=== PATIENT | male | born 1950 | race Caucasian/White ===

== ENCOUNTER → 2016-11-30 | Outpatient (CLI) | payer MEDICARE ==
[~2016-11-30] MED LIST: REGADENOSON 0.4 MG/5 ML SYRINGE IV ONE
[2016-11-30 10:19] LABS: Basophils % (A) 0 %; CH 31.9; CHCM 33.6; Eosinophils # (A) 0.1 k/uL (0-0.7); Eosinophils % (A) 2 %; HCT 46.2 % (39.0-53.0); HDW 2.62; HGB 15.3 gm/dL (13.0-17.5); Luc # (Auto) 0.14; Luc % (Auto) 2; Lymphocytes # (A) 1.2 k/uL (1.0-4.8); Lymphocytes % (A) 20 %; MCH 31.6 pg (25.0-35.0); MCHC 33.2 g/dL (31.0-37.0); MCV 95.3 fL (80.0-100.0); Mean Platelet Volume 7.8; Monocytes # (A) 0.3 k/uL (0-1.0); Monocytes % (A) 5 %; Neutrophils # (A) 4.5 k/uL (1.3-7.7); Neutrophils % (A) 71 %; RBC 4.85 m/uL (4.30-5.90); WBC 6.3 k/uL (3.8-10.6); WBC (Perox) 6.18
[2016-11-30 11:06] LABS: ALT 44 U/L (21-72); AST 51 U/L (17-59); Alkaline Phosphatase 64 U/L (38-126); Anion Gap 13 mmol/L; Blood Urea Nitrogen 19 mg/dL (9-20); Calcium 9.5 mg/dL (8.4-10.2); Carbon Dioxide 24 mmol/L (22-30); Chloride 105 mmol/L (98-107); Cholesterol 150 mg/dL (<200); Glucose 253 mg/dL (74-99); HDL Cholesterol 54 mg/dL (40-60); Non-African American GFR(MDRD) >60 (>60 ml/min/1.73 sqM); Potassium 3.9 mmol/L (3.5-5.1); Sodium 142 mmol/L (137-145); Total Bilirubin 0.8 mg/dL (0.2-1.3); Total Protein 7.3 g/dL (6.3-8.2); Triglycerides 253 mg/dL (<150)
[2016-11-30 11:24] LABS: Hemoglobin A1C 8.2 % (4.2-6.1)
[2016-11-30 11:36] LABS: Prostate Specific Antigen 0.57 ng/mL (0.00-4.00)
--- NOTE | 2016-11-30 12:22 | ECHOF ---
Referral Reason:I25.10 Cad MEASUREMENTS -------- HEIGHT: 182.9 cm WEIGHT: 116.1 kg BP: RVIDd: 2.8 cm (< 3.3) IVSd: 0.9 cm (0.6 - 1.1) LVIDd: 6.2 cm (3.9 - 5.3) LVPWd: 1.6 cm (0.6 - 1.1) IVSs: 0.9 cm LVIDs: 6.1 cm LVPWs: 1.4 cm LA Diam: 3.9 cm (2.7 - 3.8) Ao Diam: 3.8 cm (2.0 - 3.7) AV Cusp: 2.1 cm (1.5 - 2.6) LA Diam: 4.6 cm (2.7 - 3.8) MV E Christopher: 0.34 m/s MV DecT: 181 ms MV A Christopher: 0.86 m/s MV E/A Ratio: 0.39 RAP: 5.00 mmHg RVSP: 9.23 mmHg FINDINGS -------- Sinus rhythm. Morbid Obesity This was a techncally difficult study with suboptimal views, , Definity utilized for enhancement of images. The left ventricle is moderately dilated. Left ventricular wall thickness is normal. There is severe global hypokinesis of LV . Overall left ventricular systolic function is severely impaired with, an EF between 25 - 30 %. The diastolic filling pattern is normal for the age of the patient 8.09. The right ventricle is normal in size. The left atrium is moderately dilated. The right atrial size is normal. 1.5MG OF DEFINITY UTLIZED: 2 OR MORE WALL SEGMENTS NOT VISUALIZED. There is mild aortic valve sclerosis. There is no evidence of aortic regurgitation. Mild mitral annular calcification present. Mild mitral regurgitation is present. Mild tricuspid regurgitation present. There is no evidence of pulmonary hypertension. The right ventricular systolic pressure, as measured by Doppler, is 9.23mmHg. The pulmonic valve was not well visualized. There is no pericardial effusion. CONCLUSIONS -------- 1. Morbid Obesity 2. There is mild aortic valve sclerosis. 3. Mild mitral annular calcification present. 4. Mild mitral regurgitation is present. 5. Mild tricuspid regurgitation present. 6. There is no evidence of pulmonary hypertension. 7. The right ventricular systolic pressure, as measured by Doppler, is 9.23mmHg. 8. The pulmonic valve was not well visualized. 9. This was a techncally difficult study with suboptimal views, , Definity utilized for enhancement of images. 10. The left ventricle is moderately dilated. 11. Left ventricular wall thickness is normal. 12. There is severe global hypokinesis of LV . 13. Overall left ventricular systolic function is severely impaired with, an EF between 25 - 30 %. 14. The diastolic filling pattern is normal for the age of the patient 8.09 15. The left atrium is moderately dilated. 16. 1.5MG OF DEFINITY UTLIZED: 2 OR MORE WALL SEGMENTS NOT VISUALIZED. DIRECTOR OF MARKETING ANALYTICS: Brandy Nunez RDCS
--- NOTE | 2016-11-30 12:30 | XR ---
EXAMINATION TYPE: XR chest 2V DATE OF EXAM: 11/30/2016 9:59 AM COMPARISON: Prior chest x-ray 24 December 2012 HISTORY: Coronary artery disease, chest pain TECHNIQUE: Frontal and lateral views of the chest are obtained. FINDINGS: There is no focal air space opacity, pleural effusion, or pneumothorax seen. The cardiac silhouette size is within normal limits. The osseous structures are intact. IMPRESSION: No acute cardiopulmonary process.
--- NOTE | 2016-11-30 12:32 | EST ---
DATE OF SERVICE: 11/30/2016 AGE: 66Y SEX: M HT: 72" WT: 256 lbs. Protocol Fuad: Other: Stage: Dur. of Exercise: *Heart Rate Blood Pressure *Rest: 87 Rest: 135/72 * *Max. Achieved: 101 Maximum BP: 131/69 85% PMHR: 100% PMHR: *METS: INDICATIONS: MEDICATIONS: See chart. Lexiscan nuclear study was performed. Peak heart rate of 101 was achieved. Maximum blood pressure of 135/72 millimeters mercury was noted. Resting EKG shows normal sinus rhythm with a QRS morphology showing evidence of intraventricular conduction delay. No ST segment changes from the baseline was noted. The results of the nuclear study will follow.
--- NOTE | 2016-11-30 14:35 | NM ---
EXAMINATION TYPE: NM stress lexiscan cardiolite DATE OF EXAM: 11/30/2016 12:36 PM COMPARISON: Chest x-ray same day HISTORY: Coronary artery disease TECHNIQUE: After the intravenous administration of 10.4 mCi Tc 99m Sestamibi - Cardiolite resting SP ECT images acquired 59 minutes post injection. The patient received 0.4mg Lexiscan, 26.5 mCi Tc 99m Sestamibi - Stress images obtained [address] injection FINDINGS: Decreased radiopharmaceutical uptake is present on both stress and rest imaging along the anterior wa ll of the left ventricle, inferior wall, extending into the lateral and septal regions. Gated analysi s shows diffuse decreased wall motion with an estimated left ventricular ejection fraction of 22 %. IMPRESSION: Abnormal low cardiac ejection fraction, evidence of previous infarctions involving the a nterior and inferior hendricks of the left ventricle No scintigraphic evidence for reversible ischemia.
== END | disposition home or self-care (01) ==
LOC: RADNMMAIN 09:16
PROVIDERS: ATTEND Family Medicine
DX: I25.10 Atherosclerotic heart disease of native coronary artery without angina pectoris (principal); J44.0 Chronic obstructive pulmonary disease with (acute) lower respiratory infection; E11.9 Type 2 diabetes mellitus without complications
CPT/HCPCS: 93017; 84439; 84153; 83880; 80061; 80053; 83036; 84443; 84484; 85025; 71020; 36415; 78452; C8929; A9500; Q9957; J2785; 93306

== ENCOUNTER → 2016-12-28 | Outpatient (CLI) | payer MEDICARE ==
--- NOTE | 2016-12-29 13:11 | NM ---
EXAMINATION TYPE: NM rest muga cardiac DATE OF EXAM: 12/28/2016 2:57 PM COMPARISON: Myocardial SPECT November HISTORY: Dilated ischemic cardiomyopathy Following administration of 3ml PYP 27.3 mCi Tc 99m Sodium Pertechnete. Images 10 minutes post inject ion. Gated equilibrium images were acquired in the anterior and left anterior oblique (BRAZILIAN) projections. Computer estimated left ventricular ejection fraction (LVEF) was calculated from the total counts in the end-systolic and end-diastolic left ventricular regions with background correction. FINDINGS: Morphology of the left ventricle is grossly normal with left ventricular ejection fraction calculated at 29% (Normal 50-80%). There is no focal wall motion abnormality. Left ventricle is dilated. IMPRESSION: Abnormal low cardiac ejection fraction. Findings compatible with patient's history of dilated ischemi c cardiomyopathy
== END ==
LOC: RADNMMAIN 12:51
PROVIDERS: ATTEND Internal Medicine Cardiovascular Disease
DX: I25.5 Ischemic cardiomyopathy (principal); I25.10 Atherosclerotic heart disease of native coronary artery without angina pectoris
CPT/HCPCS: 78472; A9560

== ENCOUNTER → 2017-01-21 | Outpatient (CLI) | payer MEDICARE ==
--- NOTE | 2017-01-21 19:37 | CT ---
EXAMINATION TYPE: CT angio abdomen pelvis DATE OF EXAM: 01/21/2017 7:03 PM COMPARISON: 01/07/2016 HISTORY: iliac artery anerysum CT DLP: 2690.9 mGycm Automated exposure control for dose reduction was used. TECHNIQUE: Performed with IV Contrast, patient injected with 80 mL of Visipaque 320. There are 3-D post processed images.. FINDINGS: The abdominal aorta has normal diameter. There is no evidence of aneurysm. There is mild atheromatous change in the abdominal aorta. There is mild subsegmental atelectasis at the lung bases. There is no pleural effusion. There is no adrenal mass. There is normal contrast opacification of the kidneys spleen liver. There a re clips from cholecystectomy. Bile ducts are not dilated. There is patency of the superior mesenteric artery and the celiac artery. There is bilateral patency of the renal arteries. I see no sign of hemodynamically significant stenosis. There is 1.8 cm aneurys m of the proximal right common iliac artery. There is patency of the internal and external iliac suzanne clinton. Bladder distends smoothly. There is no evidence of a pelvic mass. There is bilateral patency of the femoral arteries. IMPRESSION: THERE IS A MILD FUSIFORM 1.8 CM ANEURYSM OF THE RIGHT COMMON ILIAC ARTERY THAT IS NOT CHANGED COMPARE D TO OLD EXAM. MILD ATHEROSCLEROTIC VASCULAR DISEASE.
== END | disposition home or self-care (01) ==
LOC: RADCTMAIN 17:41
PROVIDERS: ATTEND Thoracic Surgery (Cardiothoracic Vascular Surgery)
DX: I72.3 Aneurysm of iliac artery (principal); I25.10 Atherosclerotic heart disease of native coronary artery without angina pectoris
CPT/HCPCS: 82565; 84520; 36415; 74174; Q9967

== ENCOUNTER → 2017-01-29 | Outpatient (CLI) | payer MEDICARE ==
[2017-01-29 12:58] LABS: Calcium 9.8 mg/dL (8.4-10.2); Potassium 4.2 mmol/L (3.5-5.1)
== END | disposition home or self-care (01) ==
LOC: LABWHC1 12:13
PROVIDERS: ATTEND Internal Medicine Cardiovascular Disease
DX: I25.10 Atherosclerotic heart disease of native coronary artery without angina pectoris (principal)
CPT/HCPCS: 36415; 80048

== ENCOUNTER → 2017-04-21 | Outpatient (CLI) | payer MEDICARE ==
[2017-04-21 11:20] LABS: Anion Gap 13 mmol/L; Blood Urea Nitrogen 21 mg/dL (9-20); Calcium 9.4 mg/dL (8.4-10.2); Carbon Dioxide 22 mmol/L (22-30); Chloride 104 mmol/L (98-107); Glucose 320 mg/dL (74-99); Magnesium 1.9 mg/dL (1.6-2.3); Non-African American GFR(MDRD) 55 (>60 ml/min/1.73 sqM); Phosphorous 3.3 mg/dL (2.5-4.5); Potassium 4.3 mmol/L (3.5-5.1); Sodium 139 mmol/L (137-145)
== END | disposition home or self-care (01) ==
LOC: LABWHC1 10:37
PROVIDERS: ATTEND Internal Medicine Cardiovascular Disease
DX: I25.5 Ischemic cardiomyopathy (principal)
CPT/HCPCS: 36415; 80069; 83735

== ENCOUNTER 2017-05-22 10:03 | Emergency (ER) | payer MEDICARE ==
[2017-05-22 10:13] VITALS: RESP 18
--- NOTE | 2017-05-22 10:37 | ED ---
General Adult HPI - General Chief complaint: Chest Pain Stated complaint: chest pain radiating to back Time Seen by Provider: 05/22/17 10:15 Source: patient, RN notes reviewed, old records reviewed Mode of arrival: wheelchair Limitations: no limitations - History of Present Illness Initial comments: This is a 59-year-old male here with epigastric abdominal pain chest pain. Patient has fullness and pressure in his anterior abdomen. Patient has history of CAD heart failure diabetes high cholesterol hypertension. Patient states symptoms started just prior to arrival. No nausea normal bowel movements. No fevers. No cough or congestion. No significant shortness of breath. No modifying factors for symptoms. Patient was able to eat today without difficulty - Related Data Home Medications Medication Instructions Recorded Confirmed Albuterol Inhaler [Ventolin Hfa 1 - 2 puff INHALATION RT-QID PRN 05/22/17 Inhaler] Aspirin EC [Ecotrin Low Dose] 81 mg PO HS 05/22/17 05/22/17 Atorvastatin [Lipitor] 40 mg PO HS 05/22/17 05/22/17 Budesonide [Pulmicort] 0.5 mg INHALATION RT-BID 05/22/17 05/22/17 Cholecalciferol [Vitamin D3] 5,000 unit PO DAILY 05/22/17 05/22/17 Clindamycin Topical Soln 1 applic TOPICAL BID PRN 05/22/17 05/22/17 [Cleocin-T Topical Soln] Clopidogrel [Plavix] 75 mg PO QAM 05/22/17 05/22/17 Doxazosin [Cardura] 4 mg PO HS 05/22/17 05/22/17 Famotidine [Pepcid] 40 mg PO QAM 05/22/17 05/22/17 Fenofibrate [Lofibra] 160 mg PO HS 05/22/17 05/22/17 Fluticasone/Salmeterol [Advair 1 puff INHALATION RT-BID 05/22/17 05/22/17 500-50 Diskus] Formoterol Fumarate [Perforomist] 20 mcg INHALATION RT-BID 05/22/17 05/22/17 Furosemide [Lasix] 40 mg PO QAM 05/22/17 05/22/17 Insulin Aspart [NovoLOG Flexpen] See Protocol SQ ACHS 05/22/17 05/22/17 Insulin Glargine,Hum.rec.anlog 40 unit SQ QAM 05/22/17 05/22/17 [Lantus Solostar] Ipratropium-Albuterol Nebulize 3 ml INHALATION RT-QID 05/22/17 05/22/17 [Duoneb 0.5 mg-3 mg/3 ml Soln] Isosorbide Mononitrate ER [Imdur] 60 mg PO QAM 05/22/17 05/22/17 Isosorbide Mononitrate ER [Imdur] 120 mg PO 05/22/17 05/22/17 Krill Oil 500 mg PO QAM 05/22/17 05/22/17 Lisinopril [Zestril] 2.5 mg PO QAM 05/22/17 05/22/17 Loratadine [Claritin] 10 mg PO QAM 05/22/17 05/22/17 Metolazone [Zaroxolyn] 2.5 mg PO QAM 05/22/17 05/22/17 Metoprolol Succinate (ER) [Toprol 50 mg PO 05/22/17 05/22/17 Xl] Metoprolol Succinate [Toprol XL] 25 mg PO QAM 05/22/17 05/22/17 Montelukast [Singulair] 10 mg PO 05/22/17 05/22/17 Multivitamins, Thera [Multivitamin 1 tab PO 05/22/17 05/22/17 (formulary)] Nitroglycerin Sl Tabs [Nitrostat] 0.4 mg SUBLINGUAL Q5M PRN 05/22/17 05/22/17 Omalizumab [Xolair] 300 mg SQ Q14D 05/22/17 05/22/17 Omeprazole 40 mg PO 05/22/17 05/22/17 Potassium Chloride ER [K-Dur 20] 20 meq PO QAM 05/22/17 05/22/17 Ranolazine [Ranexa] 500 mg PO BID 05/22/17 05/22/17 traMADol HCL [Ultram] 50 mg PO QAM 05/22/17 05/22/17 traMADol HCL [Ultram] 100 mg PO 05/22/17 05/22/17 Allergies Allergy/AdvReac Type Severity Reaction Status Date / Time carvedilol [From Coreg] Allergy Rash/Hives Verified 05/22/17 11:51 metformin AdvReac Diarrhea Verified 05/22/17 11:51 Review of Systems ROS Statement: Those systems with pertinent positive or pertinent negative responses have been documented in the HPI. ROS Other: All systems not noted in ROS Statement are negative. Past Medical History Past Medical History: Coronary Artery Disease (CAD), Heart Failure, COPD, Diabetes Mellitus, Hyperlipidemia, Myocardial Infarction ([place]) Additional Past Medical History / Comment(s): defibrilator bph History of Any Multi-Drug Resistant Organisms: None Reported Past Surgical History: Cholecystectomy, Heart Catheterization With Stent Past Psychological History: No Psychological Hx Reported Smoking Status: Former smoker Past Alcohol Use History: Rare Past Drug Use History: None Reported General Exam Limitations: no limitations General appearance: alert, in no apparent distress Head exam: Present: atraumatic, normocephalic, normal inspection Eye exam: Present: normal appearance, PERRL, EOMI. Absent: scleral icterus, conjunctival injection, periorbital swelling ENT exam: Present: normal exam, mucous membranes moist Neck exam: Present: normal inspection. Absent: tenderness, meningismus, lymphadenopathy Respiratory exam: Present: normal lung sounds bilaterally. Absent: respiratory distress, wheezes, rales, rhonchi, stridor Cardiovascular Exam: Present: regular rate, normal rhythm, normal heart sounds. Absent: systolic murmur, diastolic murmur, rubs, gallop, clicks GI/Abdominal exam: Present: soft, normal bowel sounds. Absent: distended, tenderness, guarding, rebound, rigid Extremities exam: Present: normal inspection, full ROM, normal capillary refill. Absent: tenderness, pedal edema, joint swelling, calf tenderness Back exam: Present: normal inspection Neurological exam: Present: alert, oriented X3, CN II-XII intact Psychiatric exam: Present: normal affect, normal mood Skin exam: Present: warm, dry, intact, normal color. Absent: rash Course Vital Signs 05/22/17 05/22/17 10:10 11:30 Temperature 98.4 F Pulse Rate 76 70 Respiratory 18 18 Rate Blood Pressure 133/71 103/64 O2 Sat by Pulse 98 97 Oximetry EKG Findings - EKG Comments: EKG Findings:: EKG shows paced rhythm rate of 76, MN 134, QRS 04, QTC 445 Medical Decision Making - Medical Decision Making 6 emailed ER for evaluation of nonspecific abdominal discomfort and bloating. Patient would not stay in hospital for further evaluation, troponin negative 2 , CT chest and pelvis negative. Patient was discharged - Lab Data Result diagrams: 05/22/17 10:21 05/22/17 10:21 Lab Results 05/22/17 05/22/17 05/22/17 Range/Units 10:21 10:21 10:21 WBC 10.2 (3.8-10.6) k/uL RBC 4.31 (4.30-5.90) m/uL Hgb 14.6 (13.0-17.5) gm/dL Hct 42.7 (39.0-53.0) % MCV 98.9 (80.0-100.0) fL MCH 33.8 (25.0-35.0) pg MCHC 34.1 (31.0-37.0) g/dL RDW 13.1 (11.5-15.5) % Plt Count 179 (150-450) k/uL Neutrophils % 82 % Lymphocytes % 9 % Monocytes % 7 % Eosinophils % 1 % Basophils % 1 % Neutrophils # 8.3 H (1.3-7.7) k/uL Lymphocytes # 1.0 (1.0-4.8) k/uL Monocytes # 0.7 (0-1.0) k/uL Eosinophils # 0.1 (0-0.7) k/uL Basophils # 0.1 (0-0.2) k/uL PT (9.0-12.0) sec INR (<1.2) APTT (22.0-30.0) sec D-Dimer (<0.60) mg/L FEU Sodium 137 (137-145) mmol/L Potassium 4.6 (3.5-5.1) mmol/L Chloride 103 (98-107) mmol/L Carbon Dioxide 24 (22-30) mmol/L Anion Gap 10 mmol/L BUN 30 H (9-20) mg/dL Creatinine 1.24 (0.66-1.25) mg/dL Est GFR (MDRD) Af Amer >60 (>60 ml/min/1.73 sqM) Est GFR (MDRD) Non-Af 58 (>60 ml/min/1.73 sqM) Glucose 237 H (74-99) mg/dL Plasma Lactic Acid José Antonio (0.7-2.0) mmol/L Calcium 9.0 (8.4-10.2) mg/dL Magnesium 1.9 (1.6-2.3) mg/dL Total Bilirubin 0.6 (0.2-1.3) mg/dL AST 27 (17-59) U/L ALT 38 (21-72) U/L Alkaline Phosphatase 50 (38-126) U/L Total Creatine Kinase 81 (55-170) U/L CK-MB (CK-2) 1.3 (0.0-2.4) ng/mL CK-MB (CK-2) Rel Index 1.6 Troponin I <0.012 (0.000-0.034) ng/mL Total Protein 6.4 (6.3-8.2) g/dL Albumin 3.5 (3.5-5.0) g/dL Lipase 217 (23-300) U/L 05/22/17 05/22/17 05/22/17 Range/Units 10:21 10:21 10:55 WBC (3.8-10.6) k/uL RBC (4.30-5.90) m/uL Hgb (13.0-17.5) gm/dL Hct (39.0-53.0) % MCV (80.0-100.0) fL MCH (25.0-35.0) pg MCHC (31.0-37.0) g/dL RDW (11.5-15.5) % Plt Count (150-450) k/uL Neutrophils % % Lymphocytes % % Monocytes % % Eosinophils % % Basophils % % Neutrophils # (1.3-7.7) k/uL Lymphocytes # (1.0-4.8) k/uL Monocytes # (0-1.0) k/uL Eosinophils # (0-0.7) k/uL Basophils # (0-0.2) k/uL PT 10.9 (9.0-12.0) sec INR 1.1 (<1.2) APTT 20.1 L (22.0-30.0) sec D-Dimer 0.39 (<0.60) mg/L FEU Sodium (137-145) mmol/L Potassium (3.5-5.1) mmol/L Chloride (98-107) mmol/L Carbon Dioxide (22-30) mmol/L Anion Gap mmol/L BUN (9-20) mg/dL Creatinine (0.66-1.25) mg/dL Est GFR (MDRD) Af Amer (>60 ml/min/1.73 sqM) Est GFR (MDRD) Non-Af (>60 ml/min/1.73 sqM) Glucose (74-99) mg/dL Plasma Lactic Acid José Antonio 1.9 (0.7-2.0) mmol/L Calcium (8.4-10.2) mg/dL Magnesium (1.6-2.3) mg/dL Total Bilirubin (0.2-1.3) mg/dL AST (17-59) U/L ALT (21-72) U/L Alkaline Phosphatase (38-126) U/L Total Creatine Kinase (55-170) U/L CK-MB (CK-2) (0.0-2.4) ng/mL CK-MB (CK-2) Rel Index Troponin I (0.000-0.034) ng/mL Total Protein (6.3-8.2) g/dL Albumin (3.5-5.0) g/dL Lipase (23-300) U/L 05/22/17 Range/Units 13:41 WBC (3.8-10.6) k/uL RBC (4.30-5.90) m/uL Hgb (13.0-17.5) gm/dL Hct (39.0-53.0) % MCV (80.0-100.0) fL MCH (25.0-35.0) pg MCHC (31.0-37.0) g/dL RDW (11.5-15.5) % Plt Count (150-450) k/uL Neutrophils % % Lymphocytes % % Monocytes % % Eosinophils % % Basophils % % Neutrophils # (1.3-7.7) k/uL Lymphocytes # (1.0-4.8) k/uL Monocytes # (0-1.0) k/uL Eosinophils # (0-0.7) k/uL Basophils # (0-0.2) k/uL PT (9.0-12.0) sec INR (<1.2) APTT (22.0-30.0) sec D-Dimer (<0.60) mg/L FEU Sodium (137-145) mmol/L Potassium (3.5-5.1) mmol/L Chloride (98-107) mmol/L Carbon Dioxide (22-30) mmol/L Anion Gap mmol/L BUN (9-20) mg/dL Creatinine (0.66-1.25) mg/dL Est GFR (MDRD) Af Amer (>60 ml/min/1.73 sqM) Est GFR (MDRD) Non-Af (>60 ml/min/1.73 sqM) Glucose (74-99) mg/dL Plasma Lactic Acid José Antonio (0.7-2.0) mmol/L Calcium (8.4-10.2) mg/dL Magnesium (1.6-2.3) mg/dL Total Bilirubin (0.2-1.3) mg/dL AST (17-59) U/L ALT (21-72) U/L Alkaline Phosphatase (38-126) U/L Total Creatine Kinase (55-170) U/L CK-MB (CK-2) (0.0-2.4) ng/mL CK-MB (CK-2) Rel Index Troponin I <0.012 (0.000-0.034) ng/mL Total Protein (6.3-8.2) g/dL Albumin (3.5-5.0) g/dL Lipase (23-300) U/L - Radiology Data Radiology results: report reviewed (CT [place] chest, CT abdomen and pelvis as well as chest x-ray negative for injury or acute disease), image reviewed Disposition Clinical Impression: Chest pain Disposition: HOME SELF-CARE Condition: Good Instructions: Chest Pain (ED) Referrals: Noe Bean DO [Primary Care Provider] - 1-2 days
[2017-05-22 10:38] LABS: Basophils # (A) 0.1 k/uL (0-0.2); Basophils % (A) 1 %; CH 33.6; CHCM 34.1; Eosinophils # (A) 0.1 k/uL (0-0.7); Eosinophils % (A) 1 %; HCT 42.7 % (39.0-53.0); HDW 2.27; HGB 14.6 gm/dL (13.0-17.5); Luc # (Auto) 0.18; Luc % (Auto) 2; Lymphocytes % (A) 9 %; MCH 33.8 pg (25.0-35.0); MCHC 34.1 g/dL (31.0-37.0); MCV 98.9 fL (80.0-100.0); Mean Platelet Volume 7.5; Monocytes # (A) 0.7 k/uL (0-1.0); Monocytes % (A) 7 %; Neutrophils # (A) 8.3 k/uL (1.3-7.7); Neutrophils % (A) 82 %; RBC 4.31 m/uL (4.30-5.90); RDW 13.1 % (11.5-15.5); WBC 10.2 k/uL (3.8-10.6); WBC (Perox) 10.66
[2017-05-22] MEDS ORDERED: RX INFO: IV CONTRAST WAS GIVEN 1 EACH MISC MISCELLANE PRN (10:38)
--- NOTE | 2017-05-22 10:41 | XR ---
EXAMINATION TYPE: XR chest 2V DATE OF EXAM: 05/22/2017 COMPARISON: 11/30/2016 HISTORY: 67-year-old male with chest pain TECHNIQUE: PA and lateral views FINDINGS: Heart is mildly enlarged. Left anterior chest wall ICD generator with right atrial, right ventricular , and coronary sinus leads. Mild diffuse interstitial prominence has a chronic appearance. Some stran dy areas of atelectasis are present. No consolidation or pleural effusion. IMPRESSION: Mild cardiomegaly. Interstitial changes appear largely chronic. Correlate to exclude mild pulmonary v ascular congestion. No infiltrate or cristhian pulmonary edema.
[2017-05-22 10:47] LABS: INR 1.1 (<1.2); Prothrombin Time 10.9 sec (9.0-12.0)
[2017-05-22 10:48] LABS: ALT 38 U/L (21-72); AST 27 U/L (17-59); Alkaline Phosphatase 50 U/L (38-126); Anion Gap 10 mmol/L; Blood Urea Nitrogen 30 mg/dL (9-20); Carbon Dioxide 24 mmol/L (22-30); Chloride 103 mmol/L (98-107); Glucose 237 mg/dL (74-99); Magnesium 1.9 mg/dL (1.6-2.3); Non-African American GFR(MDRD) 58 (>60 ml/min/1.73 sqM); Potassium 4.6 mmol/L (3.5-5.1); Sodium 137 mmol/L (137-145); Total Bilirubin 0.6 mg/dL (0.2-1.3); Total Protein 6.4 g/dL (6.3-8.2)
[2017-05-22 10:53] LABS: Partial Thromboplastin Time 20.1 sec (22.0-30.0)
[2017-05-22 10:58] LABS: Creatine Kinase 81 U/L (55-170)
[2017-05-22 11:11] LABS: Creatine Kinase MB 1.3 ng/mL (0.0-2.4); Troponin I <0.012 ng/mL (0.000-0.034)
--- NOTE | 2017-05-22 12:13 | CT ---
EXAMINATION TYPE: CT angio chest DATE OF EXAM: 05/22/2017 COMPARISON: 09/28/2014 HISTORY: 67-year-old male with chest pain radiating into back TECHNIQUE: Contiguous axial scanning of the chest performed with IV Contrast, patient injected with 1 00 ml mL of Omnipaque 350. Coronal/sagittal MIP reconstructions performed. CT DLP: 1913.95 mGycm Automated exposure control for dose reduction was used. FINDINGS: The heart is borderline enlarged with trace anterior pericardial thickening/fluid. Coronary vascular calcifications are present in remarkable for coronary artery disease. Ectatic ascending aorta 3.8 cm with bovine configuration to the aortic arch. Left anterior chest wall AICD generator with right atrial, right ventricular, and coronary sinus lead s. A prominent 9 mm right tracheoesophageal lymph node axial image 10 is unchanged. No thoracic adenopat hy by CT size criteria. There is suboptimal opacification of the pulmonary arterial system limiting assessment for pulmonary embolus. No large central or lobar embolus or definite embolus to the segmental level. Evaluation of the lungs shows [id number] diffuse bronchial wall thickening. Scattered emphysema tous cysts. Mild dependent atelectasis. Some strandy atelectasis/scarring in the basilar lower lobes. No consolidation or pleural effusion. Visualized upper abdomen shows cholecystectomy clips. Bones: Mild anterior endplate spondylosis mid to lower thoracic spine. IMPRESSION: 1. SUBOPTIMAL OPACIFICATION OF THE PULMONARY ARTERIAL SYSTEM LIMITING ASSESSMENT FOR PE. NO DEFINITE PULMONARY EMBOLUS TO THE SEGMENTAL LEVEL. 2. BORDERLINE CARDIOMEGALY AND CAD. 3. [id number] DIFFUSE BRONCHIAL WALL THICKENING. CORRELATE FOR BRONCHITIS OR UNCONTROLLED ASTHM A.
--- NOTE | 2017-05-22 12:20 | CT ---
EXAMINATION TYPE: CT abdomen pelvis w con DATE OF EXAM: 05/22/2017 COMPARISON: 01/21/2017 HISTORY: 15-year-old male with chest pain radiating into back TECHNIQUE: Contiguous axial scanning of the abdomen and pelvis following administration of 100 ml Omn ipaque 300 IV contrast. Delayed images through the kidneys and coronal/sagittal reconstructions perf ormed. CT DLP: 549.34 mGycm Automated exposure control for dose reduction was used. FINDINGS: The heart is borderline enlarged with trace anterior pericardial thickening/fluid. Strandy atelectasi s/scarring at the lung bases. Liver is enlarged measuring 23.9 cm craniocaudal. No focal liver lesion seen. Some diminished attenua tion of the liver as compared to the spleen on portal venous phase suggests some degree of fatty infi ltration. Portal venous system is patent cholecystectomy clips are present. No biliary ductal dilatat ion. Adrenal glands, kidneys, spleen, pancreas show no gross abnormality. No dilated small bowel, free fluid, or free air. Scattered nonenlarged mesenteric lymph nodes are not ed. No mesenteric or retroperitoneal. Mild atherosclerotic calcifications within the abdominal aorta and iliac arteries. Stable 2.0 cm aneu rysm of the right common iliac artery, axial image 70. There is mild overall stone burden without pericolonic inflammatory change. Bladder is urine distended. Prostate gland measures 4.6 cm wide. Pelvic phleboliths are demonstrated. No abnormal fluid collection in the pelvis or pelvic lymphadenopathy seen. Bones: Mild degenerative changes of the hips. Degenerative disc disease at L5-S1 with a central disc herniation. No osseous destructive process. IMPRESSION: 1. HEPATOMEGALY (23.9 CM). SUSPECT UNDERLYING FATTY INFILTRATION. 2. STABLE 2.0 CM ANEURYSM OF THE RIGHT COMMON ILIAC ARTERY. 3. NO ACUTE INFLAMMATORY PROCESS IDENTIFIED TO EXPLAIN THE PATIENT'S SYMPTOMS.
[2017-05-22] MEDS ORDERED: ONDANSETRON 4 MG/2 ML VIAL IVP STA (12:33)
[2017-05-22] MEDS ORDERED: MAG HYDROX/AL HYDROX/SIMETH 30 ML, HYOSCYAMINE ELIXIR 10 ML, CIMETIDINE HCL 300 MG PO STA ×3 (12:33)
[2017-05-22] MEDS ORDERED: MORPHINE SULFATE 4 MG/ML SYRINGE IVP STA (12:33)
[2017-05-22 14:45] VITALS: BP 105/59; PULSE 69; TEMP 99
== END 2017-05-22 15:06 | disposition home or self-care (01) ==
LOC: EC 10:03
DX: R07.9 Chest pain, unspecified (principal); R10.13 Epigastric pain; I25.10 Atherosclerotic heart disease of native coronary artery without angina pectoris; I50.9 Heart failure, unspecified; E11.9 Type 2 diabetes mellitus without complications; E78.5 Hyperlipidemia, unspecified; I25.2 Old myocardial infarction; N40.0 Benign prostatic hyperplasia without lower urinary tract symptoms; J44.9 Chronic obstructive pulmonary disease, unspecified; Z87.891 Personal history of nicotine dependence; Z90.49 Acquired absence of other specified parts of digestive tract; Z88.8 Allergy status to other drugs, medicaments and biological substances; Z79.4 Long term (current) use of insulin; Z95.5 Presence of coronary angioplasty implant and graft; Z79.82 Long term (current) use of aspirin; Z79.51 Long term (current) use of inhaled steroids; Z79.02 Long term (current) use of antithrombotics/antiplatelets; Z79.899 Other long term (current) drug therapy
CPT/HCPCS: 36415; 93005; 85379; 80053; 82550; 82553; 83605; 83690; 83735; 84484; 85025; 85610; 85730; 71020; 71275; 74177; 99285; 96374; 96375; J2270; Q9967; J2405

== ENCOUNTER → 2018-01-27 | Outpatient (CLI) | payer MEDICARE ==
--- NOTE | 2018-01-27 16:16 | CT ---
EXAMINATION TYPE: CT abdomen pelvis wo con DATE OF EXAM: 01/27/2018 COMPARISON: NONE INDICATION: No complaints at time of scan. Follow up aneurysm per patient. DLP: 1378.3 mGycm, Automated exposure control for dose reduction was used. CONTRAST: 0 mL of Isovue 370. Study performed without Oral Contrast TECHNIQUE: Axial images were obtained from above the diaphragm to the pubic rami in the axial plane a t 5 mm thick sections. Reconstructed images are reviewed on the computer in the coronal plane. FINDINGS: Limited CT sections are obtained the lung bases. There is a 0.5 cm nodule within the periphery of th e right lung. This may have been out of the [id number] from the previous exam. Left basilar infilt rate which may be compressive atelectasis is present. Coronary artery calcification is present.. CT ABDOMEN: Liver: Normal Spleen: Normal Pancreas: Normal Adrenal glands: The adrenal glands are normal. Gallbladder: Surgically absent Kidneys: No masses are evident. No hydronephrosis is present. No cysts are present. No renal stone s are identified. Aorta: Vascular calcification is within the aorta. Greatest AP diameter is in the mid abdominal aort a with an AP diameter of 2.2 cm. No aneurysmal dilatation is evident. Inferior vena cava: Normal. CT PELVIS: Loops of bowel within the abdomen and pelvis are normal. This study is performed without oral con trast limiting the evaluation. Appendix: Not visualized. No suspicious inflammatory changes are evident. Urinary bladder: Normal. Genitourinary structures: Prostate contains calcification and is mildly prominent. Osseous structures: No suspicious lytic or sclerotic lesions. IMPRESSIONS: 1. No abdominal aortic aneurysm. Very minimal fusiform prominence of the greatest AP diameter of 2.2 cm is observed. 2. 0.5 cm nodular density peripherally right lung.
== END ==
LOC: RADCTMAIN 12:45
PROVIDERS: ATTEND Thoracic Surgery (Cardiothoracic Vascular Surgery)
DX: I72.3 Aneurysm of iliac artery (principal); R91.1 Solitary pulmonary nodule
CPT/HCPCS: 74176

== ENCOUNTER → 2018-02-02 | Outpatient (CLI) | payer MEDICARE ==
[2018-02-02 15:58] LABS: Calcium 9.5 mg/dL (8.4-10.2); Potassium 4.6 mmol/L (3.5-5.1)
== END | disposition home or self-care (01) ==
LOC: LABWHC1 15:18
PROVIDERS: ATTEND Internal Medicine Cardiovascular Disease
DX: I25.10 Atherosclerotic heart disease of native coronary artery without angina pectoris (principal); E78.5 Hyperlipidemia, unspecified
CPT/HCPCS: 36415; 80048; 80061; 82550; 84450; 84460

== ENCOUNTER → 2018-02-28 | Outpatient (CLI) | payer MEDICARE ==
--- NOTE | 2018-02-28 15:00 | CT ---
EXAMINATION TYPE: CT chest wo con DATE OF EXAM: 02/28/2018 COMPARISON: 05/22/2017 HISTORY: Per patient nodule found on prior scan CT DLP: [address] of the chest was performed with lung and mediastinal window settings submitted. The la ck of contrast limits evaluation of the vascular, mediastinal and parenchymal structures including th e upper abdomen. LUNGS: 2 mm nodule superior segment right lower lobe. No additional nodules identified. No evidence f or infiltrate or mass. No pleural effusion. MEDIASTINUM/JEANNIE: Thoracic aorta is of normal caliber with limited evaluation given lack of contrast . The heart is not enlarged. Cardiac valvular prosthesis and pacer device in place. Coronary artery calcifications. No evidence for mediastinal mass. No lymph nodes greater than 1cm. UPPER ABDOMEN: No significant abnormality is seen. OTHER: No significant other abnormality. IMPRESSION: 1. 2 mm nodule superior segment right lower lobe. No additional nodules identified.
== END | disposition home or self-care (01) ==
LOC: RADCTMAIN 14:09
PROVIDERS: ATTEND Internal Medicine Pulmonary Disease
DX: R91.1 Solitary pulmonary nodule (principal)
CPT/HCPCS: 71250

== ENCOUNTER → 2018-05-13 | Outpatient (CLI) | payer MEDICARE ==
--- NOTE | 2018-05-13 12:28 | NM ---
EXAMINATION TYPE: NM stress lexiscan cardiolite DATE OF EXAM: 05/13/2018 COMPARISON: MUGA exam 12/28/2016, cardiac exam 11/30/2016 HISTORY: TECHNIQUE: After the intravenous administration of 9.6 mCi Tc 99m Sestamibi - Cardiolite resting SPE CT images acquired 45 minutes post injection. The patient received 0.4mg Lexiscan, 25.8 mCi Tc 99m Sestamibi - Stress images obtained [address] injection FINDINGS: Review of stress and rest SPECT images demonstrates fixed defects involving the anterior, septum, and inferior hendricks.. Gated analysis shows an estimated left ventricular ejection fraction of 42 %. IMPRESSION: 1. Abnormal wall motion and ejection fraction with predominantly fixed defects involving the anterior , apical, inferior and septal hendricks. Tiny areas of stress-induced reversibility involving the anterio r and apical segment not entirely excluded correlate clinically.
--- NOTE | 2018-05-13 12:38 | ECHOF ---
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 This was a technically difficult study with suboptimal views. The left ventricular size is normal. There is moderate concentric left ventricular hypertrophy. O verall left ventricular systolic function is mild-moderately impaired with, an EF between 40 - 45 %. Apical lateral LV wall motion is hypokinetic. Apical inferior LV wall motion is hypokinetic. Apical septum LV wall motion is hypokinetic. The right ventricle is normal in size. Normal LA size by volume 22+/-6 ml/m2. The right atrium is normal in size. 3 ml of Lumason was utilized for enhancement of images. There is mild aortic valve sclerosis. Mild mitral annular calcification present. Mild tricuspid regurgitation present. Right ventricular systolic pressure is normal at < 35 mmHg. There is no pulmonic regurgitation present. The aortic root is dilated measuring 3.9cm. Normal inferior vena cava with normal inspiratory collapse consistent with estimated right atrial pre ssure of 5 mmHg. There is no pericardial effusion. CONCLUSIONS -------- 1. Sinus rhythm. 2. This was a technically difficult study with suboptimal views. 3. The left ventricular size is normal. 4. There is moderate concentric left ventricular hypertrophy. 5. Overall left ventricular systolic function is mild-moderately impaired with, an EF between 40 - 45 %. 6. Apical lateral LV wall motion is hypokinetic. 7. Apical inferior LV wall motion is hypokinetic. 8. Apical septum LV wall motion is hypokinetic. 9. The right ventricle is normal in size. 10. Normal LA size by volume 22+/-6 ml/m2. 11. The right atrium is normal in size. 12. 3 ml of Lumason was utilized for enhancement of images. 13. There is mild aortic valve sclerosis. 14. Mild mitral annular calcification present. 15. Mild tricuspid regurgitation present. 16. Right ventricular systolic pressure is normal at < 35 mmHg. 17. There is no pulmonic regurgitation present. 18. The aortic root is dilated measuring 3.9cm. 19. Normal inferior vena cava with normal inspiratory collapse consistent with estimated right atrial pressure of 5 mmHg. 20. There is no pericardial effusion. LITHOGRAPHIC GENERAL WORKER: Cari Kirkland RDCS
--- NOTE | 2018-05-13 12:47 | EST ---
EXERCISE STRESS AGE: 68 SEX: M HT: 72" WT: 248 PROTOCOL: Lexiscan Cardiolite Stress Test HEART RATE REST: 80 BLOOD PRESSURE REST: 121/78 MAXIMUM HEART RATE ACHIEVED: 97. MAXIMUM BLOOD PRESSURE: 153/102 85% MPHR: 128 100% MPHR: 151 INDICATIONS: Dilated cardiomyopathy. CLINICAL INFORMATION: Baseline EKG shows sinus rhythm with right bundle branch block. Patient was given intravenous Lexiscan as per protocol. Did not have chest pain or diagnostic ST-segment depression. CONCLUSION: 1. Inconclusive EKG part of the stress test due to baseline EKG abnormalities. 2. Cardiolite portion of the stress test will be reported separately. MMODL / IJN: [id number] /
== END | disposition home or self-care (01) ==
LOC: RADNMMAIN 09:00
PROVIDERS: ATTEND Family Medicine
DX: I35.8 Other nonrheumatic aortic valve disorders (principal); I07.1 Rheumatic tricuspid insufficiency; R94.31 Abnormal electrocardiogram [ECG] [EKG]; R94.39 Abnormal result of other cardiovascular function study
CPT/HCPCS: 93017; 78452; C8929; A9500; J2785; Q9950; 93306

== ENCOUNTER → 2019-03-16 | Outpatient (CLI) | payer MEDICARE ==
[2019-03-17 03:16] LABS: Albumin 4.5 g/dL (3.80-4.90); Albumin/Globulin Ratio 2.14 (1.60-3.17); Anion Gap 14.1 mmol/L (4.00-12.00); Calcium 9.2 mg/dL (8.7-10.3); Carbon Dioxide 20.9 mmol/L (21.6-31.8); Globulin 2.1 g/dL (1.6-3.3); Potassium 3.6 mmol/L (3.5-5.5); Total Bilirubin 0.7 mg/dL (0.3-1.2); Total Protein 6.6 g/dL (6.2-8.2)
== END | disposition home or self-care (01) ==
LOC: LABWHC1 14:58
PROVIDERS: ATTEND Internal Medicine Interventional Cardiology
DX: E78.2 Mixed hyperlipidemia (principal)
CPT/HCPCS: 36415; 80053; 80061

== ENCOUNTER → 2019-07-05 | Outpatient (CLI) | payer MEDICARE ==
--- NOTE | 2019-07-05 14:46 | XR ---
EXAMINATION TYPE: XR chest 2V DATE OF EXAM: 07/05/2019 COMPARISON: 05/22/2017 TECHNIQUE: PA and lateral views submitted. HISTORY: Difficulty breathing FINDINGS: On the lateral view there is increased density at the left lung base. Surgical clips in the abdomen n oted. No pneumothorax. No sizable pleural effusion. Cardiac device seen. Heart size stable. No overt failure. Arthropathy of the shoulders. IMPRESSION: 1. Basilar atelectasis or infiltrate suspected particularly on the lateral view correlate clinically to exclude underlying pneumonia..
== END | disposition home or self-care (01) ==
LOC: RADXRMAIN 14:16
PROVIDERS: ATTEND Family Medicine
DX: J45.909 Unspecified asthma, uncomplicated (principal); I50.40 Unspecified combined systolic (congestive) and diastolic (congestive) heart failure
CPT/HCPCS: 71046

== ENCOUNTER → 2019-07-27 | Outpatient (CLI) | payer MEDICARE ==
--- NOTE | 2019-07-27 14:48 | XR ---
EXAMINATION TYPE: XR chest 2V DATE OF EXAM: 07/27/2019 COMPARISON: 07/05/2019 TECHNIQUE: PA and lateral views submitted. HISTORY: Cough, pneumonia, shortness of breath and fever FINDINGS: Heart size is mildly prominent and there is a stable appearing multilead cardiac device. No pneumotho rax. No overt failure. No consolidation. Degenerative change of the spine. Mild hyperinflation correl ate for COPD. IMPRESSION: 1. No definite acute process.
== END | disposition home or self-care (01) ==
LOC: RADXRMAIN 14:20
PROVIDERS: ATTEND Family Medicine
DX: J18.9 Pneumonia, unspecified organism (principal); I50.40 Unspecified combined systolic (congestive) and diastolic (congestive) heart failure
CPT/HCPCS: 71046

== ENCOUNTER → 2019-11-24 | Outpatient (CLI) | payer MEDICARE ==
[2019-11-24 16:56] LABS: African American GFR (CKD) 58.6 (60.0-200.0); Albumin 4.2 g/dL (3.80-4.90); Albumin/Globulin Ratio 2.1 (1.60-3.17); Anion Gap 9.4 mmol/L (4.00-12.00); BUN/Creat Ratio 7.14 Ratio (12.00-20.00); Calcium 8.9 mg/dL (8.7-10.3); Carbon Dioxide 23.6 mmol/L (21.6-31.8); Chol/HDL Ratio 3.6; LDL Cholesterol,Calculated 42.6 mg/dL (0.0-131.0); Non-African American GFR(CKD) 50.5 (60.0-200.0); Potassium 3.6 mmol/L (3.5-5.5); Total Bilirubin 0.8 mg/dL (0.2-1.2); Total Protein 6.2 g/dL (6.2-8.2); VLDL Calculation 69.4 mg/dL (5.00-40.00)
[2019-11-24 17:22] LABS: Urine Creatinine 461.9 mg/dL
[2019-11-24 17:42] LABS: Hemoglobin A1C 8.6 % (4.0-6.0)
== END | disposition home or self-care (01) ==
LOC: LABWHC1 08:02
PROVIDERS: ATTEND Nurse Practitioner Adult Health
DX: E11.65 Type 2 diabetes mellitus with hyperglycemia (principal); E78.2 Mixed hyperlipidemia; I10 Essential (primary) hypertension; I25.10 Atherosclerotic heart disease of native coronary artery without angina pectoris
CPT/HCPCS: 36415; 80053; 80061; 82043; 82570; 83036; 84443

== ENCOUNTER → 2019-11-24 | Outpatient (CLI) | payer MEDICARE ==
--- NOTE | 2019-11-24 10:18 | CT ---
EXAMINATION TYPE: CT abdomen wo con DATE OF EXAM: 11/24/2019 COMPARISON: 01/27/2018 INDICATION: Nausea and diarrhea DLP: 574 mGycm, Automated exposure control for dose reduction was used. CONTRAST: 0 mL of Isovue 300. Study performed without Oral Contrast TECHNIQUE: Axial images were obtained from above the diaphragm to the pubic rami in the axial plane a t 5 mm thick sections. Reconstructed images are reviewed on the computer in the coronal plane. FINDINGS: Limited CT sections are obtained the lung bases. The lung bases are clear. CT ABDOMEN: Liver: Normal Spleen: Normal Pancreas: Normal Adrenal glands: The adrenal glands are normal. Gallbladder: Normal Kidneys: No masses are evident. No hydronephrosis is present. No cysts are present. Delayed images were obtained through the kidneys, which remain unremarkable. There appears to be some vascular calc ification on the left. Aorta: Vascular calcification is within the aorta. Inferior vena cava: Normal. Loops of bowel within the abdomen are normal. The studies performed without oral contrast limitin g bowel evaluation. IMPRESSIONS: 1. Normal noncontrast CT abdomen
== END | disposition home or self-care (01) ==
LOC: RADCTMAIN 07:52
PROVIDERS: ATTEND Family Medicine
DX: R19.7 Diarrhea, unspecified (principal); R11.0 Nausea; Z88.8 Allergy status to other drugs, medicaments and biological substances
CPT/HCPCS: 74150

== ENCOUNTER → 2021-05-12 | Outpatient (CLI) | payer MEDICARE ==
[2021-05-12 16:22] LABS: African American GFR (CKD) 86.8 (60.0-200.0); Non-African American GFR(CKD) 74.9 (60.0-200.0); Potassium 3.8 mmol/L (3.5-5.5)
== END | disposition home or self-care (01) ==
LOC: LABWHC1 10:17
PROVIDERS: ATTEND Internal Medicine Interventional Cardiology
DX: I25.5 Ischemic cardiomyopathy (principal)
CPT/HCPCS: 36415; 80051; 82565; 84520

== ENCOUNTER → 2023-04-01 | Outpatient (CLI) | payer MEDICARE ==
[2023-04-01 14:37] LABS: African American GFR (CKD) >90 (>60 ml/min/1.73 sqM); Blood Urea Nitrogen 19 mg/dL (9-20); Non-African American GFR(CKD) 79 (>60 ml/min/1.73 sqM)
--- NOTE | 2023-04-01 15:31 | CT ---
EXAMINATION TYPE: CT brain w con DATE OF EXAM: 04/01/2023 COMPARISON: 07/06/2017 HISTORY: headaches CT DLP: 1126.5 mGycm Automated exposure control for dose reduction was used. CONTRAST: CT scan of the head is performed with IV Contrast, patient injected with 100 mL of Isovue 300. FINDINGS: There is no abnormal enhancing mass or midline shift identified. The ventricles and sulci are age ap propriate. The globes are intact and the visualized sinuses are clear. IMPRESSION: No evidence for enhancing mass lesion.
== END | disposition home or self-care (01) ==
LOC: RADCTMAIN 13:30
PROVIDERS: ATTEND Family Medicine
DX: S06.5X0A Traumatic subdural hemorrhage without loss of consciousness, initial encounter (principal); R51.9 Headache, unspecified; X58.XXXA Exposure to other specified factors, initial encounter
CPT/HCPCS: 82565; 84520; 70460; 36415; Q9967

== ENCOUNTER 2023-12-30 10:32 | Inpatient (IN) | payer MEDICARE ==
--- NOTE | 2023-12-30 11:07 | ED ---
General Adult HPI - General Chief complaint: Shortness of Breath Stated complaint: Dizzy/weakness Time Seen by Provider: 12/30/23 10:52 Source: patient, family, RN notes reviewed Mode of arrival: ambulatory Limitations: no limitations - History of Present Illness Initial comments: 73-year-old male presents emergency department chief complaint of shortness of breath. Patient states he has had increasing shortness of breath over the last couple weeks. Patient states he has gained 13 pounds. Patient states he had significant leg swelling but he has been taking more Lasix and states his legs improved since the size abdominal swelling, shortness of breath. Patient does have a strong cardiac history including congestive heart failure, pacemaker. P atient denies any fevers or chills he states he has COPD he has been trying some breathing treatments. Patient denies any chest pain currently but states he has angina frequently. - Related Data Home Medications Medication Instructions Recorded Confirmed Albuterol Inhaler [Ventolin Hfa 1 - 2 puff INHALATION RT-QID PRN 05/22/17 12/30/23 Inhaler] Aspirin EC [Ecotrin Low Dose] 81 mg PO HS 05/22/17 12/30/23 Atorvastatin [Lipitor] 40 mg PO HS 05/22/17 12/30/23 Budesonide [Pulmicort] 0.5 mg INHALATION RT-BID 05/22/17 12/30/23 Clindamycin Topical Soln 1 applic TOPICAL BID PRN 05/22/17 12/30/23 [Cleocin-T Topical Soln] Formoterol Fumarate [Perforomist] 20 mcg INHALATION RT-BID 05/22/17 07/06/17 Furosemide [Lasix] 40 mg PO DAILY PRN 05/22/17 12/30/23 Insulin Glargine,Hum.rec.anlog 50 unit SQ DIRECTED 05/22/17 07/06/17 [Lantus Solostar] Ipratropium-Albuterol Nebulize 3 ml INHALATION RT-QID 05/22/17 12/30/23 [Duoneb 0.5 mg-3 mg/3 ml Soln] Loratadine [Claritin] 10 mg PO DAILY 05/22/17 12/30/23 Montelukast [Singulair] 10 mg PO HS 05/22/17 12/30/23 Nitroglycerin Sl Tabs [Nitrostat] 0.4 mg SUBLINGUAL Q5M PRN 05/22/17 12/30/23 Potassium Chloride ER [K-Dur 20] 20 meq PO DIRECTED PRN 05/22/17 12/30/23 traMADol HCL [Ultram] 50 mg PO BID PRN 05/22/17 12/30/23 Bisoprolol Fumarate 5 mg PO DAILY 12/30/23 12/30/23 Cholecalciferol [Vitamin D3 (125 125 mcg PO DAILY 12/30/23 12/30/23 Mcg = 5000 Iu)] Dapagliflozin Propanediol [Farxiga] 10 mg PO DAILY 12/30/23 12/30/23 Fluticasone/Umeclidin/Vilanter 1 puff INHALATION RT-DAILY 12/30/23 12/30/23 [Trelegy Ellipta 200-62.5-25] Insulin Aspart (Niacinamide) 2 units SQ DIRECTED 12/30/23 [Fiasp 100 Unit/ml Flextouch Pen] Insulin Aspart (Niacinamide) 15 units SQ DIRECTED 12/30/23 [Fiasp 100 Unit/ml Flextouch Pen] Insulin Glargine,Hum.rec.anlog 10 units SQ DIRECTED PRN 12/30/23 [Lantus Solostar Pen] Ketoconazole 2% Cream [Nizoral 2%] 1 applic TOPICAL BID PRN 12/30/23 12/30/23 Midodrine [ProAmatine] 5 mg PO TID 12/30/23 12/30/23 Omeprazole 20 mg PO BID 12/30/23 12/30/23 Sacubitril/Valsartan [Entresto 24 1 tab PO BID 12/30/23 12/30/23 mg-26 mg Tablet] Spironolactone [Aldactone] 25 mg PO DIRECTED 12/30/23 Tamsulosin [Flomax] 0.4 mg PO BID 12/30/23 12/30/23 guaiFENesin [Mucinex] 1,200 mg PO BID PRN 12/30/23 12/30/23 predniSONE See Taper PO DIRECTED 12/30/23 12/30/23 predniSONE See Taper PO DIRECTED PRN 12/30/23 12/30/23 Allergies Allergy/AdvReac Type Severity Reaction Status Date / Time carvedilol [From Coreg] Allergy Rash/Hives Verified 12/30/23 13:05 metformin AdvReac Diarrhea Verified 12/30/23 13:05 Review of Systems ROS Statement: Those systems with pertinent positive or pertinent negative responses have been documented in the HPI. ROS Other: All systems not noted in ROS Statement are negative. Past Medical History Past Medical History: Coronary Artery Disease (CAD), Heart Failure, COPD, Diabetes Mellitus, Hyperlipidemia, Myocardial Infarction ([place]) Additional Past Medical History / Comment(s): defibrilator bph History of Any Multi-Drug Resistant Organisms: None Reported Past Surgical History: Cholecystectomy, Heart Catheterization With Stent Past Psychological History: No Psychological Hx Reported Past Alcohol Use History: Rare Past Drug Use History: None Reported General Exam Limitations: no limitations General appearance: alert, in no apparent distress Head exam: Present: atraumatic, normocephalic, normal inspection Eye exam: Present: normal appearance, PERRL, EOMI. Absent: scleral icterus, conjunctival injection, periorbital swelling ENT exam: Present: normal exam, normal oropharynx, mucous membranes moist Neck exam: Present: normal inspection, full ROM. Absent: tenderness, meningismus, lymphadenopathy Respiratory exam: Present: normal lung sounds bilaterally. Absent: respiratory distress, wheezes, rales, rhonchi, stridor Cardiovascular Exam: Present: normal rhythm, tachycardia, normal heart sounds. Absent: systolic murmur, diastolic murmur, rubs, gallop, clicks GI/Abdominal exam: Present: soft, tenderness, normal bowel sounds. Absent: distended, guarding, rebound, rigid Neurological exam: Present: alert Skin exam: Present: warm, dry, intact, normal color. Absent: rash Course Vital Signs 12/30/23 12/30/23 12/30/23 10:46 11:54 12:02 Temperature 97.2 F L Pulse Rate 104 H 70 76 Respiratory 20 Rate Blood Pressure 101/71 O2 Sat by Pulse 98 Oximetry EKG Findings - EKG Comments: EKG Findings:: EKG performed at 11: 00 at 106 QRS 99 QRS 157 QT/QTc 426/488 - EKG Results: EKG: interpreted by TRI Medical Decision Making - Medical Decision Making Was pt. sent in by a medical professional or institution (, PA, LIGHT CLEANER, urgent care, hospital, or care home...) When possible be specific @ -No Did you speak to anyone other than the patient for history (EMS, parent, family, police, friend...)? What history was obtained from this source @ -No Did you review nursing and triage notes (agree or disagree)? Why? @ -I reviewed and agree with nursing and triage notes Were old charts reviewed (outside hosp., previous admission, EMS record, old EKG, old radiological studies, urgent care reports/EKG's, care home records)? Report findings @ -Prior laboratory studies, imaging and medications Differential Diagnosis (chest pain, altered mental status, abdominal pain women, abdominal pain men, vaginal bleeding, weakness, fever, dyspnea, syncope, headache, dizziness, GI bleed, back pain, seizure, CVA, palpatations, mental health, musculoskeletal)? @ -Differential Dyspnea: Coronary syndrome, arrhythmia, tamponade, asthma, COPD, pulmonary embolism, pneumonia, pneumothorax, pulmonary effusion, anaphylaxis, diabetic ketoacidosis, flailed chest, pulmonary contusion, diaphragmatic rupture, anemia, neuromuscular, this is not meant to be an all-inclusive list. EKG interpreted by me (3pts min.). @ -As above X-rays interpreted by me (1pt min.). @ -Chest series shows left lower lobe pneumonia CT interpreted by me (1pt min.). @ -None done U/S interpreted by me (1pt. min.). @ -None done What testing was considered but not performed or refused? (CT, X-rays, U/S, labs)? Why? @ -None What meds were considered but not given or refused? Why? @ -None Did you discuss the management of the patient with other professionals (professionals i.e. , PA, LIGHT CLEANER, lab, RT, psych nurse, social science teacher, bit sharpener, teacher, chief investment officer, major case detective)? Give summary @ -[EM for admission for pneumonia, hypoglycemia Was smoking cessation discussed for >3mins.? @ -No Was critical care preformed (if so, how long)? @ -No Were there social determinants of health that impacted care today? How? (Homelessness, low income, unemployed, alcoholism, drug addiction, transportation, low edu. Level, literacy, decrease access to med. care, longterm, rehab)? @ -No Was there de-escalation of care discussed even if they declined (Discuss DNR or withdrawal of care, Hospice)? DNR status @ -No What co-morbidities impacted this encounter? (DM, HTN, Smoking, COPD, CAD, Cancer, CVA, ARF, Chemo, Hep., AIDS, mental health diagnosis, sleep apnea, mor bid obesity)? @ -CHF, diabetes Was patient admitted / discharged? Hospital course, mention meds given and route, prescriptions, significant lab abnormalities, going to OR and other pertinent info. @ -Admitted patient is found to have left lower lobe pneumonia, no significant elevated BNP. Patient had blood cultures drawn, started on IV antibiotics. Patient does have hyperglycemia because did not take his insulin this morning patient was given insulin was not given large amount of fluids secondary to history of CHF. Patient will be admitted for further treatment and management. Undiagnosed new problem with uncertain prognosis? @ -No Drug Therapy requiring intensive monitoring for toxicity (Heparin, Nitro, Insulin, Cardizem)? @ -No Were any procedures done? @ -No Diagnosis/symptom? @ -Pneumonia, hyperglycemia Acute, or Chronic, or Acute on Chronic? @ -Acute Uncomplicated (without systemic symptoms) or Complicated (systemic symptoms)? @ -Complicated Side effects of treatment? @ -No Exacerbation, Progression, or Severe Exacerbation? @ -No Poses a threat to life or bodily function? How? (Chest pain, [place], [place], pneumonia, PE, COPD, DKA, ARF, appy, cholecystitis, CVA, Diverticulitis, Homicidal, Suicidal, threat to staff... and all critical care pts) @ -Yes pneumonia may lead to respiratory failure. - Lab Data Result diagrams: 12/30/23 11:20 12/30/23 11:20 Lab Results 12/30/23 12/30/23 12/30/23 Range/Units 11:20 11:20 11:20 WBC 11.3 H (3.8-10.6) k/uL RBC 4.43 (4.30-5.90) m/uL Hgb 14.2 (13.0-17.5) gm/dL Hct 45.2 (39.0-53.0) % MCV 101.9 H (80.0-100.0) fL MCH 31.9 (25.0-35.0) pg MCHC 31.3 (31.0-37.0) g/dL RDW 14.5 (11.5-15.5) % Plt Count 185 (150-450) k/uL MPV 9.4 Neutrophils % 91 % Lymphocytes % 6 % Monocytes % 3 % Eosinophils % 0 % Basophils % 0 % Neutrophils # 10.3 H (1.3-7.7) k/uL Lymphocytes # 0.6 L (1.0-4.8) k/uL Monocytes # 0.3 (0-1.0) k/uL Eosinophils # 0.0 (0-0.7) k/uL Basophils # 0.0 (0-0.2) k/uL Hypochromasia Slight Macrocytosis Slight PT 11.1 (10.0-12.5) sec INR 1.0 (<1.2) APTT 25.6 (22.0-30.0) sec VBG pH (7.31-7.41) VBG pCO2 (37-51) mmHg VBG HCO3 (24-28) mmol/L Sodium 132 L (137-145) mmol/L Potassium 3.5 (3.5-5.1) mmol/L Chloride 94 L (98-107) mmol/L Carbon Dioxide 19 L (22-30) mmol/L Anion Gap 19 mmol/L BUN 27 H (9-20) mg/dL Creatinine 1.12 (0.66-1.25) mg/dL Est GFR (CKD-EPI)AfAm 75 (>60 ml/min/1.73 sqM) Est GFR (CKD-EPI)NonAf 65 (>60 ml/min/1.73 sqM) Glucose 524 H* (74-99) mg/dL Calcium 8.0 L (8.4-10.2) mg/dL Magnesium 2.0 (1.6-2.3) mg/dL Total Bilirubin 1.8 H (0.2-1.3) mg/dL AST 32 (17-59) U/L ALT 34 (4-49) U/L Alkaline Phosphatase 105 (38-126) U/L Troponin I (0.000-0.034) ng/mL NT-Pro-B Natriuret Pep 2670 pg/mL Total Protein 5.9 L (6.3-8.2) g/dL Albumin 2.8 L (3.5-5.0) g/dL Urine Color Urine Appearance (Clear) Urine pH (5.0-8.0) Ur Specific [place] (1.001-1.035) Urine Protein (Negative) Urine Glucose (UA) (Negative) Urine Ketones (Negative) Urine Blood (Negative) Urine Nitrite (Negative) Urine Bilirubin (Negative) Urine Urobilinogen (<2.0) mg/dL Ur Leukocyte Esterase (Negative) 12/30/23 12/30/23 12/30/23 Range/Units 11:20 13:45 13:45 WBC (3.8-10.6) k/uL RBC (4.30-5.90) m/uL Hgb (13.0-17.5) gm/dL Hct (39.0-53.0) % MCV (80.0-100.0) fL MCH (25.0-35.0) pg MCHC (31.0-37.0) g/dL RDW (11.5-15.5) % Plt Count (150-450) k/uL MPV Neutrophils % % Lymphocytes % % Monocytes % % Eosinophils % % Basophils % % Neutrophils # (1.3-7.7) k/uL Lymphocytes # (1.0-4.8) k/uL Monocytes # (0-1.0) k/uL Eosinophils # (0-0.7) k/uL Basophils # (0-0.2) k/uL Hypochromasia Macrocytosis PT (10.0-12.5) sec INR (<1.2) APTT (22.0-30.0) sec VBG pH 7.39 (7.31-7.41) VBG pCO2 43 (37-51) mmHg VBG HCO3 26 (24-28) mmol/L Sodium (137-145) mmol/L Potassium (3.5-5.1) mmol/L Chloride (98-107) mmol/L Carbon Dioxide (22-30) mmol/L Anion Gap mmol/L BUN (9-20) mg/dL Creatinine (0.66-1.25) mg/dL Est GFR (CKD-EPI)AfAm (>60 ml/min/1.73 sqM) Est GFR (CKD-EPI)NonAf (>60 ml/min/1.73 sqM) Glucose (74-99) mg/dL Calcium (8.4-10.2) mg/dL Magnesium (1.6-2.3) mg/dL Total Bilirubin (0.2-1.3) mg/dL AST (17-59) U/L ALT (4-49) U/L Alkaline Phosphatase (38-126) U/L Troponin I <0.012 (0.000-0.034) ng/mL NT-Pro-B Natriuret Pep pg/mL Total Protein (6.3-8.2) g/dL Albumin (3.5-5.0) g/dL Urine Color Yellow Urine Appearance Clear (Clear) Urine pH 5.0 (5.0-8.0) Ur Specific [place] 1.027 (1.001-1.035) Urine Protein Trace H (Negative) Urine Glucose (UA) 4+ H (Negative) Urine Ketones Trace H (Negative) Urine Blood Negative (Negative) Urine Nitrite Negative (Negative) Urine Bilirubin Negative (Negative) Urine Urobilinogen <2.0 (<2.0) mg/dL Ur Leukocyte Esterase Negative (Negative) Disposition Clinical Impression: Pneumonia, Hyperglycemia, Metabolic acidosis Disposition: ADMITTED IP TO THIS HOSP Condition: Fair Time of Disposition: 13:26
[2023-12-30 11:35] LABS: Basophils % (A) 0 %; Eosinophils % (A) 0 %; HCT 45.2 % (39.0-53.0); HGB 14.2 gm/dL (13.0-17.5); Hypochromasia Slight; Lymphocytes # (A) 0.6 k/uL (1.0-4.8); Lymphocytes % (A) 6 %; MCH 31.9 pg (25.0-35.0); MCHC 31.3 g/dL (31.0-37.0); MCV 101.9 fL (80.0-100.0); Macrocytosis Slight; Mean Platelet Volume 9.4; Monocytes # (A) 0.3 k/uL (0-1.0); Monocytes % (A) 3 %; Neutrophils # (A) 10.3 k/uL (1.3-7.7); Neutrophils % (A) 91 %; Platelet Count 185 k/uL (150-450); RBC 4.43 m/uL (4.30-5.90); RDW 14.5 % (11.5-15.5); WBC 11.3 k/uL (3.8-10.6)
[2023-12-30 11:43] LABS: Partial Thromboplastin Time 25.6 sec (22.0-30.0); Prothrombin Time 11.1 sec (10.0-12.5)
[2023-12-30] MEDS: IPRATROPIUM-ALBUTEROL 3 ML NEB INHALATION STA (11:53)
--- NOTE | 2023-12-30 11:57 | XR ---
EXAMINATION TYPE: XR chest 2V DATE OF EXAM: 12/30/2023 COMPARISON: 07/27/2019 TECHNIQUE: PA and lateral views submitted. HISTORY: Shortness of breath FINDINGS: Cardiac device noted. There is subsegmental left basilar consolidation. Osseous structures intact. Un derlying COPD with no overt failure or pneumothorax. IMPRESSION: 1. Left basilar atelectasis or early infiltrate.
[2023-12-30 12:27] LABS: AST 32 U/L (17-59); African American GFR (CKD) 75 (>60 ml/min/1.73 sqM); Albumin 2.8 g/dL (3.5-5.0); Alkaline Phosphatase 105 U/L (38-126); Anion Gap 19 mmol/L; Blood Urea Nitrogen 27 mg/dL (9-20); Carbon Dioxide 19 mmol/L (22-30); Chloride 94 mmol/L (98-107); Non-African American GFR(CKD) 65 (>60 ml/min/1.73 sqM); Potassium 3.5 mmol/L (3.5-5.1); Sodium 132 mmol/L (137-145); Total Bilirubin 1.8 mg/dL (0.2-1.3); Total Protein 5.9 g/dL (6.3-8.2)
[2023-12-30 12:33] LABS: ALT 34 U/L (4-49); NT-Pro-B-Type Natriuretic Pept 2670 pg/mL
[2023-12-30 12:44] LABS: Glucose 524 mg/dL (74-99)
[2023-12-30] MEDS ORDERED: PNEUMONIA PROTOCOL UTILIZED 1 EACH MISC PO PRN (13:20)
[2023-12-30 13:58] LABS: VBG PH 7.39 (7.31-7.41)
[2023-12-30 14:09] LABS: Appearance,Urine Clear (Clear); Bilirubin,Urine Negative (Negative); Blood,Urine Negative (Negative); Color,Urine Yellow; Glucose,Urine (UA) 4+ (Negative); Ketones,Urine Trace (Negative); Leukocyte Esterase,Urine Negative (Negative); Nitrite,Urine Negative (Negative); Protein,Urine Trace (Negative); Specific Gravity,Urine 1.027 (1.001-1.035); Urobilinogen,Urine <2.0 mg/dL (<2.0)
--- NOTE | 2023-12-30 14:34 | ED ---
Medical Decision Making - Medical Decision Making Patient's lactic acid came back at 4.1. Patient has severe congestive heart failure in which patient will not receive 30ml/kg fluid bolus patient does have sepsis criteria for pneumonia, lactic acidosis from hyperglycemia. Patient did have blood cultures, antibiotics were given. - Lab Data Result diagrams: 12/30/23 11:20 12/30/23 11:20 Lab Results 12/30/23 12/30/23 12/30/23 Range/Units 11:20 11:20 11:20 WBC 11.3 H (3.8-10.6) k/uL RBC 4.43 (4.30-5.90) m/uL Hgb 14.2 (13.0-17.5) gm/dL Hct 45.2 (39.0-53.0) % MCV 101.9 H (80.0-100.0) fL MCH 31.9 (25.0-35.0) pg MCHC 31.3 (31.0-37.0) g/dL RDW 14.5 (11.5-15.5) % Plt Count 185 (150-450) k/uL MPV 9.4 Neutrophils % 91 % Lymphocytes % 6 % Monocytes % 3 % Eosinophils % 0 % Basophils % 0 % Neutrophils # 10.3 H (1.3-7.7) k/uL Lymphocytes # 0.6 L (1.0-4.8) k/uL Monocytes # 0.3 (0-1.0) k/uL Eosinophils # 0.0 (0-0.7) k/uL Basophils # 0.0 (0-0.2) k/uL Hypochromasia Slight Macrocytosis Slight PT 11.1 (10.0-12.5) sec INR 1.0 (<1.2) APTT 25.6 (22.0-30.0) sec VBG pH (7.31-7.41) VBG pCO2 (37-51) mmHg VBG HCO3 (24-28) mmol/L Sodium 132 L (137-145) mmol/L Potassium 3.5 (3.5-5.1) mmol/L Chloride 94 L (98-107) mmol/L Carbon Dioxide 19 L (22-30) mmol/L Anion Gap 19 mmol/L BUN 27 H (9-20) mg/dL Creatinine 1.12 (0.66-1.25) mg/dL Est GFR (CKD-EPI)AfAm 75 (>60 ml/min/1.73 sqM) Est GFR (CKD-EPI)NonAf 65 (>60 ml/min/1.73 sqM) Glucose 524 H* (74-99) mg/dL Plasma Lactic Acid José Antonio (0.7-2.0) mmol/L Calcium 8.0 L (8.4-10.2) mg/dL Magnesium 2.0 (1.6-2.3) mg/dL Total Bilirubin 1.8 H (0.2-1.3) mg/dL AST 32 (17-59) U/L ALT 34 (4-49) U/L Alkaline Phosphatase 105 (38-126) U/L Troponin I (0.000-0.034) ng/mL NT-Pro-B Natriuret Pep 2670 pg/mL Total Protein 5.9 L (6.3-8.2) g/dL Albumin 2.8 L (3.5-5.0) g/dL Urine Color Urine Appearance (Clear) Urine pH (5.0-8.0) Ur Specific [place] (1.001-1.035) Urine Protein (Negative) Urine Glucose (UA) (Negative) Urine Ketones (Negative) Urine Blood (Negative) Urine Nitrite (Negative) Urine Bilirubin (Negative) Urine Urobilinogen (<2.0) mg/dL Ur Leukocyte Esterase (Negative) 12/30/23 12/30/23 12/30/23 Range/Units 11:20 13:45 13:45 WBC (3.8-10.6) k/uL RBC (4.30-5.90) m/uL Hgb (13.0-17.5) gm/dL Hct (39.0-53.0) % MCV (80.0-100.0) fL MCH (25.0-35.0) pg MCHC (31.0-37.0) g/dL RDW (11.5-15.5) % Plt Count (150-450) k/uL MPV Neutrophils % % Lymphocytes % % Monocytes % % Eosinophils % % Basophils % % Neutrophils # (1.3-7.7) k/uL Lymphocytes # (1.0-4.8) k/uL Monocytes # (0-1.0) k/uL Eosinophils # (0-0.7) k/uL Basophils # (0-0.2) k/uL Hypochromasia Macrocytosis PT (10.0-12.5) sec INR (<1.2) APTT (22.0-30.0) sec VBG pH 7.39 (7.31-7.41) VBG pCO2 43 (37-51) mmHg VBG HCO3 26 (24-28) mmol/L Sodium (137-145) mmol/L Potassium (3.5-5.1) mmol/L Chloride (98-107) mmol/L Carbon Dioxide (22-30) mmol/L Anion Gap mmol/L BUN (9-20) mg/dL Creatinine (0.66-1.25) mg/dL Est GFR (CKD-EPI)AfAm (>60 ml/min/1.73 sqM) Est GFR (CKD-EPI)NonAf (>60 ml/min/1.73 sqM) Glucose (74-99) mg/dL Plasma Lactic Acid José Antonio 4.1 H* (0.7-2.0) mmol/L Calcium (8.4-10.2) mg/dL Magnesium (1.6-2.3) mg/dL Total Bilirubin (0.2-1.3) mg/dL AST (17-59) U/L ALT (4-49) U/L Alkaline Phosphatase (38-126) U/L Troponin I <0.012 (0.000-0.034) ng/mL NT-Pro-B Natriuret Pep pg/mL Total Protein (6.3-8.2) g/dL Albumin (3.5-5.0) g/dL Urine Color Urine Appearance (Clear) Urine pH (5.0-8.0) Ur Specific [place] (1.001-1.035) Urine Protein (Negative) Urine Glucose (UA) (Negative) Urine Ketones (Negative) Urine Blood (Negative) Urine Nitrite (Negative) Urine Bilirubin (Negative) Urine Urobilinogen (<2.0) mg/dL Ur Leukocyte Esterase (Negative) 12/30/23 Range/Units 13:45 WBC (3.8-10.6) k/uL RBC (4.30-5.90) m/uL Hgb (13.0-17.5) gm/dL Hct (39.0-53.0) % MCV (80.0-100.0) fL MCH (25.0-35.0) pg MCHC (31.0-37.0) g/dL RDW (11.5-15.5) % Plt Count (150-450) k/uL MPV Neutrophils % % Lymphocytes % % Monocytes % % Eosinophils % % Basophils % % Neutrophils # (1.3-7.7) k/uL Lymphocytes # (1.0-4.8) k/uL Monocytes # (0-1.0) k/uL Eosinophils # (0-0.7) k/uL Basophils # (0-0.2) k/uL Hypochromasia Macrocytosis PT (10.0-12.5) sec INR (<1.2) APTT (22.0-30.0) sec VBG pH (7.31-7.41) VBG pCO2 (37-51) mmHg VBG HCO3 (24-28) mmol/L Sodium (137-145) mmol/L Potassium (3.5-5.1) mmol/L Chloride (98-107) mmol/L Carbon Dioxide (22-30) mmol/L Anion Gap mmol/L BUN (9-20) mg/dL Creatinine (0.66-1.25) mg/dL Est GFR (CKD-EPI)AfAm (>60 ml/min/1.73 sqM) Est GFR (CKD-EPI)NonAf (>60 ml/min/1.73 sqM) Glucose (74-99) mg/dL Plasma Lactic Acid José Antonio (0.7-2.0) mmol/L Calcium (8.4-10.2) mg/dL Magnesium (1.6-2.3) mg/dL Total Bilirubin (0.2-1.3) mg/dL AST (17-59) U/L ALT (4-49) U/L Alkaline Phosphatase (38-126) U/L Troponin I (0.000-0.034) ng/mL NT-Pro-B Natriuret Pep pg/mL Total Protein (6.3-8.2) g/dL Albumin (3.5-5.0) g/dL Urine Color Yellow Urine Appearance Clear (Clear) Urine pH 5.0 (5.0-8.0) Ur Specific [place] 1.027 (1.001-1.035) Urine Protein Trace H (Negative) Urine Glucose (UA) 4+ H (Negative) Urine Ketones Trace H (Negative) Urine Blood Negative (Negative) Urine Nitrite Negative (Negative) Urine Bilirubin Negative (Negative) Urine Urobilinogen <2.0 (<2.0) mg/dL Ur Leukocyte Esterase Negative (Negative) Critical Care Time Critical Care Time: Yes Total Critical Care Time: 35 Disposition Clinical Impression: Pneumonia, Hyperglycemia, Metabolic acidosis Disposition: ADMITTED IP TO THIS HOSP Condition: Fair Procedures - [place] Protocol (Time Out) Nurse: Marta Blevins - Sepsis Sepsis Focused Exam #1 Time Sepsis Criteria Met: 14:31 Sepsis Focused Exam Date: 12/30/23 Sepsis Focused Exam Time: 14:35 Sepsis Focused Exam Complete: Yes Vital Signs & RN Notes Reviewed: Yes Capillary Refill: < 2 Seconds: Fingers, Toes Peripheral Pulses: Normal: Radial (R), Radial (L), Posterior Tibialis (R), Posterior Tibialis (L), Dorsalis Pedis (R), Dorsalis Pedis (L) Skin Color: Normal for Patient Respiratory Exam: rhonchi Cardiovascular Exam: regular rate, normal rhythm
[2023-12-30] MEDS: AZITHROMYCIN 500 MG in SODIUM CHLORIDE 0.9% 250 ML IVPB STA (14:36)
[2023-12-30] MEDS: INSULIN REGULAR 100 UNIT/ML VIAL (IV) IV ONE (14:38)
[2023-12-30] MEDS: INSULIN DETEMIR (LEVEMIR) 100 UNIT/ML SYR SQ SCH (14:44)
[2023-12-30] MEDS: IPRATROPIUM-ALBUTEROL 3 ML NEB INHALATION PRN (16:39)
[2023-12-30 17:10] LABS: Glucose,Whole Blood 353 mg/dL (70-110)
[2023-12-30] MEDS ORDERED: INSULIN ASPART (NovoLOG) 100 UNIT/ML VIAL SQ SCH (17:30)
[2023-12-30] MEDS: SODIUM CHLORIDE 0.9% 500 ML 250 ML IV ONE (18:07)
[2023-12-30] MEDS: methylPREDNISolone SOD SUCCI 125 MG/2 ML VIAL IV SCH (18:38)
[2023-12-30] MEDS: INSULIN ASPART (NovoLOG) 100 UNIT/ML VIAL SQ SCH ×2 (18:40→18:46)
[2023-12-30] MEDS: HEPARIN SODIUM,PORCINE 5,000 UNIT/ML 1 ML VIAL SQ SCH (18:40)
[2023-12-30] MEDS: SODIUM CHLORIDE 0.9% 500 ML 500 ML IV ONE (19:33)
[2023-12-30] MEDS ORDERED: BUDESONIDE 0.5 MG/2 ML NEBU INHALATION SCH (20:00)
[2023-12-30 21:50] LABS: Glucose,Whole Blood 357 mg/dL (70-110)
[2023-12-30] MEDS: ASPIRIN 81 MG PO SCH (22:04)
[2023-12-30] MEDS: ATORVASTATIN 40 MG TAB PO SCH (22:04)
[2023-12-30] MEDS: SODIUM CHLORIDE 0.9% 1,000 ML IV SCH (22:04)
[2023-12-30] MEDS: INSULIN REGULAR 100 UNIT in SODIUM CHLORIDE 0.9% 100 ML IV SCH (22:05)
--- NOTE | 2023-12-30 22:46 | P.HPIM ---
History of Present Illness H&P Date: 12/30/23 Chief Complaint: Difficulty in breathing Patient is a 73-year-old male with a known history of hyperlipidemia, diabetes type 2 insulin-dependent, coronary artery disease with prior stent placement, history of mild chronic CHF with mildly impaired systolic dysfunction ejection fraction 40 to 45% and moderate left ventricular concentric hypertrophy presents to ER with complaints of shortness of breath for the past 2 weeks and not getting better. Patient states that he has been having difficulty in breathing and felt like fluid in the lung. Also states that he felt warm and sweating at home. Patient was seen by his primary care physician and was given prednisone tapering course couple days ago which he has been taking. Patient is also complaining of diarrhea. Denies any fever or chills at home. Patient also states that he has increased leg swelling and gaining weight and has been taking extra dose of Lasix at home. Patient states that he has CHF and COPD. Chest x-ray on admission showed left basilar atelectasis or early infiltrate. EKG showed electronic ventricular paced rhythm. Laboratory data showed WBC 11.3 hemoglobin 14.2 and platelets 185 Sodium 132 potassium 3.5 chloride 94 bicarb is 19 anion gap 19 BUN 27 creatinine 1.12 and blood sugar 524 Lactic acid 4.1 calcium 8.0 magnesium 2.0 and total bili 1.8 liver regnancy not elevated troponin less than 0.12 and proBNP 2670 and albumin 2.8 Urinalysis showed 4+ glucose and leukocyte esterase negative. Influenza A B RSV and COVID-19 PCR not detected. Review of Systems Constitutional: Patient denies any fever or chills . Patient does have generalized weakness and fatigue.. Abdomen: Patient denied nausea vomiting. Patient does have diarrhea and no abdominal pain. Cardiovascular: Patient denies any chest pain. Patient does have short of breath no palpitations. Respiratory: patient does have cough without sputum production. Worsening shortness of breath Neurologic: Patient denied any numbness or tingling headache. Musculoskeletal: Patient denies any complaints of joint swelling or deformity. Skin: Negative Psychiatric: Negative Endocrine: No heat or cold intolerance. No recent weight gain. Genitourinary: No dysuria or hematuria. All other 14 point ROS negative except the above Past Medical History Past Medical History: Coronary Artery Disease (CAD), Heart Failure, COPD, Diabetes Mellitus, Hyperlipidemia, Myocardial Infarction (MD) Additional Past Medical History / Comment(s): defibrilator bph History of Any Multi-Drug Resistant Organisms: None Reported Past Surgical History: Cholecystectomy, Heart Catheterization With Stent Past Psychological History: No Psychological Hx Reported Past Alcohol Use History: Rare Past Drug Use History: None Reported Medications and Allergies Home Medications Medication Instructions Recorded Confirmed Type Albuterol Inhaler [Ventolin Hfa 1 - 2 puff INHALATION RT-QID PRN 05/22/17 12/30/23 History Inhaler] Aspirin EC [Ecotrin Low Dose] 81 mg PO HS 05/22/17 12/30/23 History Atorvastatin [Lipitor] 40 mg PO HS 05/22/17 12/30/23 History Budesonide [Pulmicort] 0.5 mg INHALATION RT-BID 05/22/17 12/30/23 History Clindamycin Topical Soln 1 applic TOPICAL BID PRN 05/22/17 12/30/23 History [Cleocin-T Topical Soln] Formoterol Fumarate [Perforomist] 20 mcg INHALATION RT-BID 05/22/17 12/30/23 History Furosemide [Lasix] 40 mg PO DAILY PRN 05/22/17 12/30/23 History Insulin Glargine,Hum.rec.anlog 50 unit SQ DAILY 05/22/17 12/30/23 History [Lantus Solostar] Ipratropium-Albuterol Nebulize 3 ml INHALATION RT-QID 05/22/17 12/30/23 History [Duoneb 0.5 mg-3 mg/3 ml Soln] Loratadine [Claritin] 10 mg PO DAILY 05/22/17 12/30/23 History Montelukast [Singulair] 10 mg PO HS 05/22/17 12/30/23 History Nitroglycerin Sl Tabs [Nitrostat] 0.4 mg SUBLINGUAL Q5M PRN 05/22/17 12/30/23 History Potassium Chloride ER [K-Dur 20] 20 meq PO DAILY PRN 05/22/17 12/30/23 History traMADol HCL [Ultram] 50 mg PO BID PRN 05/22/17 12/30/23 History Bisoprolol Fumarate 5 mg PO DAILY 12/30/23 12/30/23 History Cholecalciferol [Vitamin D3 (125 125 mcg PO DAILY 12/30/23 12/30/23 History Mcg = 5000 Iu)] Dapagliflozin Propanediol [Farxiga] 10 mg PO DAILY 12/30/23 12/30/23 History Fluticasone/Umeclidin/Vilanter 1 puff INHALATION RT-DAILY 12/30/23 12/30/23 History [Trelegy Ellipta 200-62.5-25] Insulin Aspart (Niacinamide) 15 units SQ HS 12/30/23 12/30/23 History [Fiasp 100 Unit/ml Flextouch Pen] Insulin Aspart (Niacinamide) 22 units SQ TID-W/MEALS 12/30/23 12/30/23 History [Fiasp 100 Unit/ml Flextouch Pen] Insulin Glargine,Hum.rec.anlog 10 units SQ W/SUPPER PRN 12/30/23 12/30/23 History [Lantus Solostar Pen] Ketoconazole 2% Cream [Nizoral 2%] 1 applic TOPICAL BID PRN 12/30/23 12/30/23 History Midodrine [ProAmatine] 5 mg PO TID 12/30/23 12/30/23 History Omeprazole 20 mg PO BID 12/30/23 12/30/23 History Sacubitril/Valsartan [Entresto 24 1 tab PO BID 12/30/23 12/30/23 History mg-26 mg Tablet] Spironolactone [Aldactone] 25 mg PO DIRECTED 12/30/23 12/30/23 History Tamsulosin [Flomax] 0.4 mg PO BID 12/30/23 12/30/23 History guaiFENesin [Mucinex] 1,200 mg PO BID PRN 12/30/23 12/30/23 History predniSONE See Taper PO DIRECTED 12/30/23 12/30/23 History predniSONE See Taper PO DIRECTED PRN 12/30/23 12/30/23 History Allergies Allergy/AdvReac Type Severity Reaction Status Date / Time carvedilol [From Coreg] Allergy Rash/Hives Verified 12/30/23 13:05 metformin AdvReac Diarrhea Verified 12/30/23 13:05 Physical Exam Vitals: Vital Signs Temp Pulse Resp BP Pulse Ox 12/30/23 12:02 76 12/30/23 11:54 70 12/30/23 10:46 97.2 F L 104 H 20 101/71 98 Intake and Output 12/29/23 12/30/23 12/30/23 22:59 06:59 14:59 Other: Weight 104.326 kg PHYSICAL EXAMINATION: Patient is lying in the bed comfortably, no acute distress, awake alert and oriented.. HEENT: Normocephalic. Neck is supple. Pupils reactive. Nostrils clear. Oral c avity is moist. Neck reveals no JVD, carotid bruits, or thyromegaly. CHEST EXAMINATION: Trachea is central. Symmetrical expansion. Bilateral diffuse wheezing and rhonchi and coarse sounds.. CARDIAC: Normal S1, S2 with no gallops. No murmurs ABDOMEN: Soft. Bowel sounds normal. No organomegaly. No abdominal bruits. Extremities: Bilateral lower extremity trace edema. No clubbing or cyanosis Neurologically awake, alert, oriented x3 with well-coordinated movements. No focal deficits noted Skin: No rash or skin lesions. Psychiatric: Coperative. Nonsuicidal, anxious. Musculoskeletal: No joint swelling or deformity. Normal range of motion. Results CBC & Chem 7: 12/31/23 06:55 12/31/23 11:59 Labs: Abnormal Lab Results - Last 24 Hours (Table) 12/30/23 12/30/23 12/30/23 Range/Units 11:20 11:20 13:45 WBC 11.3 H (3.8-10.6) k/uL MCV 101.9 H (80.0-100.0) fL Neutrophils # 10.3 H (1.3-7.7) k/uL Lymphocytes # 0.6 L (1.0-4.8) k/uL Sodium 132 L (137-145) mmol/L Chloride 94 L (98-107) mmol/L Carbon Dioxide 19 L (22-30) mmol/L BUN 27 H (9-20) mg/dL Glucose 524 H* (74-99) mg/dL Calcium 8.0 L (8.4-10.2) mg/dL Total Bilirubin 1.8 H (0.2-1.3) mg/dL Total Protein 5.9 L (6.3-8.2) g/dL Albumin 2.8 L (3.5-5.0) g/dL Urine Protein Trace H (Negative) Urine Glucose (UA) 4+ H (Negative) Urine Ketones Trace H (Negative) Thrombosis Risk Factor Assmnt - DVT/VTE Prophylaxis DVT/VTE Prophylaxis: Pharmacologic Prophylaxis ordered Assessment and Plan Assessment: Acute COPD exacerbation failed outpatient treatment. Hyperglycemia with uncontrolled diabetes type 2 insulin-dependent Left basilar atelectasis and possible early infiltrate/pneumonia Acute on Chronic CHF with mildly reduced systolic dysfunction ejection fraction 40 to 45% as per 2D echocardiogram in 2018. Patient had stress test in 2018. follows with Dr[address] Graham as an outpatient. Coronary artery disease history of stent placement Lactic acidosis likely due to tissue hypoperfusion Hypovolemic hyponatremia and pseudohyponatremia Hypoalbuminemia Hyperlipidemia History of MD DVT prophylaxis with heparin subcu. GI prophylaxis patient is on PPI Plan: Patient will be continued on telemetry monitoring. Started on antibiotics ceftriaxone and azithromycin. Procalcitonin level was ordered. Continue with IV Solu-Medrol 60 mg every 6 hourly along with DuoNebs and Symbicort. Gentle IV hydration and monitor fluid status closely. Started back on insulin regimen and follow-up based on level. Consider insulin drip. Patient will be continued on aspirin and statins and metoprolol. Entresto, Lasix and spironolactone on hold. Patient is also on midodrine at home. Pulmonary and cardiology will be consulted. Continue to follow closely. Prognosis is guarded. Time with Patient: Greater than 30
[2023-12-30 23:02] LABS: Glucose,Whole Blood 353 mg/dL (70-110)
[2023-12-30] MEDS: MIDODRINE 5 MG TAB PO SCH (23:25)
[2023-12-30] MEDS: MONTELUKAST 10 MG TAB PO SCH (23:25)
[2023-12-31] LABS: Glucose,Whole Blood 297 mg/dL (70-110)
[2023-12-31] MEDS: D5-0.45% NACL WITH KCL 20MEQ/L 1,000 ML IV SCH (00:23)
[2023-12-31 01:03] LABS: Glucose,Whole Blood 257 mg/dL (70-110)
[2023-12-31 01:57] LABS: Glucose,Whole Blood 211 mg/dL (70-110)
[2023-12-31] MEDS ORDERED: Magnesium Replacement Protocol 1 EACH MISC MISCELLANE PRN (02:19)
[2023-12-31] MEDS ORDERED: Potassium Replacement Protocol 1 EACH MISC MISCELLANE PRN ×2 (02:19→03:13)
[2023-12-31 02:48] LABS: Basophils % (A) 0 %; Eosinophils % (A) 0 %; HCT 38.2 % (39.0-53.0); HGB 12.3 gm/dL (13.0-17.5); Lymphocytes # (A) 0.7 k/uL (1.0-4.8); Lymphocytes % (A) 9 %; MCH 31.9 pg (25.0-35.0); MCHC 32.3 g/dL (31.0-37.0); MCV 98.6 fL (80.0-100.0); Monocytes # (A) 0.2 k/uL (0-1.0); Monocytes % (A) 2 %; Neutrophils # (A) 7.3 k/uL (1.3-7.7); Neutrophils % (A) 89 %; Platelet Count 148 k/uL (150-450); RBC 3.87 m/uL (4.30-5.90); RDW 14.4 % (11.5-15.5); WBC 8.3 k/uL (3.8-10.6)
[2023-12-31 02:54] LABS: African American GFR (CKD) 66 (>60 ml/min/1.73 sqM); Anion Gap 12 mmol/L; Blood Urea Nitrogen 32 mg/dL (9-20); Carbon Dioxide 24 mmol/L (22-30); Chloride 100 mmol/L (98-107); Glucose 209 mg/dL (74-99); Non-African American GFR(CKD) 57 (>60 ml/min/1.73 sqM); Phosphorus 2.9 mg/dL (2.5-4.5); Sodium 136 mmol/L (137-145)
[2023-12-31 03:04] LABS: Glucose,Whole Blood 174 mg/dL (70-110)
[2023-12-31 03:07] LABS: Potassium 2.4 mmol/L (3.5-5.1)
--- NOTE | 2023-12-31 03:20 | P.CNPUL ---
History of Present Illness Consult date: 12/31/23 Requesting physician: Anna Bell Reason for consult: COPD Chief complaint: Shortness of breath History of present illness: I am seeing this patient in consultation today 12/31/2023 after he failed outpatient treatment for COPD/CHF exacerbation. Patient is a 73-year-old white male with past medical history significant for COPD, CHF, coronary artery disease, diabetes mellitus, hyperlipidemia, hypertension, obesity. Patient's primary care provider is Dr. Bean. Patient tells me that over the last 2 to 3 weeks he has been short of breath. He is also noted a 13 pound weight gain over the last 2 to 3 weeks. He has had swelling in his lower extremities and abdominal distention. He states that his primary care provider, Dr. Bean, had placed him on Lasix 40 mg first once a day and then twice a day. He states that the swelling in his leg has improved since then. But his breathing has not. He also reports wheezing and nonproductive coughing and chest tightness. He does have history of COPD, he uses a Trelegy inhaler and albuterol rescue inhaler. He has used his rescue inhaler quite frequently lately, without much relief. He was treated with a course of azithromycin and prednisone outpatient. Unfortunately, he has not improved, so he came to the emergency room yesterday morning. On my evaluation, he is sitting up in bed, on room air, in no acute distress. Chest x-ray shows cardiomegaly with a cardiac defibrillator implanted. No significant vascular congestion or edema. There is a questionable left basilar opacity versus atelectasis. CBC on arrival: WBC count 11.3, hemoglobin 14.2, hematocrit 45.2, platelets 185. BMP on arrival: Sodium 132, potassium 3.5, chloride 94, serum bicarb 19, BUN 27, creatinine 1.12, glucose 524. Acetone positive. Urinalysis positive for glucose and trace ketones. Patient has a mild case of DKA. Patient was started on the DKA protocol including insulin infusion and appropriate IV fluids. Lactic acid level also elevated, and peaked at 11.3 down to 6.7. NT proBNP was elevated at 2670. Troponins less than 0.012. Negative for influenza, RSV, COVID. Has remained afebrile. Vital signs are stable. Review of Systems REVIEW OF SYSTEMS: CONSTITUTIONAL: Admits 13 pound weight gain over the last 2 to 3 weeks. Denies fevers. Denies muscle aches. EYES: Denies change in vision. EARS, NOSE, MOUTH, THROAT: Denies headaches, admits runny nose CARDIOVASCULAR: Denies chest pain, palpitations or syncopal episodes. Admits lower extremity swelling and abdominal fullness, which is currently improved. RESPIRATORY: Admits 2 to 3 weeks of shortness of breath, worse at night when lying down, nonproductive cough, chest congestion, GASTROINTESTINAL: Denies change in appetite, abdominal pain, nausea and vomiting. Does admit frequent bouts of liquid diarrhea, also admits recent antibiotic use. GENITOURINARY: Denies hematuria, denies infections. Admits urinary frequency every 1 hour. He is also been on Lasix. Admits thirst. MUSKULOSKELETAL: Denies pain, denies swelling. INTEGUMENTARY: Denies rash, denies eczema. NEUROLOGICAL: Denies recent memory loss, no recent seizure activity. PSYCHIATRIC: Denies anxiety, denies depression. HEMATOLOGIC/LYMPHATIC: Denies anemia, denies enlarged lymph node Past Medical History Past Medical History: Coronary Artery Disease (CAD), Heart Failure, COPD, Diabetes Mellitus, Hyperlipidemia, Myocardial Infarction ([place]) Additional Past Medical History / Comment(s): defibrilator bph History of Any Multi-Drug Resistant Organisms: None Reported Past Surgical History: Cholecystectomy, Heart Catheterization With Stent Past Psychological History: No Psychological Hx Reported Past Alcohol Use History: Rare Past Drug Use History: None Reported Medications and Allergies Home Medications Medication Instructions Recorded Confirmed Type Albuterol Inhaler [Ventolin Hfa 1 - 2 puff INHALATION RT-QID PRN 05/22/17 12/30/23 History Inhaler] Aspirin EC [Ecotrin Low Dose] 81 mg PO HS 05/22/17 12/30/23 History Atorvastatin [Lipitor] 40 mg PO HS 05/22/17 12/30/23 History Budesonide [Pulmicort] 0.5 mg INHALATION RT-BID 05/22/17 12/30/23 History Clindamycin Topical Soln 1 applic TOPICAL BID PRN 05/22/17 12/30/23 History [Cleocin-T Topical Soln] Formoterol Fumarate [Perforomist] 20 mcg INHALATION RT-BID 05/22/17 12/30/23 History Furosemide [Lasix] 40 mg PO DAILY PRN 05/22/17 12/30/23 History Insulin Glargine,Hum.rec.anlog 50 unit SQ DAILY 05/22/17 12/30/23 History [Lantus Solostar] Ipratropium-Albuterol Nebulize 3 ml INHALATION RT-QID 05/22/17 12/30/23 History [Duoneb 0.5 mg-3 mg/3 ml Soln] Loratadine [Claritin] 10 mg PO DAILY 05/22/17 12/30/23 History Montelukast [Singulair] 10 mg PO HS 05/22/17 12/30/23 History Nitroglycerin Sl Tabs [Nitrostat] 0.4 mg SUBLINGUAL Q5M PRN 05/22/17 12/30/23 History Potassium Chloride ER [K-Dur 20] 20 meq PO DAILY PRN 05/22/17 12/30/23 History traMADol HCL [Ultram] 50 mg PO BID PRN 05/22/17 12/30/23 History Bisoprolol Fumarate 5 mg PO DAILY 12/30/23 12/30/23 History Cholecalciferol [Vitamin D3 (125 125 mcg PO DAILY 12/30/23 12/30/23 History Mcg = 5000 Iu)] Dapagliflozin Propanediol [Farxiga] 10 mg PO DAILY 12/30/23 12/30/23 History Fluticasone/Umeclidin/Vilanter 1 puff INHALATION RT-DAILY 12/30/23 12/30/23 History [Trelegy Ellipta 200-62.5-25] Insulin Aspart (Niacinamide) 15 units SQ HS 12/30/23 12/30/23 History [Fiasp 100 Unit/ml Flextouch Pen] Insulin Aspart (Niacinamide) 22 units SQ TID-W/MEALS 12/30/23 12/30/23 History [Fiasp 100 Unit/ml Flextouch Pen] Insulin Glargine,Hum.rec.anlog 10 units SQ W/SUPPER PRN 12/30/23 12/30/23 History [Lantus Solostar Pen] Ketoconazole 2% Cream [Nizoral 2%] 1 applic TOPICAL BID PRN 12/30/23 12/30/23 History Midodrine [ProAmatine] 5 mg PO TID 12/30/23 12/30/23 History Omeprazole 20 mg PO BID 12/30/23 12/30/23 History Sacubitril/Valsartan [Entresto 24 1 tab PO BID 12/30/23 12/30/23 History mg-26 mg Tablet] Spironolactone [Aldactone] 25 mg PO DIRECTED 12/30/23 12/30/23 History Tamsulosin [Flomax] 0.4 mg PO BID 12/30/23 12/30/23 History guaiFENesin [Mucinex] 1,200 mg PO BID PRN 12/30/23 12/30/23 History predniSONE See Taper PO DIRECTED 12/30/23 12/30/23 History predniSONE See Taper PO DIRECTED PRN 12/30/23 12/30/23 History Allergies Allergy/AdvReac Type Severity Reaction Status Date / Time carvedilol [From Coreg] Allergy Rash/Hives Verified 12/30/23 13:05 metformin AdvReac Diarrhea Verified 12/30/23 13:05 Physical Exam Vitals: Vital Signs Temp Pulse Resp BP Pulse Ox 12/31/23 01:54 73 26 H 101/52 97 12/31/23 00:30 82 21 102/65 96 12/30/23 22:59 85 14 106/76 92 L 12/30/23 20:46 99 12/30/23 20:39 96 12/30/23 20:29 97.4 F L 98 20 97/63 97 12/30/23 16:49 84 12/30/23 16:39 81 12/30/23 12:02 76 12/30/23 11:54 70 12/30/23 10:46 97.2 F L 104 H 20 101/71 98 Intake and Output 12/30/23 12/30/23 12/31/23 14:59 22:59 06:59 Intake Total 44.730 Balance 44.730 Intake: Intake, IV Titration 44.730 Amount Insulin Regular 100 unit 44.730 In Sodium Chloride 0.9% 100 ml @ 0.1 UNITS/KG/HR 10.537 mls/hr IV .[id number] [facility] Rx#:[id number] Other: Weight 104.326 kg GENERAL EXAM: Alert, 73-year-old white male, obese, comfortable in no apparent distress. HEAD: Normocephalic and atraumatic EYES: Normal reaction of pupils, equal size. NOSE: Clear with pink turbinates. THROAT: No erythema or exudates. NECK: No masses, no JVD. CHEST: No chest wall deformity. LUNGS: Equal air entry with diffuse rhonchi heard throughout. Inspiratory crackles heard at the bases, especially in the left lower lobe. On room air. No conversational dyspnea or accessory muscle use.. CVS: S1 and S2 normal with no audible murmur, regular rhythm. No extra heart sounds ABDOMEN: No hepatosplenomegaly, active bowel sounds, no guarding or rigidity. SPINE: No scoliosis or deformity SKIN: No rashes CENTRAL NERVOUS SYSTEM: No focal deficits, tone is normal in all 4 extremities. EXTREMITIES: There is no peripheral edema, clubbing, or cyanosis. Peripheral pulses are intact. Results - Laboratory Findings CBC and BMP: 12/31/23 06:55 12/31/23 11:59 PT/INR, D-dimer PT 11.1 sec (10.0-12.5) 12/30/23 11:20 INR 1.0 (<1.2) 12/30/23 11:20 Abnormal lab findings: Abnormal Labs 12/30/23 12/30/23 12/30/23 11:20 11:20 13:45 WBC 11.3 H MCV 101.9 H Neutrophils # 10.3 H Lymphocytes # 0.6 L Sodium 132 L Chloride 94 L Carbon Dioxide 19 L BUN 27 H Glucose 524 H* POC Glucose (mg/dL) Plasma Lactic Acid José Antonio 4.1 H* Calcium 8.0 L Total Bilirubin 1.8 H Total Protein 5.9 L Albumin 2.8 L Urine Protein Urine Glucose (UA) Urine Ketones 12/30/23 12/30/23 12/30/23 13:45 16:35 17:09 WBC MCV Neutrophils # Lymphocytes # Sodium Chloride Carbon Dioxide BUN Glucose POC Glucose (mg/dL) 353 H Plasma Lactic Acid José Antonio 2.3 H* Calcium Total Bilirubin Total Protein Albumin Urine Protein Trace H Urine Glucose (UA) 4+ H Urine Ketones Trace H 12/30/23 12/30/23 12/30/23 20:12 21:00 21:47 WBC MCV Neutrophils # Lymphocytes # Sodium Chloride Carbon Dioxide BUN Glucose POC Glucose (mg/dL) 357 H Plasma Lactic Acid José Antonio 11.3 H* 6.7 H* Calcium Total Bilirubin Total Protein Albumin Urine Protein Urine Glucose (UA) Urine Ketones 12/30/23 12/30/23 12/31/23 22:56 23:58 01:01 WBC MCV Neutrophils # Lymphocytes # Sodium Chloride Carbon Dioxide BUN Glucose POC Glucose (mg/dL) 353 H 297 H 257 H Plasma Lactic Acid José Antonio Calcium Total Bilirubin Total Protein Albumin Urine Protein Urine Glucose (UA) Urine Ketones 12/31/23 01:52 WBC MCV Neutrophils # Lymphocytes # Sodium Chloride Carbon Dioxide BUN Glucose POC Glucose (mg/dL) 211 H Plasma Lactic Acid José Antonio Calcium Total Bilirubin Total Protein Albumin Urine Protein Urine Glucose (UA) Urine Ketones - Diagnostic Findings Chest x-ray: image reviewed Assessment and Plan Assessment: Acute dyspnea, secondary to acute COPD exacerbation, Chest x-ray shows cardiomegaly with a cardiac defibrillator implanted. No significant vascular congestion or edema. There is a questionable left basilar opacity versus atelectasis. Diabetes mellitus type II, insulin-dependent, with hyperglycemia and mild DKA Mild anion gap metabolic acidosis, likely secondary to above and lactic acidosis Frequent diarrhea, likely related to recent adverse effects from antibiotics History of heart failure with reduced ejection fraction, most recent echocardiogram, from 2018, estimates an improved mild to moderately impaired left ventricular ejection fraction of 40 to 45% and moderate concentric LVH. History of implanted AICD/pacemaker History of ischemic cardiomyopathy History of hypertension History of hyperlipidemia History of coronary artery disease with previous PCI/stent Obesity, with a BMI of 31.2 kg/m Plan: Patient's medications, labs, chest x-ray reviewed Currently on room air Start patient on combination of bronchodilators, Symbicort inhaler, and IV Solu- Medrol Continue empiric antibiotics, check procalcitonin level Continue with DKA protocol, however, will likely be able to be transitioned to sliding scale soon. No need for admission to the ICU. Replace electrolytes per protocol We will continue to follow. I have personally seen and examined the patient, performed the documentation and the assessment and plan as written. Number of minutes spent on the visit:20 This is a joint evaluation that was done on this patient along with the nurse practitioner. The patient is a 73-year-old male with a component of mild COPD with an FEV1 of 84% of predicted maintained on Trelegy Ellipta on outpatient basis. The patient also has history of congestion heart failure. The patient has multiple other comorbidities including history of AICD/pacemaker insertion, ischemic cardiomyopathy, hypertension, hyperlipidemia, coronary disease with previous coronary stenting, diabetes mellitus type 2. He presents to the hospital because of worsening shortness of breath and massive fluid overload. He is feels his legs are swollen and he is also abdominal swelling. Labs were reviewed. The patient's initial lactic acid level was at 6.7 dropped down to 1.8. The rest of the electrolytes show some mild hypokalemia with a potassium level of 2.8 which is being replaced, BUN is at 33 with a creatinine of 0.9. Blood sugars were quite elevated at time of admission and the patient remains on IV Solu-Medrol and his dose has been adjusted to 40 mg every 12 hours patient with his ongoing hyperglycemia. He is currently on Levemir insulin 50 units daily, 20 new units of NovoLog with meals and sliding scale coverage. The patient is also on Farxiga. This is a cardiac medication have been resumed. His most recent echocardiogram showed improvement in LV function as the patient is being optimized regarding his CHF and is currently on Entresto and Aldactone and combination with Farxiga. He is currently also on Lasix 40 mg IV every 12 hours which I added to improve his volume status and fluid balance. Plan Continue Lasix 40 mg every 12 hours. Taper the Solu-Medrol. Monitor blood sugar control. Continue bronchodilators. Chest x-ray was reviewed and shows some cardiomegaly without any airspace disease. There is some increased interstitial markings and some atelectatic change in lung bases. Time with Patient: Greater than 30
[2023-12-31] MEDS: POTASSIUM CHLORIDE 10 MEQ in WATER FOR INJECTION 1 100ML.BAG IVPB STA (03:30)
[2023-12-31 04:00] LABS: Glucose,Whole Blood 161 mg/dL (70-110)
[2023-12-31 05:00] LABS: Glucose,Whole Blood 129 mg/dL (70-110)
[2023-12-31 05:52] LABS: Glucose,Whole Blood 123 mg/dL (70-110)
[2023-12-31] MEDS: INSULIN DETEMIR (LEVEMIR) 100 UNIT/ML SYR SQ SCH (06:36)
[2023-12-31 06:45] LABS: Glucose,Whole Blood 125 mg/dL (70-110)
[2023-12-31] MEDS: PANTOPRAZOLE 40 MG TABLET PO SCH (07:29)
[2023-12-31 07:53] LABS: Glucose,Whole Blood 170 mg/dL (70-110)
[2023-12-31] MEDS ORDERED: IPRATROPIUM 0.5 MG/2.5 ML NEBU INHALATION SCH (08:00)
[2023-12-31] MEDS ORDERED: NON FORMULARY DRUG (Fluticasone/Umeclidin/Vilanter [Trelegy Ellipta 200-62.5-25] 1 EACH Bl INHALATION SCH (08:00)
[2023-12-31 08:06] LABS: African American GFR (CKD) 88 (>60 ml/min/1.73 sqM); Anion Gap 6 mmol/L; Blood Urea Nitrogen 31 mg/dL (9-20); Carbon Dioxide 25 mmol/L (22-30); Chloride 104 mmol/L (98-107); Non-African American GFR(CKD) 76 (>60 ml/min/1.73 sqM); Sodium 135 mmol/L (137-145)
--- NOTE | 2023-12-31 08:14 | XR ---
EXAMINATION TYPE: XR chest 1V portable DATE OF EXAM: 12/31/2023 COMPARISON: 11/12/2022 HISTORY: Difficulty breathing TECHNIQUE: Single frontal view of the chest is obtained. FINDINGS: There is left basilar subsegmental consolidation. The heart is mildly prominent. No pulmon phong edema. Cardiac device seen. No pneumothorax. Osseous structures stable. IMPRESSION: 1. Left retrocardiac consolidation correlate for atelectasis versus early pneumonia
[2023-12-31] MEDS: IPRATROPIUM-ALBUTEROL 3 ML NEB INHALATION SCH (08:33)
[2023-12-31] MEDS: SYMBICORT 160-4.5 MCG INHALER INHALATION SCH (08:33)
[2023-12-31 08:41] LABS: Potassium 2.7 mmol/L (3.5-5.1)
[2023-12-31 08:56] LABS: Glucose,Whole Blood 231 mg/dL (70-110)
[2023-12-31] MEDS: BISOPROLOL 5 MG TAB PO SCH (08:56)
[2023-12-31] MEDS: AZITHROMYCIN 500 MG TAB PO SCH (08:56)
[2023-12-31] MEDS: POTASSIUM CHLORIDE ER 20 MEQ TAB.ER PO SCH ×2 (09:07→14:32)
[2023-12-31 10:05] LABS: Glucose,Whole Blood 354 mg/dL (70-110)
[2023-12-31 11:07] LABS: Glucose,Whole Blood 343 mg/dL (70-110)
[2023-12-31] MEDS: FUROSEMIDE 10 MG/ML 4 ML VIAL IV SCH (11:07)
[2023-12-31 11:47] LABS: Basophils # (A) 0.01 X 10*3/uL (0.00-0.10); Basophils % (A) 0.1 %; Eosinophils # (A) 0 X 10*3/uL (0.04-0.35); Eosinophils % (A) 0 %; HCT 35.1 % (39.6-50.0); HGB 11.9 g/dL (13.0-17.0); Lymphocytes # (A) 0.94 X 10*3/uL (0.90-5.00); Lymphocytes % (A) 10.7 %; MCHC 33.9 g/dL (32.0-37.0); MCV 94.4 FL (80.0-97.0); Mean Platelet Volume 11.2 FL (9.5-12.2); Monocytes # (A) 0.26 X 10*3/uL (0.20-1.00); NRBC Per 100 WBC 0 X 10*3/uL (0.00-0.01); Neutrophils # (A) 7.46 X 10*3/uL (1.80-7.70); Neutrophils % (A) 85.3 %; Platelet Count 161 X 10*3/uL (140-440); RBC 3.72 X 10*6/uL (4.40-5.60); WBC 8.75 X 10*3/uL (4.50-10.00)
[2023-12-31 12:05] LABS: Glucose,Whole Blood 348 mg/dL (70-110)
[2023-12-31] MEDS ORDERED: SACUBITRIL/VALSARTAN 24 MG-26 MG TABLET PO SCH (12:30)
[2023-12-31 12:35] LABS: African American GFR (CKD) 89 (>60 ml/min/1.73 sqM); Anion Gap 13 mmol/L; Blood Urea Nitrogen 33 mg/dL (9-20); Calcium 8.1 mg/dL (8.4-10.2); Carbon Dioxide 20 mmol/L (22-30); Chloride 101 mmol/L (98-107); Glucose 353 mg/dL (74-99); Non-African American GFR(CKD) 77 (>60 ml/min/1.73 sqM); Potassium 2.8 mmol/L (3.5-5.1); Sodium 134 mmol/L (137-145)
--- NOTE | 2023-12-31 12:49 | P.CRDCN ---
History of Present Illness History of present illness: HISTORY OF PRESENT ILLNESS: This is a 73-year-old male with a past medical history significant for coronary artery disease, cardiomyopathy, hypertension, hyperlipidemia, diabetes, and AICD implantation. Patient follows in the office with Dr. Chatterjee. We have been asked to see the patient in consultation for CHF. Patient examined at the bedside. He reports he has been retaining fluid for the past few weeks. He states he was started on Lasix and gave him a shot of something but unsure if what it was. He states he did not notice any improvement so he decided to come to the hospital. He reports a weight gain of 13 pounds in the last two weeks. He reports increased lower extremity and increased abdominal swelling. He reports a nonproductive cough. He denies any fever or chills. He denies being around any sick contacts. He denies any chest pain or pressure. He does report having low blood pressures at home with a systolic in the 70s. DIAGNOSTICS: - EKG reveals ventricular paced rhythm. - Chest xray left basilar atelectasis or early infiltrate. - Laboratory data: WBC 8.3. Hemoglobin 12.3. Platelet count 148. Sodium 136. Potassium 2.4. BUN 32. Creatinine 1.25. Glucose on admission 524. Repeat 130. Lactic acid 6.7 on admission repeat 1.8. Magnesium 2.3. Troponin negative x 1. proBNP 2670. - Current home cardiac medications include Aldactone 25 mg daily, midodrine 5 mg 3 times a day, bisoprolol 5 mg daily, Entresto 24-26 mg twice a day, Lasix 40 mg daily as needed, aspirin 81 mg daily, and atorvastatin 40 mg at night. - Most recent echocardiogram obtained in 06/2023 revealed ejection fraction 42%, mild to moderate MR, mild to moderate AR, mild to moderate TR - Cardiac catheterization history: 2012 revealing 100% proximal D1, 50% mid circumflex, 20% mid RCA, left circumflex FFR 90% REVIEW OF SYSTEMS: At the time of my exam: CONSTITUTIONAL: Denies fever or chills. HEENT: Denies blurred vision, vision changes, or eye pain. Denies hemoptysis CARDIOVASCULAR: Denies chest pain. Denies orthopnea. Denies PND. Denies palpitations RESPIRATORY: Denies shortness of breath. GASTROINTESTINAL: Denies abdominal pain. Denies nausea or vomiting. HEMATOLOGIC: Denies bleeding disorders. GENITOURINARY: Denies any blood in urine. SKIN: Denies pruitis. Denies rash. PHYSICAL EXAM: VITAL SIGNS: Reviewed. GENERAL: Well-developed in no acute distress. HEENT: Head is normocephalic. Pupils are equal, round. Sclerae anicteric. Mucous membranes of the mouth are moist. Neck supple. No JVD or thyromegaly LUNGS: Respirations even and unlabored. Lungs essentially clear to auscultation bilaterally. HEART: Regular rate and rhythm. S1 and S2 heard. ABDOMEN: Soft. Nondistended. Nontender. EXTREMITIES: Normal range of motion. No clubbing or cyanosis. Peripheral pulses intact. No lower extremity edema NEUROLOGIC: Awake and alert. Oriented x 3. ASSESSMENT: Shortness of breath Acute on chronic heart failure with reduced ejection fraction COPD exacerbation Hyperglycemia/DKA on insulin drip Lactic acidosis Hypokalemia Possible early infiltrate per chest x-ray Coronary artery disease with previous stenting History of ischemic cardiomyopathy, ejection fraction 42% History of AICD implantation Hypertension Hyperlipidemia Diabetes History of hypotension, on midodrine outpatient Atrial fibrillation, ruled out, per PPM interrogation Suspected small LV thrombus, per echo PLAN: Obtain 2D echo to assess cardiac structure and function Continue IV Lasix Daily weights, accurate intake and output, and monitoring of kidney function Further recommendations pending patient course Nurse practitioner note has been reviewed by physician. Signing provider agrees with the documented findings, assessment, and plan of care documented by MEDIA MANAGER as a scribe. Past Medical History Past Medical History: Coronary Artery Disease (CAD), Heart Failure, COPD, Diabetes Mellitus, Hyperlipidemia, Myocardial Infarction (PR) Additional Past Medical History / Comment(s): defibrilator bph History of Any Multi-Drug Resistant Organisms: None Reported Past Surgical History: Cholecystectomy, Heart Catheterization With Stent Past Psychological History: No Psychological Hx Reported Past Alcohol Use History: Rare Past Drug Use History: None Reported Medications and Allergies Home Medications Medication Instructions Recorded Confirmed Type Albuterol Inhaler [Ventolin Hfa 1 - 2 puff INHALATION RT-QID PRN 05/22/17 12/30/23 History Inhaler] Aspirin EC [Ecotrin Low Dose] 81 mg PO HS 05/22/17 12/30/23 History Atorvastatin [Lipitor] 40 mg PO HS 05/22/17 12/30/23 History Budesonide [Pulmicort] 0.5 mg INHALATION RT-BID 05/22/17 12/30/23 History Clindamycin Topical Soln 1 applic TOPICAL BID PRN 05/22/17 12/30/23 History [Cleocin-T Topical Soln] Formoterol Fumarate [Perforomist] 20 mcg INHALATION RT-BID 05/22/17 12/30/23 History Furosemide [Lasix] 40 mg PO DAILY PRN 05/22/17 12/30/23 History Insulin Glargine,Hum.rec.anlog 50 unit SQ DAILY 05/22/17 12/30/23 History [Lantus Solostar] Ipratropium-Albuterol Nebulize 3 ml INHALATION RT-QID 05/22/17 12/30/23 History [Duoneb 0.5 mg-3 mg/3 ml Soln] Loratadine [Claritin] 10 mg PO DAILY 05/22/17 12/30/23 History Montelukast [Singulair] 10 mg PO HS 05/22/17 12/30/23 History Nitroglycerin Sl Tabs [Nitrostat] 0.4 mg SUBLINGUAL Q5M PRN 05/22/17 12/30/23 History Potassium Chloride ER [K-Dur 20] 20 meq PO DAILY PRN 05/22/17 12/30/23 History traMADol HCL [Ultram] 50 mg PO BID PRN 05/22/17 12/30/23 History Bisoprolol Fumarate 5 mg PO DAILY 12/30/23 12/30/23 History Cholecalciferol [Vitamin D3 (125 125 mcg PO DAILY 12/30/23 12/30/23 History Mcg = 5000 Iu)] Dapagliflozin Propanediol [Farxiga] 10 mg PO DAILY 12/30/23 12/30/23 History Fluticasone/Umeclidin/Vilanter 1 puff INHALATION RT-DAILY 12/30/23 12/30/23 History [Trelegy Ellipta 200-62.5-25] Insulin Aspart (Niacinamide) 15 units SQ HS 12/30/23 12/30/23 History [Fiasp 100 Unit/ml Flextouch Pen] Insulin Aspart (Niacinamide) 22 units SQ TID-W/MEALS 12/30/23 12/30/23 History [Fiasp 100 Unit/ml Flextouch Pen] Insulin Glargine,Hum.rec.anlog 10 units SQ W/SUPPER PRN 12/30/23 12/30/23 History [Lantus Solostar Pen] Ketoconazole 2% Cream [Nizoral 2%] 1 applic TOPICAL BID PRN 12/30/23 12/30/23 History Midodrine [ProAmatine] 5 mg PO TID 12/30/23 12/30/23 History Omeprazole 20 mg PO BID 12/30/23 12/30/23 History Sacubitril/Valsartan [Entresto 24 1 tab PO BID 12/30/23 12/30/23 History mg-26 mg Tablet] Spironolactone [Aldactone] 25 mg PO DIRECTED 12/30/23 12/30/23 History Tamsulosin [Flomax] 0.4 mg PO BID 12/30/23 12/30/23 History guaiFENesin [Mucinex] 1,200 mg PO BID PRN 12/30/23 12/30/23 History predniSONE See Taper PO DIRECTED 12/30/23 12/30/23 History predniSONE See Taper PO DIRECTED PRN 12/30/23 12/30/23 History Allergies Allergy/AdvReac Type Severity Reaction Status Date / Time carvedilol [From Coreg] Allergy Rash/Hives Verified 12/30/23 13:05 metformin AdvReac Diarrhea Verified 12/30/23 13:05 Physical Exam Vitals: Vital Signs Temp Pulse Resp BP Pulse Ox 12/31/23 08:33 88 96 12/31/23 06:00 86 18 105/79 95 12/31/23 04:21 74 20 113/69 97 12/31/23 03:04 67 14 107/82 96 12/31/23 01:54 73 26 H 101/52 97 12/31/23 00:30 82 21 102/65 96 12/30/23 22:59 85 14 106/76 92 L 12/30/23 20:46 99 12/30/23 20:39 96 12/30/23 20:29 97.4 F L 98 20 97/63 97 12/30/23 16:49 84 12/30/23 16:39 81 12/30/23 12:02 76 12/30/23 11:54 70 12/30/23 10:46 97.2 F L 104 H 20 101/71 98 Intake and Output 12/30/23 12/31/23 12/31/23 22:59 06:59 14:59 Intake Total 92.145 Balance 92.145 Intake: Intake, IV Titration 92.145 Amount Insulin Regular 100 unit 92.145 In Sodium Chloride 0.9% 100 ml @ 0.1 UNITS/KG/HR 10.537 mls/hr IV .Q9H36M [facility] Rx#:[id number] Results 01/01/24 04:42 01/01/24 04:42 Cardiac Enzymes 12/30/23 12/30/23 Range/Units 11:20 11:20 AST 32 (17-59) U/L Troponin I <0.012 (0.000-0.034) ng/mL Coagulation 12/30/23 Range/Units 11:20 PT 11.1 (10.0-12.5) sec APTT 25.6 (22.0-30.0) sec CBC 12/30/23 12/31/23 Range/Units 11:20 02:16 WBC 11.3 H 8.3 (3.8-10.6) k/uL RBC 4.43 3.87 L (4.30-5.90) m/uL Hgb 14.2 12.3 L (13.0-17.5) gm/dL Hct 45.2 38.2 L (39.0-53.0) % Plt Count 185 148 L (150-450) k/uL Comprehensive Metabolic Panel 12/30/23 12/31/23 12/31/23 Range/Units 11:20 02:16 06:55 Sodium 132 L 136 L (137-145) mmol/L Potassium 3.5 2.4 L* (3.5-5.1) mmol/L Chloride 94 L 100 (98-107) mmol/L Carbon Dioxide 19 L 24 (22-30) mmol/L BUN 27 H 32 H (9-20) mg/dL Creatinine 1.12 1.25 (0.66-1.25) mg/dL Glucose 524 H* 209 H 130 H (74-99) mg/dL Calcium 8.0 L (8.4-10.2) mg/dL AST 32 (17-59) U/L ALT 34 (4-49) U/L Alkaline Phosphatase 105 (38-126) U/L Total Protein 5.9 L (6.3-8.2) g/dL Albumin 2.8 L (3.5-5.0) g/dL Current Medications Generic Name Dose Route Start Last Admin Trade Name Freq PRN Reason Stop Dose Admin Albuterol/Ipratropium 3 ml 12/31/23 08:00 12/31/23 08:33 Ipratropium-Albuterol 3 Ml Neb INHALATION 3 ml RT-QID [facility] Administration Aspirin 81 mg 12/30/23 21:00 12/30/23 22:04 Aspirin 81 Mg PO 81 mg HS [facility] Administration Atorvastatin Calcium 40 mg 12/30/23 21:00 12/30/23 22:04 Atorvastatin 40 Mg Tab PO 40 mg HS [facility] Administration Azithromycin 500 mg 12/31/23 09:00 Azithromycin 500 Mg Tab PO 01/01/24 09:01 DAILY [facility] Protocol Bisoprolol Fumarate 5 mg 12/31/23 09:00 Bisoprolol 5 Mg Tab PO DAILY [facility] Budesonide/Formoterol Fumarate 2 puff 12/31/23 08:00 12/31/23 08:33 Symbicort 160-4.5 Mcg Inhaler INHALATION Not Given RT-BID [facility] Dextrose/Water 25 ml 12/30/23 13:22 Dextrose 50% Syringe 50 Ml IVP PER PROTOCOL PRN Hypoglycemia Protocol Dextrose/Water 50 ml 12/30/23 13:22 Dextrose 50% Syringe 50 Ml IVP PER PROTOCOL PRN Hypoglycemia Protocol Guaifenesin 1,200 mg 12/30/23 14:09 Guaifenesin 600 Mg Tablet.Er PO BID PRN Congestion Heparin Sodium (Porcine) 5,000 unit 12/30/23 16:00 12/31/23 07:30 Heparin Sodium,Porcine 5,000 Unit/Ml 1 Ml Vial SQ Not Given Q8HR [facility] Ceftriaxone Sodium 2 gm/ 50 mls @ 100 mls/hr 12/31/23 09:00 Sodium Chloride IVPB 01/03/24 09:29 Q24HR [facility] Protocol Insulin Human Regular 100 unit 101 mls @ 10.537 mls/hr 12/30/23 21:30 12/31/23 06:53 / Sodium Chloride IV 0.015 units/kg/hr .Q9H36M [facility] 1.581 mls/hr Titration Protocol 0.1 UNITS/KG/HR Potassium Chloride/Dextrose/Sod Cl 1,000 mls @ 150 mls/hr 12/31/23 00:15 12/31/23 06:36 D5%-1/2ns-Kcl 20 Meq/L Iv Solution IV 150 mls/hr .Q6H40M [facility] Administration Insulin Aspart 0 unit 12/30/23 17:30 12/31/23 07:13 Insulin Aspart (Novolog) 100 Unit/Ml Vial SQ Not Given ACHS [facility] Protocol Insulin Aspart 22 unit 12/30/23 17:30 12/31/23 07:12 Insulin Aspart (Novolog) 100 Unit/Ml Vial SQ Not Given AC-TID [facility] Insulin Detemir 50 unit 12/31/23 07:00 12/31/23 06:36 Insulin Detemir (Levemir) 100 Unit/Ml Syr SQ Not Given DAILY@0700 [facility] Methylprednisolone Sodium Succinate 60 mg 12/30/23 18:00 12/31/23 05:58 Methylprednisolone Sod Succi 125 Mg/2 Ml Vial IV 60 mg Q6HR [facility] Administration Midodrine 5 mg 12/30/23 22:45 12/31/23 07:29 Midodrine 5 Mg Tab PO 5 mg AC-TID [facility] Administration Miscellaneous Information 1 each 12/30/23 13:20 Pneumonia Protocol Utilized 1 Each Misc PO ONCE PRN Per Protocol Miscellaneous Information 1 each 12/31/23 02:19 Magnesium Replacement Protocol 1 Each Misc MISCELLANE DAILY PRN Per Protocol Protocol Miscellaneous Information 1 each 12/31/23 02:19 Potassium Replacement Protocol 1 Each Misc MISCELLANE DAILY PRN Per Protocol Montelukast Sodium 10 mg 12/30/23 22:45 12/30/23 23:25 Montelukast 10 Mg Tab PO 10 mg HS [facility] Administration Pantoprazole Sodium 40 mg 12/31/23 07:30 12/31/23 07:29 Pantoprazole 40 Mg Tablet PO 40 mg AC-BRKFST [facility] Administration Intake and Output 12/30/23 12/31/23 12/31/23 22:59 06:59 14:59 Intake Total 92.145 Balance 92.145 Intake: Intake, IV Titration 92.145 Amount Insulin Regular 100 unit 92.145 In Sodium Chloride 0.9% 100 ml @ 0.1 UNITS/KG/HR 10.537 mls/hr IV .Q9H36M [facility] Rx#:[id number] 12/31/23 02:16 12/31/23 06:55
[2023-12-31 13:06] LABS: Glucose,Whole Blood 386 mg/dL (70-110)
[2023-12-31] MEDS: INSULIN DETEMIR (LEVEMIR) 100 UNIT/ML SYR SQ ONE (13:07)
[2023-12-31] MEDS: DAPAGLIFLOZIN PROPANEDIOL 10 MG TABLET PO SCH (13:07)
[2023-12-31] MEDS: SPIRONOLACTONE 25 MG TAB PO SCH (13:07)
[2023-12-31 14:01] LABS: Glucose,Whole Blood 371 mg/dL (70-110)
[2023-12-31] MEDS: INSULIN ASPART (NovoLOG) 100 UNIT/ML VIAL SQ ONE (14:29)
[2023-12-31 15:07] LABS: Glucose,Whole Blood 241 mg/dL (70-110)
[2023-12-31 16:03] LABS: Glucose,Whole Blood 128 mg/dL (70-110)
[2023-12-31 17:03] LABS: Glucose,Whole Blood 140 mg/dL (70-110)
[2023-12-31 18:04] LABS: Glucose,Whole Blood 150 mg/dL (70-110)
[2023-12-31 19:04] LABS: Glucose,Whole Blood 149 mg/dL (70-110)
[2023-12-31 20:26] LABS: Glucose,Whole Blood 174 mg/dL (70-110)
[2023-12-31] MEDS: methylPREDNISolone SOD SUCCI 125 MG/2 ML VIAL IV SCH (21:12)
--- NOTE | 2023-12-31 21:44 | CA ---
Transthoracic Echo Report Name: Mayur Parmar Age: 73 Gender: M : 1950 Exam Date: 12/31/2023 15:33 Exam Location: [facility] Ht (in): 72 Wt (lb): 230 Ordering Physician: Iris Barker Attending/Referring Phys: [id number], [place] Useful Or Busser Lidia Teixeira RCS Procedure CPT: Indications: LV function Cardiac Hx: Technical Quality: Technically difficult study Contrast 1: Definity Total Dose (mL): 2 Contrast 2: Total Dose (mL): MEASUREMENTS (Male / Female) Normal Values 2D ECHO LV Diastolic Diameter PLAX 6.5 cm 4.2 - 5.9 / 3.9 - 5.3 cm LV Systolic Diameter PLAX 5.6 cm IVS Diastolic Thickness 1.0 cm 0.6 - 1.0 / 0.6 - 0.9 cm LVPW Diastolic Thickness 0.8 cm 0.6 - 1.0 / 0.6 - 0.9 cm LV Relative Wall Thickness 0.3 RV Internal Dim ED PLAX 2.6 cm LVOT Diameter 2.5 cm LA Volume 49.9 cm??? 18 - 58 / 22 - 52 cm??? LA Volume Index 21.4 cm???/m??? 16 - 28 cm???/m??? DOPPLER AV Peak Velocity 122.5 cm/s AV Peak Gradient 6.0 mmHg AV Mean Velocity 90.6 cm/s AV Mean Gradient 3.5 mmHg AV Velocity Time Integral 24.8 cm LVOT Peak Velocity 89.3 cm/s LVOT Peak Gradient 3.2 mmHg LVOT Velocity Time Integral 16.5 cm LVOT Stroke Volume 79.5 cm??? LVOT Stroke Volume Index 35.2 ml/m??? LVOT Cardiac Index 2901.2 cm???/min???m??? AV Area Cont Eq vti 3.2 cm??? AV Area Cont Eq pk 3.5 cm??? TR Peak Velocity 184.1 cm/s TR Peak Gradient 13.6 mmHg PV Peak Velocity 55.8 cm/s PV Peak Gradient 1.2 mmHg FINDINGS Left Ventricle Left ventricular ejection fraction is estimated at 20-25 %. Moderately increased left ventricular diastolic diameter. Left ventricular cavity size normal. Right Ventricle Normal right ventricular size with mildly reduced function. Unable to estimate right ventricular systolic pressure. Right Atrium Right atrium not well visualized. Left Atrium Normal left atrial size. Mitral Valve Mitral valve thickened. No evidence for mitral valve prolapse. No mitral stenosis. Trace mitral regurgitation. Aortic Valve Trileaflet aortic valve. No aortic stenosis. Mild aortic regurgitation. Tricuspid Valve Structurally normal tricuspid valve. No tricuspid stenosis. Mild tricuspid regurgitation. Pulmonic Valve Pulmonic valve not well visualized. No pulmonic stenosis. No pulmonic regurgitation. Pericardium No pericardial effusion. Aorta Aortic annulus normal. Ascending aorta not well visualized. CONCLUSIONS Left ventricular ejection fraction is estimated at 20-25 %. Severe global LV systolic dysfunction. Possibility of small LV thrombus cannot be ruled out No significant valvular dysfunction No pericardial effusion No prior echocardiogram to compare within database Previewed by: Dr Tang Sierra (Electronically Signed) Final Date: 31 December 2023 21:43
--- NOTE | 2023-12-31 21:50 | P.EN ---
Suspicion of atrial fibrillation. Absence of A wave on echo. Would recommend PPM interrogation for underlying atrial fibrillation. Suspicion of LV thrombus on contrast imaging on echo cardiac rhythm. Start IV heparin drip. Monitor hemoglobin levels
[2023-12-31 23:07] LABS: INR 0.9 (<1.2); Partial Thromboplastin Time 22.4 sec (22.0-30.0); Prothrombin Time 10.5 sec (10.0-12.5)
[2023-12-31] MEDS: HEPARIN SODIUM 1,000 UN/ML (10ML VL) IV ONE (23:14)
[2023-12-31] MEDS: HEPARIN SOD,PORK IN 0.45% NACL 25,000 UNIT in 0.45% NACL 1 250ML.BAG IV SCH (23:14)
[2023-12-31 23:22] LABS: Basophils % (A) 0 %; Eosinophils % (A) 0 %; HCT 38.4 % (39.0-53.0); Lymphocytes # (A) 0.7 k/uL (1.0-4.8); Lymphocytes % (A) 6 %; MCH 33.2 pg (25.0-35.0); MCHC 33.9 g/dL (31.0-37.0); MCV 97.8 fL (80.0-100.0); Mean Platelet Volume 9.1; Monocytes # (A) 0.4 k/uL (0-1.0); Monocytes % (A) 4 %; Neutrophils # (A) 10.2 k/uL (1.3-7.7); Neutrophils % (A) 89 %; Platelet Count 167 k/uL (150-450); RBC 3.92 m/uL (4.30-5.90); RDW 14.9 % (11.5-15.5); WBC 11.4 k/uL (3.8-10.6)
--- NOTE | 2024-01-01 00:16 | P.PN ---
Subjective Progress Note Date: 12/31/23 Patient is a 73-year-old male with a known history of hyperlipidemia, diabetes type 2 insulin-dependent, coronary artery disease with prior stent placement, history of mild chronic CHF with mildly impaired systolic dysfunction ejection fraction 40 to 45% and moderate left ventricular concentric hypertrophy presents to ER with complaints of shortness of breath for the past 2 weeks and not getting better. Patient states that he has been having difficulty in breathing and felt like fluid in the lung. Also states that he felt warm and sweating at home. Patient was seen by his primary care physician and was given prednisone tapering course couple days ago which he has been taking. Patient is also complaining of diarrhea. Denies any fever or chills at home. Patient also states that he has increased leg swelling and gaining weight and has been taking extra dose of Lasix at home. Patient states that he has CHF and COPD. Chest x-ray on admission showed left basilar atelectasis or early infiltrate. EKG showed electronic ventricular paced rhythm. Laboratory data showed WBC 11.3 hemoglobin 14.2 and platelets 185 Sodium 132 potassium 3.5 chloride 94 bicarb is 19 anion gap 19 BUN 27 creatinine 1.12 and blood sugar 524 Lactic acid 4.1 calcium 8.0 magnesium 2.0 and total bili 1.8 liver regnancy not elevated troponin less than 0.12 and proBNP 2670 and albumin 2.8 Urinalysis showed 4+ glucose and leukocyte esterase negative. Influenza A B RSV and COVID-19 PCR not detected. 12/31/2023 Patient is resting in the bed. Awake alert and oriented. Overnight patient was hyperglycemic and requiring insulin drip. Patient was also started on IV Lasix. Breathing status is better today. No complaints of chest pain. No nausea vomiting abdominal pain or diarrhea. Patient is tolerating oral diet. Repeat chest x-ray this morning showed left retrocardiac consolidation correlate for atelectasis versus early pneumonia. Patient is being continued on antibiotics ceftriaxone and azithromycin. Pulmonary and cardiology is on board. Laboratory data showed WBC 11.4 hemoglobin 13.0 and platelets 167 Current medications reviewed. Objective - Vital Signs Vital signs: Vital Signs Temp 97.6 F 12/31/23 21:27 Pulse 98 12/31/23 21:27 Resp 16 12/31/23 21:27 BP 106/58 12/31/23 21:27 Pulse Ox 99 12/31/23 21:27 FiO2 Intake & Output 12/31/23 12/31/23 01/01/24 06:59 18:59 06:59 Intake Total 92.145 151.980 Balance 92.145 151.980 Weight 104.326 kg Intake: Intake, IV Titration 92.145 33.980 Amount Insulin Regular 100 unit 92.145 33.980 In Sodium Chloride 0.9% 100 ml @ 0.1 UNITS/KG/HR 10.537 mls/hr IV .Q9H36M [facility] Rx#:[id number] Oral 118 Other: Voiding Method Toilet Urinal # Bowel Movements 1 - Exam PHYSICAL EXAMINATION: Patient is lying in the bed comfortably, no acute distress, awake alert and oriented.. HEENT: Normocephalic. Neck is supple. Pupils reactive. Nostrils clear. Oral cavity is moist. Neck reveals no JVD, carotid bruits, or thyromegaly. CHEST EXAMINATION: Trachea is central. Symmetrical expansion. Bilateral expiratory wheezing and rhonchi and coarse sounds.. CARDIAC: Normal S1, S2 with no gallops. No murmurs ABDOMEN: Soft. Bowel sounds normal. No organomegaly. No abdominal bruits. Extremities: Bilateral lower extremity trace edema. No clubbing or cyanosis Neurologically awake, alert, oriented x3 with well-coordinated movements. No focal deficits noted Skin: No rash or skin lesions. Psychiatric: Coperative. Nonsuicidal, anxious. Musculoskeletal: No joint swelling or deformity. Normal range of motion. - Labs CBC & Chem 7: 12/31/23 22:27 12/31/23 11:59 Labs: Abnormal Lab Results - Last 24 Hours (Table) 12/30/23 12/30/23 12/30/23 Range/Units 11:20 22:56 23:58 RBC (4.30-5.90) m/uL Hgb (13.0-17.5) gm/dL Hct (39.0-53.0) % Plt Count (150-450) k/uL Immature Gran # (0.00-0.04) X 10*3/uL Lymphocytes # (1.0-4.8) k/uL Eosinophils # (0.04-0.35) X 10*3/uL Sodium (137-145) mmol/L Potassium (3.5-5.1) mmol/L Carbon Dioxide (22-30) mmol/L BUN (9-20) mg/dL Glucose (74-99) mg/dL POC Glucose (mg/dL) 353 H 297 H (70-110) mg/dL Hemoglobin A1c (<=6.0) % Plasma Lactic Acid José Antonio (0.7-2.0) mmol/L Calcium (8.4-10.2) mg/dL Procalcitonin 0.28 H (0.02-0.09) ng/mL 12/31/23 12/31/23 12/31/23 Range/Units 01:01 01:52 02:16 RBC (4.30-5.90) m/uL Hgb (13.0-17.5) gm/dL Hct (39.0-53.0) % Plt Count (150-450) k/uL Immature Gran # (0.00-0.04) X 10*3/uL Lymphocytes # (1.0-4.8) k/uL Eosinophils # (0.04-0.35) X 10*3/uL Sodium (137-145) mmol/L Potassium (3.5-5.1) mmol/L Carbon Dioxide (22-30) mmol/L BUN (9-20) mg/dL Glucose (74-99) mg/dL POC Glucose (mg/dL) 257 H 211 H (70-110) mg/dL Hemoglobin A1c (<=6.0) % Plasma Lactic Acid José Antonio 2.9 H* (0.7-2.0) mmol/L Calcium (8.4-10.2) mg/dL Procalcitonin (0.02-0.09) ng/mL 12/31/23 12/31/23 12/31/23 Range/Units 02:16 02:16 02:16 RBC 3.87 L (4.30-5.90) m/uL Hgb 12.3 L (13.0-17.5) gm/dL Hct 38.2 L (39.0-53.0) % Plt Count 148 L (150-450) k/uL Immature Gran # (0.00-0.04) X 10*3/uL Lymphocytes # 0.7 L (1.0-4.8) k/uL Eosinophils # (0.04-0.35) X 10*3/uL Sodium 136 L (137-145) mmol/L Potassium 2.4 L* (3.5-5.1) mmol/L Carbon Dioxide (22-30) mmol/L BUN 32 H (9-20) mg/dL Glucose 209 H (74-99) mg/dL POC Glucose (mg/dL) (70-110) mg/dL Hemoglobin A1c 11.0 H (<=6.0) % Plasma Lactic Acid José Antonio (0.7-2.0) mmol/L Calcium (8.4-10.2) mg/dL Procalcitonin (0.02-0.09) ng/mL 12/31/23 12/31/23 12/31/23 Range/Units 03:03 03:57 04:58 RBC (4.30-5.90) m/uL Hgb (13.0-17.5) gm/dL Hct (39.0-53.0) % Plt Count (150-450) k/uL Immature Gran # (0.00-0.04) X 10*3/uL Lymphocytes # (1.0-4.8) k/uL Eosinophils # (0.04-0.35) X 10*3/uL Sodium (137-145) mmol/L Potassium (3.5-5.1) mmol/L Carbon Dioxide (22-30) mmol/L BUN (9-20) mg/dL Glucose (74-99) mg/dL POC Glucose (mg/dL) 174 H 161 H 129 H (70-110) mg/dL Hemoglobin A1c (<=6.0) % Plasma Lactic Acid José Antonio (0.7-2.0) mmol/L Calcium (8.4-10.2) mg/dL Procalcitonin (0.02-0.09) ng/mL 12/31/23 12/31/23 12/31/23 Range/Units 05:51 06:44 06:55 RBC 3.72 L (4.30-5.90) m/uL Hgb 11.9 L (13.0-17.5) gm/dL Hct 35.1 L (39.0-53.0) % Plt Count (150-450) k/uL Immature Gran # 0.08 H (0.00-0.04) X 10*3/uL Lymphocytes # (1.0-4.8) k/uL Eosinophils # 0 L (0.04-0.35) X 10*3/uL Sodium (137-145) mmol/L Potassium (3.5-5.1) mmol/L Carbon Dioxide (22-30) mmol/L BUN (9-20) mg/dL Glucose (74-99) mg/dL POC Glucose (mg/dL) 123 H 125 H (70-110) mg/dL Hemoglobin A1c (<=6.0) % Plasma Lactic Acid José Antonio (0.7-2.0) mmol/L Calcium (8.4-10.2) mg/dL Procalcitonin (0.02-0.09) ng/mL 12/31/23 12/31/23 12/31/23 Range/Units 06:55 06:55 07:51 RBC (4.30-5.90) m/uL Hgb (13.0-17.5) gm/dL Hct (39.0-53.0) % Plt Count (150-450) k/uL Immature Gran # (0.00-0.04) X 10*3/uL Lymphocytes # (1.0-4.8) k/uL Eosinophils # (0.04-0.35) X 10*3/uL Sodium 135 L (137-145) mmol/L Potassium 2.7 L* (3.5-5.1) mmol/L Carbon Dioxide (22-30) mmol/L BUN 31 H (9-20) mg/dL Glucose 130 H (74-99) mg/dL POC Glucose (mg/dL) 170 H (70-110) mg/dL Hemoglobin A1c (<=6.0) % Plasma Lactic Acid José Antonio (0.7-2.0) mmol/L Calcium (8.4-10.2) mg/dL Procalcitonin (0.02-0.09) ng/mL 12/31/23 12/31/23 12/31/23 Range/Units 08:53 10:02 11:04 RBC (4.30-5.90) m/uL Hgb (13.0-17.5) gm/dL Hct (39.0-53.0) % Plt Count (150-450) k/uL Immature Gran # (0.00-0.04) X 10*3/uL Lymphocytes # (1.0-4.8) k/uL Eosinophils # (0.04-0.35) X 10*3/uL Sodium (137-145) mmol/L Potassium (3.5-5.1) mmol/L Carbon Dioxide (22-30) mmol/L BUN (9-20) mg/dL Glucose (74-99) mg/dL POC Glucose (mg/dL) 231 H 354 H 343 H (70-110) mg/dL Hemoglobin A1c (<=6.0) % Plasma Lactic Acid José Antonio (0.7-2.0) mmol/L Calcium (8.4-10.2) mg/dL Procalcitonin (0.02-0.09) ng/mL 12/31/23 12/31/23 12/31/23 Range/Units 11:59 12:03 13:05 RBC (4.30-5.90) m/uL Hgb (13.0-17.5) gm/dL Hct (39.0-53.0) % Plt Count (150-450) k/uL Immature Gran # (0.00-0.04) X 10*3/uL Lymphocytes # (1.0-4.8) k/uL Eosinophils # (0.04-0.35) X 10*3/uL Sodium 134 L (137-145) mmol/L Potassium 2.8 L (3.5-5.1) mmol/L Carbon Dioxide 20 L (22-30) mmol/L BUN 33 H (9-20) mg/dL Glucose 353 H (74-99) mg/dL POC Glucose (mg/dL) 348 H 386 H (70-110) mg/dL Hemoglobin A1c (<=6.0) % Plasma Lactic Acid José Antonio (0.7-2.0) mmol/L Calcium 8.1 L (8.4-10.2) mg/dL Procalcitonin (0.02-0.09) ng/mL 12/31/23 12/31/23 12/31/23 Range/Units 14:00 15:05 16:02 RBC (4.30-5.90) m/uL Hgb (13.0-17.5) gm/dL Hct (39.0-53.0) % Plt Count (150-450) k/uL Immature Gran # (0.00-0.04) X 10*3/uL Lymphocytes # (1.0-4.8) k/uL Eosinophils # (0.04-0.35) X 10*3/uL Sodium (137-145) mmol/L Potassium (3.5-5.1) mmol/L Carbon Dioxide (22-30) mmol/L BUN (9-20) mg/dL Glucose (74-99) mg/dL POC Glucose (mg/dL) 371 H 241 H 128 H (70-110) mg/dL Hemoglobin A1c (<=6.0) % Plasma Lactic Acid José Antonio (0.7-2.0) mmol/L Calcium (8.4-10.2) mg/dL Procalcitonin (0.02-0.09) ng/mL 12/31/23 12/31/23 12/31/23 Range/Units 17:00 18:02 19:03 RBC (4.30-5.90) m/uL Hgb (13.0-17.5) gm/dL Hct (39.0-53.0) % Plt Count (150-450) k/uL Immature Gran # (0.00-0.04) X 10*3/uL Lymphocytes # (1.0-4.8) k/uL Eosinophils # (0.04-0.35) X 10*3/uL Sodium (137-145) mmol/L Potassium (3.5-5.1) mmol/L Carbon Dioxide (22-30) mmol/L BUN (9-20) mg/dL Glucose (74-99) mg/dL POC Glucose (mg/dL) 140 H 150 H 149 H (70-110) mg/dL Hemoglobin A1c (<=6.0) % Plasma Lactic Acid José Antonio (0.7-2.0) mmol/L Calcium (8.4-10.2) mg/dL Procalcitonin (0.02-0.09) ng/mL 12/31/23 Range/Units 20:25 RBC (4.30-5.90) m/uL Hgb (13.0-17.5) gm/dL Hct (39.0-53.0) % Plt Count (150-450) k/uL Immature Gran # (0.00-0.04) X 10*3/uL Lymphocytes # (1.0-4.8) k/uL Eosinophils # (0.04-0.35) X 10*3/uL Sodium (137-145) mmol/L Potassium (3.5-5.1) mmol/L Carbon Dioxide (22-30) mmol/L BUN (9-20) mg/dL Glucose (74-99) mg/dL POC Glucose (mg/dL) 174 H (70-110) mg/dL Hemoglobin A1c (<=6.0) % Plasma Lactic Acid José Antonio (0.7-2.0) mmol/L Calcium (8.4-10.2) mg/dL Procalcitonin (0.02-0.09) ng/mL Microbiology - Last 24 Hours (Table) 12/30/23 13:15 Blood Culture - Preliminary Blood 12/30/23 13:39 Blood Culture - Preliminary Blood Assessment and Plan Assessment: Acute COPD exacerbation failed outpatient treatment. Hyperglycemia with uncontrolled diabetes type 2 insulin-dependent A1c 12 Left basilar atelectasis and possible early infiltrate/pneumonia Acute on Chronic CHF with mildly reduced systolic dysfunction ejection fraction 40 to 45% as per 2D echocardiogram in 2018. Patient had stress test in 2018. follows with Dr[address] Graham as an outpatient. Coronary artery disease history of stent placement Lactic acidosis likely due to tissue hypoperfusion Hypovolemic hyponatremia and pseudohyponatremia Hypoalbuminemia Hyperlipidemia History of [place] DVT prophylaxis with heparin subcu. GI prophylaxis patient is on PPI Plan: Patient will be continued on telemetry monitoring. Started on antibiotics ceftriaxone and azithromycin. Procalcitonin level 0.28 Continue with IV Solu-Medrol 60 mg every 6 hourly along with DuoNebs and Symbicort. Started on IV Lasix 40 mg every 12 Gentle IV hydration and monitor fluid status closely. Started back on insulin regimen and follow-up based on level. Patient was on insulin drip overnight. Patient will be continued on aspirin and statins and metoprolol. Entresto, Lasix and spironolactone restarted.. Patient is also on midodrine at home. Pulmonary and cardiology is on board. Continue to follow closely. Prognosis is guarded. Time with Patient: Greater than 30
[2024-01-01 02:37] LABS: Glucose,Whole Blood 298 mg/dL (70-110)
[2024-01-01 05:15] LABS: Partial Thromboplastin Time 38.9 sec (22.0-30.0); Prothrombin Time 10.8 sec (10.0-12.5)
[2024-01-01] MEDS: HEPARIN SODIUM 1,000 UN/ML (10ML VL) IV PRN (05:27)
[2024-01-01 05:31] LABS: Basophils % (A) 0 %; Eosinophils % (A) 0 %; HCT 39.6 % (39.0-53.0); HGB 12.8 gm/dL (13.0-17.5); Hypochromasia Slight; Lymphocytes # (A) 0.6 k/uL (1.0-4.8); Lymphocytes % (A) 7 %; MCH 33.1 pg (25.0-35.0); MCHC 32.4 g/dL (31.0-37.0); MCV 102.1 fL (80.0-100.0); Macrocytosis Slight; Mean Platelet Volume 9.8; Monocytes # (A) 0.2 k/uL (0-1.0); Monocytes % (A) 2 %; Neutrophils # (A) 8.3 k/uL (1.3-7.7); Neutrophils % (A) 90 %; Platelet Count 140 k/uL (150-450); RBC 3.88 m/uL (4.30-5.90); RDW 14.6 % (11.5-15.5); WBC 9.2 k/uL (3.8-10.6)
[2024-01-01 05:49] LABS: African American GFR (CKD) 79 (>60 ml/min/1.73 sqM); Anion Gap 8 mmol/L; Blood Urea Nitrogen 36 mg/dL (9-20); Carbon Dioxide 18 mmol/L (22-30); Chloride 108 mmol/L (98-107); Glucose 325 mg/dL (74-99); Non-African American GFR(CKD) 69 (>60 ml/min/1.73 sqM); Potassium 3.7 mmol/L (3.5-5.1); Sodium 134 mmol/L (137-145)
[2024-01-01] MEDS: POTASSIUM CHLORIDE ER 20 MEQ TAB.ER PO SCH (06:05)
[2024-01-01 06:26] LABS: Glucose,Whole Blood 323 mg/dL (70-110)
[2024-01-01] MEDS: SACUBITRIL/VALSARTAN 24 MG-26 MG TABLET PO SCH (08:56)
[2024-01-01] MEDS: APIXABAN 5 MG TAB PO SCH (10:45)
[2024-01-01] MEDS: DIPHENOX-ATROP 2.5-0.025 MG 1 EACH TAB PO PRN (10:45)
[2024-01-01 11:37] LABS: Glucose,Whole Blood 256 mg/dL (70-110)
--- NOTE | 2024-01-01 12:20 | P.PN ---
Subjective HISTORY OF PRESENT ILLNESS: This is a 73-year-old male with a past medical history significant for coronary artery disease, cardiomyopathy, hypertension, hyperlipidemia, diabetes, and AICD implantation. Patient follows in the office with Dr. Chatterjee. We have been asked to see the patient in consultation for CHF. Patient examined at the bedside. He reports he has been retaining fluid for the past few weeks. He states he was started on Lasix and gave him a shot of something but unsure if what it was. He states he did not notice any improvement so he decided to come to the hospital. He reports a weight gain of 13 pounds in the last two weeks. He reports increased lower extremity and increased abdominal swelling. He reports a nonproductive cough. He denies any fever or chills. He denies being around any sick contacts. He denies any chest pain or pressure. He does report having low blood pressures at home with a systolic in the 70s. DIAGNOSTICS: - EKG reveals ventricular paced rhythm. - Chest xray left basilar atelectasis or early infiltrate. - Laboratory data: WBC 8.3. Hemoglobin 12.3. Platelet count 148. Sodium 136. Potassium 2.4. BUN 32. Creatinine 1.25. Glucose on admission 524. Repeat 130. Lactic acid 6.7 on admission repeat 1.8. Magnesium 2.3. Troponin negative x 1. proBNP 2670. - Current home cardiac medications include Aldactone 25 mg daily, midodrine 5 mg 3 times a day, bisoprolol 5 mg daily, Entresto 24-26 mg twice a day, Lasix 40 mg daily as needed, aspirin 81 mg daily, and atorvastatin 40 mg at night. - Most recent echocardiogram obtained in 06/2023 revealed ejection fraction 42%, mild to moderate MR, mild to moderate AR, mild to moderate TR - Cardiac catheterization history: 2012 revealing 100% proximal D1, 50% mid circumflex, 20% mid RCA, left circumflex FFR 90% 01/01/2024 Patient examined this morning at the bedside. Patient currently denies chest pain or pressure. He denies any shortness of breath. He reports he has been having significant diarrhea. C. difficile was negative. Echocardiogram completed revealing ejection fraction 20 to 25%, trace MR, mild AR and small LV thrombus. There was questionable atrial fibrillation as well according to Dr. Sierra's dictation. AICD was interrogated with no evidence of atrial fibrillation. He was started on IV heparin secondary to small LV thrombus. Patient's heart rates are ranging [place] [address]. PHYSICAL EXAM: VITAL SIGNS: Reviewed. GENERAL: Well-developed in no acute distress. HEENT: Head is normocephalic. Pupils are equal, round. Sclerae anicteric. Mucous membranes of the mouth are moist. Neck supple. No JVD or thyromegaly LUNGS: Respirations even and unlabored. Lungs essentially clear to auscultation bilaterally. HEART: Regular rate and rhythm. S1 and S2 heard. ABDOMEN: Soft. Nondistended. Nontender. EXTREMITIES: Normal range of motion. No clubbing or cyanosis. Peripheral pulses intact. Minimal lower extremity edema NEUROLOGIC: Awake and alert. Oriented x 3. ASSESSMENT: Shortness of breath Acute on chronic heart failure with reduced ejection fraction COPD exacerbation Hyperglycemia/DKA on insulin drip Lactic acidosis Hypokalemia Possible early infiltrate per chest x-ray Coronary artery disease with previous stenting History of ischemic cardiomyopathy, ejection fraction 42%, now 20 to 25% History of AICD implantation Hypertension Hyperlipidemia Diabetes History of hypotension, on midodrine outpatient Atrial fibrillation, ruled out, per ICD interrogation Suspected small LV thrombus, per echo Diarrhea PLAN: Continue IV Lasix 40 mg every 12 hours Daily weights, accurate intake and output, and monitoring of kidney function Continue telemetry monitoring. If patient's tachycardia persists or his heart rates increase further, will increase beta-gurpreet Discontinue IV heparin. Begin Eliquis 5 mg twice a day secondary to LV thrombus Further recommendations pending patient course Nurse practitioner note has been reviewed by physician. Signing provider agrees with the documented findings, assessment, and plan of care documented by TORQUE TESTER as a scribe. Objective - Vital Signs Vital signs: Vital Signs Temp 97.6 F 01/01/24 07:56 Pulse 92 01/01/24 12:01 Resp 17 01/01/24 07:56 BP 123/86 01/01/24 07:56 Pulse Ox 96 01/01/24 08:54 FiO2 Intake & Output 12/31/23 01/01/24 01/01/24 18:59 06:59 18:59 Intake Total 151.980 62.667 Output Total 220 Balance 151.980 -157.333 Weight 104.326 kg 104.326 kg Intake: Intake, IV Titration 33.980 62.667 Amount Heparin Sod,Pork in 0.45% 62.667 NaCl 25,000 unit In 0.45 % NaCl 1 250ml.bag @ 9. 5853 UNITS/KG/HR 10 mls/ hr IV .Q24H [facility] Rx#: [id number] Insulin Regular 100 unit 33.980 In Sodium Chloride 0.9% 100 ml @ 0.1 UNITS/KG/HR 10.537 mls/hr IV .Q9H36M [facility] Rx#:[id number] Oral 118 Output: Urine 220 Other: Voiding Method Toilet Toilet Toilet Urinal Urinal Urinal # Voids 1 # Bowel Movements 1 - Labs CBC & Chem 7: 01/01/24 04:42 01/01/24 04:42 Labs: Abnormal Lab Results - Last 24 Hours (Table) 12/31/23 12/31/23 12/31/23 Range/Units 11:59 13:05 14:00 WBC (3.8-10.6) k/uL RBC (4.30-5.90) m/uL Hgb (13.0-17.5) gm/dL Hct (39.0-53.0) % MCV (80.0-100.0) fL Plt Count (150-450) k/uL Neutrophils # (1.3-7.7) k/uL Lymphocytes # (1.0-4.8) k/uL APTT (22.0-30.0) sec Sodium 134 L (137-145) mmol/L Potassium 2.8 L (3.5-5.1) mmol/L Chloride (98-107) mmol/L Carbon Dioxide 20 L (22-30) mmol/L BUN 33 H (9-20) mg/dL Glucose 353 H (74-99) mg/dL POC Glucose (mg/dL) 386 H 371 H (70-110) mg/dL Calcium 8.1 L (8.4-10.2) mg/dL 12/31/23 12/31/23 12/31/23 Range/Units 15:05 16:02 17:00 WBC (3.8-10.6) k/uL RBC (4.30-5.90) m/uL Hgb (13.0-17.5) gm/dL Hct (39.0-53.0) % MCV (80.0-100.0) fL Plt Count (150-450) k/uL Neutrophils # (1.3-7.7) k/uL Lymphocytes # (1.0-4.8) k/uL APTT (22.0-30.0) sec Sodium (137-145) mmol/L Potassium (3.5-5.1) mmol/L Chloride (98-107) mmol/L Carbon Dioxide (22-30) mmol/L BUN (9-20) mg/dL Glucose (74-99) mg/dL POC Glucose (mg/dL) 241 H 128 H 140 H (70-110) mg/dL Calcium (8.4-10.2) mg/dL 12/31/23 12/31/23 12/31/23 Range/Units 18:02 19:03 20:25 WBC (3.8-10.6) k/uL RBC (4.30-5.90) m/uL Hgb (13.0-17.5) gm/dL Hct (39.0-53.0) % MCV (80.0-100.0) fL Plt Count (150-450) k/uL Neutrophils # (1.3-7.7) k/uL Lymphocytes # (1.0-4.8) k/uL APTT (22.0-30.0) sec Sodium (137-145) mmol/L Potassium (3.5-5.1) mmol/L Chloride (98-107) mmol/L Carbon Dioxide (22-30) mmol/L BUN (9-20) mg/dL Glucose (74-99) mg/dL POC Glucose (mg/dL) 150 H 149 H 174 H (70-110) mg/dL Calcium (8.4-10.2) mg/dL 12/31/23 01/01/24 01/01/24 Range/Units 22:27 02:34 04:42 WBC 11.4 H (3.8-10.6) k/uL RBC 3.92 L (4.30-5.90) m/uL Hgb (13.0-17.5) gm/dL Hct 38.4 L (39.0-53.0) % MCV (80.0-100.0) fL Plt Count (150-450) k/uL Neutrophils # 10.2 H (1.3-7.7) k/uL Lymphocytes # 0.7 L (1.0-4.8) k/uL APTT (22.0-30.0) sec Sodium 134 L (137-145) mmol/L Potassium (3.5-5.1) mmol/L Chloride 108 H (98-107) mmol/L Carbon Dioxide 18 L (22-30) mmol/L BUN 36 H (9-20) mg/dL Glucose 325 H (74-99) mg/dL POC Glucose (mg/dL) 298 H (70-110) mg/dL Calcium 8.0 L (8.4-10.2) mg/dL 01/01/24 01/01/24 01/01/24 Range/Units 04:42 04:42 06:20 WBC (3.8-10.6) k/uL RBC 3.88 L (4.30-5.90) m/uL Hgb 12.8 L (13.0-17.5) gm/dL Hct (39.0-53.0) % MCV 102.1 H (80.0-100.0) fL Plt Count 140 L (150-450) k/uL Neutrophils # 8.3 H (1.3-7.7) k/uL Lymphocytes # 0.6 L (1.0-4.8) k/uL APTT 38.9 H (22.0-30.0) sec Sodium (137-145) mmol/L Potassium (3.5-5.1) mmol/L Chloride (98-107) mmol/L Carbon Dioxide (22-30) mmol/L BUN (9-20) mg/dL Glucose (74-99) mg/dL POC Glucose (mg/dL) 323 H (70-110) mg/dL Calcium (8.4-10.2) mg/dL 01/01/24 Range/Units 11:35 WBC (3.8-10.6) k/uL RBC (4.30-5.90) m/uL Hgb (13.0-17.5) gm/dL Hct (39.0-53.0) % MCV (80.0-100.0) fL Plt Count (150-450) k/uL Neutrophils # (1.3-7.7) k/uL Lymphocytes # (1.0-4.8) k/uL APTT (22.0-30.0) sec Sodium (137-145) mmol/L Potassium (3.5-5.1) mmol/L Chloride (98-107) mmol/L Carbon Dioxide (22-30) mmol/L BUN (9-20) mg/dL Glucose (74-99) mg/dL POC Glucose (mg/dL) 256 H (70-110) mg/dL Calcium (8.4-10.2) mg/dL Microbiology - Last 24 Hours (Table) 12/30/23 13:15 Blood Culture - Preliminary Blood 12/30/23 13:39 Blood Culture - Preliminary Blood
--- NOTE | 2024-01-01 13:35 | P.PN ---
Subjective Progress Note Date: 01/01/24 On today's evaluation of 01/01/2024, the patient is still having some cough and congestion. No significant sputum production. He started having diarrhea as of yesterday and the patient was having frequent episodes. He remains on IV Rocephin. He is also on bronchodilators and steroids. A repeat echocardiogram was done and the patient was found to have an ejection fraction of 20 to 25%. There is severe global LV dysfunction and possibility of a small LV thrombus as noted on echocardiogram. Based on that, the patient has been maintained on anticoagulation with Eliquis 5 mg p.o. twice a day. The patient remains on Entresto. The patient remains on Lasix 40 mg every 12 hours. At the same time, the patient is on Symbicort 2 puffs twice a day, he has Trelegy Ellipta at the bedside. He is also on IV Solu-Medrol 40 mg every 12 hours. Labs from today shows a WBC count of 9.2, hemoglobin is at 12.8 and a platelet count is 140. BUN is 36 with a creatinine 1.07 and a sodium level is at 134. Awake and alert and communicating at this point in time. Objective - Vital Signs Vital signs: Vital Signs Temp 97.6 F 01/01/24 07:56 Pulse 96 01/01/24 12:13 Resp 17 01/01/24 07:56 BP 123/86 01/01/24 07:56 Pulse Ox 96 01/01/24 08:54 FiO2 Intake & Output 12/31/23 01/01/24 01/01/24 18:59 06:59 18:59 Intake Total 151.980 62.667 118 Output Total 220 Balance 151.980 -157.333 118 Weight 104.326 kg 104.326 kg Intake: Intake, IV Titration 33.980 62.667 Amount Heparin Sod,Pork in 0.45% 62.667 NaCl 25,000 unit In 0.45 % NaCl 1 250ml.bag @ 9. 5853 UNITS/KG/HR 10 mls/ hr IV .Q24H [facility] Rx#: [id number] Insulin Regular 100 unit 33.980 In Sodium Chloride 0.9% 100 ml @ 0.1 UNITS/KG/HR 10.537 mls/hr IV .Q9H36M [facility] Rx#:[id number] Oral 118 118 Output: Urine 220 Other: Voiding Method Toilet Toilet Toilet Urinal Urinal Urinal # Voids 1 # Bowel Movements 1 - Exam GENERAL EXAM: Alert, 73-year-old white male, obese, comfortable in no apparent distress. HEAD: Normocephalic and atraumatic EYES: Normal reaction of pupils, equal size. NOSE: Clear with pink turbinates. THROAT: No erythema or exudates. NECK: No masses, no JVD. CHEST: No chest wall deformity. LUNGS: Equal air entry with diffuse rhonchi heard throughout. Inspiratory crackles heard at the bases, especially in the left lower lobe. On room air. No conversational dyspnea or accessory muscle use.. CVS: S1 and S2 normal with no audible murmur, regular rhythm. No extra heart sounds ABDOMEN: No hepatosplenomegaly, active bowel sounds, no guarding or rigidity. SPINE: No scoliosis or deformity SKIN: No rashes CENTRAL NERVOUS SYSTEM: No focal deficits, tone is normal in all 4 extremities. EXTREMITIES: There is no peripheral edema, clubbing, or cyanosis. Peripheral pulses are intact. - Labs CBC & Chem 7: 01/01/24 04:42 01/01/24 04:42 Labs: Abnormal Lab Results - Last 24 Hours (Table) 12/31/23 12/31/23 12/31/23 Range/Units 14:00 15:05 16:02 WBC (3.8-10.6) k/uL RBC (4.30-5.90) m/uL Hgb (13.0-17.5) gm/dL Hct (39.0-53.0) % MCV (80.0-100.0) fL Plt Count (150-450) k/uL Neutrophils # (1.3-7.7) k/uL Lymphocytes # (1.0-4.8) k/uL APTT (22.0-30.0) sec Sodium (137-145) mmol/L Chloride (98-107) mmol/L Carbon Dioxide (22-30) mmol/L BUN (9-20) mg/dL Glucose (74-99) mg/dL POC Glucose (mg/dL) 371 H 241 H 128 H (70-110) mg/dL Calcium (8.4-10.2) mg/dL 12/31/23 12/31/23 12/31/23 Range/Units 17:00 18:02 19:03 WBC (3.8-10.6) k/uL RBC (4.30-5.90) m/uL Hgb (13.0-17.5) gm/dL Hct (39.0-53.0) % MCV (80.0-100.0) fL Plt Count (150-450) k/uL Neutrophils # (1.3-7.7) k/uL Lymphocytes # (1.0-4.8) k/uL APTT (22.0-30.0) sec Sodium (137-145) mmol/L Chloride (98-107) mmol/L Carbon Dioxide (22-30) mmol/L BUN (9-20) mg/dL Glucose (74-99) mg/dL POC Glucose (mg/dL) 140 H 150 H 149 H (70-110) mg/dL Calcium (8.4-10.2) mg/dL 12/31/23 12/31/23 01/01/24 Range/Units 20:25 22:27 02:34 WBC 11.4 H (3.8-10.6) k/uL RBC 3.92 L (4.30-5.90) m/uL Hgb (13.0-17.5) gm/dL Hct 38.4 L (39.0-53.0) % MCV (80.0-100.0) fL Plt Count (150-450) k/uL Neutrophils # 10.2 H (1.3-7.7) k/uL Lymphocytes # 0.7 L (1.0-4.8) k/uL APTT (22.0-30.0) sec Sodium (137-145) mmol/L Chloride (98-107) mmol/L Carbon Dioxide (22-30) mmol/L BUN (9-20) mg/dL Glucose (74-99) mg/dL POC Glucose (mg/dL) 174 H 298 H (70-110) mg/dL Calcium (8.4-10.2) mg/dL 01/01/24 01/01/24 01/01/24 Range/Units 04:42 04:42 04:42 WBC (3.8-10.6) k/uL RBC 3.88 L (4.30-5.90) m/uL Hgb 12.8 L (13.0-17.5) gm/dL Hct (39.0-53.0) % MCV 102.1 H (80.0-100.0) fL Plt Count 140 L (150-450) k/uL Neutrophils # 8.3 H (1.3-7.7) k/uL Lymphocytes # 0.6 L (1.0-4.8) k/uL APTT 38.9 H (22.0-30.0) sec Sodium 134 L (137-145) mmol/L Chloride 108 H (98-107) mmol/L Carbon Dioxide 18 L (22-30) mmol/L BUN 36 H (9-20) mg/dL Glucose 325 H (74-99) mg/dL POC Glucose (mg/dL) (70-110) mg/dL Calcium 8.0 L (8.4-10.2) mg/dL 01/01/24 01/01/24 01/01/24 Range/Units 06:20 11:03 11:35 WBC (3.8-10.6) k/uL RBC (4.30-5.90) m/uL Hgb (13.0-17.5) gm/dL Hct (39.0-53.0) % MCV (80.0-100.0) fL Plt Count (150-450) k/uL Neutrophils # (1.3-7.7) k/uL Lymphocytes # (1.0-4.8) k/uL APTT 49.3 H (22.0-30.0) sec Sodium (137-145) mmol/L Chloride (98-107) mmol/L Carbon Dioxide (22-30) mmol/L BUN (9-20) mg/dL Glucose (74-99) mg/dL POC Glucose (mg/dL) 323 H 256 H (70-110) mg/dL Calcium (8.4-10.2) mg/dL Microbiology - Last 24 Hours (Table) 12/30/23 13:15 Blood Culture - Preliminary Blood 12/30/23 13:39 Blood Culture - Preliminary Blood Assessment and Plan Assessment: Acute dyspnea, secondary to acute COPD exacerbation/CHF exacerbation. Chest x- ray shows cardiomegaly with a cardiac defibrillator implanted. No significant vascular congestion or edema. There is a questionable left basilar opacity versus atelectasis. COPD with an FEV1 of 84% predicted based on the previous pulmonary function test that was done in 2022 Coronary artery disease with previous coronary stenting Ischemic cardiomyopathy/ systolic heart failure with an ejection fraction of 20 to 25% along with LV thrombus, currently on anticoagulation with Eliquis Diabetes mellitus type II, insulin-dependent, with hyperglycemia and mild DKA Mild anion gap metabolic acidosis, likely secondary to above and lactic acidosis Frequent diarrhea, likely related to recent adverse effects from antibiotics History of implanted AICD/pacemaker History of ischemic cardiomyopathy History of hypertension History of hyperlipidemia History of coronary artery disease with previous PCI/stent Obesity, with a BMI of 31.2 kg/m New onset diarrhea Plan: Start IV Rocephin as the patient is experiencing diarrhea Continue bronchodilators Continue maintenance as per medication including Symbicort or Trelegy Ellipta Continue IV Solu-Medrol 40 mg every 12 hours Continue IV Lasix Continue rest of the cardiac medications including Entresto, Aldactone and Farxiga. Continue anticoagulation with Eliquis Levemir insulin 50 units daily and 20 units of NovoLog with meals Will continue to follow.
--- NOTE | 2024-01-01 13:43 | P.PN ---
Subjective Progress Note Date: 01/01/24 Patient is a 73-year-old male with a known history of hyperlipidemia, diabetes type 2 insulin-dependent, coronary artery disease with prior stent placement, history of mild chronic CHF with mildly impaired systolic dysfunction ejection fraction 40 to 45% and moderate left ventricular concentric hypertrophy presents to ER with complaints of shortness of breath for the past 2 weeks and not getting better. Patient states that he has been having difficulty in breathing and felt like fluid in the lung. Also states that he felt warm and sweating at home. Patient was seen by his primary care physician and was given prednisone tapering course couple days ago which he has been taking. Patient is also complaining of diarrhea. Denies any fever or chills at home. Patient also states that he has increased leg swelling and gaining weight and has been taking extra dose of Lasix at home. Patient states that he has CHF and COPD. Chest x-ray on admission showed left basilar atelectasis or early infiltrate. EKG showed electronic ventricular paced rhythm. Laboratory data showed WBC 11.3 hemoglobin 14.2 and platelets 185 Sodium 132 potassium 3.5 chloride 94 bicarb is 19 anion gap 19 BUN 27 creatinine 1.12 and blood sugar 524 Lactic acid 4.1 calcium 8.0 magnesium 2.0 and total bili 1.8 liver regnancy not elevated troponin less than 0.12 and proBNP 2670 and albumin 2.8 Urinalysis showed 4+ glucose and leukocyte esterase negative. Influenza A B RSV and COVID-19 PCR not detected. 12/31/2023 Patient is resting in the bed. Awake alert and oriented. Overnight patient was hyperglycemic and requiring insulin drip. Patient was also started on IV Lasix. Breathing status is better today. No complaints of chest pain. No nausea vomiting abdominal pain or diarrhea. Patient is tolerating oral diet. Repeat chest x-ray this morning showed left retrocardiac consolidation correlate for atelectasis versus early pneumonia. Patient is being continued on antibiotics ceftriaxone and azithromycin. Pulmonary and cardiology is on board. Laboratory data showed WBC 11.4 hemoglobin 13.0 and platelets 167 12/31. Patient seen and examined. Complaining of diarrhea denies any nausea or vomiting. Shortness of breath is improved REVIEW OF SYSTEMS: CONSTITUTIONAL: No fever, no malaise,. CARDIOVASCULAR: No chest pain, no palpitations, no syncope. PULMONARY: No shortness of breath, no cough, GASTROINTESTINAL: As mentioned above NEUROLOGICAL: No headaches, no weakness, PHYSICAL EXAMINATION: GENERAL: The patient is alert and oriented x3, not in any acute distress. Well developed, well nourished. HEENT: Pupils are round and equally reacting to light. EOMI. No scleral icterus. No conjunctival pallor. Normocephalic, atraumatic. No pharyngeal erythema. No thyromegaly. CARDIOVASCULAR: S1 and S2 present. No murmurs, rubs, or gallops. PULMONARY: Chest is clear to auscultation, no wheezing or crackles. ABDOMEN: Soft, nontender, nondistended, normoactive bowel sounds. No palpable organomegaly. MUSCULOSKELETAL: No joint swelling or deformity. EXTREMITIES: No cyanosis, clubbing, 1+ pitting edema lower extremity NEUROLOGICAL: Gross neurological examination did not reveal any focal deficits. SKIN: No rashes. Assessment and plan Acute COPD exacerbation failed outpatient treatment. LV thrombus Hyperglycemia with uncontrolled diabetes type 2 insulin-dependent A1c 12 Left basilar atelectasis and possible early infiltrate/pneumonia Acute on Chronic CHF with mildly reduced systolic dysfunction ejection fraction 40 to 45% as per 2D echocardiogram in 2018. Patient had stress test in 2018. follows with Dr. Graham as an outpatient. Coronary artery disease history of stent placement Lactic acidosis likely due to tissue hypoperfusion Hypovolemic hyponatremia and pseudohyponatremia Hypoalbuminemia Hyperlipidemia History of [place] Monitor vital signs Monitor CBC Monitor CMP Continue telemetry monitoring Continue oxygen supplementation Aggressive bronchopulmonary hygiene Continue with IV Solu-Medrol 60 mg every 6 hourly along with DuoNebs and Symbicort. Continue IV Lasix 40 mg every 12 2D echo suspicious of LV thrombus, started on Eliquis Continue aspirin and statins and metoprolol. Entresto, spironolactone Pulmonary and cardiology is on board. Labs and medication were reviewed.. Continue same treatment. Continue with symptomatic treatment. Resume home medication. Monitor labs and vitals. DVT and GI prophylaxis. Further recommendations as per clinical course of the patie nt Dictation was produced using [employer] dictation software. please excuse any grammatical, word or spelling errors. Objective - Vital Signs Vital signs: Vital Signs Temp 97.6 F 01/01/24 07:56 Pulse 104 H 01/01/24 08:54 Resp 17 01/01/24 07:56 BP 123/86 01/01/24 07:56 Pulse Ox 96 01/01/24 08:54 FiO2 Intake & Output 12/31/23 01/01/24 01/01/24 18:59 06:59 18:59 Intake Total 151.980 62.667 Output Total 220 Balance 151.980 -157.333 Weight 104.326 kg Intake: Intake, IV Titration 33.980 62.667 Amount Heparin Sod,Pork in 0.45% 62.667 NaCl 25,000 unit In 0.45 % NaCl 1 250ml.bag @ 9. 5853 UNITS/KG/HR 10 mls/ hr IV .Q24H [facility] Rx#: [id number] Insulin Regular 100 unit 33.980 In Sodium Chloride 0.9% 100 ml @ 0.1 UNITS/KG/HR 10.537 mls/hr IV .Q9H36M [facility] Rx#:[id number] Oral 118 Output: Urine 220 Other: Voiding Method Toilet Toilet Toilet Urinal Urinal Urinal # Voids 1 # Bowel Movements 1 - Labs CBC & Chem 7: 01/01/24 04:42 01/01/24 04:42 Labs: Abnormal Lab Results - Last 24 Hours (Table) 12/31/23 12/31/23 12/31/23 Range/Units 06:55 11:04 11:59 WBC (3.8-10.6) k/uL RBC 3.72 L (4.40-5.60) X 10*6/uL Hgb 11.9 L (13.0-17.0) g/dL Hct 35.1 L (39.6-50.0) % MCV (80.0-100.0) fL Plt Count (150-450) k/uL Immature Gran # 0.08 H (0.00-0.04) X 10*3/uL Neutrophils # (1.3-7.7) k/uL Lymphocytes # (1.0-4.8) k/uL Eosinophils # 0 L (0.04-0.35) X 10*3/uL APTT (22.0-30.0) sec Sodium 134 L (137-145) mmol/L Potassium 2.8 L (3.5-5.1) mmol/L Chloride (98-107) mmol/L Carbon Dioxide 20 L (22-30) mmol/L BUN 33 H (9-20) mg/dL Glucose 353 H (74-99) mg/dL POC Glucose (mg/dL) 343 H (70-110) mg/dL Calcium 8.1 L (8.4-10.2) mg/dL 12/31/23 12/31/23 12/31/23 Range/Units 12:03 13:05 14:00 WBC (3.8-10.6) k/uL RBC (4.40-5.60) X 10*6/uL Hgb (13.0-17.0) g/dL Hct (39.6-50.0) % MCV (80.0-100.0) fL Plt Count (150-450) k/uL Immature Gran # (0.00-0.04) X 10*3/uL Neutrophils # (1.3-7.7) k/uL Lymphocytes # (1.0-4.8) k/uL Eosinophils # (0.04-0.35) X 10*3/uL APTT (22.0-30.0) sec Sodium (137-145) mmol/L Potassium (3.5-5.1) mmol/L Chloride (98-107) mmol/L Carbon Dioxide (22-30) mmol/L BUN (9-20) mg/dL Glucose (74-99) mg/dL POC Glucose (mg/dL) 348 H 386 H 371 H (70-110) mg/dL Calcium (8.4-10.2) mg/dL 12/31/23 12/31/23 12/31/23 Range/Units 15:05 16:02 17:00 WBC (3.8-10.6) k/uL RBC (4.40-5.60) X 10*6/uL Hgb (13.0-17.0) g/dL Hct (39.6-50.0) % MCV (80.0-100.0) fL Plt Count (150-450) k/uL Immature Gran # (0.00-0.04) X 10*3/uL Neutrophils # (1.3-7.7) k/uL Lymphocytes # (1.0-4.8) k/uL Eosinophils # (0.04-0.35) X 10*3/uL APTT (22.0-30.0) sec Sodium (137-145) mmol/L Potassium (3.5-5.1) mmol/L Chloride (98-107) mmol/L Carbon Dioxide (22-30) mmol/L BUN (9-20) mg/dL Glucose (74-99) mg/dL POC Glucose (mg/dL) 241 H 128 H 140 H (70-110) mg/dL Calcium (8.4-10.2) mg/dL 12/31/23 12/31/23 12/31/23 Range/Units 18:02 19:03 20:25 WBC (3.8-10.6) k/uL RBC (4.40-5.60) X 10*6/uL Hgb (13.0-17.0) g/dL Hct (39.6-50.0) % MCV (80.0-100.0) fL Plt Count (150-450) k/uL Immature Gran # (0.00-0.04) X 10*3/uL Neutrophils # (1.3-7.7) k/uL Lymphocytes # (1.0-4.8) k/uL Eosinophils # (0.04-0.35) X 10*3/uL APTT (22.0-30.0) sec Sodium (137-145) mmol/L Potassium (3.5-5.1) mmol/L Chloride (98-107) mmol/L Carbon Dioxide (22-30) mmol/L BUN (9-20) mg/dL Glucose (74-99) mg/dL POC Glucose (mg/dL) 150 H 149 H 174 H (70-110) mg/dL Calcium (8.4-10.2) mg/dL 12/31/23 01/01/24 01/01/24 Range/Units 22:27 02:34 04:42 WBC 11.4 H (3.8-10.6) k/uL RBC 3.92 L (4.40-5.60) X 10*6/uL Hgb (13.0-17.0) g/dL Hct 38.4 L (39.6-50.0) % MCV (80.0-100.0) fL Plt Count (150-450) k/uL Immature Gran # (0.00-0.04) X 10*3/uL Neutrophils # 10.2 H (1.3-7.7) k/uL Lymphocytes # 0.7 L (1.0-4.8) k/uL Eosinophils # (0.04-0.35) X 10*3/uL APTT (22.0-30.0) sec Sodium 134 L (137-145) mmol/L Potassium (3.5-5.1) mmol/L Chloride 108 H (98-107) mmol/L Carbon Dioxide 18 L (22-30) mmol/L BUN 36 H (9-20) mg/dL Glucose 325 H (74-99) mg/dL POC Glucose (mg/dL) 298 H (70-110) mg/dL Calcium 8.0 L (8.4-10.2) mg/dL 01/01/24 01/01/24 01/01/24 Range/Units 04:42 04:42 06:20 WBC (3.8-10.6) k/uL RBC 3.88 L (4.40-5.60) X 10*6/uL Hgb 12.8 L (13.0-17.0) g/dL Hct (39.6-50.0) % MCV 102.1 H (80.0-100.0) fL Plt Count 140 L (150-450) k/uL Immature Gran # (0.00-0.04) X 10*3/uL Neutrophils # 8.3 H (1.3-7.7) k/uL Lymphocytes # 0.6 L (1.0-4.8) k/uL Eosinophils # (0.04-0.35) X 10*3/uL APTT 38.9 H (22.0-30.0) sec Sodium (137-145) mmol/L Potassium (3.5-5.1) mmol/L Chloride (98-107) mmol/L Carbon Dioxide (22-30) mmol/L BUN (9-20) mg/dL Glucose (74-99) mg/dL POC Glucose (mg/dL) 323 H (70-110) mg/dL Calcium (8.4-10.2) mg/dL Microbiology - Last 24 Hours (Table) 12/30/23 13:15 Blood Culture - Preliminary Blood 12/30/23 13:39 Blood Culture - Preliminary Blood
[2024-01-01 16:23] LABS: Glucose,Whole Blood 125 mg/dL (70-110)
[2024-01-01 19:53] LABS: Glucose,Whole Blood 159 mg/dL (70-110)
[2024-01-02 02:02] LABS: Glucose,Whole Blood 191 mg/dL (70-110)
[2024-01-02 06:03] LABS: Glucose,Whole Blood 239 mg/dL (70-110)
--- NOTE | 2024-01-02 06:52 | XR ---
EXAMINATION TYPE: XR chest 2V DATE OF EXAM: 01/02/2024 COMPARISON: 12/30/2023 HISTORY: Shortness of breath TECHNIQUE: Frontal and lateral views of the chest are obtained. FINDINGS: There is a 2-lead cardiac pacemaker There has been interval development of mild atelectasis at the right lung base. There has been interv al development of mild cephalization of the pulmonary vasculature indicating mild pulmonary vascular congestion. Is no large pleural effusion. There is no pneumothorax. The osseous structures are intact IMPRESSION: 1. Interval development of mild right lower lobe atelectasis/pneumonic infiltrate. 2. questionable mild pulmonary vascular congestion.
[2024-01-02 09:47] LABS: African American GFR (CKD) 73 (>60 ml/min/1.73 sqM); Anion Gap 11 mmol/L; Blood Urea Nitrogen 41 mg/dL (9-20); Calcium 8.6 mg/dL (8.4-10.2); Carbon Dioxide 19 mmol/L (22-30); Chloride 109 mmol/L (98-107); Glucose 170 mg/dL (74-99); Non-African American GFR(CKD) 63 (>60 ml/min/1.73 sqM); Potassium 4.4 mmol/L (3.5-5.1); Sodium 139 mmol/L (137-145)
[2024-01-02 11:46] LABS: Glucose,Whole Blood 78 mg/dL (70-110)
[2024-01-02] MEDS: CHOLESTYRAMINE (WITH SUGAR) 4 GM PACKET PO SCH (11:51)
--- NOTE | 2024-01-02 12:20 | P.PN ---
Subjective Progress Note Date: 01/02/24 On today's evaluation of 01/01/2024, the patient is still having some cough and congestion. No significant sputum production. He started having diarrhea as of yesterday and the patient was having frequent episodes. He remains on IV Rocephin. He is also on bronchodilators and steroids. A repeat echocardiogram was done and the patient was found to have an ejection fraction of 20 to 25%. There is severe global LV dysfunction and possibility of a small LV thrombus as noted on echocardiogram. Based on that, the patient has been maintained on anticoagulation with Eliquis 5 mg p.o. twice a day. The patient remains on Entresto. The patient remains on Lasix 40 mg every 12 hours. At the same time, the patient is on Symbicort 2 puffs twice a day, he has Trelegy Ellipta at the bedside. He is also on IV Solu-Medrol 40 mg every 12 hours. Labs from today shows a WBC count of 9.2, hemoglobin is at 12.8 and a platelet count is 140. BUN is 36 with a creatinine 1.07 and a sodium level is at 134. Awake and alert and communicating at this point in time. On today's evaluation of 01/02/2024, the patient is being seen for a follow-up. Improved compared to yesterday. Diarrhea is subsiding. Less short of breath. Less bronchospastic and wheezy. Remains on bronchodilators. Remains on Solu-Medrol. He is currently on a dose of 40 mg IV every 12 hours. Is also on Lasix and his patient is diuresing adequately. BUN is at 41 with a creatinine 1.1. Sodium is at 139. Patient is currently on 2 L of oxygen by nasal cannula. Objective - Vital Signs Vital signs: Vital Signs Temp 97.4 F L 01/02/24 08:32 Pulse 92 01/02/24 08:50 Resp 17 01/02/24 08:32 BP 127/62 01/02/24 08:32 Pulse Ox 96 01/02/24 08:41 FiO2 Intake & Output 01/01/24 01/02/24 01/02/24 18:59 06:59 18:59 Intake Total 598 Balance 598 Weight 104.326 kg Intake: Oral 598 Other: Voiding Method Toilet Toilet Toilet Urinal Urinal Urinal - Exam GENERAL EXAM: Alert, 73-year-old white male, obese, comfortable in no apparent distress. HEAD: Normocephalic and atraumatic EYES: Normal reaction of pupils, equal size. NOSE: Clear with pink turbinates. THROAT: No erythema or exudates. NECK: No masses, no JVD. CHEST: No chest wall deformity. LUNGS: Equal air entry with diffuse rhonchi heard throughout. Inspiratory crackles heard at the bases, especially in the left lower lobe. On room air. No conversational dyspnea or accessory muscle use.. CVS: S1 and S2 normal with no audible murmur, regular rhythm. No extra heart sounds ABDOMEN: No hepatosplenomegaly, active bowel sounds, no guarding or rigidity. SPINE: No scoliosis or deformity SKIN: No rashes CENTRAL NERVOUS SYSTEM: No focal deficits, tone is normal in all 4 extremities. EXTREMITIES: There is no peripheral edema, clubbing, or cyanosis. Peripheral pulses are intact. - Labs CBC & Chem 7: 01/01/24 04:42 01/02/24 08:50 Labs: Abnormal Lab Results - Last 24 Hours (Table) 01/01/24 01/01/24 01/01/24 Range/Units 11:03 11:35 16:22 APTT 49.3 H (22.0-30.0) sec Chloride (98-107) mmol/L Carbon Dioxide (22-30) mmol/L BUN (9-20) mg/dL Glucose (74-99) mg/dL POC Glucose (mg/dL) 256 H 125 H (70-110) mg/dL 01/01/24 01/02/24 01/02/24 Range/Units 19:51 02:01 05:59 APTT (22.0-30.0) sec Chloride (98-107) mmol/L Carbon Dioxide (22-30) mmol/L BUN (9-20) mg/dL Glucose (74-99) mg/dL POC Glucose (mg/dL) 159 H 191 H 239 H (70-110) mg/dL 01/02/24 Range/Units 08:50 APTT (22.0-30.0) sec Chloride 109 H (98-107) mmol/L Carbon Dioxide 19 L (22-30) mmol/L BUN 41 H (9-20) mg/dL Glucose 170 H (74-99) mg/dL POC Glucose (mg/dL) (70-110) mg/dL Microbiology - Last 24 Hours (Table) 12/30/23 13:15 Blood Culture - Preliminary Blood 12/30/23 13:39 Blood Culture - Preliminary Blood Assessment and Plan Assessment: Acute dyspnea, secondary to acute COPD exacerbation/CHF exacerbation. Chest x- ray shows cardiomegaly with a cardiac defibrillator implanted. No significant vascular congestion or edema. There is a questionable left basilar opacity versus atelectasis. COPD with an FEV1 of 84% predicted based on the previous pulmonary function test that was done in 2022 Coronary artery disease with previous coronary stenting Ischemic cardiomyopathy/ systolic heart failure with an ejection fraction of 20 to 25% along with LV thrombus, currently on anticoagulation with Eliquis Diabetes mellitus type II, insulin-dependent, with hyperglycemia and mild DKA Mild anion gap metabolic acidosis, likely secondary to above and lactic acidosis Frequent diarrhea, likely related to recent adverse effects from antibiotics History of implanted AICD/pacemaker History of ischemic cardiomyopathy History of hypertension History of hyperlipidemia History of coronary artery disease with previous PCI/stent Obesity, with a BMI of 31.2 kg/m New onset diarrhea Plan: Clinically improving and the patient is currently on 2 L of oxygen by nasal cannula Stool for C. difficile has been negative and the patient was taken off antibiotics Continue bronchodilators Continue maintenance as per medication including Symbicort or Trelegy Ellipta Continue IV Solu-Medrol 40 mg every 12 hours Continue IV Lasix Continue rest of the cardiac medications including Entresto, Aldactone and Farxiga. Continue anticoagulation with Eliquis Levemir insulin 50 units daily and 20 units of NovoLog with meals Will continue to follow.
[2024-01-02 13:14] LABS: Glucose,Whole Blood 165 mg/dL (70-110)
--- NOTE | 2024-01-02 13:45 | P.PN ---
Subjective Progress Note Date: 01/02/24 Patient is a 73-year-old male with a known history of hyperlipidemia, diabetes type 2 insulin-dependent, coronary artery disease with prior stent placement, history of mild chronic CHF with mildly impaired systolic dysfunction ejection fraction 40 to 45% and moderate left ventricular concentric hypertrophy presents to ER with complaints of shortness of breath for the past 2 weeks and not getting better. Patient states that he has been having difficulty in breathing and felt like fluid in the lung. Also states that he felt warm and sweating at home. Patient was seen by his primary care physician and was given prednisone tapering course couple days ago which he has been taking. Patient is also complaining of diarrhea. Denies any fever or chills at home. Patient also states that he has increased leg swelling and gaining weight and has been taking extra dose of Lasix at home. Patient states that he has CHF and COPD. Chest x-ray on admission showed left basilar atelectasis or early infiltrate. EKG showed electronic ventricular paced rhythm. Laboratory data showed WBC 11.3 hemoglobin 14.2 and platelets 185 Sodium 132 potassium 3.5 chloride 94 bicarb is 19 anion gap 19 BUN 27 creatinine 1.12 and blood sugar 524 Lactic acid 4.1 calcium 8.0 magnesium 2.0 and total bili 1.8 liver regnancy not elevated troponin less than 0.12 and proBNP 2670 and albumin 2.8 Urinalysis showed 4+ glucose and leukocyte esterase negative. Influenza A B RSV and COVID-19 PCR not detected. 12/31/2023 Patient is resting in the bed. Awake alert and oriented. Overnight patient was hyperglycemic and requiring insulin drip. Patient was also started on IV Lasix. Breathing status is better today. No complaints of chest pain. No nausea vomiting abdominal pain or diarrhea. Patient is tolerating oral diet. Repeat chest x-ray this morning showed left retrocardiac consolidation correlate for atelectasis versus early pneumonia. Patient is being continued on antibiotics ceftriaxone and azithromycin. Pulmonary and cardiology is on board. Laboratory data showed WBC 11.4 hemoglobin 13.0 and platelets 167 12/31. Patient seen and examined. Complaining of diarrhea denies any nausea or vomiting. Shortness of breath is improved. 01/01. Patient seen and examined. Labs this morning showed sodium 139, po tassium 4.4, BUN 41, creatinine 1.14. Diarrhea has improved. Currently on IV Lasix and Eliquis. Swelling of legs has improved REVIEW OF SYSTEMS: CONSTITUTIONAL: No fever, no malaise,. CARDIOVASCULAR: No chest pain, no palpitations, no syncope. PULMONARY: No shortness of breath, no cough, GASTROINTESTINAL: As mentioned above NEUROLOGICAL: No headaches, no weakness, PHYSICAL EXAMINATION: GENERAL: The patient is alert and oriented x3, not in any acute distress. Well developed, well nourished. HEENT: Pupils are round and equally reacting to light. EOMI. No scleral icterus. No conjunctival pallor. Normocephalic, atraumatic. No pharyngeal erythema. No thyromegaly. CARDIOVASCULAR: S1 and S2 present. No murmurs, rubs, or gallops. PULMONARY: Chest is clear to auscultation, no wheezing or crackles. ABDOMEN: Soft, nontender, nondistended, normoactive bowel sounds. No palpable organomegaly. MUSCULOSKELETAL: No joint swelling or deformity. EXTREMITIES: No cyanosis, clubbing, no pitting edema lower extremity NEUROLOGICAL: Gross neurological examination did not reveal any focal deficits. SKIN: No rashes. Assessment and plan Acute COPD exacerbation failed outpatient treatment. LV thrombus Hyperglycemia with uncontrolled diabetes type 2 insulin-dependent A1c 12 Left basilar atelectasis and possible early infiltrate/pneumonia Acute on Chronic CHF with mildly reduced systolic dysfunction ejection fraction 40 to 45% as per 2D echocardiogram in 2018. Patient had stress test in 2018. follows with Dr. Graham as an outpatient. Coronary artery disease history of stent placement Lactic acidosis likely due to tissue hypoperfusion Hypovolemic hyponatremia and pseudohyponatremia Hypoalbuminemia Hyperlipidemia History of [place] Monitor vital signs Monitor CBC Monitor CMP Continue telemetry monitoring Continue oxygen supplementation Aggressive bronchopulmonary hygiene Continue IV Solu-Medrol 40 mg every 12 Continue DuoNebs and Symbicort. Continue IV Lasix 40 mg every 12 2D echo suspicious of LV thrombus, started on Eliquis Continue aspirin and statins and metoprolol. Entresto, spironolactone Pulmonary and cardiology is on board. Labs and medication were reviewed.. Continue same treatment. Continue with symptomatic treatment. Resume home medication. Monitor labs and vitals. DVT and GI prophylaxis. Further recommendations as per clinical course of the patient Dictation was produced using [employer] dictation software. please excuse any grammatical, word or spelling errors. Objective - Vital Signs Vital signs: Vital Signs Temp 97.4 F L 01/02/24 08:32 Pulse 92 01/02/24 08:50 Resp 17 01/02/24 08:32 BP 127/62 01/02/24 08:32 Pulse Ox 96 01/02/24 08:41 FiO2 Intake & Output 01/01/24 01/02/24 01/02/24 18:59 06:59 18:59 Intake Total 598 Balance 598 Weight 104.326 kg Intake: Oral 598 Other: Voiding Method Toilet Toilet Toilet Urinal Urinal Urinal - Labs CBC & Chem 7: 01/01/24 04:42 01/02/24 08:50 Labs: Abnormal Lab Results - Last 24 Hours (Table) 01/01/24 01/01/24 01/01/24 Range/Units 11:03 11:35 16:22 APTT 49.3 H (22.0-30.0) sec Chloride (98-107) mmol/L Carbon Dioxide (22-30) mmol/L BUN (9-20) mg/dL Glucose (74-99) mg/dL POC Glucose (mg/dL) 256 H 125 H (70-110) mg/dL 01/01/24 01/02/24 01/02/24 Range/Units 19:51 02:01 05:59 APTT (22.0-30.0) sec Chloride (98-107) mmol/L Carbon Dioxide (22-30) mmol/L BUN (9-20) mg/dL Glucose (74-99) mg/dL POC Glucose (mg/dL) 159 H 191 H 239 H (70-110) mg/dL 01/02/24 Range/Units 08:50 APTT (22.0-30.0) sec Chloride 109 H (98-107) mmol/L Carbon Dioxide 19 L (22-30) mmol/L BUN 41 H (9-20) mg/dL Glucose 170 H (74-99) mg/dL POC Glucose (mg/dL) (70-110) mg/dL Microbiology - Last 24 Hours (Table) 12/30/23 13:15 Blood Culture - Preliminary Blood 12/30/23 13:39 Blood Culture - Preliminary Blood
--- NOTE | 2024-01-02 14:01 | P.PN ---
Subjective Progress Note Date: 01/02/24 HISTORY OF PRESENT ILLNESS: This is a 73-year-old male with a past medical history significant for coronary artery disease, cardiomyopathy, hypertension, hyperlipidemia, diabetes, and AICD implantation. Patient follows in the office with Dr. Chatterjee. We have been asked to see the patient in consultation for CHF. Patient examined at the bedside. He reports he has been retaining fluid for the past few weeks. He states he was started on Lasix and gave him a shot of something but unsure if what it was. He states he did not notice any improvement so he decided to come to the hospital. He reports a weight gain of 13 pounds in the last two weeks. He reports increased lower extremity and increased abdominal swelling. He reports a nonproductive cough. He denies any fever or chills. He denies being around any sick contacts. He denies any chest pain or pressure. He does report having low blood pressures at home with a systolic in the 70s. DIAGNOSTICS: - EKG reveals ventricular paced rhythm. - Chest xray left basilar atelectasis or early infiltrate. - Laboratory data: WBC 8.3. Hemoglobin 12.3. Platelet count 148. Sodium 136. Potassium 2.4. BUN 32. Creatinine 1.25. Glucose on admission 524. Repeat 130. Lactic acid 6.7 on admission repeat 1.8. Magnesium 2.3. Troponin negative x 1. proBNP 2670. - Current home cardiac medications include Aldactone 25 mg daily, midodrine 5 mg 3 times a day, bisoprolol 5 mg daily, Entresto 24-26 mg twice a day, Lasix 40 mg daily as needed, aspirin 81 mg daily, and atorvastatin 40 mg at night. - Most recent echocardiogram obtained in 06/2023 revealed ejection fraction 42%, mild to moderate MR, mild to moderate AR, mild to moderate TR - Cardiac catheterization history: 2012 revealing 100% proximal D1, 50% mid circumflex, 20% mid RCA, left circumflex FFR 90% 01/01/2024 Patient examined this morning at the bedside. Patient currently denies chest pain or pressure. He denies any shortness of breath. He reports he has been having significant diarrhea. C. difficile was negative. Echocardiogram completed revealing ejection fraction 20 to 25%, trace MR, mild AR and small LV thrombus. There was questionable atrial fibrillation as well according to Dr. Sierra's dictation. AICD was interrogated with no evidence of atrial fibrillation. He was started on IV heparin secondary to small LV thrombus. Patient's heart [place] [id number]. 01/02/2024 Still with some shortness of breath, but better overall. Creat 1.1. Heart rates and BP controlled. PHYSICAL EXAM: VITAL SIGNS: Reviewed. GENERAL: Well-developed in no acute distress. HEENT: Head is normocephalic. Pupils are equal, round. Sclerae anicteric. Mucous membranes of the mouth are moist. Neck supple. LUNGS: Respirations even and unlabored. Lungs essentially clear to auscultation bilaterally. HEART: Regular rate and rhythm. S1 and S2 heard. ABDOMEN: Soft. Nondistended. Nontender. EXTREMITIES: Normal range of motion. No clubbing or cyanosis. Peripheral pulses intact. No lower extremity edema. NEUROLOGIC: Awake and alert. Oriented x 3. ASSESSMENT: Shortness of breath Acute on chronic heart failure with reduced ejection fraction COPD exacerbation Hyperglycemia/DKA on insulin drip Lactic acidosis Hypokalemia Possible early infiltrate per chest x-ray Coronary artery disease with previous stenting History of ischemic cardiomyopathy, ejection fraction 42%, now 20 to 25% History of AICD implantation Hypertension Hyperlipidemia Diabetes History of hypotension, on midodrine outpatient Atrial fibrillation, ruled out, per ICD interrogation Suspected small LV thrombus, per echo Diarrhea PLAN: Continue IV Lasix 40 mg every 12 hours. Daily weights, accurate intake and output, and monitoring of kidney function. Continue telemetry monitoring. Eliquis 5 mg twice a day secondary to LV thrombus Further recommendations pending patient course. Nurse practitioner note has been reviewed by physician. Signing provider agrees with the documented findings, assessment, and plan of care documented by VICE CHAIRMAN as a scribe. Objective - Vital Signs Vital signs: Vital Signs Temp 97.4 F L 01/02/24 08:32 Pulse 62 01/02/24 12:02 Resp 16 01/02/24 12:00 BP 111/69 01/02/24 12:00 Pulse Ox 97 01/02/24 12:00 FiO2 Intake & Output 01/01/24 01/02/24 01/02/24 18:59 06:59 18:59 Intake Total 598 600 Balance 598 600 Weight 104.326 kg Intake: Oral 598 600 Other: Voiding Method Toilet Toilet Toilet Urinal Urinal Urinal - Labs CBC & Chem 7: 01/01/24 04:42 01/02/24 08:50 Labs: Abnormal Lab Results - Last 24 Hours (Table) 01/01/24 01/01/24 01/02/24 Range/Units 16:22 19:51 02:01 Chloride (98-107) mmol/L Carbon Dioxide (22-30) mmol/L BUN (9-20) mg/dL Glucose (74-99) mg/dL POC Glucose (mg/dL) 125 H 159 H 191 H (70-110) mg/dL 01/02/24 01/02/24 01/02/24 Range/Units 05:59 08:50 13:13 Chloride 109 H (98-107) mmol/L Carbon Dioxide 19 L (22-30) mmol/L BUN 41 H (9-20) mg/dL Glucose 170 H (74-99) mg/dL POC Glucose (mg/dL) 239 H 165 H (70-110) mg/dL Microbiology - Last 24 Hours (Table) 12/30/23 13:15 Blood Culture - Preliminary Blood 12/30/23 13:39 Blood Culture - Preliminary Blood
[2024-01-02 16:24] LABS: Glucose,Whole Blood 227 mg/dL (70-110)
[2024-01-02 20:04] LABS: Glucose,Whole Blood 121 mg/dL (70-110)
[2024-01-02] MEDS: INSULIN ASPART (NovoLOG) 100 UNIT/ML VIAL SQ SCH (20:51)
[2024-01-03 02:06] LABS: Glucose,Whole Blood 124 mg/dL (70-110)
[2024-01-03 06:06] LABS: Glucose,Whole Blood 173 mg/dL (70-110)
[2024-01-03 10:40] LABS: ALT 40 U/L (4-49); AST 81 U/L (17-59); African American GFR (CKD) 78 (>60 ml/min/1.73 sqM); Albumin 2.9 g/dL (3.5-5.0); Alkaline Phosphatase 103 U/L (38-126); Anion Gap 11 mmol/L; Blood Urea Nitrogen 42 mg/dL (9-20); Calcium 8.6 mg/dL (8.4-10.2); Carbon Dioxide 20 mmol/L (22-30); Chloride 104 mmol/L (98-107); Glucose 256 mg/dL (74-99); Non-African American GFR(CKD) 67 (>60 ml/min/1.73 sqM); Sodium 135 mmol/L (137-145); Total Bilirubin 1.1 mg/dL (0.2-1.3); Total Protein 6.3 g/dL (6.3-8.2)
[2024-01-03 10:51] LABS: Potassium 5.6 mmol/L (3.5-5.1)
[2024-01-03 11:09] LABS: Basophils # (A) 0.1 k/uL (0-0.2); Basophils % (A) 1 %; Eosinophils % (A) 0 %; HCT 45.9 % (39.0-53.0); HGB 14.6 gm/dL (13.0-17.5); Hypochromasia Slight; Lymphocytes # (A) 0.8 k/uL (1.0-4.8); Lymphocytes % (A) 7 %; MCH 33.2 pg (25.0-35.0); MCHC 31.7 g/dL (31.0-37.0); MCV 104.7 fL (80.0-100.0); Macrocytosis Moderate; Mean Platelet Volume 9.9; Monocytes # (A) 0.4 k/uL (0-1.0); Monocytes % (A) 4 %; Neutrophils # (A) 10.7 k/uL (1.3-7.7); Neutrophils % (A) 88 %; Platelet Count 151 k/uL (150-450); RBC 4.39 m/uL (4.30-5.90); RDW 14.4 % (11.5-15.5); WBC 12.1 k/uL (3.8-10.6)
[2024-01-03 12:07] LABS: Glucose,Whole Blood 251 mg/dL (70-110)
[2024-01-03] MEDS: LACTOBACILLUS ACIDOPHILUS/PECT 1 EACH CAPSULE PO SCH (12:11)
[2024-01-03] MEDS: DIPHENOX-ATROP 2.5-0.025 MG 1 EACH TAB PO SCH (12:11)
--- NOTE | 2024-01-03 12:58 | P.PN ---
Subjective Progress Note Date: 01/03/24 Patient is a 73-year-old male with a known history of hyperlipidemia, diabetes type 2 insulin-dependent, coronary artery disease with prior stent placement, history of mild chronic CHF with mildly impaired systolic dysfunction ejection fraction 40 to 45% and moderate left ventricular concentric hypertrophy presents to ER with complaints of shortness of breath for the past 2 weeks and not getting better. Patient states that he has been having difficulty in breathing and felt like fluid in the lung. Also states that he felt warm and sweating at home. Patient was seen by his primary care physician and was given prednisone tapering course couple days ago which he has been taking. Patient is also complaining of diarrhea. Denies any fever or chills at home. Patient also states that he has increased leg swelling and gaining weight and has been taking extra dose of Lasix at home. Patient states that he has CHF and COPD. Chest x-ray on admission showed left basilar atelectasis or early infiltrate. EKG showed electronic ventricular paced rhythm. Laboratory data showed WBC 11.3 hemoglobin 14.2 and platelets 185 Sodium 132 potassium 3.5 chloride 94 bicarb is 19 anion gap 19 BUN 27 creatinine 1.12 and blood sugar 524 Lactic acid 4.1 calcium 8.0 magnesium 2.0 and total bili 1.8 liver regnancy not elevated troponin less than 0.12 and proBNP 2670 and albumin 2.8 Urinalysis showed 4+ glucose and leukocyte esterase negative. Influenza A B RSV and COVID-19 PCR not detected. 12/31/2023 Patient is resting in the bed. Awake alert and oriented. Overnight patient was hyperglycemic and requiring insulin drip. Patient was also started on IV Lasix. Breathing status is better today. No complaints of chest pain. No nausea vomiting abdominal pain or diarrhea. Patient is tolerating oral diet. Repeat chest x-ray this morning showed left retrocardiac consolidation correlate for atelectasis versus early pneumonia. Patient is being continued on antibiotics ceftriaxone and azithromycin. Pulmonary and cardiology is on board. Laboratory data showed WBC 11.4 hemoglobin 13.0 and platelets 167 12/31. Patient seen and examined. Complaining of diarrhea denies any nausea or vomiting. Shortness of breath is improved. 01/01. Patient seen and examined. Labs this morning showed sodium 139, po tassium 4.4, BUN 41, creatinine 1.14. Diarrhea has improved. Currently on IV Lasix and Eliquis. Swelling of legs has improved 01/02. Patient seen and examined. States he is still having diarrhea. States the frequency has improved but still going up to 10 times per day. Denies any blood in the stools. REVIEW OF SYSTEMS: CONSTITUTIONAL: No fever, no malaise,. CARDIOVASCULAR: No chest pain, no palpitations, no syncope. PULMONARY: No shortness of breath, no cough, GASTROINTESTINAL: As mentioned above NEUROLOGICAL: No headaches, no weakness, PHYSICAL EXAMINATION: GENERAL: The patient is alert and oriented x3, not in any acute distress. Well developed, well nourished. HEENT: Pupils are round and equally reacting to light. EOMI. No scleral icterus. No conjunctival pallor. Normocephalic, atraumatic. No pharyngeal erythema. No thyromegaly. CARDIOVASCULAR: S1 and S2 present. No murmurs, rubs, or gallops. PULMONARY: Chest is clear to auscultation, no wheezing or crackles. ABDOMEN: Soft, nontender, nondistended, normoactive bowel sounds. No palpable organomegaly. MUSCULOSKELETAL: No joint swelling or deformity. EXTREMITIES: No cyanosis, clubbing, no pitting edema lower extremity NEUROLOGICAL: Gross neurological examination did not reveal any focal deficits. SKIN: No rashes. Assessment and plan Acute COPD exacerbation failed outpatient treatment. LV thrombus Hyperglycemia with uncontrolled diabetes type 2 insulin-dependent A1c 12 Left basilar atelectasis and possible early infiltrate/pneumonia Acute on Chronic CHF with mildly reduced systolic dysfunction ejection fraction 40 to 45% as per 2D echocardiogram in 2018. Patient had stress test in 2018. follows with Dr[address] Graham as an outpatient. Coronary artery disease history of stent placement Lactic acidosis likely due to tissue hypoperfusion Hypovolemic hyponatremia and pseudohyponatremia Hypoalbuminemia Hyperlipidemia History of [place] Monitor vital signs Monitor CBC Monitor CMP Continue telemetry monitoring Continue oxygen supplementation Aggressive bronchopulmonary hygiene Continue IV Solu-Medrol 40 mg every 12 Continue DuoNebs and Symbicort. Continue IV Lasix 40 mg every 12 Ordered stool cultures Ordered stool for C. difficile Added cholestyramine and lactobacillus 2D echo suspicious of LV thrombus, continue Eliquis Continue aspirin and statins and metoprolol. Entresto, spironolactone Pulmonary and cardiology is on board. Labs and medication were reviewed.. Continue same treatment. Continue with symptomatic treatment. Resume home medication. Monitor labs and vitals. DVT and GI prophylaxis. Further recommendations as per clinical course of the patient Dictation was produced using [employer] dictation software. please excuse any grammatical, word or spelling errors. Objective - Vital Signs Vital signs: Vital Signs Temp 97.9 F 01/03/24 08:47 Pulse 68 01/03/24 08:58 Resp 24 01/03/24 08:47 BP 132/84 01/03/24 08:47 Pulse Ox 96 01/03/24 08:47 FiO2 Intake & Output 01/02/24 01/03/24 01/03/24 18:59 06:59 18:59 Intake Total 720 240 Balance 720 240 Weight 99.3 kg Intake: Oral 720 240 Other: Voiding Method Toilet Toilet Urinal Urinal - Labs CBC & Chem 7: 01/03/24 10:01 01/03/24 11:32 Labs: Abnormal Lab Results - Last 24 Hours (Table) 01/02/24 01/02/24 01/02/24 Range/Units 13:13 16:22 20:02 POC Glucose (mg/dL) 165 H 227 H 121 H (70-110) mg/dL 01/03/24 01/03/24 Range/Units 02:04 06:05 POC Glucose (mg/dL) 124 H 173 H (70-110) mg/dL Microbiology - Last 24 Hours (Table) 12/30/23 13:15 Blood Culture - Preliminary Blood 12/30/23 13:39 Blood Culture - Preliminary Blood
[2024-01-03] MEDS: methylPREDNISolone SOD SUCCI 40 MG/ML 1 ML VIAL IV SCH (15:14)
--- NOTE | 2024-01-03 16:19 | P.PN ---
Subjective Progress Note Date: 01/03/24 Principal diagnosis: Acute COPD exacerbation On today's evaluation of 01/01/2024, the patient is still having some cough and congestion. No significant sputum production. He started having diarrhea as of yesterday and the patient was having frequent episodes. He remains on IV Rocephin. He is also on bronchodilators and steroids. A repeat echocardiogram was done and the patient was found to have an ejection fraction of 20 to 25%. There is severe global LV dysfunction and possibility of a small LV thrombus as noted on echocardiogram. Based on that, the patient has been maintained on anticoagulation with Eliquis 5 mg p.o. twice a day. The patient remains on Entresto. The patient remains on Lasix 40 mg every 12 hours. At the same time, the patient is on Symbicort 2 puffs twice a day, he has Trelegy Ellipta at the bedside. He is also on IV Solu-Medrol 40 mg every 12 hours. Labs from today shows a WBC count of 9.2, hemoglobin is at 12.8 and a platelet count is 140. BUN is 36 with a creatinine 1.07 and a sodium level is at 134. Awake and alert and communicating at this point in time. On today's evaluation of 01/02/2024, the patient is being seen for a follow-up. Improved compared to yesterday. Diarrhea is subsiding. Less short of breath. Less bronchospastic and wheezy. Remains on bronchodilators. Remains on Solu- Medrol. He is currently on a dose of 40 mg IV every 12 hours. Is also on Lasix and his patient is diuresing adequately. BUN is at 41 with a creatinine 1.1. Sodium is at 139. Patient is currently on 2 L of oxygen by nasal cannula. Reevaluate today on 01/03/2024, patient continues to have cough and wheezing, continues to have intermittent episodes of diarrhea, patient is on maximal course of bronchodilators, he is also on diuretics for history of ischemic cardiomyopathy and LV dysfunction. Chest x-ray showed no evidence of congestive heart failure, there is mostly evidence of atelectasis. Also doubt pneumoniaPatient is on 3 L nasal cannula O2 sats is 95%. BBC count today is 12.1 hemoglobin 14.6. Potassium is 4.7 procalcitonin level on admission is 0.28. Admission chest x-ray showed mostly atelectasis at the left base with interstitial edema, underlying left lower lobe infiltrate is not entirely ruled out Objective - Vital Signs Vital signs: Vital Signs Temp 97.7 F 01/03/24 15:10 Pulse 68 01/03/24 15:53 Resp 20 01/03/24 15:10 BP 99/65 01/03/24 15:10 Pulse Ox 95 01/03/24 15:10 FiO2 Intake & Output 01/02/24 01/03/24 01/03/24 18:59 06:59 18:59 Intake Total 720 480 Balance 720 480 Weight 99.3 kg Intake: Oral 720 480 Other: Voiding Method Toilet Toilet Toilet Urinal Urinal Urinal - Exam GENERAL EXAM: Alert, 73-year-old white male, in no distress, on 3 L nasal cannula HEAD: Normocephalic and atraumatic EYES: Normal reaction of pupils, equal size. NOSE: Clear with pink turbinates. THROAT: No erythema or exudates. NECK: No masses, no JVD. CHEST: No chest wall deformity. LUNGS: Scattered rhonchi noted bilaterally. CVS: S1 and S2 normal with no audible murmur, regular rhythm. No extra heart sounds ABDOMEN: No hepatosplenomegaly, active bowel sounds, no guarding or rigidity. SKIN: No rashes CENTRAL NERVOUS SYSTEM: No focal deficits, tone is normal in all 4 extremities. EXTREMITIES: There is no peripheral edema, clubbing, or cyanosis. Peripheral pulses are intact. - Labs CBC & Chem 7: 01/03/24 10:01 01/03/24 11:32 Labs: Abnormal Lab Results - Last 24 Hours (Table) 01/02/24 01/02/24 01/03/24 Range/Units 16:22 20:02 02:04 WBC (3.8-10.6) k/uL MCV (80.0-100.0) fL Neutrophils # (1.3-7.7) k/uL Lymphocytes # (1.0-4.8) k/uL Sodium (137-145) mmol/L Potassium (3.5-5.1) mmol/L Carbon Dioxide (22-30) mmol/L BUN (9-20) mg/dL Glucose (74-99) mg/dL POC Glucose (mg/dL) 227 H 121 H 124 H (70-110) mg/dL AST (17-59) U/L Albumin (3.5-5.0) g/dL 01/03/24 01/03/24 01/03/24 Range/Units 06:05 09:57 10:01 WBC 12.1 H (3.8-10.6) k/uL MCV 104.7 H (80.0-100.0) fL Neutrophils # 10.7 H (1.3-7.7) k/uL Lymphocytes # 0.8 L (1.0-4.8) k/uL Sodium 135 L (137-145) mmol/L Potassium 5.6 H (3.5-5.1) mmol/L Carbon Dioxide 20 L (22-30) mmol/L BUN 42 H (9-20) mg/dL Glucose 256 H (74-99) mg/dL POC Glucose (mg/dL) 173 H (70-110) mg/dL AST 81 H (17-59) U/L Albumin 2.9 L (3.5-5.0) g/dL 01/03/24 Range/Units 12:05 WBC (3.8-10.6) k/uL MCV (80.0-100.0) fL Neutrophils # (1.3-7.7) k/uL Lymphocytes # (1.0-4.8) k/uL Sodium (137-145) mmol/L Potassium (3.5-5.1) mmol/L Carbon Dioxide (22-30) mmol/L BUN (9-20) mg/dL Glucose (74-99) mg/dL POC Glucose (mg/dL) 251 H (70-110) mg/dL AST (17-59) U/L Albumin (3.5-5.0) g/dL Microbiology - Last 24 Hours (Table) 12/30/23 13:15 Blood Culture - Preliminary Blood 12/30/23 13:39 Blood Culture - Preliminary Blood Assessment and Plan Assessment: Impression: acute COPD exacerbation/, suspect also acute systolic CHF Coronary artery disease with previous coronary stenting Ischemic cardiomyopathy/ systolic heart failure with an ejection fraction of 20 to 25% along with LV thrombus, currently on anticoagulation with Eliquis Diabetes mellitus type II, insulin-dependent, with hyperglycemia and mild DKA Mild anion gap metabolic acidosis, likely secondary to above and lactic acidosis Frequent diarrhea, likely related to recent adverse effects from antibiotics, negative C. difficile screen History of implanted AICD/pacemaker History of hyperlipidemia History of coronary artery disease with previous PCI/stent Obesity, with a BMI of 31.2 kg/m Recommendation: Continue bronchodilators Continue diuretics Continue eliquis Continue Levemir insulin and insulin as per sliding scale Repeat C. difficile screen, patient is now off antibiotics Will continue to follow Time with Patient: Less than 30
[2024-01-03 16:32] LABS: Glucose,Whole Blood 129 mg/dL (70-110)
[2024-01-03 20:19] LABS: Glucose,Whole Blood 138 mg/dL (70-110)
[2024-01-03] MEDS: METOPROLOL TARTRATE 50 MG TAB PO SCH (21:16)
--- NOTE | 2024-01-03 23:19 | PN ---
PROGRESS NOTE SUBJECTIVE: Mr. Mayur Parmar is a 73-year-old gentleman admitted with increasing shortness of breath. He has what seems to be a combination of pneumonia and some congestive heart failure type picture. He is on bisoprolol for his beta gurpreet. I am going to discontinue this and put him on metoprolol tartrate 50 mg b.i.d. We will give him IV Lasix for 1 more day and then switch him to oral. Plan is to continue current medications, increase activity. He has history of significant CAD, hypertension, hyperlipidemia, AICD implantation, follows with Dr. Lee. Clinically he is doing better. OBJECTIVE: VITAL SIGNS: Stable. CARDIAC: S1, S2 heard normally. Short systolic murmur. LUNGS: Revealed decent air entry. Fine basal rales. ABDOMEN: Unchanged. LOWER EXTREMITIES: Unchanged. PLAN: Continue current medical regimen. Switch him from IV to oral Lasix tomorrow and also place him on metoprolol instead of bisoprolol. He is allergic apparently to carvedilol, details unclear. MMODL / IJN: [id number] /
[2024-01-04 02:04] LABS: Glucose,Whole Blood 142 mg/dL (70-110)
[2024-01-04 06:13] LABS: Glucose,Whole Blood 140 mg/dL (70-110)
[2024-01-04 08:47] LABS: HCT 42.7 % (39.0-53.0); HGB 13.4 gm/dL (13.0-17.5); Hypochromasia Slight; MCH 32.3 pg (25.0-35.0); MCHC 31.3 g/dL (31.0-37.0); MCV 103.3 fL (80.0-100.0); Macrocytosis Slight; Mean Platelet Volume 8.4; Platelet Count 214 k/uL (150-450); RBC 4.14 m/uL (4.30-5.90); RDW 14.4 % (11.5-15.5); WBC 13.8 k/uL (3.8-10.6)
[2024-01-04 09:00] LABS: African American GFR (CKD) 73 (>60 ml/min/1.73 sqM); Anion Gap 10 mmol/L; Blood Urea Nitrogen 44 mg/dL (9-20); Calcium 8.8 mg/dL (8.4-10.2); Carbon Dioxide 22 mmol/L (22-30); Chloride 105 mmol/L (98-107); Glucose 177 mg/dL (74-99); Non-African American GFR(CKD) 63 (>60 ml/min/1.73 sqM); Potassium 4.3 mmol/L (3.5-5.1); Sodium 137 mmol/L (137-145)
[2024-01-04] MEDS: BISMUTH SUBSALICYLATE 4,192 MG/240 ML BOTTLE PO SCH (11:52)
[2024-01-04 11:54] LABS: Glucose,Whole Blood 235 mg/dL (70-110)
--- NOTE | 2024-01-04 13:38 | P.PN ---
Subjective Progress Note Date: 01/04/24 HISTORY OF PRESENT ILLNESS: This is a 73-year-old male with a past medical history significant for coronary artery disease, cardiomyopathy, hypertension, hyperlipidemia, diabetes, and AICD implantation. Patient follows in the office with Dr. Chatterjee. We have been asked to see the patient in consultation for CHF. Patient examined at the bedside. He reports he has been retaining fluid for the past few weeks. He states he was started on Lasix and gave him a shot of something but unsure if what it was. He states he did not notice any improvement so he decided to come to the hospital. He reports a weight gain of 13 pounds in the last two weeks. He reports increased lower extremity and increased abdominal swelling. He reports a nonproductive cough. He denies any fever or chills. He denies being around any sick contacts. He denies any chest pain or pressure. He does report having low blood pressures at home with a systolic in the 70s. DIAGNOSTICS: - EKG reveals ventricular paced rhythm. - Chest xray left basilar atelectasis or early infiltrate. - Laboratory data: WBC 8.3. Hemoglobin 12.3. Platelet count 148. Sodium 136. Potassium 2.4. BUN 32. Creatinine 1.25. Glucose on admission 524. Repeat 130. Lactic acid 6.7 on admission repeat 1.8. Magnesium 2.3. Troponin negative x 1. proBNP 2670. - Current home cardiac medications include Aldactone 25 mg daily, midodrine 5 mg 3 times a day, bisoprolol 5 mg daily, Entresto 24-26 mg twice a day, Lasix 40 mg daily as needed, aspirin 81 mg daily, and atorvastatin 40 mg at night. - Most recent echocardiogram obtained in 06/2023 revealed ejection fraction 42%, mild to moderate MR, mild to moderate AR, mild to moderate TR - Cardiac catheterization history: 2012 revealing 100% proximal D1, 50% mid circumflex, 20% mid RCA, left circumflex FFR 90% 01/01/2024 Patient examined this morning at the bedside. Patient currently denies chest pain or pressure. He denies any shortness of breath. He reports he has been having significant diarrhea. C. difficile was negative. Echocardiogram completed revealing ejection fraction 20 to 25%, trace MR, mild AR and small LV thrombus. There was questionable atrial fibrillation as well according to Dr. Sierra's dictation. AICD was interrogated with no evidence of atrial fibrillation. He was started on IV heparin secondary to small LV thrombus. [place] [address]. 01/02/2024 Still with some shortness of breath, but better overall. Creat 1.1. Heart rates and BP controlled. 01/03 Yesterday, patient was switched off bisoprolol and onto metoprolol. Patient has been maintained on IV Lasix. Patient apparently is having diarrhea and studies have been negative thus far for C. difficile colitis. Blood pressure 123/76. Heart rate is 6097. Repeat blood work reveals WBC 13.8, hemoglobin 13.4. Electrolytes are normal. BUN 44 creatinine 1.15. PHYSICAL EXAM: VITAL SIGNS: Reviewed. GENERAL: Well-developed in no acute distress. HEENT: Head is normocephalic. Pupils are equal, round. Sclerae anicteric. LUNGS: Respirations even and unlabored. Lungs essentially clear to auscultation bilaterally. HEART: Regular rate and rhythm. S1 and S2 heard. Short systolic murmur. EXTREMITIES: Normal range of motion. No clubbing or cyanosis. Peripheral pulses intact. No lower extremity edema. ASSESSMENT: Shortness of breath Acute on chronic heart failure with reduced ejection fraction COPD exacerbation Hyperglycemia/DKA Lactic acidosis Hypokalemia Possible early infiltrate per chest x-ray Coronary artery disease with previous stenting History of ischemic cardiomyopathy, ejection fraction 42%, now 20 to 25% History of AICD implantation Hypertension Hyperlipidemia Diabetes History of hypotension, on midodrine outpatient Atrial fibrillation, ruled out, per ICD interrogation Suspected small LV thrombus, per echo Diarrhea PLAN: Transition IV Lasix to oral 40 mg daily Daily weights, accurate intake and output, and monitoring of kidney function. Continue eliquis 5 mg twice a day secondary to LV thrombus Cardiology will sign off this case and follow on an as-needed basis. Please reconsult for any new concerns. Patient may follow-up in the office with Dr. Chatterjee in one to 2 weeks. Nurse practitioner note has been reviewed, I agree with documented findings and plan of care. Patient was seen and examined. Objective - Vital Signs Vital signs: Vital Signs Temp 97.7 F 01/04/24 08:40 Pulse 68 01/04/24 09:04 Resp 17 01/04/24 08:40 BP 123/76 01/04/24 08:40 Pulse Ox 95 01/04/24 08:40 FiO2 Intake & Output 01/03/24 01/04/24 01/04/24 18:59 06:59 18:59 Intake Total 660 360 Balance 660 360 Weight 99 kg Intake: Oral 660 360 Other: Voiding Method Toilet Toilet Toilet Urinal Urinal Urinal - Labs CBC & Chem 7: 01/04/24 08:05 01/04/24 08:05 Labs: Abnormal Lab Results - Last 24 Hours (Table) 01/03/24 01/03/24 01/03/24 Range/Units 09:57 10:01 12:05 WBC 12.1 H (3.8-10.6) k/uL RBC (4.30-5.90) m/uL MCV 104.7 H (80.0-100.0) fL Neutrophils # 10.7 H (1.3-7.7) k/uL Lymphocytes # 0.8 L (1.0-4.8) k/uL Sodium 135 L (137-145) mmol/L Potassium 5.6 H (3.5-5.1) mmol/L Carbon Dioxide 20 L (22-30) mmol/L BUN 42 H (9-20) mg/dL Glucose 256 H (74-99) mg/dL POC Glucose (mg/dL) 251 H (70-110) mg/dL AST 81 H (17-59) U/L Albumin 2.9 L (3.5-5.0) g/dL 01/03/24 01/03/24 01/04/24 Range/Units 16:31 20:15 02:03 WBC (3.8-10.6) k/uL RBC (4.30-5.90) m/uL MCV (80.0-100.0) fL Neutrophils # (1.3-7.7) k/uL Lymphocytes # (1.0-4.8) k/uL Sodium (137-145) mmol/L Potassium (3.5-5.1) mmol/L Carbon Dioxide (22-30) mmol/L BUN (9-20) mg/dL Glucose (74-99) mg/dL POC Glucose (mg/dL) 129 H 138 H 142 H (70-110) mg/dL AST (17-59) U/L Albumin (3.5-5.0) g/dL 01/04/24 01/04/24 01/04/24 Range/Units 06:11 08:05 08:05 WBC 13.8 H (3.8-10.6) k/uL RBC 4.14 L (4.30-5.90) m/uL MCV 103.3 H (80.0-100.0) fL Neutrophils # (1.3-7.7) k/uL Lymphocytes # (1.0-4.8) k/uL Sodium (137-145) mmol/L Potassium (3.5-5.1) mmol/L Carbon Dioxide (22-30) mmol/L BUN 44 H (9-20) mg/dL Glucose 177 H (74-99) mg/dL POC Glucose (mg/dL) 140 H (70-110) mg/dL AST (17-59) U/L Albumin (3.5-5.0) g/dL
--- NOTE | 2024-01-04 14:10 | P.PN ---
Subjective Progress Note Date: 01/04/24 Patient is a 73-year-old male with a known history of hyperlipidemia, diabetes type 2 insulin-dependent, coronary artery disease with prior stent placement, history of mild chronic CHF with mildly impaired systolic dysfunction ejection fraction 40 to 45% and moderate left ventricular concentric hypertrophy presents to ER with complaints of shortness of breath for the past 2 weeks and not getting better. Patient states that he has been having difficulty in breathing and felt like fluid in the lung. Also states that he felt warm and sweating at home. Patient was seen by his primary care physician and was given prednisone tapering course couple days ago which he has been taking. Patient is also complaining of diarrhea. Denies any fever or chills at home. Patient also states that he has increased leg swelling and gaining weight and has been taking extra dose of Lasix at home. Patient states that he has CHF and COPD. Chest x-ray on admission showed left basilar atelectasis or early infiltrate. EKG showed electronic ventricular paced rhythm. Laboratory data showed WBC 11.3 hemoglobin 14.2 and platelets 185 Sodium 132 potassium 3.5 chloride 94 bicarb is 19 anion gap 19 BUN 27 creatinine 1.12 and blood sugar 524 Lactic acid 4.1 calcium 8.0 magnesium 2.0 and total bili 1.8 liver regnancy not elevated troponin less than 0.12 and proBNP 2670 and albumin 2.8 Urinalysis showed 4+ glucose and leukocyte esterase negative. Influenza A B RSV and COVID-19 PCR not detected. 12/31/2023 Patient is resting in the bed. Awake alert and oriented. Overnight patient was hyperglycemic and requiring insulin drip. Patient was also started on IV Lasix. Breathing status is better today. No complaints of chest pain. No nausea vomiting abdominal pain or diarrhea. Patient is tolerating oral diet. Repeat chest x-ray this morning showed left retrocardiac consolidation correlate for atelectasis versus early pneumonia. Patient is being continued on antibiotics ceftriaxone and azithromycin. Pulmonary and cardiology is on board. Laboratory data showed WBC 11.4 hemoglobin 13.0 and platelets 167 12/31. Patient seen and examined. Complaining of diarrhea denies any nausea or vomiting. Shortness of breath is improved. 01/01. Patient seen and examined. Labs this morning showed sodium 139, po tassium 4.4, BUN 41, creatinine 1.14. Diarrhea has improved. Currently on IV Lasix and Eliquis. Swelling of legs has improved 01/02. Patient seen and examined. States he is still having diarrhea. States the frequency has improved but still going up to 10 times per day. Denies any blood in the stools. 01/03. Patient seen and examined. Blood work showed WBC 13.8, hemoglobin 13.4, platelet count 214, sodium 137 potassium 4.3, BUN 10, creatinine 44. Continues to complain of diarrhea. Denies any blood in the stools. Denies any abdominal pain REVIEW OF SYSTEMS: CONSTITUTIONAL: No fever, no malaise,. CARDIOVASCULAR: No chest pain, no palpitations, no syncope. PULMONARY: No shortness of breath, no cough, GASTROINTESTINAL: As mentioned above NEUROLOGICAL: No headaches, no weakness, PHYSICAL EXAMINATION: GENERAL: The patient is alert and oriented x3, not in any acute distress. Well developed, well nourished. HEENT: Pupils are round and equally reacting to light. EOMI. No scleral icterus. No conjunctival pallor. Normocephalic, atraumatic. No pharyngeal erythema. No thyromegaly. CARDIOVASCULAR: S1 and S2 present. No murmurs, rubs, or gallops. PULMONARY: Chest is clear to auscultation, no wheezing or crackles. ABDOMEN: Soft, nontender, nondistended, normoactive bowel sounds. No palpable organomegaly. MUSCULOSKELETAL: No joint swelling or deformity. EXTREMITIES: No cyanosis, clubbing, no pitting edema lower extremity NEUROLOGICAL: Gross neurological examination did not reveal any focal deficits. SKIN: No rashes. Assessment and plan Acute COPD exacerbation failed outpatient treatment. LV thrombus Hyperglycemia with uncontrolled diabetes type 2 insulin-dependent A1c 12 Left basilar atelectasis and possible early infiltrate/pneumonia Acute on Chronic CHF with mildly reduced systolic dysfunction ejection fraction 40 to 45% as per 2D echocardiogram in 2018. Patient had stress test in 2018. follows with Dr[address] Graham as an outpatient. Coronary artery disease history of stent placement Lactic acidosis likely due to tissue hypoperfusion Hypovolemic hyponatremia and pseudohyponatremia Hypoalbuminemia Hyperlipidemia History of NC Monitor vital signs Monitor CBC Monitor CMP Continue telemetry monitoring Continue oxygen supplementation Aggressive bronchopulmonary hygiene Continue IV Solu-Medrol 40 mg every 8 Continue DuoNebs and Symbicort. Lasix switched to oral 40 mg daily Ordered stool cultures Repeat stool for C. difficile is negative Continue cholestyramine and lactobacillus 2D echo suspicious of LV thrombus, continue Eliquis Continue aspirin and statins and metoprolol. Entresto, spironolactone Pulmonary and cardiology is on board. Consult ID Labs and medication were reviewed.. Continue same treatment. Continue with symptomatic treatment. Resume home medication. Monitor labs and vitals. DVT and GI prophylaxis. Further recommendations as per clinical course of the patient Dictation was produced using [employer] dictation software. please excuse any grammatical, word or spelling errors. Objective - Vital Signs Vital signs: Vital Signs Temp 97.7 F 01/04/24 08:40 Pulse 68 01/04/24 09:04 Resp 17 01/04/24 08:40 BP 123/76 01/04/24 08:40 Pulse Ox 95 01/04/24 08:40 FiO2 Intake & Output 01/03/24 01/04/24 01/04/24 18:59 06:59 18:59 Intake Total 660 360 Balance 660 360 Weight 99 kg Intake: Oral 660 360 Other: Voiding Method Toilet Toilet Toilet Urinal Urinal Urinal - Labs CBC & Chem 7: 01/04/24 08:05 01/04/24 08:05 Labs: Abnormal Lab Results - Last 24 Hours (Table) 01/03/24 01/03/24 01/03/24 Range/Units 09:57 10:01 12:05 WBC 12.1 H (3.8-10.6) k/uL RBC (4.30-5.90) m/uL MCV 104.7 H (80.0-100.0) fL Neutrophils # 10.7 H (1.3-7.7) k/uL Lymphocytes # 0.8 L (1.0-4.8) k/uL Sodium 135 L (137-145) mmol/L Potassium 5.6 H (3.5-5.1) mmol/L Carbon Dioxide 20 L (22-30) mmol/L BUN 42 H (9-20) mg/dL Glucose 256 H (74-99) mg/dL POC Glucose (mg/dL) 251 H (70-110) mg/dL AST 81 H (17-59) U/L Albumin 2.9 L (3.5-5.0) g/dL 01/03/24 01/03/2401/03/24 Range/Units 16:31 20:15 02:03 WBC (3.8-10.6) k/uL RBC (4.30-5.90) m/uL MCV (80.0-100.0) fL Neutrophils # (1.3-7.7) k/uL Lymphocytes # (1.0-4.8) k/uL Sodium (137-145) mmol/L Potassium (3.5-5.1) mmol/L Carbon Dioxide (22-30) mmol/L BUN (9-20) mg/dL Glucose (74-99) mg/dL POC Glucose (mg/dL) 129 H 138 H 142 H (70-110) mg/dL AST (17-59) U/L Albumin (3.5-5.0) g/dL 01/04/24 01/04/24 01/04/24 Range/Units 06:11 08:05 08:05 WBC 13.8 H (3.8-10.6) k/uL RBC 4.14 L (4.30-5.90) m/uL MCV 103.3 H (80.0-100.0) fL Neutrophils # (1.3-7.7) k/uL Lymphocytes # (1.0-4.8) k/uL Sodium (137-145) mmol/L Potassium (3.5-5.1) mmol/L Carbon Dioxide (22-30) mmol/L BUN 44 H (9-20) mg/dL Glucose 177 H (74-99) mg/dL POC Glucose (mg/dL) 140 H (70-110) mg/dL AST (17-59) U/L Albumin (3.5-5.0) g/dL
--- NOTE | 2024-01-04 14:30 | P.PN ---
Subjective Progress Note Date: 01/04/24 Principal diagnosis: Acute COPD exacerbation On today's evaluation of 01/01/2024, the patient is still having some cough and congestion. No significant sputum production. He started having diarrhea as of yesterday and the patient was having frequent episodes. He remains on IV Rocephin. He is also on bronchodilators and steroids. A repeat echocardiogram was done and the patient was found to have an ejection fraction of 20 to 25%. There is severe global LV dysfunction and possibility of a small LV thrombus as noted on echocardiogram. Based on that, the patient has been maintained on anticoagulation with Eliquis 5 mg p.o. twice a day. The patient remains on Entresto. The patient remains on Lasix 40 mg every 12 hours. At the same time, the patient is on Symbicort 2 puffs twice a day, he has Trelegy Ellipta at the bedside. He is also on IV Solu-Medrol 40 mg every 12 hours. Labs from today shows a WBC count of 9.2, hemoglobin is at 12.8 and a platelet count is 140. BUN is 36 with a creatinine 1.07 and a sodium level is at 134. Awake and alert and communicating at this point in time. On today's evaluation of 01/02/2024, the patient is being seen for a follow-up. Improved compared to yesterday. Diarrhea is subsiding. Less short of breath. Less bronchospastic and wheezy. Remains on bronchodilators. Remains on Solu- Medrol. He is currently on a dose of 40 mg IV every 12 hours. Is also on Lasix and his patient is diuresing adequately. BUN is at 41 with a creatinine 1.1. Sodium is at 139. Patient is currently on 2 L of oxygen by nasal cannula. Reevaluate today on 01/03/2024, patient continues to have cough and wheezing, continues to have intermittent episodes of diarrhea, patient is on maximal course of bronchodilators, he is also on diuretics for history of ischemic cardiomyopathy and LV dysfunction. Chest x-ray showed no evidence of congestive heart failure, there is mostly evidence of atelectasis. Also doubt pneumoniaPatient is on 3 L nasal cannula O2 sats is 95%. BBC count today is 12.1 hemoglobin 14.6. Potassium is 4.7 procalcitonin level on admission is 0.28. Admission chest x-ray showed mostly atelectasis at the left base with interstitial edema, underlying left lower lobe infiltrate is not entirely ruled out Reevaluated today on 01/04/2024, patient is doing much better from the pulmonary perspective, he does not seem to be concerned about his pulmonary symptoms he seems to be more concerned about his ongoing diarrhea. Patient has been going to the bathroom almost on a hourly basis. He is receiving Lomotil, and today I added Pepto-Bismol, his screening for C. difficile toxin has been negative twice now. WBC count is 13.8 hemoglobin 13.4 basic metabolic profile is normal BUN is 44 creatinine 1.15 last chest x-ray few days ago showed right lower lobe atelectasis, questionable pneumonia, and mild pulmonary vascular congestion patient is now transition to oral Lasix, and he is also on Eliquis, patient does have history of LV thrombus Objective - Vital Signs Vital signs: Vital Signs Temp 97.7 F 01/04/24 08:40 Pulse 60 01/04/24 12:00 Resp 17 01/04/24 11:50 BP 115/70 01/04/24 11:50 Pulse Ox 95 01/04/24 11:50 FiO2 Intake & Output 01/03/24 01/04/24 01/04/24 18:59 06:59 18:59 Intake Total 660 478 Balance 660 478 Weight 99 kg Intake: Oral 660 478 Other: Voiding Method Toilet Toilet Toilet Urinal Urinal Urinal - Exam GENERAL EXAM: Alert, 73-year-old white male, in no distress, on room air with O2 saturation 95% HEAD: Normocephalic and atraumatic EYES: Normal reaction of pupils, equal size. NOSE: Clear with pink turbinates. THROAT: No erythema or exudates. NECK: No masses, no JVD. CHEST: No chest wall deformity. LUNGS: Clear bilaterally no rhonchi no wheezes CVS: S1 and S2 normal with no audible murmur, regular rhythm. No extra heart sounds ABDOMEN: No hepatosplenomegaly, active bowel sounds, no guarding or rigidity. SKIN: No rashes CENTRAL NERVOUS SYSTEM: No focal deficits, tone is normal in all 4 extremities. EXTREMITIES: There is no peripheral edema, clubbing, or cyanosis. Peripheral pulses are intact. - Labs CBC & Chem 7: 01/04/24 08:05 01/04/24 08:05 Labs: Abnormal Lab Results - Last 24 Hours (Table) 01/03/24 01/03/24 01/04/24 Range/Units 16:31 20:15 02:03 WBC (3.8-10.6) k/uL RBC (4.30-5.90) m/uL MCV (80.0-100.0) fL BUN (9-20) mg/dL Glucose (74-99) mg/dL POC Glucose (mg/dL) 129 H 138 H 142 H (70-110) mg/dL 01/04/24 01/04/24 01/04/24 Range/Units 06:11 08:05 08:05 WBC 13.8 H (3.8-10.6) k/uL RBC 4.14 L (4.30-5.90) m/uL MCV 103.3 H (80.0-100.0) fL BUN 44 H (9-20) mg/dL Glucose 177 H (74-99) mg/dL POC Glucose (mg/dL) 140 H (70-110) mg/dL 01/04/24 Range/Units 11:52 WBC (3.8-10.6) k/uL RBC (4.30-5.90) m/uL MCV (80.0-100.0) fL BUN (9-20) mg/dL Glucose (74-99) mg/dL POC Glucose (mg/dL) 235 H (70-110) mg/dL Assessment and Plan Assessment: Impression: acute COPD exacerbation/, suspect also acute systolic CHF, significantly improved Coronary artery disease with previous coronary stenting Ischemic cardiomyopathy/ systolic heart failure with an ejection fraction of 20 to 25% along with LV thrombus, currently on anticoagulation with Eliquis Diabetes mellitus type II, insulin-dependent, with hyperglycemia and mild DKA Mild anion gap metabolic acidosis, likely secondary to above and lactic acidosis History of implanted AICD/pacemaker History of hyperlipidemia History of coronary artery disease with previous PCI/stent Obesity, with a BMI of 31.2 kg/m Acute gastroenteritis, patient is on treatment, not improving much, C. difficile screening was negative x 2 if no improvement may have to consider GI consultation. Recommendation: Continue Lomotil and Pepto-Bismol Continue bronchodilators Continue diuretics Continue eliquis Continue Levemir insulin and insulin as per sliding scale Repeat C. difficile screen, was noted to be negative Patient remains off antibiotics Consider GI consultation if diarrhea persist Pulmonary noble the patient is doing much better, could be considered for discharge once cleared by other consultants and by the admitting physician now the main issue seems to be related to his diarrhea. Will continue to follow Time with Patient: Less than 30
[2024-01-04 16:30] LABS: Glucose,Whole Blood 85 mg/dL (70-110)
[2024-01-04 20:19] LABS: Glucose,Whole Blood 109 mg/dL (70-110)
--- NOTE | 2024-01-04 20:56 | P.CONS ---
History of Present Illness - Reason for Consult Consult date: 01/04/24 Diarrhea Requesting physician: Crow Burgess - Chief Complaint Diarrhea x few days - History of Present Illness Patient is a 73-year-old male past medical history significant for diabetes mellitus hypertension NM COPD heart failure coronary artery disease presenting to the hospital about 5 days ago for evaluation of increasing shortness of breath that has been getting worse for couple of weeks before presentation to the hospital patient had denies having any chest pain he did have a cough mild to moderate intensity with occasional sputum no hemoptysis no pleuritic chest pain no nausea no vomiting no abdominal pain or diarrhea on admission patient currently has been exposed antibiotic and started having explosive diarrhea that initially improved however over the last 2 days he is having significant diarrhea with multiple loose stools per day denies any blood or mucus in the stool did have some crampy abdominal pain patient has been afebrile throughout his hospital stay not tachycardic or hypotensive mildly hypoxic currently on 2 L nasal cannula oxygen he did have a white count of 11.4 on admission white count is up to 13.8 he did have a stool for C. difficile x 2 both has been negative patient was started on a Questran with persistent diarrhea infectious disease was consulted for further management Review of Systems Positive point and negatives has been mentioned in the HPI, complete review of systems was performed and all other systems are negative Past Medical History Past Medical History: Coronary Artery Disease (CAD), Heart Failure, COPD, Diabetes Mellitus, Hyperlipidemia, Myocardial Infarction (NM) Additional Past Medical History / Comment(s): defibrilator bph Last Myocardial Infarction Date:: 2002 History of Any Multi-Drug Resistant Organisms: None Reported Past Surgical History: Cholecystectomy, Heart Catheterization With Stent Past Anesthesia/Blood Transfusion Reactions: No Reported Reaction Date of Last Stent Placement:: 2002 Type of Cardiac Device: AICD Device Placement Date:: 2013 Past Psychological History: No Psychological Hx Reported Past Alcohol Use History: Rare Past Drug Use History: None Reported Medications and Allergies Home Medications Medication Instructions Recorded Confirmed Type Albuterol Inhaler [Ventolin Hfa 1 - 2 puff INHALATION RT-QID PRN 05/22/17 12/30/23 History Inhaler] Aspirin EC [Ecotrin Low Dose] 81 mg PO HS 05/22/17 12/30/23 History Atorvastatin [Lipitor] 40 mg PO HS 05/22/17 12/30/23 History Budesonide [Pulmicort] 0.5 mg INHALATION RT-BID 05/22/17 12/30/23 History Clindamycin Topical Soln 1 applic TOPICAL BID PRN 05/22/17 12/30/23 History [Cleocin-T Topical Soln] Formoterol Fumarate [Perforomist] 20 mcg INHALATION RT-BID 05/22/17 12/30/23 History Ipratropium-Albuterol Nebulize 3 ml INHALATION RT-QID 05/22/17 12/30/23 History [Duoneb 0.5 mg-3 mg/3 ml Soln] Loratadine [Claritin] 10 mg PO DAILY 05/22/17 12/30/23 History Montelukast [Singulair] 10 mg PO HS 05/22/17 12/30/23 History Nitroglycerin Sl Tabs [Nitrostat] 0.4 mg SUBLINGUAL Q5M PRN 05/22/17 12/30/23 History Potassium Chloride ER [K-Dur 20] 20 meq PO DAILY PRN 05/22/17 12/30/23 History Cholecalciferol [Vitamin D3 (125 125 mcg PO DAILY 12/30/23 12/30/23 History Mcg = 5000 Iu)] Dapagliflozin Propanediol [Farxiga] 10 mg PO DAILY 12/30/23 12/30/23 History Fluticasone/Umeclidin/Vilanter 1 puff INHALATION RT-DAILY 12/30/23 12/30/23 History [Trelegy Ellipta 200-62.5-25] Ketoconazole 2% Cream [Nizoral 2%] 1 applic TOPICAL BID PRN 12/30/23 12/30/23 History Omeprazole 20 mg PO BID 12/30/23 12/30/23 History Sacubitril/Valsartan [Entresto 24 1 tab PO BID 12/30/23 12/30/23 History mg-26 mg Tablet] Spironolactone [Aldactone] 25 mg PO DIRECTED 12/30/23 12/30/23 History Tamsulosin [Flomax] 0.4 mg PO BID 12/30/23 12/30/23 History guaiFENesin [Mucinex] 1,200 mg PO BID PRN 12/30/23 12/30/23 History Apixaban [Eliquis] 5 mg PO BID #60 tab 01/13/24 Rx Cholestyramine (with Sugar) 4 gm PO BID@1000,1800 7 Days #14 01/13/24 Rx [Questran Packet] packet Diphenoxylate HCl/Atropine 1 tab PO QID PRN 14 Days #56 tab 01/13/24 Rx [Lomotil 2.5-0.025 mg Tablet] Furosemide [Lasix] 40 mg PO DAILY PRN #30 tab 01/13/24 Rx INSULIN ASPART (NovoLOG) [NovoLOG 10 unit SQ AC-TID #10 ml 01/13/24 Rx (formulary)] Insulin Detemir (Levemir) [Levemir] 30 unit SQ DAILY@0700 #10 ml 01/13/24 Rx Metoprolol Tartrate [Lopressor] 50 mg PO BID #60 tab 01/13/24 Rx predniSONE 10 mg PO DIRECTED #24 tab 01/13/24 Rx Allergies Allergy/AdvReac Type Severity Reaction Status Date / Time carvedilol [From Coreg] Allergy Rash/Hives Verified 12/30/23 13:05 metformin AdvReac Diarrhea Verified 12/30/23 13:05 Physical Exam Vitals: Vital Signs Temp Pulse Pulse Resp BP Pulse Ox 01/04/24 12:00 60 01/04/24 11:50 97 17 115/70 95 01/04/24 11:49 60 01/04/24 09:04 68 01/04/24 08:52 68 01/04/24 08:40 97.7 F 56 L 17 123/76 95 01/04/24 04:00 57 L 18 106/60 98 01/04/24 02:00 100 18 01/04/24 00:00 100 18 122/80 98 01/03/24 23:38 78 01/03/24 23:29 66 01/03/24 20:00 97.5 F L 66 20 120/57 96 01/03/24 15:53 68 01/03/24 15:42 68 01/03/24 15:10 97.7 F 91 20 99/65 95 Intake and Output 01/04/24 01/04/24 01/04/24 06:59 14:59 22:59 Intake Total 478 Balance 478 Intake: Oral 478 Other: Voiding Method Toilet Toilet Urinal Urinal Weight 99 kg GENERAL DESCRIPTION: Elderly male lying in bed, no distress. No tachypnea or accessory muscle of respiration use. HEENT: Shows Pallor , no scleral icterus. Oral mucous membrane is dry. No pharyngeal erythema or thrush NECK: Trachea central, no thyromegaly. LUNGS: Unlabored breathing. Coarse breath sounds bilaterally HEART: S1, S2, regular rate and rhythm. No loud murmur ABDOMEN: Soft, no tenderness , EXTREMITIES: No edema of feet. SKIN: No rash, NEUROLOGICAL: The patient is awake, alert, oriented x3, mood and affect normal. Results CBC & Chem 7: 01/13/24 10:03 01/13/24 10:03 Labs: Abnormal Lab Results - Last 24 Hours (Table) 01/03/24 01/03/24 01/04/24 Range/Units 16:31 20:15 02:03 WBC (3.8-10.6) k/uL RBC (4.30-5.90) m/uL MCV (80.0-100.0) fL BUN (9-20) mg/dL Glucose (74-99) mg/dL POC Glucose (mg/dL) 129 H 138 H 142 H (70-110) mg/dL 01/04/24 01/04/24 01/04/24 Range/Units 06:11 08:05 08:05 WBC 13.8 H (3.8-10.6) k/uL RBC 4.14 L (4.30-5.90) m/uL MCV 103.3 H (80.0-100.0) fL BUN 44 H (9-20) mg/dL Glucose 177 H (74-99) mg/dL POC Glucose (mg/dL) 140 H (70-110) mg/dL 01/04/24 Range/Units 11:52 WBC (3.8-10.6) k/uL RBC (4.30-5.90) m/uL MCV (80.0-100.0) fL BUN (9-20) mg/dL Glucose (74-99) mg/dL POC Glucose (mg/dL) 235 H (70-110) mg/dL Assessment and Plan (1) Diarrhea Status: Acute Code(s): R19.7 - DIARRHEA, UNSPECIFIED SNOMED Code(s): 42907345 (2) Leukocytosis Status: Acute Code(s): D72.829 - ELEVATED WHITE BLOOD CELL COUNT, UNSPECIFIED SNOMED Code(s): 255691054 Plan: 1patient with extensive diarrhea over the last few days this patient has been exposed to antibiotics on the question of possible antibiotic associated diarrhea versus C. difficile colitis high clinical suspicions keeping in mind elevated white count 2-we will go and check a stool for C. difficile PCR 3-we will empirically add oral vancomycin while waiting for the workup to complete and continue with Questran We will follow on clinical condition and cultures to further adjust medication if needed Thank you for this consultation we will follow the patient along with you Dictation was produced using [employer] dictation software. please excuse any grammatical, word or spelling errors. Time with Patient: Greater than 30
[2024-01-05] MEDS: VANCOMYCIN 125 MG CAPSULE PO SCH (00:40)
[2024-01-05 02:56] LABS: Glucose,Whole Blood 179 mg/dL (70-110)
[2024-01-05 06:05] LABS: Glucose,Whole Blood 165 mg/dL (70-110)
[2024-01-05] MEDS: FUROSEMIDE 40 MG TAB PO SCH (09:08)
[2024-01-05 10:15] LABS: ALT 42 U/L (4-49); AST 33 U/L (17-59); African American GFR (CKD) 72 (>60 ml/min/1.73 sqM); Albumin 2.4 g/dL (3.5-5.0); Alkaline Phosphatase 105 U/L (38-126); Anion Gap 9 mmol/L; Blood Urea Nitrogen 51 mg/dL (9-20); Calcium 8.6 mg/dL (8.4-10.2); Carbon Dioxide 22 mmol/L (22-30); Chloride 107 mmol/L (98-107); Glucose 139 mg/dL (74-99); Non-African American GFR(CKD) 62 (>60 ml/min/1.73 sqM); Potassium 4.4 mmol/L (3.5-5.1); Sodium 138 mmol/L (137-145); Total Bilirubin 0.6 mg/dL (0.2-1.3); Total Protein 5.1 g/dL (6.3-8.2)
[2024-01-05 11:12] LABS: Basophils # (A) 0.1 k/uL (0-0.2); Basophils % (A) 1 %; Eosinophils % (A) 0 %; HCT 41.5 % (39.0-53.0); HGB 14.2 gm/dL (13.0-17.5); Lymphocytes % (A) 6 %; MCHC 34.1 g/dL (31.0-37.0); MCV 99.6 fL (80.0-100.0); Macrocytosis Slight; Mean Platelet Volume 9.2; Monocytes # (A) 0.9 k/uL (0-1.0); Monocytes % (A) 5 %; Neutrophils # (A) 14.5 k/uL (1.3-7.7); Neutrophils % (A) 87 %; Platelet Count 156 k/uL (150-450); RBC 4.17 m/uL (4.30-5.90); RDW 14.9 % (11.5-15.5); WBC 16.7 k/uL (3.8-10.6)
[2024-01-05 11:48] LABS: Glucose,Whole Blood 76 mg/dL (70-110)
--- NOTE | 2024-01-05 12:40 | P.PN ---
Subjective Progress Note Date: 01/05/24 Patient is a 73-year-old male with a known history of hyperlipidemia, diabetes type 2 insulin-dependent, coronary artery disease with prior stent placement, history of mild chronic CHF with mildly impaired systolic dysfunction ejection fraction 40 to 45% and moderate left ventricular concentric hypertrophy presents to ER with complaints of shortness of breath for the past 2 weeks and not getting better. Patient states that he has been having difficulty in breathing and felt like fluid in the lung. Also states that he felt warm and sweating at home. Patient was seen by his primary care physician and was given prednisone tapering course couple days ago which he has been taking. Patient is also complaining of diarrhea. Denies any fever or chills at home. Patient also states that he has increased leg swelling and gaining weight and has been taking extra dose of Lasix at home. Patient states that he has CHF and COPD. Chest x-ray on admission showed left basilar atelectasis or early infiltrate. EKG showed electronic ventricular paced rhythm. Laboratory data showed WBC 11.3 hemoglobin 14.2 and platelets 185 Sodium 132 potassium 3.5 chloride 94 bicarb is 19 anion gap 19 BUN 27 creatinine 1.12 and blood sugar 524 Lactic acid 4.1 calcium 8.0 magnesium 2.0 and total bili 1.8 liver regnancy not elevated troponin less than 0.12 and proBNP 2670 and albumin 2.8 Urinalysis showed 4+ glucose and leukocyte esterase negative. Influenza A B RSV and COVID-19 PCR not detected. 12/31/2023 Patient is resting in the bed. Awake alert and oriented. Overnight patient was hyperglycemic and requiring insulin drip. Patient was also started on IV Lasix. Breathing status is better today. No complaints of chest pain. No nausea vomiting abdominal pain or diarrhea. Patient is tolerating oral diet. Repeat chest x-ray this morning showed left retrocardiac consolidation correlate for atelectasis versus early pneumonia. Patient is being continued on antibiotics ceftriaxone and azithromycin. Pulmonary and cardiology is on board. Laboratory data showed WBC 11.4 hemoglobin 13.0 and platelets 167 12/31. Patient seen and examined. Complaining of diarrhea denies any nausea or vomiting. Shortness of breath is improved. 01/01. Patient seen and examined. Labs this morning showed sodium 139, po tassium 4.4, BUN 41, creatinine 1.14. Diarrhea has improved. Currently on IV Lasix and Eliquis. Swelling of legs has improved 01/02. Patient seen and examined. States he is still having diarrhea. States the frequency has improved but still going up to 10 times per day. Denies any blood in the stools. 01/03. Patient seen and examined. Blood work showed WBC 13.8, hemoglobin 13.4, platelet count 214, sodium 137 potassium 4.3, BUN 10, creatinine 44. Continues to complain of diarrhea. Denies any blood in the stools. Denies any abdominal pain 01/04. Patient seen and examined. Patient still having diarrhea, states he is going every hour. Does not look in any distress. Currently on vancomycin which was started by ID for C. difficile suspicion, stool for C. difficile is negative. REVIEW OF SYSTEMS: CONSTITUTIONAL: No fever, no malaise,. CARDIOVASCULAR: No chest pain, no palpitations, no syncope. PULMONARY: No shortness of breath, no cough, GASTROINTESTINAL: As mentioned above NEUROLOGICAL: No headaches, no weakness, PHYSICAL EXAMINATION: GENERAL: The patient is alert and oriented x3, not in any acute distress. Well developed, well nourished. HEENT: Pupils are round and equally reacting to light. EOMI. No scleral icterus. No conjunctival pallor. Normocephalic, atraumatic. No pharyngeal erythema. No thyromegaly. CARDIOVASCULAR: S1 and S2 present. No murmurs, rubs, or gallops. PULMONARY: Chest is clear to auscultation, no wheezing or crackles. ABDOMEN: Soft, nontender, nondistended, normoactive bowel sounds. No palpable organomegaly. MUSCULOSKELETAL: No joint swelling or deformity. EXTREMITIES: No cyanosis, clubbing, no pitting edema lower extremity NEUROLOGICAL: Gross neurological examination did not reveal any focal deficits. SKIN: No rashes. Assessment and plan Acute COPD exacerbation failed outpatient treatment. LV thrombus Hyperglycemia with uncontrolled diabetes type 2 insulin-dependent A1c 12 Left basilar atelectasis and possible early infiltrate/pneumonia Acute on Chronic CHF with mildly reduced systolic dysfunction ejection fraction 40 to 45% as per 2D echocardiogram in 2018. Patient had stress test in 2018. follows with Dr[address] Graham as an outpatient. Coronary artery disease history of stent placement Lactic acidosis likely due to tissue hypoperfusion Hypovolemic hyponatremia and pseudohyponatremia Hypoalbuminemia Hyperlipidemia History of IA Monitor vital signs Monitor CBC Monitor CMP Continue telemetry monitoring Continue oxygen supplementation Aggressive bronchopulmonary hygiene Continue IV Solu-Medrol 40 mg every 8 Continue DuoNebs and Symbicort. Continue Lasix 40 mg daily Ordered stool cultures Repeat stool for C. difficile is negative, suspicion for C. difficile still high Start oral vancomycin prophylactically Continue cholestyramine and lactobacillus 2D echo suspicious of LV thrombus, continue Eliquis Continue aspirin and statins and metoprolol. Entresto, spironolactone Pulmonary and cardiology is on board. ID following Labs and medication were reviewed.. Continue same treatment. Continue with symptomatic treatment. Resume home medication. Monitor labs and vitals. DVT and GI prophylaxis. Further recommendations as per clinical course of the patient Dictation was produced using [employer] dictation software. please excuse any grammatical, word or spelling errors. Objective - Vital Signs Vital signs: Vital Signs Temp 98.1 F 01/05/24 08:21 Pulse 62 01/05/24 09:50 Resp 18 01/05/24 08:21 BP 121/76 01/05/24 08:21 Pulse Ox 98 01/05/24 09:38 FiO2 Intake & Output 01/04/24 01/05/24 01/05/24 18:59 06:59 18:59 Intake Total 596 Balance 596 Weight 99.2 kg Intake: Oral 596 Other: Voiding Method Toilet Toilet Urinal Urinal - Labs CBC & Chem 7: 01/05/24 09:16 01/05/24 09:16 Labs: Abnormal Lab Results - Last 24 Hours (Table) 01/04/24 01/05/24 01/05/24 Range/Units 11:52 02:54 06:02 BUN (9-20) mg/dL Glucose (74-99) mg/dL POC Glucose (mg/dL) 235 H 179 H 165 H (70-110) mg/dL Total Protein (6.3-8.2) g/dL Albumin (3.5-5.0) g/dL 01/05/24 Range/Units 09:16 BUN 51 H (9-20) mg/dL Glucose 139 H (74-99) mg/dL POC Glucose (mg/dL) (70-110) mg/dL Total Protein 5.1 L (6.3-8.2) g/dL Albumin 2.4 L (3.5-5.0) g/dL Microbiology - Last 24 Hours (Table) 12/30/23 13:15 Blood Culture - Final Blood 12/30/23 13:39 Blood Culture - Final Blood
[2024-01-05] MEDS: PSYLLIUM HUSK 100% 6 GM PACKET PO SCH (13:38)
[2024-01-05 14:39] VITALS: BMI 29.6
--- NOTE | 2024-01-05 14:42 | P.PN ---
Subjective Progress Note Date: 01/05/24 Principal diagnosis: Acute COPD exacerbation On today's evaluation of 01/01/2024, the patient is still having some cough and congestion. No significant sputum production. He started having diarrhea as of yesterday and the patient was having frequent episodes. He remains on IV Rocephin. He is also on bronchodilators and steroids. A repeat echocardiogram was done and the patient was found to have an ejection fraction of 20 to 25%. There is severe global LV dysfunction and possibility of a small LV thrombus as noted on echocardiogram. Based on that, the patient has been maintained on anticoagulation with Eliquis 5 mg p.o. twice a day. The patient remains on Entresto. The patient remains on Lasix 40 mg every 12 hours. At the same time, the patient is on Symbicort 2 puffs twice a day, he has Trelegy Ellipta at the bedside. He is also on IV Solu-Medrol 40 mg every 12 hours. Labs from today shows a WBC count of 9.2, hemoglobin is at 12.8 and a platelet count is 140. BUN is 36 with a creatinine 1.07 and a sodium level is at 134. Awake and alert and communicating at this point in time. On today's evaluation of 01/02/2024, the patient is being seen for a follow-up. Improved compared to yesterday. Diarrhea is subsiding. Less short of breath. Less bronchospastic and wheezy. Remains on bronchodilators. Remains on Solu- Medrol. He is currently on a dose of 40 mg IV every 12 hours. Is also on Lasix and his patient is diuresing adequately. BUN is at 41 with a creatinine 1.1. Sodium is at 139. Patient is currently on 2 L of oxygen by nasal cannula. Reevaluate today on 01/03/2024, patient continues to have cough and wheezing, continues to have intermittent episodes of diarrhea, patient is on maximal course of bronchodilators, he is also on diuretics for history of ischemic cardiomyopathy and LV dysfunction. Chest x-ray showed no evidence of congestive heart failure, there is mostly evidence of atelectasis. Also doubt pneumoniaPatient is on 3 L nasal cannula O2 sats is 95%. BBC count today is 12.1 hemoglobin 14.6. Potassium is 4.7 procalcitonin level on admission is 0.28. Admission chest x-ray showed mostly atelectasis at the left base with interstitial edema, underlying left lower lobe infiltrate is not entirely ruled out Reevaluated today on 01/04/2024, patient is doing much better from the pulmonary perspective, he does not seem to be concerned about his pulmonary symptoms he seems to be more concerned about his ongoing diarrhea. Patient has been going to the bathroom almost on a hourly basis. He is receiving Lomotil, and today I added Pepto-Bismol, his screening for C. difficile toxin has been negative twice now. WBC count is 13.8 hemoglobin 13.4 basic metabolic profile is normal BUN is 44 creatinine 1.15 last chest x-ray few days ago showed right lower lobe atelectasis, questionable pneumonia, and mild pulmonary vascular congestion patient is now transition to oral Lasix, and he is also on Eliquis, patient does have history of LV thrombus Reevaluate today on 01/05/2024, patient continues to have intermittent and severe episodes of diarrhea. Patient was seen by infectious disease on consultation, and he was placed empirically on oral vancomycin, although 2 screenings for C. difficile colitis were negative. In the meantime, the patient remains on Lomotil, remains on Pepto-Bismol, and his diarrhea seems to be persistent. I feel the patient may have get GI evaluation and possibly colonoscopy. Pulmonary noble patient is doing better, breathing easier, occasional cough and wheezing only. Objective - Vital Signs Vital signs: Vital Signs Temp 97.8 F 01/05/24 11:49 Pulse 70 01/05/24 12:12 Resp 18 01/05/24 11:49 BP 121/82 01/05/24 11:49 Pulse Ox 97 01/05/24 11:49 FiO2 Intake & Output 01/04/24 01/05/24 01/05/24 18:59 06:59 18:59 Intake Total 596 480 Balance 596 480 Weight 99.2 kg 99.2 kg Intake: Oral 596 480 Other: Voiding Method Toilet Toilet Toilet Urinal Urinal Urinal - Exam GENERAL EXAM: Alert, 73-year-old white male, in no distress, on room air with O2 saturation 95% HEAD: Normocephalic and atraumatic EYES: Normal reaction of pupils, equal size. NOSE: Clear with pink turbinates. THROAT: No erythema or exudates. NECK: No masses, no JVD. CHEST: No chest wall deformity. LUNGS: Clear bilaterally, rhonchi and wheezing on forced expiratory maneuver only. CVS: S1 and S2 normal with no audible murmur, regular rhythm. No extra heart sounds ABDOMEN: No hepatosplenomegaly, active bowel sounds, no guarding or rigidity. SKIN: No rashes CENTRAL NERVOUS SYSTEM: No focal deficits, tone is normal in all 4 extremities. EXTREMITIES: There is no peripheral edema, clubbing, or cyanosis. Peripheral pulses are intact. - Labs CBC & Chem 7: 01/05/24 09:16 01/05/24 09:16 Labs: Abnormal Lab Results - Last 24 Hours (Table) 01/05/24 01/05/24 01/05/24 Range/Units 02:54 06:02 09:16 WBC 16.7 H (3.8-10.6) k/uL RBC 4.17 L (4.30-5.90) m/uL Neutrophils # 14.5 H (1.3-7.7) k/uL BUN (9-20) mg/dL Glucose (74-99) mg/dL POC Glucose (mg/dL) 179 H 165 H (70-110) mg/dL Total Protein (6.3-8.2) g/dL Albumin (3.5-5.0) g/dL 01/05/24 Range/Units 09:16 WBC (3.8-10.6) k/uL RBC (4.30-5.90) m/uL Neutrophils # (1.3-7.7) k/uL BUN 51 H (9-20) mg/dL Glucose 139 H (74-99) mg/dL POC Glucose (mg/dL) (70-110) mg/dL Total Protein 5.1 L (6.3-8.2) g/dL Albumin 2.4 L (3.5-5.0) g/dL Microbiology - Last 24 Hours (Table) 12/30/23 13:15 Blood Culture - Final Blood 12/30/23 13:39 Blood Culture - Final Blood Assessment and Plan Assessment: Impression: acute COPD exacerbation/, suspect also acute systolic CHF, significantly improved Coronary artery disease with previous coronary stenting Ischemic cardiomyopathy/ systolic heart failure with an ejection fraction of 20 to 25% along with LV thrombus, currently on anticoagulation with Eliquis Diabetes mellitus type II, insulin-dependent, with hyperglycemia and mild DKA Mild anion gap metabolic acidosis, likely secondary to above and lactic acidosis History of implanted AICD/pacemaker History of hyperlipidemia History of coronary artery disease with previous PCI/stent Obesity, with a BMI of 31.2 kg/m Acute gastroenteritis, patient is on treatment, not improving much, C. difficile screening was negative x 2 if no improvement may have to consider GI consultation. Recommendation: Continue oral vancomycin as ordered by ID Continue Lomotil and Pepto-Bismol Continue bronchodilators Continue diuretics Continue eliquis Continue Levemir insulin and insulin as per sliding scale Repeat C. difficile screen, was noted to be negative Patient remains off antibiotics Consider GI consultation if diarrhea persist Will follow Time with Patient: Less than 30
[2024-01-05 16:25] LABS: Glucose,Whole Blood 87 mg/dL (70-110)
--- NOTE | 2024-01-05 17:43 | P.PN ---
Subjective Progress Note Date: 01/05/24 Principal diagnosis: Reason for follow-up with diarrhea and leukocytosis Patient is a 73-year-old male past medical history significant for diabetes mellitus hypertension [place] COPD heart failure coronary artery disease presenting to the hospital for evaluation of increasing shortness of breath also developed significant diarrhea prompting this consultation. On today's evaluation that is 01/05/2024, the patient continues to be afebrile, the patient is on 3 L nasal cannula oxygen and breathing comfortably, the Pt denies having any chest pain or worsening cough, the patient denies having any abdominal pain no vomiting still complaining of significant diarrhea every hour on the hour. Patient white count is 16.7, creatinine is 1.16 stool for C. difficile PCR negative blood culture negative Objective - Vital Signs Vital signs: Vital Signs Temp 98.1 F 01/05/24 08:21 Pulse 62 01/05/24 09:50 Resp 18 01/05/24 08:22 BP 121/76 01/05/24 08:21 Pulse Ox 98 01/05/24 09:38 FiO2 Intake & Output 01/04/24 01/05/24 01/05/24 18:59 06:59 18:59 Intake Total 596 240 Balance 596 240 Weight 99.2 kg Intake: Oral 596 240 Other: Voiding Method Toilet Toilet Toilet Urinal Urinal Urinal - Exam GENERAL DESCRIPTION: An elderly male up in bed in no distress RESPIRATORY SYSTEM: Unlabored breathing , decreased breath sounds at bases HEART: S1 S2 regular rate and rhythm , ABDOMEN: Soft , no tenderness EXTREMITIES: No edema feet - Labs CBC & Chem 7: 01/05/24 09:16 01/05/24 09:16 Labs: Abnormal Lab Results - Last 24 Hours (Table) 01/04/24 01/05/24 01/05/24 Range/Units 11:52 02:54 06:02 WBC (3.8-10.6) k/uL RBC (4.30-5.90) m/uL Neutrophils # (1.3-7.7) k/uL BUN (9-20) mg/dL Glucose (74-99) mg/dL POC Glucose (mg/dL) 235 H 179 H 165 H (70-110) mg/dL Total Protein (6.3-8.2) g/dL Albumin (3.5-5.0) g/dL 01/05/24 01/05/24 Range/Units 09:16 09:16 WBC 16.7 H (3.8-10.6) k/uL RBC 4.17 L (4.30-5.90) m/uL Neutrophils # 14.5 H (1.3-7.7) k/uL BUN 51 H (9-20) mg/dL Glucose 139 H (74-99) mg/dL POC Glucose (mg/dL) (70-110) mg/dL Total Protein 5.1 L (6.3-8.2) g/dL Albumin 2.4 L (3.5-5.0) g/dL Microbiology - Last 24 Hours (Table) 12/30/23 13:15 Blood Culture - Final Blood 12/30/23 13:39 Blood Culture - Final Blood Assessment and Plan (1) Diarrhea Current Visit: Yes Status: Acute Code(s): R19.7 - DIARRHEA, UNSPECIFIED SNOMED Code(s): 58432568 (2) Leukocytosis Current Visit: Yes Status: Acute Code(s): D72.829 - ELEVATED WHITE BLOOD CELL COUNT, UNSPECIFIED SNOMED Code(s): 575752643 Plan: 1patient with extensive diarrhea over the last few days this patient has been exposed to antibiotics on the question of possible antibiotic associated diarrhea versus C. difficile colitis high clinical suspicions keeping in mind elevated white count 2-patient stool for C. difficile PCR came back negative making C. difficile to be less likely stool culture will be requested 3-we will discontinue oral vancomycin at Metamucil fiber to the diet and symptomatic treatment of diarrhea Dictation was produced using [employer] dictation software. please excuse any grammatical, word or spelling errors. Time with Patient: Less than 30
[2024-01-05 20:12] LABS: Glucose,Whole Blood 141 mg/dL (70-110)
[2024-01-05 21:30] LABS: Glucose,Whole Blood 178 mg/dL (70-110)
[2024-01-06 01:57] LABS: Glucose,Whole Blood 175 mg/dL (70-110)
[2024-01-06 06:14] LABS: Glucose,Whole Blood 141 mg/dL (70-110)
[2024-01-06 07:13] LABS: Glucose,Whole Blood 153 mg/dL (70-110)
[2024-01-06 11:29] LABS: Glucose,Whole Blood 64 mg/dL (70-110)
[2024-01-06 11:30] LABS: Glucose,Whole Blood 59 mg/dL (70-110)
[2024-01-06 11:47] LABS: Glucose,Whole Blood 70 mg/dL (70-110)
[2024-01-06 12:05] LABS: Glucose,Whole Blood 64 mg/dL (70-110)
[2024-01-06 12:05] LABS: Glucose,Whole Blood 63 mg/dL (70-110)
[2024-01-06 12:05] LABS: Glucose,Whole Blood 53 mg/dL (70-110)
--- NOTE | 2024-01-06 12:23 | P.PN ---
Subjective Progress Note Date: 01/06/24 Patient is a 73-year-old male with a known history of hyperlipidemia, diabetes type 2 insulin-dependent, coronary artery disease with prior stent placement, history of mild chronic CHF with mildly impaired systolic dysfunction ejection fraction 40 to 45% and moderate left ventricular concentric hypertrophy presents to ER with complaints of shortness of breath for the past 2 weeks and not getting better. Patient states that he has been having difficulty in breathing and felt like fluid in the lung. Also states that he felt warm and sweating at home. Patient was seen by his primary care physician and was given prednisone tapering course couple days ago which he has been taking. Patient is also complaining of diarrhea. Denies any fever or chills at home. Patient also states that he has increased leg swelling and gaining weight and has been taking extra dose of Lasix at home. Patient states that he has CHF and COPD. Chest x-ray on admission showed left basilar atelectasis or early infiltrate. EKG showed electronic ventricular paced rhythm. Laboratory data showed WBC 11.3 hemoglobin 14.2 and platelets 185 Sodium 132 potassium 3.5 chloride 94 bicarb is 19 anion gap 19 BUN 27 creatinine 1.12 and blood sugar 524 Lactic acid 4.1 calcium 8.0 magnesium 2.0 and total bili 1.8 liver regnancy not elevated troponin less than 0.12 and proBNP 2670 and albumin 2.8 Urinalysis showed 4+ glucose and leukocyte esterase negative. Influenza A B RSV and COVID-19 PCR not detected. 12/31/2023 Patient is resting in the bed. Awake alert and oriented. Overnight patient was hyperglycemic and requiring insulin drip. Patient was also started on IV Lasix. Breathing status is better today. No complaints of chest pain. No nausea vomiting abdominal pain or diarrhea. Patient is tolerating oral diet. Repeat chest x-ray this morning showed left retrocardiac consolidation correlate for atelectasis versus early pneumonia. Patient is being continued on antibiotics ceftriaxone and azithromycin. Pulmonary and cardiology is on board. Laboratory data showed WBC 11.4 hemoglobin 13.0 and platelets 167 12/31. Patient seen and examined. Complaining of diarrhea denies any nausea or vomiting. Shortness of breath is improved. 01/01. Patient seen and examined. Labs this morning showed sodium 139, po tassium 4.4, BUN 41, creatinine 1.14. Diarrhea has improved. Currently on IV Lasix and Eliquis. Swelling of legs has improved 01/02. Patient seen and examined. States he is still having diarrhea. States the frequency has improved but still going up to 10 times per day. Denies any blood in the stools. 01/03. Patient seen and examined. Blood work showed WBC 13.8, hemoglobin 13.4, platelet count 214, sodium 137 potassium 4.3, BUN 10, creatinine 44. Continues to complain of diarrhea. Denies any blood in the stools. Denies any abdominal pain 01/04. Patient seen and examined. Patient still having diarrhea, states he is going every hour. Does not look in any distress. Currently on vancomycin which was started by ID for C. difficile suspicion, stool for C. difficile is negative. Patient seen and examined. States diarrhea has improved, now he is saying hours diarrhea is every 2 hours. REVIEW OF SYSTEMS: CONSTITUTIONAL: No fever, no malaise,. CARDIOVASCULAR: No chest pain, no palpitations, no syncope. PULMONARY: No shortness of breath, no cough, GASTROINTESTINAL: As mentioned above NEUROLOGICAL: No headaches, no weakness, PHYSICAL EXAMINATION: GENERAL: The patient is alert and oriented x3, not in any acute distress. Well developed, well nourished. HEENT: Pupils are round and equally reacting to light. EOMI. No scleral icterus. No conjunctival pallor. Normocephalic, atraumatic. No pharyngeal erythema. No thyromegaly. CARDIOVASCULAR: S1 and S2 present. No murmurs, rubs, or gallops. PULMONARY: Chest is clear to auscultation, no wheezing or crackles. ABDOMEN: Soft, nontender, nondistended, normoactive bowel sounds. No palpable organomegaly. MUSCULOSKELETAL: No joint swelling or deformity. EXTREMITIES: No cyanosis, clubbing, no pitting edema lower extremity NEUROLOGICAL: Gross neurological examination did not reveal any focal deficits. SKIN: No rashes. Assessment and plan Acute COPD exacerbation failed outpatient treatment. LV thrombus Hyperglycemia with uncontrolled diabetes type 2 insulin-dependent A1c 12 Left basilar atelectasis and possible early infiltrate/pneumonia Acute on Chronic CHF with mildly reduced systolic dysfunction ejection fraction 40 to 45% as per 2D echocardiogram in 2018. Patient had stress test in 2018. follows with Dr[address] Graham as an outpatient. Coronary artery disease history of stent placement Lactic acidosis likely due to tissue hypoperfusion Hypovolemic hyponatremia and pseudohyponatremia Hypoalbuminemia Hyperlipidemia History of NE Monitor vital signs Monitor CBC Monitor CMP Continue telemetry monitoring Continue oxygen supplementation Aggressive bronchopulmonary hygiene Continue IV Solu-Medrol 40 mg every 8 Continue DuoNebs and Symbicort. Continue Lasix 40 mg daily Repeat stool for C. difficile is negative, stool culture negative for Salmonella or Shigella ID discontinued oral vancomycin Continue cholestyramine and lactobacillus 2D echo suspicious of LV thrombus, continue Eliquis Continue aspirin and statins and metoprolol. Entresto, spironolactone Pulmonary and cardiology is on board. ID following Labs and medication were reviewed.. Continue same treatment. Continue with symptomatic treatment. Resume home medication. Monitor labs and vitals. DVT and GI prophylaxis. Further recommendations as per clinical course of the patient Dictation was produced using [employer] dictation software. please excuse any grammatical, word or spelling errors. Objective - Vital Signs Vital signs: Vital Signs Temp 98.6 F 01/06/24 11:46 Pulse 65 01/06/24 11:46 Resp 16 01/06/24 11:46 BP 157/78 01/06/24 11:46 Pulse Ox 96 01/06/24 09:44 FiO2 Intake & Output 01/05/24 01/06/24 01/06/24 18:59 06:59 18:59 Intake Total 720 360 Balance 720 360 Weight 99.2 kg Intake: Oral 720 360 Other: Voiding Method Toilet Toilet Toilet Urinal Urinal Urinal - Labs CBC & Chem 7: 01/05/24 09:16 01/05/24 09:16 Labs: Abnormal Lab Results - Last 24 Hours (Table) 01/05/24 01/05/24 01/06/24 Range/Units 20:11 21:28 01:56 POC Glucose (mg/dL) 141 H 178 H 175 H (70-110) mg/dL 01/06/24 01/06/24 01/06/24 Range/Units 06:09 07:11 11:27 POC Glucose (mg/dL) 141 H 153 H 64 L (70-110) mg/dL 01/06/24 01/06/24 01/06/24 Range/Units 11:29 12:02 12:03 POC Glucose (mg/dL) 59 L 53 L 64 L (70-110) mg/dL 01/06/24 Range/Units 12:04 POC Glucose (mg/dL) 63 L (70-110) mg/dL Microbiology - Last 24 Hours (Table) 01/03/24 14:46 Stool Culture - Preliminary Stool
[2024-01-06 13:14] LABS: Glucose,Whole Blood 104 mg/dL (70-110)
--- NOTE | 2024-01-06 15:38 | P.PN ---
Subjective Progress Note Date: 01/06/24 Principal diagnosis: Reason for follow-up with diarrhea and leukocytosis Patient is a 73-year-old male past medical history significant for diabetes mellitus hypertension [place] COPD heart failure coronary artery disease presenting to the hospital for evaluation of increasing shortness of breath also developed significant diarrhea prompting this consultation. On today's evaluation that is01/06/2024, Patient is afebrile patient is currently on room air and denies having any shortness of breath, the patient denies any chest pain or any worsening cough, the patient denies any nausea vomiting did not have any abdominal pain mention that he has slightly decreased compared to yesterday not as explosive. No new labs has been obtained today Objective - Vital Signs Vital signs: Vital Signs Temp 98.6 F 01/06/24 11:46 Pulse 65 01/06/24 13:26 Resp 16 01/06/24 13:26 BP 157/78 01/06/24 11:46 Pulse Ox 96 01/06/24 09:44 FiO2 Intake & Output 01/05/24 01/06/24 01/06/24 18:59 06:59 18:59 Intake Total 720 600 Balance 720 600 Weight 99.2 kg Intake: Oral 720 600 Other: Voiding Method Toilet Toilet Toilet Urinal Urinal Urinal - Exam GENERAL DESCRIPTION: An elderly male up in bed in no distress RESPIRATORY SYSTEM: Unlabored breathing , decreased breath sounds at bases HEART: S1 S2 regular rate and rhythm , ABDOMEN: Soft , no tenderness EXTREMITIES: No edema feet - Labs CBC & Chem 7: 01/05/24 09:16 01/05/24 09:16 Labs: Abnormal Lab Results - Last 24 Hours (Table) 01/05/24 01/05/24 01/06/24 Range/Units 20:11 21:28 01:56 POC Glucose (mg/dL) 141 H 178 H 175 H (70-110) mg/dL 01/06/24 01/06/24 01/06/24 Range/Units 06:09 07:11 11:27 POC Glucose (mg/dL) 141 H 153 H 64 L (70-110) mg/dL 01/06/24 01/06/24 01/06/24 Range/Units 11:29 12:02 12:03 POC Glucose (mg/dL) 59 L 53 L 64 L (70-110) mg/dL 01/06/24 Range/Units 12:04 POC Glucose (mg/dL) 63 L (70-110) mg/dL Microbiology - Last 24 Hours (Table) 01/03/24 14:46 Stool Culture - Preliminary Stool Assessment and Plan (1) Diarrhea Current Visit: Yes Status: Acute Code(s): R19.7 - DIARRHEA, UNSPECIFIED SNOMED Code(s): 03740915 (2) Leukocytosis Current Visit: Yes Status: Acute Code(s): D72.829 - ELEVATED WHITE BLOOD CELL COUNT, UNSPECIFIED SNOMED Code(s): 601913485 Plan: 1patient with extensive diarrhea over the last few days this patient has been exposed to antibiotics on the question of possible antibiotic associated diarrhea versus C. difficile colitis high clinical suspicions keeping in mind elevated white count 2-patient stool for C. difficile PCR came back negative making C. difficile to be less likely stool culture will be requested 3-patient mentions some improvement in his diarrhea continue the current symptomatic treatment and we will follow-up on the stool culture encouraged to increase his probiotic and yogurt intake Dictation was produced using [employer] dictation software. please excuse any grammatical, word or spelling errors. Time with Patient: Less than 30
--- NOTE | 2024-01-06 15:48 | P.PN ---
Subjective Progress Note Date: 01/06/24 Principal diagnosis: Acute COPD exacerbation On today's evaluation of 01/01/2024, the patient is still having some cough and congestion. No significant sputum production. He started having diarrhea as of yesterday and the patient was having frequent episodes. He remains on IV Rocephin. He is also on bronchodilators and steroids. A repeat echocardiogram was done and the patient was found to have an ejection fraction of 20 to 25%. There is severe global LV dysfunction and possibility of a small LV thrombus as noted on echocardiogram. Based on that, the patient has been maintained on anticoagulation with Eliquis 5 mg p.o. twice a day. The patient remains on Entresto. The patient remains on Lasix 40 mg every 12 hours. At the same time, the patient is on Symbicort 2 puffs twice a day, he has Trelegy Ellipta at the bedside. He is also on IV Solu-Medrol 40 mg every 12 hours. Labs from today shows a WBC count of 9.2, hemoglobin is at 12.8 and a platelet count is 140. BUN is 36 with a creatinine 1.07 and a sodium level is at 134. Awake and alert and communicating at this point in time. On today's evaluation of 01/02/2024, the patient is being seen for a follow-up. Improved compared to yesterday. Diarrhea is subsiding. Less short of breath. Less bronchospastic and wheezy. Remains on bronchodilators. Remains on Solu- Medrol. He is currently on a dose of 40 mg IV every 12 hours. Is also on Lasix and his patient is diuresing adequately. BUN is at 41 with a creatinine 1.1. Sodium is at 139. Patient is currently on 2 L of oxygen by nasal cannula. Reevaluate today on 01/03/2024, patient continues to have cough and wheezing, continues to have intermittent episodes of diarrhea, patient is on maximal course of bronchodilators, he is also on diuretics for history of ischemic cardiomyopathy and LV dysfunction. Chest x-ray showed no evidence of congestive heart failure, there is mostly evidence of atelectasis. Also doubt pneumoniaPatient is on 3 L nasal cannula O2 sats is 95%. BBC count today is 12.1 hemoglobin 14.6. Potassium is 4.7 procalcitonin level on admission is 0.28. Admission chest x-ray showed mostly atelectasis at the left base with interstitial edema, underlying left lower lobe infiltrate is not entirely ruled out Reevaluated today on 01/04/2024, patient is doing much better from the pulmonary perspective, he does not seem to be concerned about his pulmonary symptoms he seems to be more concerned about his ongoing diarrhea. Patient has been going to the bathroom almost on a hourly basis. He is receiving Lomotil, and today I added Pepto-Bismol, his screening for C. difficile toxin has been negative twice now. WBC count is 13.8 hemoglobin 13.4 basic metabolic profile is normal BUN is 44 creatinine 1.15 last chest x-ray few days ago showed right lower lobe atelectasis, questionable pneumonia, and mild pulmonary vascular congestion patient is now transition to oral Lasix, and he is also on Eliquis, patient does have history of LV thrombus Reevaluate today on 01/05/2024, patient continues to have intermittent and severe episodes of diarrhea. Patient was seen by infectious disease on consultation, and he was placed empirically on oral vancomycin, although 2 screenings for C. difficile colitis were negative. In the meantime, the patient remains on Lomotil, remains on Pepto-Bismol, and his diarrhea seems to be persistent. I feel the patient may have get GI evaluation and possibly colonoscopy. Pulmonary noble patient is doing better, breathing easier, occasional cough and wheezing only. Reevaluate today on 01/06/2024, patient is doing well from a pulmonary perspective, continues to have severe diarrhea. Patient is going to the bathroom on the average of once every 2 hours. Slightly better compared to yesterday he was going once every 1 hour. Pulmonary noble hardly any pulmonary symptoms no cough no wheezing no shortness of breath no chest pain. Objective - Vital Signs Vital signs: Vital Signs Temp 98.6 F 01/06/24 11:46 Pulse 65 01/06/24 13:26 Resp 16 01/06/24 13:26 BP 157/78 01/06/24 11:46 Pulse Ox 96 01/06/24 09:44 FiO2 Intake & Output 01/05/24 01/06/24 01/06/24 18:59 06:59 18:59 Intake Total 720 600 Balance 720 600 Weight 99.2 kg Intake: Oral 720 600 Other: Voiding Method Toilet Toilet Toilet Urinal Urinal Urinal - Exam GENERAL EXAM: Alert, 73-year-old white male, in no distress, on room air with O2 saturation 95% HEAD: Normocephalic and atraumatic EYES: Normal reaction of pupils, equal size. NOSE: Clear with pink turbinates. THROAT: No erythema or exudates. NECK: No masses, no JVD. CHEST: No chest wall deformity. LUNGS: Clear bilaterally, rhonchi and wheezing on forced expiratory maneuver only. CVS: S1 and S2 normal with no audible murmur, regular rhythm. No extra heart sounds ABDOMEN: No hepatosplenomegaly, active bowel sounds, no guarding or rigidity. SKIN: No rashes CENTRAL NERVOUS SYSTEM: No focal deficits, tone is normal in all 4 extremities. EXTREMITIES: There is no peripheral edema, clubbing, or cyanosis. Peripheral pulses are intact. - Labs CBC & Chem 7: 01/05/24 09:16 01/05/24 09:16 Labs: Abnormal Lab Results - Last 24 Hours (Table) 01/05/24 01/05/24 01/06/24 Range/Units 20:11 21:28 01:56 POC Glucose (mg/dL) 141 H 178 H 175 H (70-110) mg/dL 01/06/24 01/06/24 01/06/24 Range/Units 06:09 07:11 11:27 POC Glucose (mg/dL) 141 H 153 H 64 L (70-110) mg/dL 01/06/24 01/06/24 01/06/24 Range/Units 11:29 12:02 12:03 POC Glucose (mg/dL) 59 L 53 L 64 L (70-110) mg/dL 01/06/24 Range/Units 12:04 POC Glucose (mg/dL) 63 L (70-110) mg/dL Microbiology - Last 24 Hours (Table) 01/03/24 14:46 Stool Culture - Preliminary Stool Assessment and Plan Assessment: Impression: acute COPD exacerbation/, suspect also acute systolic CHF, significantly improved Coronary artery disease with previous coronary stenting Ischemic cardiomyopathy/ systolic heart failure with an ejection fraction of 20 to 25% along with LV thrombus, currently on anticoagulation with Eliquis Diabetes mellitus type II, insulin-dependent, with hyperglycemia and mild DKA Mild anion gap metabolic acidosis, likely secondary to above and lactic acidosis History of implanted AICD/pacemaker History of hyperlipidemia History of coronary artery disease with previous PCI/stent Obesity, with a BMI of 31.2 kg/m Acute gastroenteritis, patient is on treatment, slight improvement Recommendation: Continue oral vancomycin as ordered by ID Continue Lomotil and Pepto-Bismol Continue bronchodilators Continue diuretics Continue eliquis Continue Levemir insulin and insulin as per sliding scale Repeat C. difficile screen, was noted to be negative Patient remains off antibiotics Consider GI consultation if diarrhea persist Will follow Time with Patient: Less than 30
[2024-01-06 16:45] LABS: Glucose,Whole Blood 165 mg/dL (70-110)
[2024-01-06 20:25] LABS: Glucose,Whole Blood 208 mg/dL (70-110)
[2024-01-06] MEDS: guaiFENesin 600 MG TABLET.ER PO PRN (21:26)
[2024-01-07 01:59] LABS: Glucose,Whole Blood 139 mg/dL (70-110)
[2024-01-07 06:22] LABS: Glucose,Whole Blood 175 mg/dL (70-110)
[2024-01-07 11:52] LABS: Glucose,Whole Blood 82 mg/dL (70-110)
[2024-01-07 12:39] LABS: Basophils # (A) 0.1 k/uL (0-0.2); Basophils % (A) 1 %; Eosinophils % (A) 0 %; HGB 13.1 gm/dL (13.0-17.5); Hypochromasia Slight; Lymphocytes # (A) 0.5 k/uL (1.0-4.8); Lymphocytes % (A) 3 %; MCH 32.5 pg (25.0-35.0); MCHC 31.2 g/dL (31.0-37.0); MCV 104.1 fL (80.0-100.0); Macrocytosis Moderate; Mean Platelet Volume 8.5; Monocytes # (A) 0.7 k/uL (0-1.0); Monocytes % (A) 4 %; Neutrophils # (A) 15.4 k/uL (1.3-7.7); Neutrophils % (A) 92 %; Platelet Count 155 k/uL (150-450); RBC 4.03 m/uL (4.30-5.90); RDW 14.5 % (11.5-15.5); WBC 16.8 k/uL (3.8-10.6)
--- NOTE | 2024-01-07 12:39 | P.PN ---
Progress Note - Text Progress Note Date: 01/07/24 the patient has completed to severe diarrhea. Patient will be scheduled for colonoscopy on Wednesday.
[2024-01-07 13:05] LABS: ALT 39 U/L (4-49); AST 34 U/L (17-59); African American GFR (CKD) 69 (>60 ml/min/1.73 sqM); Albumin 2.4 g/dL (3.5-5.0); Alkaline Phosphatase 94 U/L (38-126); Anion Gap 8 mmol/L; Blood Urea Nitrogen 47 mg/dL (9-20); Calcium 8.3 mg/dL (8.4-10.2); Carbon Dioxide 20 mmol/L (22-30); Chloride 108 mmol/L (98-107); Glucose 101 mg/dL (74-99); Non-African American GFR(CKD) 60 (>60 ml/min/1.73 sqM); Sodium 136 mmol/L (137-145); Total Bilirubin 0.8 mg/dL (0.2-1.3); Total Protein 5.2 g/dL (6.3-8.2)
--- NOTE | 2024-01-07 13:14 | P.PN ---
Subjective Progress Note Date: 01/07/24 Patient is a 73-year-old male with a known history of hyperlipidemia, diabetes type 2 insulin-dependent, coronary artery disease with prior stent placement, history of mild chronic CHF with mildly impaired systolic dysfunction ejection fraction 40 to 45% and moderate left ventricular concentric hypertrophy presents to ER with complaints of shortness of breath for the past 2 weeks and not getting better. Patient states that he has been having difficulty in breathing and felt like fluid in the lung. Also states that he felt warm and sweating at home. Patient was seen by his primary care physician and was given prednisone tapering course couple days ago which he has been taking. Patient is also complaining of diarrhea. Denies any fever or chills at home. Patient also states that he has increased leg swelling and gaining weight and has been taking extra dose of Lasix at home. Patient states that he has CHF and COPD. Chest x-ray on admission showed left basilar atelectasis or early infiltrate. EKG showed electronic ventricular paced rhythm. Laboratory data showed WBC 11.3 hemoglobin 14.2 and platelets 185 Sodium 132 potassium 3.5 chloride 94 bicarb is 19 anion gap 19 BUN 27 creatinine 1.12 and blood sugar 524 Lactic acid 4.1 calcium 8.0 magnesium 2.0 and total bili 1.8 liver regnancy not elevated troponin less than 0.12 and proBNP 2670 and albumin 2.8 Urinalysis showed 4+ glucose and leukocyte esterase negative. Influenza A B RSV and COVID-19 PCR not detected. 12/31/2023 Patient is resting in the bed. Awake alert and oriented. Overnight patient was hyperglycemic and requiring insulin drip. Patient was also started on IV Lasix. Breathing status is better today. No complaints of chest pain. No nausea vomiting abdominal pain or diarrhea. Patient is tolerating oral diet. Repeat chest x-ray this morning showed left retrocardiac consolidation correlate for atelectasis versus early pneumonia. Patient is being continued on antibiotics ceftriaxone and azithromycin. Pulmonary and cardiology is on board. Laboratory data showed WBC 11.4 hemoglobin 13.0 and platelets 167 12/31. Patient seen and examined. Complaining of diarrhea denies any nausea or vomiting. Shortness of breath is improved. 01/01. Patient seen and examined. Labs this morning showed sodium 139, po tassium 4.4, BUN 41, creatinine 1.14. Diarrhea has improved. Currently on IV Lasix and Eliquis. Swelling of legs has improved 01/02. Patient seen and examined. States he is still having diarrhea. States the frequency has improved but still going up to 10 times per day. Denies any blood in the stools. 01/03. Patient seen and examined. Blood work showed WBC 13.8, hemoglobin 13.4, platelet count 214, sodium 137 potassium 4.3, BUN 10, creatinine 44. Continues to complain of diarrhea. Denies any blood in the stools. Denies any abdominal pain 01/04. Patient seen and examined. Patient still having diarrhea, states he is going every hour. Does not look in any distress. Currently on vancomycin which was started by ID for C. difficile suspicion, stool for C. difficile is negative. 01/05. Patient seen and examined. States diarrhea has improved, now he is saying hours diarrhea is every 2 hours. 01/06. Patient seen and examined. Continues to have diarrhea, surgery evaluated the patient, planning colonoscopy on Wednesday REVIEW OF SYSTEMS: CONSTITUTIONAL: No fever, no malaise,. CARDIOVASCULAR: No chest pain, no palpitations, no syncope. PULMONARY: No shortness of breath, no cough, GASTROINTESTINAL: As mentioned above NEUROLOGICAL: No headaches, no weakness, PHYSICAL EXAMINATION: GENERAL: The patient is alert and oriented x3, not in any acute distress. Well developed, well nourished. HEENT: Pupils are round and equally reacting to light. EOMI. No scleral icterus. No conjunctival pallor. Normocephalic, atraumatic. No pharyngeal erythema. No thyromegaly. CARDIOVASCULAR: S1 and S2 present. No murmurs, rubs, or gallops. PULMONARY: Chest is clear to auscultation, no wheezing or crackles. ABDOMEN: Soft, nontender, nondistended, normoactive bowel sounds. No palpable organomegaly. MUSCULOSKELETAL: No joint swelling or deformity. EXTREMITIES: No cyanosis, clubbing, no pitting edema lower extremity NEUROLOGICAL: Gross neurological examination did not reveal any focal deficits. SKIN: No rashes. Assessment and plan Acute COPD exacerbation failed outpatient treatment. LV thrombus Hyperglycemia with uncontrolled diabetes type 2 insulin-dependent A1c 12 Left basilar atelectasis and possible early infiltrate/pneumonia Acute on Chronic CHF with mildly reduced systolic dysfunction ejection fraction 40 to 45% as per 2D echocardiogram in 2018. Patient had stress test in 2018. follows with Dr[address] Graham as an outpatient. Coronary artery disease history of stent placement Lactic acidosis likely due to tissue hypoperfusion Hypovolemic hyponatremia and pseudohyponatremia Hypoalbuminemia Hyperlipidemia History of MD Monitor vital signs Monitor CBC Monitor CMP Continue telemetry monitoring Continue oxygen supplementation Aggressive bronchopulmonary hygiene IV Solu-Medrol changed to prednisone 30 mg daily Continue DuoNebs and Symbicort. Continue Lasix 40 mg daily Repeat stool for C. difficile is negative, stool culture negative for Salmonella or Shigella ID discontinued oral vancomycin Continue cholestyramine and lactobacillus 2D echo suspicious of LV thrombus, continue Eliquis Continue aspirin and statins and metoprolol. Entresto, spironolactone Pulmonary and cardiology is on board. ID following Surgery consulted, planning colonoscopy on Wednesday Labs and medication were reviewed.. Continue same treatment. Continue with symptomatic treatment. Resume home medication. Monitor labs and vitals. DVT and GI prophylaxis. Further recommendations as per clinical course of the patient Dictation was produced using [employer] dictation software. please excuse any grammatical, word or spelling errors. Objective - Vital Signs Vital signs: Vital Signs Temp 97.9 F 01/07/24 12:07 Pulse 100 01/07/24 12:07 Resp 18 01/07/24 12:07 BP 105/72 01/07/24 12:07 Pulse Ox 94 L 01/07/24 12:07 FiO2 Intake & Output 01/06/24 01/07/24 01/07/24 18:59 06:59 18:59 Intake Total 840 240 Balance 840 240 Intake: Oral 840 240 Other: Voiding Method Toilet Toilet Toilet Urinal Urinal Urinal # Bowel Movements 1 - Labs CBC & Chem 7: 01/07/24 11:22 01/07/24 11:22 Labs: Abnormal Lab Results - Last 24 Hours (Table) 01/06/24 01/06/24 01/07/24 Range/Units 16:44 20:24 01:57 WBC (3.8-10.6) k/uL RBC (4.30-5.90) m/uL MCV (80.0-100.0) fL Neutrophils # (1.3-7.7) k/uL Lymphocytes # (1.0-4.8) k/uL Sodium (137-145) mmol/L Chloride (98-107) mmol/L Carbon Dioxide (22-30) mmol/L BUN (9-20) mg/dL Glucose (74-99) mg/dL POC Glucose (mg/dL) 165 H 208 H 139 H (70-110) mg/dL Calcium (8.4-10.2) mg/dL Total Protein (6.3-8.2) g/dL Albumin (3.5-5.0) g/dL 01/07/24 01/07/24 01/07/24 Range/Units 06:20 11:22 11:22 WBC 16.8 H (3.8-10.6) k/uL RBC 4.03 L (4.30-5.90) m/uL MCV 104.1 H (80.0-100.0) fL Neutrophils # 15.4 H (1.3-7.7) k/uL Lymphocytes # 0.5 L (1.0-4.8) k/uL Sodium 136 L (137-145) mmol/L Chloride 108 H (98-107) mmol/L Carbon Dioxide 20 L (22-30) mmol/L BUN 47 H (9-20) mg/dL Glucose 101 H (74-99) mg/dL POC Glucose (mg/dL) 175 H (70-110) mg/dL Calcium 8.3 L (8.4-10.2) mg/dL Total Protein 5.2 L (6.3-8.2) g/dL Albumin 2.4 L (3.5-5.0) g/dL Microbiology - Last 24 Hours (Table) 01/03/24 14:46 Stool Culture - Final Stool
--- NOTE | 2024-01-07 15:33 | P.PN ---
Subjective Progress Note Date: 01/07/24 Principal diagnosis: Reason for follow-up with diarrhea and leukocytosis Patient is a 73-year-old male past medical history significant for diabetes mellitus hypertension [place] COPD heart failure coronary artery disease presenting to the hospital for evaluation of increasing shortness of breath also developed significant diarrhea prompting this consultation. On today's evaluation that is 01/07/2024, patient has been afebrile, patient is breathing comfortably and is currently on room air, patient denies having any significant cough no chest pain shortness of breath, patient denies nausea vomiting no abdominal pain still having significant diarrhea denies any blood or mucus in the stools patient white count is 16.8, creatinine is 1.19 stool culture negative blood culture so far negative Objective - Vital Signs Vital signs: Vital Signs Temp 97.9 F 01/07/24 12:07 Pulse 100 01/07/24 12:07 Resp 18 01/07/24 12:07 BP 105/72 01/07/24 12:07 Pulse Ox 94 L 01/07/24 12:07 FiO2 Intake & Output 01/06/24 01/07/24 01/07/24 18:59 06:59 18:59 Intake Total 840 240 Balance 840 240 Intake: Oral 840 240 Other: Voiding Method Toilet Toilet Toilet Urinal Urinal Urinal # Bowel Movements 1 - Exam GENERAL DESCRIPTION: An elderly male up in bed in no distress RESPIRATORY SYSTEM: Unlabored breathing , decreased breath sounds at bases HEART: S1 S2 regular rate and rhythm , ABDOMEN: Soft , no tenderness EXTREMITIES: No edema feet - Labs CBC & Chem 7: 01/07/24 11:22 01/07/24 11:22 Labs: Abnormal Lab Results - Last 24 Hours (Table) 01/06/24 01/06/24 01/07/24 Range/Units 16:44 20:24 01:57 WBC (3.8-10.6) k/uL RBC (4.30-5.90) m/uL MCV (80.0-100.0) fL Neutrophils # (1.3-7.7) k/uL Lymphocytes # (1.0-4.8) k/uL Sodium (137-145) mmol/L Chloride (98-107) mmol/L Carbon Dioxide (22-30) mmol/L BUN (9-20) mg/dL Glucose (74-99) mg/dL POC Glucose (mg/dL) 165 H 208 H 139 H (70-110) mg/dL Calcium (8.4-10.2) mg/dL Total Protein (6.3-8.2) g/dL Albumin (3.5-5.0) g/dL 01/07/24 01/07/24 01/07/24 Range/Units 06:20 11:22 11:22 WBC 16.8 H (3.8-10.6) k/uL RBC 4.03 L (4.30-5.90) m/uL MCV 104.1 H (80.0-100.0) fL Neutrophils # 15.4 H (1.3-7.7) k/uL Lymphocytes # 0.5 L (1.0-4.8) k/uL Sodium 136 L (137-145) mmol/L Chloride 108 H (98-107) mmol/L Carbon Dioxide 20 L (22-30) mmol/L BUN 47 H (9-20) mg/dL Glucose 101 H (74-99) mg/dL POC Glucose (mg/dL) 175 H (70-110) mg/dL Calcium 8.3 L (8.4-10.2) mg/dL Total Protein 5.2 L (6.3-8.2) g/dL Albumin 2.4 L (3.5-5.0) g/dL Microbiology - Last 24 Hours (Table) 01/03/24 14:46 Stool Culture - Final Stool Assessment and Plan (1) Diarrhea Current Visit: Yes Status: Acute Code(s): R19.7 - DIARRHEA, UNSPECIFIED SNOMED Code(s): 82864678 (2) Leukocytosis Current Visit: Yes Status: Acute Code(s): D72.829 - ELEVATED WHITE BLOOD CELL COUNT, UNSPECIFIED SNOMED Code(s): 678580877 Plan: 1patient with extensive diarrhea over the last few days this patient has been exposed to antibiotics on the question of possible antibiotic associated diarrhea versus C. difficile colitis high clinical suspicions keeping in mind elevated white count 2-patient stool for C. difficile PCR came back negative making C. difficile to be less likely stool culture has been negative 3-patient continues to have significant diarrhea General surgery consulted for colonoscopy we will increase the dose of Questran discontinue Metamucil and check stool lactoferrin Dictation was produced using [employer] dictation software. please excuse any grammatical, word or spelling errors. Time with Patient: Less than 30
--- NOTE | 2024-01-07 15:57 | P.PN ---
Subjective Progress Note Date: 01/07/24 Principal diagnosis: Acute COPD exacerbation On today's evaluation of 01/01/2024, the patient is still having some cough and congestion. No significant sputum production. He started having diarrhea as of yesterday and the patient was having frequent episodes. He remains on IV Rocephin. He is also on bronchodilators and steroids. A repeat echocardiogram was done and the patient was found to have an ejection fraction of 20 to 25%. There is severe global LV dysfunction and possibility of a small LV thrombus as noted on echocardiogram. Based on that, the patient has been maintained on anticoagulation with Eliquis 5 mg p.o. twice a day. The patient remains on Entresto. The patient remains on Lasix 40 mg every 12 hours. At the same time, the patient is on Symbicort 2 puffs twice a day, he has Trelegy Ellipta at the bedside. He is also on IV Solu-Medrol 40 mg every 12 hours. Labs from today shows a WBC count of 9.2, hemoglobin is at 12.8 and a platelet count is 140. BUN is 36 with a creatinine 1.07 and a sodium level is at 134. Awake and alert and communicating at this point in time. On today's evaluation of 01/02/2024, the patient is being seen for a follow-up. Improved compared to yesterday. Diarrhea is subsiding. Less short of breath. Less bronchospastic and wheezy. Remains on bronchodilators. Remains on Solu- Medrol. He is currently on a dose of 40 mg IV every 12 hours. Is also on Lasix and his patient is diuresing adequately. BUN is at 41 with a creatinine 1.1. Sodium is at 139. Patient is currently on 2 L of oxygen by nasal cannula. Reevaluate today on 01/03/2024, patient continues to have cough and wheezing, continues to have intermittent episodes of diarrhea, patient is on maximal course of bronchodilators, he is also on diuretics for history of ischemic cardiomyopathy and LV dysfunction. Chest x-ray showed no evidence of congestive heart failure, there is mostly evidence of atelectasis. Also doubt pneumoniaPatient is on 3 L nasal cannula O2 sats is 95%. BBC count today is 12.1 hemoglobin 14.6. Potassium is 4.7 procalcitonin level on admission is 0.28. Admission chest x-ray showed mostly atelectasis at the left base with interstitial edema, underlying left lower lobe infiltrate is not entirely ruled out Reevaluated today on 01/04/2024, patient is doing much better from the pulmonary perspective, he does not seem to be concerned about his pulmonary symptoms he seems to be more concerned about his ongoing diarrhea. Patient has been going to the bathroom almost on a hourly basis. He is receiving Lomotil, and today I added Pepto-Bismol, his screening for C. difficile toxin has been negative twice now. WBC count is 13.8 hemoglobin 13.4 basic metabolic profile is normal BUN is 44 creatinine 1.15 last chest x-ray few days ago showed right lower lobe atelectasis, questionable pneumonia, and mild pulmonary vascular congestion patient is now transition to oral Lasix, and he is also on Eliquis, patient does have history of LV thrombus Reevaluate today on 01/05/2024, patient continues to have intermittent and severe episodes of diarrhea. Patient was seen by infectious disease on consultation, and he was placed empirically on oral vancomycin, although 2 screenings for C. difficile colitis were negative. In the meantime, the patient remains on Lomotil, remains on Pepto-Bismol, and his diarrhea seems to be persistent. I feel the patient may have get GI evaluation and possibly colonoscopy. Pulmonary noble patient is doing better, breathing easier, occasional cough and wheezing only. Reevaluate today on 01/06/2024, patient is doing well from a pulmonary perspective, continues to have severe diarrhea. Patient is going to the bathroom on the average of once every 2 hours. Slightly better compared to yesterday he was going once every 1 hour. Pulmonary noble hardly any pulmonary symptoms no cough no wheezing no shortness of breath no chest pain. Reevaluate today on 01/07/2024, patient has no active pulmonary issues but he has mostly GI issues and persistent diarrhea go to the bathroom on the average of 1 every 1 and half hours. Denies any melena or hematemesis, denies any nausea or vomiting, considering we have no GI coverage, I am recommending surgical consultation, patient may need colonoscopy and biopsy.Continues to have leukocytosis with WBC of 16.8 hemoglobin 13.1 basic metabolic profile is normal BUN is 47 creatinine 1.19 Objective - Vital Signs Vital signs: Vital Signs Temp 97.9 F 01/07/24 12:07 Pulse 100 01/07/24 12:07 Resp 18 01/07/24 12:07 BP 105/72 01/07/24 12:07 Pulse Ox 94 L 01/07/24 12:07 FiO2 Intake & Output 01/06/24 01/07/24 01/07/24 18:59 06:59 18:59 Intake Total 840 480 Balance 840 480 Intake: Oral 840 480 Other: Voiding Method Toilet Toilet Toilet Urinal Urinal Urinal # Bowel Movements 1 - Exam GENERAL EXAM: Alert, 73-year-old white male, in no distress, on room air with O2 saturation 95% HEAD: Normocephalic and atraumatic EYES: Normal reaction of pupils, equal size. NOSE: Clear with pink turbinates. THROAT: No erythema or exudates. NECK: No masses, no JVD. CHEST: No chest wall deformity. LUNGS: Clear bilaterally, no rhonchi no wheezes noted today. CVS: S1 and S2 normal with no audible murmur, regular rhythm. No extra heart sounds ABDOMEN: No hepatosplenomegaly, active bowel sounds, no guarding or rigidity. SKIN: No rashes CENTRAL NERVOUS SYSTEM: No focal deficits, tone is normal in all 4 extremities. EXTREMITIES: There is no peripheral edema, clubbing, or cyanosis. Peripheral pulses are intact. - Labs CBC & Chem 7: 01/07/24 11:22 01/07/24 11:22 Labs: Abnormal Lab Results - Last 24 Hours (Table) 01/06/24 01/06/24 01/07/24 Range/Units 16:44 20:24 01:57 WBC (3.8-10.6) k/uL RBC (4.30-5.90) m/uL MCV (80.0-100.0) fL Neutrophils # (1.3-7.7) k/uL Lymphocytes # (1.0-4.8) k/uL Sodium (137-145) mmol/L Chloride (98-107) mmol/L Carbon Dioxide (22-30) mmol/L BUN (9-20) mg/dL Glucose (74-99) mg/dL POC Glucose (mg/dL) 165 H 208 H 139 H (70-110) mg/dL Calcium (8.4-10.2) mg/dL Total Protein (6.3-8.2) g/dL Albumin (3.5-5.0) g/dL 01/07/24 01/07/24 01/07/24 Range/Units 06:20 11:22 11:22 WBC 16.8 H (3.8-10.6) k/uL RBC 4.03 L (4.30-5.90) m/uL MCV 104.1 H (80.0-100.0) fL Neutrophils # 15.4 H (1.3-7.7) k/uL Lymphocytes # 0.5 L (1.0-4.8) k/uL Sodium 136 L (137-145) mmol/L Chloride 108 H (98-107) mmol/L Carbon Dioxide 20 L (22-30) mmol/L BUN 47 H (9-20) mg/dL Glucose 101 H (74-99) mg/dL POC Glucose (mg/dL) 175 H (70-110) mg/dL Calcium 8.3 L (8.4-10.2) mg/dL Total Protein 5.2 L (6.3-8.2) g/dL Albumin 2.4 L (3.5-5.0) g/dL Microbiology - Last 24 Hours (Table) 01/03/24 14:46 Stool Culture - Final Stool Assessment and Plan Assessment: Impression: acute COPD exacerbation/, suspect also acute systolic CHF, significantly improved Coronary artery disease with previous coronary stenting Ischemic cardiomyopathy/ systolic heart failure with an ejection fraction of 20 to 25% along with LV thrombus, currently on anticoagulation with Eliquis Diabetes mellitus type II, insulin-dependent, with hyperglycemia and mild DKA Mild anion gap metabolic acidosis, likely secondary to above and lactic acidosis History of implanted AICD/pacemaker History of hyperlipidemia History of coronary artery disease with previous PCI/stent Obesity, with a BMI of 31.2 kg/m Acute gastroenteritis, patient is on treatment, slight improvement Recommendation: Continue oral vancomycin as ordered by ID Continue Lomotil and Pepto-Bismol Continue bronchodilators Continue eliquis Continue Levemir insulin and insulin as per sliding scale Repeat C. difficile screen, was noted to be negative Patient remains off antibiotics General surgery consultation to evaluate for possible colonoscopy since we have no GI coverage Will follow Time with Patient: Less than 30
[2024-01-07 16:59] LABS: Glucose,Whole Blood 136 mg/dL (70-110)
[2024-01-07] MEDS: CHOLESTYRAMINE (WITH SUGAR) 4 GM PACKET PO SCH (17:21)
[2024-01-07 19:55] LABS: Glucose,Whole Blood 167 mg/dL (70-110)
[2024-01-08 02:12] LABS: Glucose,Whole Blood 198 mg/dL (70-110)
[2024-01-08 06:12] LABS: Glucose,Whole Blood 197 mg/dL (70-110)
[2024-01-08] MEDS: predniSONE 10 MG TAB PO SCH (09:16)
[2024-01-08] MEDS: FUROSEMIDE 10 MG/ML 10 ML VIAL IV STA (09:52)
[2024-01-08 10:19] LABS: Glucose,Whole Blood 43 mg/dL (70-110)
[2024-01-08 10:19] LABS: Glucose,Whole Blood 44 mg/dL (70-110)
[2024-01-08 10:27] LABS: Glucose,Whole Blood 52 mg/dL (70-110)
[2024-01-08] MEDS: DEXTROSE 50% SYRINGE 50 ML IVP PRN ×2 (10:31→12:25)
[2024-01-08] MEDS: DILTIAZEM 125 MG in SODIUM CHLORIDE 0.9% 100 ML IV SCH (10:37)
[2024-01-08] MEDS: DILTIAZEM DRIP BOLUS FROM BAG 1 MG SOLN IV ONE (10:38)
[2024-01-08 10:41] LABS: Glucose,Whole Blood 242 mg/dL (70-110)
[2024-01-08] MEDS: DEXAMETHASONE SOD PHOSPHATE 4 MG/ML 1 ML VIAL IVP STA (11:34)
[2024-01-08 11:35] LABS: Glucose,Whole Blood 69 mg/dL (70-110)
[2024-01-08 11:35] LABS: HCT 50.2 % (39.0-53.0); HGB 15.8 gm/dL (13.0-17.5); Hypochromasia Slight; MCH 33.1 pg (25.0-35.0); MCHC 31.5 g/dL (31.0-37.0); Macrocytosis Moderate; Mean Platelet Volume 8.6; Platelet Count 264 k/uL (150-450); RBC 4.78 m/uL (4.30-5.90); RDW 14.8 % (11.5-15.5); WBC 24.3 k/uL (3.8-10.6)
[2024-01-08 11:44] LABS: African American GFR (CKD) 75 (>60 ml/min/1.73 sqM); Anion Gap 13 mmol/L; Blood Urea Nitrogen 42 mg/dL (9-20); Carbon Dioxide 21 mmol/L (22-30); Chloride 105 mmol/L (98-107); Glucose 109 mg/dL (74-99); Non-African American GFR(CKD) 65 (>60 ml/min/1.73 sqM); Potassium 4.6 mmol/L (3.5-5.1); Sodium 139 mmol/L (137-145)
[2024-01-08] MEDS: INSULIN ASPART (NovoLOG) 100 UNIT/ML VIAL SQ SCH (11:44)
--- NOTE | 2024-01-08 12:03 | XR ---
EXAMINATION TYPE: XR chest 1V portable DATE OF EXAM: 01/08/2024 COMPARISON: 01/02/2024 INDICATION: Short of breath difficulty in breathing TECHNIQUE: Single frontal view of the chest is obtained. FINDINGS: The heart size is normal. Pacemaker overlies left chest The pulmonary vasculature is normal. The lungs are essentially clear. Minimal residual plate atelectasis may be at the right base. IMPRESSION: 1. Suggestion of minimal residual plate atelectasis right base. Lung almaguer otherwise clear over the interval
[2024-01-08 12:16] LABS: Glucose,Whole Blood 56 mg/dL (70-110)
[2024-01-08] MEDS: IPRATROPIUM-ALBUTEROL 3 ML NEB INHALATION STA (12:20)
[2024-01-08 12:54] LABS: Glucose,Whole Blood 182 mg/dL (70-110)
--- NOTE | 2024-01-08 14:11 | P.PN ---
Subjective Progress Note Date: 01/08/24 Principal diagnosis: Acute COPD exacerbation On today's evaluation of 01/01/2024, the patient is still having some cough and congestion. No significant sputum production. He started having diarrhea as of yesterday and the patient was having frequent episodes. He remains on IV Rocephin. He is also on bronchodilators and steroids. A repeat echocardiogram was done and the patient was found to have an ejection fraction of 20 to 25%. There is severe global LV dysfunction and possibility of a small LV thrombus as noted on echocardiogram. Based on that, the patient has been maintained on anticoagulation with Eliquis 5 mg p.o. twice a day. The patient remains on Entresto. The patient remains on Lasix 40 mg every 12 hours. At the same time, the patient is on Symbicort 2 puffs twice a day, he has Trelegy Ellipta at the bedside. He is also on IV Solu-Medrol 40 mg every 12 hours. Labs from today shows a WBC count of 9.2, hemoglobin is at 12.8 and a platelet count is 140. BUN is 36 with a creatinine 1.07 and a sodium level is at 134. Awake and alert and communicating at this point in time. On today's evaluation of 01/02/2024, the patient is being seen for a follow-up. Improved compared to yesterday. Diarrhea is subsiding. Less short of breath. Less bronchospastic and wheezy. Remains on bronchodilators. Remains on Solu- Medrol. He is currently on a dose of 40 mg IV every 12 hours. Is also on Lasix and his patient is diuresing adequately. BUN is at 41 with a creatinine 1.1. Sodium is at 139. Patient is currently on 2 L of oxygen by nasal cannula. Reevaluate today on 01/03/2024, patient continues to have cough and wheezing, continues to have intermittent episodes of diarrhea, patient is on maximal course of bronchodilators, he is also on diuretics for history of ischemic cardiomyopathy and LV dysfunction. Chest x-ray showed no evidence of congestive heart failure, there is mostly evidence of atelectasis. Also doubt pneumoniaPatient is on 3 L nasal cannula O2 sats is 95%. BBC count today is 12.1 hemoglobin 14.6. Potassium is 4.7 procalcitonin level on admission is 0.28. Admission chest x-ray showed mostly atelectasis at the left base with interstitial edema, underlying left lower lobe infiltrate is not entirely ruled out Reevaluated today on 01/04/2024, patient is doing much better from the pulmonary perspective, he does not seem to be concerned about his pulmonary symptoms he seems to be more concerned about his ongoing diarrhea. Patient has been going to the bathroom almost on a hourly basis. He is receiving Lomotil, and today I added Pepto-Bismol, his screening for C. difficile toxin has been negative twice now. WBC count is 13.8 hemoglobin 13.4 basic metabolic profile is normal BUN is 44 creatinine 1.15 last chest x-ray few days ago showed right lower lobe atelectasis, questionable pneumonia, and mild pulmonary vascular congestion patient is now transition to oral Lasix, and he is also on Eliquis, patient does have history of LV thrombus Reevaluate today on 01/05/2024, patient continues to have intermittent and severe episodes of diarrhea. Patient was seen by infectious disease on consultation, and he was placed empirically on oral vancomycin, although 2 screenings for C. difficile colitis were negative. In the meantime, the patient remains on Lomotil, remains on Pepto-Bismol, and his diarrhea seems to be persistent. I feel the patient may have get GI evaluation and possibly colonoscopy. Pulmonary noble patient is doing better, breathing easier, occasional cough and wheezing only. Reevaluate today on 01/06/2024, patient is doing well from a pulmonary perspective, continues to have severe diarrhea. Patient is going to the bathroom on the average of once every 2 hours. Slightly better compared to yesterday he was going once every 1 hour. Pulmonary noble hardly any pulmonary symptoms no cough no wheezing no shortness of breath no chest pain. Reevaluate today on 01/07/2024, patient has no active pulmonary issues but he has mostly GI issues and persistent diarrhea go to the bathroom on the average of 1 every 1 and half hours. Denies any melena or hematemesis, denies any nausea or vomiting, considering we have no GI coverage, I am recommending surgical consultation, patient may need colonoscopy and biopsy.Continues to have leukocytosis with WBC of 16.8 hemoglobin 13.1 basic metabolic profile is normal BUN is 47 creatinine 1.19 Reevaluate today on 01/08/24, during my evaluation the patient this morning, he was noted to have shortness of breath, on physical examination he had scattered rhonchi and wheezes, he was also in atrial fibrillation with RVR, patient received Decadron, he also received a DuoNeb updrafts 4 times daily and as needed, and he received a low-dose dose of Lasix. Stat EKG was ordered, stat chest x-ray was ordered, chest x-ray showed no evidence of pulmonary edema and no acute process was noted basically had just minimal atelectasis at the right base, otherwise lungs were clear. Atrial fibrillation and RVR is being addressed by cardiology on the case. Continues to have diarrhea Objective - Vital Signs Vital signs: Vital Signs Temp 97.4 F L 01/08/24 09:12 Pulse 80 01/08/24 12:29 Resp 19 01/08/24 11:32 BP 108/58 01/08/24 11:32 Pulse Ox 98 01/08/24 11:32 FiO2 Intake & Output 01/07/24 01/08/24 01/08/24 18:59 06:59 18:59 Intake Total 480 580 Balance 480 580 Weight 101.9 kg Intake: Oral 480 580 Other: Voiding Method Toilet Toilet Toilet Urinal Urinal Urinal # Voids 1 # Bowel Movements 1 4 - Exam GENERAL EXAM: Alert, 73-year-old white male, mild respiratory distress. Tachypneic and tachycardic. HEAD: Normocephalic and atraumatic EYES: Normal reaction of pupils, equal size. NOSE: Clear with pink turbinates. THROAT: No erythema or exudates. NECK: No masses, no JVD. CHEST: No chest wall deformity. LUNGS: Rhonchi and wheezes noted bilaterally. CVS: Tachycardic, irregular rhythm. S1 and S2 normal with no audible murmur, ABDOMEN: No hepatosplenomegaly, active bowel sounds, no guarding or rigidity. SKIN: No rashes CENTRAL NERVOUS SYSTEM: No focal deficits, tone is normal in all 4 extremities. EXTREMITIES: There is no peripheral edema, clubbing, or cyanosis. Peripheral pulses are intact. - Labs CBC & Chem 7: 01/08/24 10:50 01/08/24 10:50 Labs: Abnormal Lab Results - Last 24 Hours (Table) 01/07/24 01/07/24 01/08/24 Range/Units 16:37 19:53 02:10 WBC (3.8-10.6) k/uL MCV (80.0-100.0) fL Carbon Dioxide (22-30) mmol/L BUN (9-20) mg/dL Glucose (74-99) mg/dL POC Glucose (mg/dL) 136 H 167 H 198 H (70-110) mg/dL 01/08/24 01/08/24 01/08/24 Range/Units 06:11 10:11 10:13 WBC (3.8-10.6) k/uL MCV (80.0-100.0) fL Carbon Dioxide (22-30) mmol/L BUN (9-20) mg/dL Glucose (74-99) mg/dL POC Glucose (mg/dL) 197 H 43 L 44 L (70-110) mg/dL 01/08/24 01/08/24 01/08/24 Range/Units 10:23 10:30 10:50 WBC 24.3 H (3.8-10.6) k/uL MCV 105.0 H (80.0-100.0) fL Carbon Dioxide (22-30) mmol/L BUN (9-20) mg/dL Glucose (74-99) mg/dL POC Glucose (mg/dL) 52 L 242 H (70-110) mg/dL 01/08/24 01/08/24 01/08/24 Range/Units 10:50 11:33 12:09 WBC (3.8-10.6) k/uL MCV (80.0-100.0) fL Carbon Dioxide 21 L (22-30) mmol/L BUN 42 H (9-20) mg/dL Glucose 109 H (74-99) mg/dL POC Glucose (mg/dL) 69 L 56 L (70-110) mg/dL 01/08/24 Range/Units 12:52 WBC (3.8-10.6) k/uL MCV (80.0-100.0) fL Carbon Dioxide (22-30) mmol/L BUN (9-20) mg/dL Glucose (74-99) mg/dL POC Glucose (mg/dL) 182 H (70-110) mg/dL Microbiology - Last 24 Hours (Table) 01/03/24 14:46 Stool Culture - Final Stool Assessment and Plan Assessment: Impression: acute COPD exacerbation/, suspect also acute systolic CHF, significantly improved Assessment atrial fibrillation with RVR. Coronary artery disease with previous coronary stenting Ischemic cardiomyopathy/ systolic heart failure with an ejection fraction of 20 to 25% along with LV thrombus, currently on anticoagulation with Eliquis Diabetes mellitus type II, insulin-dependent, with hyperglycemia and mild DKA Mild anion gap metabolic acidosis, likely secondary to above and lactic acidosis History of implanted AICD/pacemaker History of hyperlipidemia History of coronary artery disease with previous PCI/stent Obesity, with a BMI of 31.2 kg/m Acute gastroenteritis, patient is on treatment, slight improvement Recommendation: Chest x-ray was reviewed EKG is pending, cardiac rhythm was noted on the monitor, patient seems to be tachycardic, atrial fibrillation/RVR noted. Given Decadron 6 mg IV push Given updrafts/DuoNeb Given Lasix 40 mg IV push x 1 Urology to address his cardiac arrhythmia and rate Continue oral vancomycin as ordered by ID Continue Lomotil and Pepto-Bismol Continue bronchodilators Continue eliquis Continue Levemir insulin and insulin as per sliding scale Patient off antibiotics for now General surgery consultation to evaluate for possible colonoscopy since we have no GI coverage Will follow Time with Patient: Less than 30
[2024-01-08] MEDS: VANCOMYCIN 125 MG CAPSULE PO SCH (14:28)
--- NOTE | 2024-01-08 14:48 | P.PN ---
Subjective Progress Note Date: 01/08/24 Patient is a 73-year-old male with a known history of hyperlipidemia, diabetes type 2 insulin-dependent, coronary artery disease with prior stent placement, history of mild chronic CHF with mildly impaired systolic dysfunction ejection fraction 40 to 45% and moderate left ventricular concentric hypertrophy presents to ER with complaints of shortness of breath for the past 2 weeks and not getting better. Patient states that he has been having difficulty in breathing and felt like fluid in the lung. Also states that he felt warm and sweating at home. Patient was seen by his primary care physician and was given prednisone tapering course couple days ago which he has been taking. Patient is also complaining of diarrhea. Denies any fever or chills at home. Patient also states that he has increased leg swelling and gaining weight and has been taking extra dose of Lasix at home. Patient states that he has CHF and COPD. Chest x-ray on admission showed left basilar atelectasis or early infiltrate. EKG showed electronic ventricular paced rhythm. Laboratory data showed WBC 11.3 hemoglobin 14.2 and platelets 185 Sodium 132 potassium 3.5 chloride 94 bicarb is 19 anion gap 19 BUN 27 creatinine 1.12 and blood sugar 524 Lactic acid 4.1 calcium 8.0 magnesium 2.0 and total bili 1.8 liver regnancy not elevated troponin less than 0.12 and proBNP 2670 and albumin 2.8 Urinalysis showed 4+ glucose and leukocyte esterase negative. Influenza A B RSV and COVID-19 PCR not detected. 12/31/2023 Patient is resting in the bed. Awake alert and oriented. Overnight patient was hyperglycemic and requiring insulin drip. Patient was also started on IV Lasix. Breathing status is better today. No complaints of chest pain. No nausea vomiting abdominal pain or diarrhea. Patient is tolerating oral diet. Repeat chest x-ray this morning showed left retrocardiac consolidation correlate for atelectasis versus early pneumonia. Patient is being continued on antibiotics ceftriaxone and azithromycin. Pulmonary and cardiology is on board. Laboratory data showed WBC 11.4 hemoglobin 13.0 and platelets 167 12/31. Patient seen and examined. Complaining of diarrhea denies any nausea or vomiting. Shortness of breath is improved. 01/01. Patient seen and examined. Labs this morning showed sodium 139, po tassium 4.4, BUN 41, creatinine 1.14. Diarrhea has improved. Currently on IV Lasix and Eliquis. Swelling of legs has improved 01/02. Patient seen and examined. States he is still having diarrhea. States the frequency has improved but still going up to 10 times per day. Denies any blood in the stools. 01/03. Patient seen and examined. Blood work showed WBC 13.8, hemoglobin 13.4, platelet count 214, sodium 137 potassium 4.3, BUN 10, creatinine 44. Continues to complain of diarrhea. Denies any blood in the stools. Denies any abdominal pain 01/04. Patient seen and examined. Patient still having diarrhea, states he is going every hour. Does not look in any distress. Currently on vancomycin which was started by ID for C. difficile suspicion, stool for C. difficile is negative. 01/05. Patient seen and examined. States diarrhea has improved, now he is saying hours diarrhea is every 2 hours. 01/06. Patient seen and examined. Continues to have diarrhea, surgery evaluated the patient, planning colonoscopy on Sunday 01/07. Patient seen and examined. Patient had a team called this morning for A- fib with RVR. Patient blood sugar was also found to be low. Patient was given Cardizem bolus 10 mg once and his heart rate improved. Patient night Dose of NovoLog was discontinued, morning dose of NovoLog was decreased to 15 units. REVIEW OF SYSTEMS: CONSTITUTIONAL: No fever, no malaise,. CARDIOVASCULAR: No chest pain, no palpitations, no syncope. PULMONARY: No shortness of breath, no cough, GASTROINTESTINAL: As mentioned above NEUROLOGICAL: No headaches, no weakness, PHYSICAL EXAMINATION: GENERAL: The patient is alert and oriented x3, not in any acute distress. Well developed, well nourished. HEENT: Pupils are round and equally reacting to light. EOMI. No scleral icterus. No conjunctival pallor. Normocephalic, atraumatic. No pharyngeal erythema. No thyromegaly. CARDIOVASCULAR: S1 and S2 present. No murmurs, rubs, or gallops. irregular in rate and rhythm PULMONARY: Coarse breath sound bilaterally no wheezing or crackles. ABDOMEN: Soft, nontender, nondistended, normoactive bowel sounds. No palpable organomegaly. MUSCULOSKELETAL: No joint swelling or deformity. EXTREMITIES: No cyanosis, clubbing, no pitting edema lower extremity NEUROLOGICAL: Gross neurological examination did not reveal any focal deficits. SKIN: No rashes. Assessment and plan Acute COPD exacerbation failed outpatient treatment. LV thrombus Hyperglycemia with uncontrolled diabetes type 2 insulin-dependent A1c 12 Left basilar atelectasis and possible early infiltrate/pneumonia Acute on Chronic CHF with mildly reduced systolic dysfunction ejection fraction 40 to 45% as per 2D echocardiogram in 2018. Patient had stress test in 2018. follows with Dr[address] Graham as an outpatient. Coronary artery disease history of stent placement Lactic acidosis likely due to tissue hypoperfusion Hypovolemic hyponatremia and pseudohyponatremia Hypoalbuminemia Hyperlipidemia History of [place] Monitor vital signs Monitor CBC Monitor CMP Continue telemetry monitoring Continue oxygen supplementation Aggressive bronchopulmonary hygiene Patient given 1 dose of 10 mg of IV Cardizem, continue Lopressor 50 mg twice daily Continue prednisone 30 mg daily Continue DuoNebs and Symbicort. Continue Lasix 40 mg daily Repeat stool for C. difficile is negative, stool culture negative for Salmonella or Shigella Vancomycin oral per ID Continue cholestyramine and lactobacillus 2D echo suspicious of LV thrombus, continue Eliquis Continue aspirin and statins and metoprolol. Entresto, spironolactone Monitor blood sugar levels, decreased dose of morning NovoLog to 15 units at [facility], continue 20 units at lunch and dinnertime, continue Levemir Pulmonary and cardiology is on board. ID following Surgery consulted, planning colonoscopy on Wednesday Labs and medication were reviewed.. Continue same treatment. Continue with symptomatic treatment. Resume home medication. Monitor labs and vitals. DVT and GI prophylaxis. Further recommendations as per clinical course of the patient Dictation was produced using [employer] dictation software. please excuse any grammatical, word or spelling errors. Objective - Vital Signs Vital signs: Vital Signs Temp 97.4 F L 01/08/24 09:12 Pulse 80 01/08/24 12:29 Resp 19 01/08/24 11:32 BP 108/58 01/08/24 11:32 Pulse Ox 98 01/08/24 11:32 FiO2 Intake & Output 01/07/24 01/08/24 01/08/24 18:59 06:59 18:59 Intake Total 480 580 Output Total 250 Balance 480 330 Weight 101.9 kg Intake: Oral 480 580 Output: Urine 250 Other: Voiding Method Toilet Toilet Toilet Urinal Urinal Urinal # Voids 1 1 # Bowel Movements 1 4 - Labs CBC & Chem 7: 01/08/24 10:50 01/08/24 10:50 Labs: Abnormal Lab Results - Last 24 Hours (Table) 01/07/24 01/07/24 01/08/24 Range/Units 16:37 19:53 02:10 WBC (3.8-10.6) k/uL MCV (80.0-100.0) fL Carbon Dioxide (22-30) mmol/L BUN (9-20) mg/dL Glucose (74-99) mg/dL POC Glucose (mg/dL) 136 H 167 H 198 H (70-110) mg/dL 01/08/24 01/08/24 01/08/24 Range/Units 06:11 10:11 10:13 WBC (3.8-10.6) k/uL MCV (80.0-100.0) fL Carbon Dioxide (22-30) mmol/L BUN (9-20) mg/dL Glucose (74-99) mg/dL POC Glucose (mg/dL) 197 H 43 L 44 L (70-110) mg/dL 01/08/24 01/08/24 01/08/24 Range/Units 10:23 10:30 10:50 WBC 24.3 H (3.8-10.6) k/uL MCV 105.0 H (80.0-100.0) fL Carbon Dioxide (22-30) mmol/L BUN (9-20) mg/dL Glucose (74-99) mg/dL POC Glucose (mg/dL) 52 L 242 H (70-110) mg/dL 01/08/24 01/08/24 01/08/24 Range/Units 10:50 11:33 12:09 WBC (3.8-10.6) k/uL MCV (80.0-100.0) fL Carbon Dioxide 21 L (22-30) mmol/L BUN 42 H (9-20) mg/dL Glucose 109 H (74-99) mg/dL POC Glucose (mg/dL) 69 L 56 L (70-110) mg/dL 01/08/24 Range/Units 12:52 WBC (3.8-10.6) k/uL MCV (80.0-100.0) fL Carbon Dioxide (22-30) mmol/L BUN (9-20) mg/dL Glucose (74-99) mg/dL POC Glucose (mg/dL) 182 H (70-110) mg/dL
--- NOTE | 2024-01-08 16:12 | P.PN ---
Subjective Progress Note Date: 01/08/24 Principal diagnosis: Reason for follow-up with diarrhea and leukocytosis Patient is a 73-year-old male past medical history significant for diabetes mellitus hypertension [place] COPD heart failure coronary artery disease presenting to the hospital for evaluation of increasing shortness of breath also developed significant diarrhea prompting this consultation. On today's evaluation that is 01/08/2024,the patient denies any fever or any chills, patient is breathing comfortably on 3 L nasal cannula oxygen, the patient denies chest pain shortness of breath and no worsening cough, patient denies abdominal pain, no nausea vomiting however still having significant diarrhea every hour on the hour. Patient white count is up to 24.3, creatinine is 1.11 Objective - Vital Signs Vital signs: Vital Signs Temp 97.4 F L 01/08/24 09:12 Pulse 80 01/08/24 12:29 Resp 19 01/08/24 11:32 BP 108/58 01/08/24 11:32 Pulse Ox 98 01/08/24 11:32 FiO2 Intake & Output 01/07/24 01/08/24 01/08/24 18:59 06:59 18:59 Intake Total 480 580 Balance 480 580 Weight 101.9 kg Intake: Oral 480 580 Other: Voiding Method Toilet Toilet Toilet Urinal Urinal Urinal # Voids 1 # Bowel Movements 1 4 - Exam GENERAL DESCRIPTION: An elderly male up in bed in no distress RESPIRATORY SYSTEM: Unlabored breathing , decreased breath sounds at bases HEART: S1 S2 regular rate and rhythm , ABDOMEN: Soft , no tenderness EXTREMITIES: No edema feet - Labs CBC & Chem 7: 01/08/24 10:50 01/08/24 10:50 Labs: Abnormal Lab Results - Last 24 Hours (Table) 01/07/24 01/07/24 01/08/24 Range/Units 16:37 19:53 02:10 WBC (3.8-10.6) k/uL MCV (80.0-100.0) fL Carbon Dioxide (22-30) mmol/L BUN (9-20) mg/dL Glucose (74-99) mg/dL POC Glucose (mg/dL) 136 H 167 H 198 H (70-110) mg/dL 01/08/24 01/08/24 01/08/24 Range/Units 06:11 10:11 10:13 WBC (3.8-10.6) k/uL MCV (80.0-100.0) fL Carbon Dioxide (22-30) mmol/L BUN (9-20) mg/dL Glucose (74-99) mg/dL POC Glucose (mg/dL) 197 H 43 L 44 L (70-110) mg/dL 01/08/24 01/08/24 01/08/24 Range/Units 10:23 10:30 10:50 WBC 24.3 H (3.8-10.6) k/uL MCV 105.0 H (80.0-100.0) fL Carbon Dioxide (22-30) mmol/L BUN (9-20) mg/dL Glucose (74-99) mg/dL POC Glucose (mg/dL) 52 L 242 H (70-110) mg/dL 01/08/24 01/08/24 01/08/24 Range/Units 10:50 11:33 12:09 WBC (3.8-10.6) k/uL MCV (80.0-100.0) fL Carbon Dioxide 21 L (22-30) mmol/L BUN 42 H (9-20) mg/dL Glucose 109 H (74-99) mg/dL POC Glucose (mg/dL) 69 L 56 L (70-110) mg/dL 01/08/24 Range/Units 12:52 WBC (3.8-10.6) k/uL MCV (80.0-100.0) fL Carbon Dioxide (22-30) mmol/L BUN (9-20) mg/dL Glucose (74-99) mg/dL POC Glucose (mg/dL) 182 H (70-110) mg/dL Microbiology - Last 24 Hours (Table) 01/03/24 14:46 Stool Culture - Final Stool Assessment and Plan (1) Diarrhea Current Visit: Yes Status: Acute Code(s): R19.7 - DIARRHEA, UNSPECIFIED SNOMED Code(s): 78518599 (2) Leukocytosis Current Visit: Yes Status: Acute Code(s): D72.829 - ELEVATED WHITE BLOOD CELL COUNT, UNSPECIFIED SNOMED Code(s): 367103449 Plan: 1patient with extensive diarrhea over the last few days this patient has been exposed to antibiotics on the question of possible antibiotic associated diarrhea versus C. difficile colitis high clinical suspicions keeping in mind elevated white count 2-patient stool for C. difficile PCR came back negative making C. difficile to be less likely stool culture has been negative 3-patient continues to have significant diarrhea and now the white count is trending up I will empirically start the patient on oral vancomycin and see clinical response Dictation was produced using [employer] dictation software. please excuse any grammatical, word or spelling errors. Time with Patient: Less than 30
[2024-01-08 16:40] LABS: Glucose,Whole Blood 201 mg/dL (70-110)
--- NOTE | 2024-01-08 19:20 | P.PN ---
Subjective Progress Note Date: 01/08/24 This is a 73-year-old male with a past medical history significant for coronary artery disease, cardiomyopathy, hypertension, hyperlipidemia, diabetes, and AICD implantation. Patient follows in the office with Dr. Chatterjee. We have been asked to see the patient in consultation for CHF. Patient examined at the bedside. He reports he has been retaining fluid for the past few weeks. He states he was started on Lasix and gave him a shot of something but unsure if what it was. He states he did not notice any improvement so he decided to come to the hospital. He reports a weight gain of 13 pounds in the last two weeks. He reports increased lower extremity and increased abdominal swelling. He reports a non productive cough. He denies any fever or chills. He denies being around any sick contacts. He denies any chest pain or pressure. He does report having low blood pressures at home with a systolic in the 70s. DIAGNOSTICS: - EKG reveals ventricular paced rhythm. - Chest xray left basilar atelectasis or early infiltrate. - Laboratory data: WBC 8.3. Hemoglobin 12.3. Platelet count 148. Sodium 136. Potassium 2.4. BUN 32. Creatinine 1.25. Glucose on admission 524. Repeat 130. Lactic acid 6.7 on admission repeat 1.8. Magnesium 2.3. Troponin negative x 1. proBNP 2670. - Current home cardiac medications include Aldactone 25 mg daily, midodrine 5 mg 3 times a day, bisoprolol 5 mg daily, Entresto 24-26 mg twice a day, Lasix 40 mg daily as needed, aspirin 81 mg daily, and atorvastatin 40 mg at night. - Most recent echocardiogram obtained in 06/2023 revealed ejection fraction 42%, mild to moderate MR, mild to moderate AR, mild to moderate TR - Cardiac catheterization history: 2012 revealing 100% proximal D1, 50% mid circumflex, 20% mid RCA, left circumflex FFR 90% 01/01/2024 Patient examined this morning at the bedside. Patient currently denies chest pain or pressure. He denies any shortness of breath. He reports he has been having significant diarrhea. C. difficile was negative. Echocardiogram completed revealing ejection fraction 20 to 25%, trace MR, mild AR and small LV thrombus. There was questionable atrial fibrillation as well according to Dr. Sierra's dictation. AICD was interrogated with no evidence of atrial fibrillation. He was started on IV heparin secondary to small LV thrombus. Patient[place] [address]. 01/02/2024 Still with some shortness of breath, but better overall. Creat 1.1. Heart rates and BP controlled. 01/03 Yesterday, patient was switched off bisoprolol and onto metoprolol. Patient has been maintained on IV Lasix. Patient apparently is having diarrhea and studies have been negative thus far for C. difficile colitis. Blood pressure 123/76. Heart rate is 6097. Repeat blood work reveals WBC 13.8, hemoglobin 13.4. Electrolytes are normal. BUN 44 creatinine 1.15. January 08, 2024 Cardiology was reconsulted because it was noticed that patient may need to rapid ventricular rate. On detailed review of telemetry and ECG it appears that it was sinus tachycardia. It is very regular and does not have any flutter waves suggestive of any underlying atrial flutter. This episode happened when patient was noticed to be hypoglycemic. His symptoms and his heart rate returned back to normal when his blood sugars were corrected. PHYSICAL EXAM: VITAL SIGNS: Reviewed. GENERAL: Well-developed in no acute distress. HEENT: Head is normocephalic. Pupils are equal, round. Sclerae anicteric. LUNGS: Respirations even and unlabored. Lungs essentially clear to auscultation bilaterally. HEART: Regular rate and rhythm. S1 and S2 heard. Short systolic murmur. EXTREMITIES: Normal range of motion. No clubbing or cyanosis. Peripheral pulses intact. No lower extremity edema. ASSESSMENT: Shortness of breath Acute on chronic heart failure with reduced ejection fraction COPD exacerbation Hyperglycemia/DKA Lactic acidosis Hypokalemia Possible early infiltrate per chest x-ray Coronary artery disease with previous stenting History of ischemic cardiomyopathy, ejection fraction 42%, now 20 to 25% History of AICD implantation Hypertension Hyperlipidemia Diabetes History of hypotension, on midodrine outpatient Atrial fibrillation, ruled out, per ICD interrogation Suspected small LV thrombus, per echo Diarrhea PLAN: Continue Eliquis 5 mg twice daily for LV thrombus Continue other cardiac medications without any changes. It is less likely that patient's tachycardic rhythm was atrial fibrillation and appears most likely sinus tachycardia in response to hypoglycemia Patient has an AICD, will do AICD interrogation to further investigate the nature of the tachycardia. However this would not change further management as patient is already on Eliquis for LV thrombus that was seen on echocardiogram p reviously. Cardiology team will sign off after reviewing the AICD interrogation. Objective - Vital Signs Vital signs: Vital Signs Temp 97.4 F L 01/08/24 09:12 Pulse 64 01/08/24 16:49 Resp 17 01/08/24 16:00 BP 95/53 01/08/24 16:00 Pulse Ox 95 01/08/24 16:00 FiO2 Intake & Output 01/08/24 01/08/24 01/09/24 06:59 18:59 06:59 Intake Total 698 Output Total 600 Balance 98 Weight 101.9 kg Intake: Oral 698 Output: Urine 600 Straight 350 Other: Voiding Method Toilet Toilet Urinal Urinal # Voids 1 1 # Bowel Movements 1 4 - Labs CBC & Chem 7: 01/08/24 10:50 01/08/24 10:50 Labs: Abnormal Lab Results - Last 24 Hours (Table) 01/07/24 01/08/24 01/08/24 Range/Units 19:53 02:10 06:11 WBC (3.8-10.6) k/uL MCV (80.0-100.0) fL Carbon Dioxide (22-30) mmol/L BUN (9-20) mg/dL Glucose (74-99) mg/dL POC Glucose (mg/dL) 167 H 198 H 197 H (70-110) mg/dL 01/08/24 01/08/24 01/08/24 Range/Units 10:11 10:13 10:23 WBC (3.8-10.6) k/uL MCV (80.0-100.0) fL Carbon Dioxide (22-30) mmol/L BUN (9-20) mg/dL Glucose (74-99) mg/dL POC Glucose (mg/dL) 43 L 44 L 52 L (70-110) mg/dL 01/08/24 01/08/24 01/08/24 Range/Units 10:30 10:50 10:50 WBC 24.3 H (3.8-10.6) k/uL MCV 105.0 H (80.0-100.0) fL Carbon Dioxide 21 L (22-30) mmol/L BUN 42 H (9-20) mg/dL Glucose 109 H (74-99) mg/dL POC Glucose (mg/dL) 242 H (70-110) mg/dL 01/08/24 01/08/24 01/08/24 Range/Units 11:33 12:09 12:52 WBC (3.8-10.6) k/uL MCV (80.0-100.0) fL Carbon Dioxide (22-30) mmol/L BUN (9-20) mg/dL Glucose (74-99) mg/dL POC Glucose (mg/dL) 69 L 56 L 182 H (70-110) mg/dL 01/08/24 Range/Units 16:37 WBC (3.8-10.6) k/uL MCV (80.0-100.0) fL Carbon Dioxide (22-30) mmol/L BUN (9-20) mg/dL Glucose (74-99) mg/dL POC Glucose (mg/dL) 201 H (70-110) mg/dL
[2024-01-08 20:03] LABS: Glucose,Whole Blood 191 mg/dL (70-110)
[2024-01-09 02:33] LABS: Glucose,Whole Blood 206 mg/dL (70-110)
[2024-01-09 06:03] LABS: Glucose,Whole Blood 173 mg/dL (70-110)
[2024-01-09] MEDS: INSULIN ASPART (NovoLOG) 100 UNIT/ML VIAL SQ SCH (06:20)
--- NOTE | 2024-01-09 09:30 | P.PN ---
Subjective Progress Note Date: 01/09/24 patient [place] stable. He'll start bowel prep today for colonoscopy for tomorrow. Objective - Vital Signs Vital signs: Vital Signs Temp 98.0 F 01/09/24 04:00 Pulse 84 01/09/24 04:00 Resp 17 01/09/24 04:00 BP 118/62 01/09/24 04:00 Pulse Ox 97 01/09/24 04:00 FiO2 Intake & Output 01/08/24 01/09/24 01/09/24 18:59 06:59 18:59 Intake Total 698 358 Output Total 600 Balance 98 358 Weight 101.2 kg Intake: Oral 698 358 Output: Urine 600 Straight 350 Other: Voiding Method Toilet Toilet Urinal Urinal # Voids 1 2 # Bowel Movements 4 - Labs CBC & Chem 7: 01/08/24 10:50 01/08/24 10:50 Labs: Abnormal Lab Results - Last 24 Hours (Table) 01/08/24 01/08/24 01/08/24 Range/Units 10:11 10:13 10:23 WBC (3.8-10.6) k/uL MCV (80.0-100.0) fL Carbon Dioxide (22-30) mmol/L BUN (9-20) mg/dL Glucose (74-99) mg/dL POC Glucose (mg/dL) 43 L 44 L 52 L (70-110) mg/dL 01/08/24 01/08/24 01/08/24 Range/Units 10:30 10:50 10:50 WBC 24.3 H (3.8-10.6) k/uL MCV 105.0 H (80.0-100.0) fL Carbon Dioxide 21 L (22-30) mmol/L BUN 42 H (9-20) mg/dL Glucose 109 H (74-99) mg/dL POC Glucose (mg/dL) 242 H (70-110) mg/dL 01/08/24 01/08/24 01/08/24 Range/Units 11:33 12:09 12:52 WBC (3.8-10.6) k/uL MCV (80.0-100.0) fL Carbon Dioxide (22-30) mmol/L BUN (9-20) mg/dL Glucose (74-99) mg/dL POC Glucose (mg/dL) 69 L 56 L 182 H (70-110) mg/dL 01/08/24 01/08/24 01/09/24 Range/Units 16:37 20:01 02:32 WBC (3.8-10.6) k/uL MCV (80.0-100.0) fL Carbon Dioxide (22-30) mmol/L BUN (9-20) mg/dL Glucose (74-99) mg/dL POC Glucose (mg/dL) 201 H 191 H 206 H (70-110) mg/dL 01/09/24 Range/Units 06:02 WBC (3.8-10.6) k/uL MCV (80.0-100.0) fL Carbon Dioxide (22-30) mmol/L BUN (9-20) mg/dL Glucose (74-99) mg/dL POC Glucose (mg/dL) 173 H (70-110) mg/dL Microbiology - Last 24 Hours (Table) 01/06/24 12:00 Stool Culture - Preliminary Stool Yeast species
--- NOTE | 2024-01-09 10:15 | P.PN ---
Subjective Progress Note Date: 01/09/24 This is a 73-year-old male with a past medical history significant for coronary artery disease, cardiomyopathy, hypertension, hyperlipidemia, diabetes, and AICD implantation. Patient follows in the office with Dr. Chatterjee. We have been asked to see the patient in consultation for CHF. Patient examined at the bedside. He reports he has been retaining fluid for the past few weeks. He states he was started on Lasix and gave him a shot of something but unsure if what it was. He states he did not notice any improvement so he decided to come to the hospital. He reports a weight gain of 13 pounds in the last two weeks. He reports increased lower extremity and increased abdominal swelling. He reports a non productive cough. He denies any fever or chills. He denies being around any sick contacts. He denies any chest pain or pressure. He does report having low blood pressures at home with a systolic in the 70s. DIAGNOSTICS: - EKG reveals ventricular paced rhythm. - Chest xray left basilar atelectasis or early infiltrate. - Laboratory data: WBC 8.3. Hemoglobin 12.3. Platelet count 148. Sodium 136. Potassium 2.4. BUN 32. Creatinine 1.25. Glucose on admission 524. Repeat 130. Lactic acid 6.7 on admission repeat 1.8. Magnesium 2.3. Troponin negative x 1. proBNP 2670. - Current home cardiac medications include Aldactone 25 mg daily, midodrine 5 mg 3 times a day, bisoprolol 5 mg daily, Entresto 24-26 mg twice a day, Lasix 40 mg daily as needed, aspirin 81 mg daily, and atorvastatin 40 mg at night. - Most recent echocardiogram obtained in 06/2023 revealed ejection fraction 42%, mild to moderate MR, mild to moderate AR, mild to moderate TR - Cardiac catheterization history: 2012 revealing 100% proximal D1, 50% mid circumflex, 20% mid RCA, left circumflex FFR 90% 01/01/2024 Patient examined this morning at the bedside. Patient currently denies chest pain or pressure. He denies any shortness of breath. He reports he has been having significant diarrhea. C. difficile was negative. Echocardiogram completed revealing ejection fraction 20 to 25%, trace MR, mild AR and small LV thrombus. There was questionable atrial fibrillation as well according to Dr. Sierra's dictation. AICD was interrogated with no evidence of atrial fibrillation. He was started on IV heparin secondary to small LV thrombus. Patient[place] [address]. 01/02/2024 Still with some shortness of breath, but better overall. Creat 1.1. Heart rates and BP controlled. 01/03 Yesterday, patient was switched off bisoprolol and onto metoprolol. Patient has been maintained on IV Lasix. Patient apparently is having diarrhea and studies have been negative thus far for C. difficile colitis. Blood pressure 123/76. Heart rate is 6097. Repeat blood work reveals WBC 13.8, hemoglobin 13.4. Electrolytes are normal. BUN 44 creatinine 1.15. January 08, 2024 Cardiology was reconsulted because it was noticed that patient may need to rapid ventricular rate. On detailed review of telemetry and ECG it appears that it was sinus tachycardia. It is very regular and does not have any flutter waves suggestive of any underlying atrial flutter. This episode happened when patient was noticed to be hypoglycemic. His symptoms and his heart rate returned back to normal when his blood sugars were corrected. January 09, 2024 I reviewed the ICD interrogation. Since January 01, 2024 patient has not had any supraventricular tachycardias including atrial fibrillation or atrial tachycardia. Patient's tachycardia noticed on January 08, 2024 is most likely sinus tachycardia related to patient's hypoglycemia. PHYSICAL EXAM: VITAL SIGNS: Reviewed. GENERAL: Well-developed in no acute distress. HEENT: Head is normocephalic. Pupils are equal, round. Sclerae anicteric. LUNGS: Respirations even and unlabored. Lungs essentially clear to auscultation bilaterally. HEART: Regular rate and rhythm. S1 and S2 heard. Short systolic murmur. EXTREMITIES: Normal range of motion. No clubbing or cyanosis. Peripheral pulses intact. No lower extremity edema. ASSESSMENT: Shortness of breath Acute on chronic heart failure with reduced ejection fraction COPD exacerbation Hyperglycemia/DKA Lactic acidosis Hypokalemia Possible early infiltrate per chest x-ray Coronary artery disease with previous stenting History of ischemic cardiomyopathy, ejection fraction 42%, now 20 to 25% History of AICD implantation Hypertension Hyperlipidemia Diabetes History of hypotension, on midodrine outpatient Atrial fibrillation, ruled out, per ICD interrogation Suspected small LV thrombus, per echo Diarrhea PLAN: Continue Eliquis 5 mg twice daily for LV thrombus Continue other cardiac medications without any changes. AICD was interrogated and patient has not had any episodes of supplementary tachycardia including atrial fibrillation or atrial flutter since January 01, 2024. Patient's event of tachycardia on January 08 2024 was most likely related to sinus tachycardia setting of hypoglycemia. This has resolved since. On telemetry monitoring patient's heart rate is well-controlled 60s to 90s beats per minute. Patient denies any chest pain chest pressure shortness of breath. At this time cardiology team will sign off. Objective - Vital Signs Vital signs: Vital Signs Temp 98.0 F 01/09/24 04:00 Pulse 88 01/09/24 09:42 Resp 17 01/09/24 04:00 BP 118/62 01/09/24 04:00 Pulse Ox 97 01/09/24 04:00 FiO2 Intake & Output 01/08/24 01/09/24 01/09/24 18:59 06:59 18:59 Intake Total 698 358 Output Total 600 Balance 98 358 Weight 101.2 kg Intake: Oral 698 358 Output: Urine 600 Straight 350 Other: Voiding Method Toilet Toilet Urinal Urinal # Voids 1 2 # Bowel Movements 4 - Labs CBC & Chem 7: 01/08/24 10:50 01/08/24 10:50 Labs: Abnormal Lab Results - Last 24 Hours (Table) 01/08/24 01/08/24 01/08/24 Range/Units 10:11 10:13 10:23 WBC (3.8-10.6) k/uL MCV (80.0-100.0) fL Carbon Dioxide (22-30) mmol/L BUN (9-20) mg/dL Glucose (74-99) mg/dL POC Glucose (mg/dL) 43 L 44 L 52 L (70-110) mg/dL 01/08/24 01/08/24 01/08/24 Range/Units 10:30 10:50 10:50 WBC 24.3 H (3.8-10.6) k/uL MCV 105.0 H (80.0-100.0) fL Carbon Dioxide 21 L (22-30) mmol/L BUN 42 H (9-20) mg/dL Glucose 109 H (74-99) mg/dL POC Glucose (mg/dL) 242 H (70-110) mg/dL 01/08/24 01/08/24 01/08/24 Range/Units 11:33 12:09 12:52 WBC (3.8-10.6) k/uL MCV (80.0-100.0) fL Carbon Dioxide (22-30) mmol/L BUN (9-20) mg/dL Glucose (74-99) mg/dL POC Glucose (mg/dL) 69 L 56 L 182 H (70-110) mg/dL 01/08/24 01/08/24 01/09/24 Range/Units 16:37 20:01 02:32 WBC (3.8-10.6) k/uL MCV (80.0-100.0) fL Carbon Dioxide (22-30) mmol/L BUN (9-20) mg/dL Glucose (74-99) mg/dL POC Glucose (mg/dL) 201 H 191 H 206 H (70-110) mg/dL 01/09/24 Range/Units 06:02 WBC (3.8-10.6) k/uL MCV (80.0-100.0) fL Carbon Dioxide (22-30) mmol/L BUN (9-20) mg/dL Glucose (74-99) mg/dL POC Glucose (mg/dL) 173 H (70-110) mg/dL Microbiology - Last 24 Hours (Table) 01/06/24 12:00 Stool Culture - Preliminary Stool Yeast species
[2024-01-09] MEDS: PEG 3350 (236 GM/BTL) + LYTES 4,000 ML BOTTLE PO ONE (11:16)
[2024-01-09 11:30] LABS: Glucose,Whole Blood 87 mg/dL (70-110)
--- NOTE | 2024-01-09 11:30 | XR ---
EXAMINATION TYPE: XR chest 2V DATE OF EXAM: 01/09/2024 COMPARISON: 01/08/2024 INDICATION: Short of breath TECHNIQUE: Frontal and lateral views of the chest are obtained. FINDINGS: The heart size is normal. Pacemaker overlies left chest. The pulmonary vasculature is normal. There is some minimal linear opacity at the right lung base may be some atelectasis. The lungs are ot herwise clear. IMPRESSION: 1. Minimal atelectasis right lung base.
--- NOTE | 2024-01-09 13:14 | P.PN ---
Subjective Progress Note Date: 01/09/24 Patient is a 73-year-old male with a known history of hyperlipidemia, diabetes type 2 insulin-dependent, coronary artery disease with prior stent placement, history of mild chronic CHF with mildly impaired systolic dysfunction ejection fraction 40 to 45% and moderate left ventricular concentric hypertrophy presents to ER with complaints of shortness of breath for the past 2 weeks and not getting better. Patient states that he has been having difficulty in breathing and felt like fluid in the lung. Also states that he felt warm and sweating at home. Patient was seen by his primary care physician and was given prednisone tapering course couple days ago which he has been taking. Patient is also complaining of diarrhea. Denies any fever or chills at home. Patient also states that he has increased leg swelling and gaining weight and has been taking extra dose of Lasix at home. Patient states that he has CHF and COPD. Chest x-ray on admission showed left basilar atelectasis or early infiltrate. EKG showed electronic ventricular paced rhythm. Laboratory data showed WBC 11.3 hemoglobin 14.2 and platelets 185 Sodium 132 potassium 3.5 chloride 94 bicarb is 19 anion gap 19 BUN 27 creatinine 1.12 and blood sugar 524 Lactic acid 4.1 calcium 8.0 magnesium 2.0 and total bili 1.8 liver regnancy not elevated troponin less than 0.12 and proBNP 2670 and albumin 2.8 Urinalysis showed 4+ glucose and leukocyte esterase negative. Influenza A B RSV and COVID-19 PCR not detected. 12/31/2023 Patient is resting in the bed. Awake alert and oriented. Overnight patient was hyperglycemic and requiring insulin drip. Patient was also started on IV Lasix. Breathing status is better today. No complaints of chest pain. No nausea vomiting abdominal pain or diarrhea. Patient is tolerating oral diet. Repeat chest x-ray this morning showed left retrocardiac consolidation correlate for atelectasis versus early pneumonia. Patient is being continued on antibiotics ceftriaxone and azithromycin. Pulmonary and cardiology is on board. Laboratory data showed WBC 11.4 hemoglobin 13.0 and platelets 167 12/31. Patient seen and examined. Complaining of diarrhea denies any nausea or vomiting. Shortness of breath is improved. 01/01. Patient seen and examined. Labs this morning showed sodium 139, po tassium 4.4, BUN 41, creatinine 1.14. Diarrhea has improved. Currently on IV Lasix and Eliquis. Swelling of legs has improved 01/02. Patient seen and examined. States he is still having diarrhea. States the frequency has improved but still going up to 10 times per day. Denies any blood in the stools. 01/03. Patient seen and examined. Blood work showed WBC 13.8, hemoglobin 13.4, platelet count 214, sodium 137 potassium 4.3, BUN 10, creatinine 44. Continues to complain of diarrhea. Denies any blood in the stools. Denies any abdominal pain 01/04. Patient seen and examined. Patient still having diarrhea, states he is going every hour. Does not look in any distress. Currently on vancomycin which was started by ID for C. difficile suspicion, stool for C. difficile is negative. 01/05. Patient seen and examined. States diarrhea has improved, now he is saying hours diarrhea is every 2 hours. 01/06. Patient seen and examined. Continues to have diarrhea, surgery evaluated the patient, planning colonoscopy on Sunday 01/07. Patient seen and examined. Patient had a team called this morning for A- fib with RVR. Patient blood sugar was also found to be low. Patient was given Cardizem bolus 10 mg once and his heart rate improved. Patient night Dose of NovoLog was discontinued, morning dose of NovoLog was decreased to 15 units. 01/08. Patient seen and examined. Cardiology evaluated patient, recommended keeping patient on current medication regimen and getting AICD interrogation. Blood sugars remained stable. Surgery planning colonoscopy on Wednesday complains of shortness of breath on exertion. REVIEW OF SYSTEMS: CONSTITUTIONAL: No fever, no malaise,. CARDIOVASCULAR: No chest pain, no palpitations, no syncope. PULMONARY: No chest pain, no cough GASTROINTESTINAL: As mentioned above NEUROLOGICAL: No headaches, no weakness, PHYSICAL EXAMINATION: GENERAL: The patient is alert and oriented x3, not in any acute distress. Well developed, well nourished. HEENT: Pupils are round and equally reacting to light. EOMI. No scleral icterus. No conjunctival pallor. Normocephalic, atraumatic. No pharyngeal erythema. No thyromegaly. CARDIOVASCULAR: S1 and S2 present. No murmurs, rubs, or gallops. irregular in rate and rhythm PULMONARY: Coarse breath sound bilaterally no wheezing or crackles. ABDOMEN: Soft, nontender, nondistended, normoactive bowel sounds. No palpable organomegaly. MUSCULOSKELETAL: No joint swelling or deformity. EXTREMITIES: No cyanosis, clubbing, no pitting edema lower extremity NEUROLOGICAL: Gross neurological examination did not reveal any focal deficits. SKIN: No rashes. Assessment and plan Acute COPD exacerbation failed outpatient treatment. LV thrombus Hyperglycemia with uncontrolled diabetes type 2 insulin-dependent A1c 12 Left basilar atelectasis and possible early infiltrate/pneumonia Acute on Chronic CHF with mildly reduced systolic dysfunction ejection fraction 40 to 45% as per 2D echocardiogram in 2018. Patient had stress test in 2018. follows with Dr[address] Graham as an outpatient. Coronary artery disease history of stent placement Lactic acidosis likely due to tissue hypoperfusion Hypovolemic hyponatremia and pseudohyponatremia Hypoalbuminemia Hyperlipidemia History of [place] Monitor vital signs Monitor CBC Monitor CMP Continue telemetry monitoring Continue oxygen supplementation Aggressive bronchopulmonary hygiene Continue prednisone 30 mg daily Continue DuoNebs and Symbicort. Continue Lasix 40 mg daily Repeat stool for C. difficile is negative, stool culture negative for Salmonella or Shigella Vancomycin oral per ID Continue cholestyramine and lactobacillus 2D echo suspicious of LV thrombus, continue Eliquis Continue aspirin and statins and metoprolol. Entresto, spironolactone Monitor blood sugar levels, continue NovoLog 15 units at breakfast, continue 22 units at lunch and dinnertime, continue Levemir Pulmonary and cardiology is on board. ID following Surgery consulted, planning colonoscopy on Wednesday, being prepped for colonoscopy Labs and medication were reviewed.. Continue same treatment. Continue with symptomatic treatment. Resume home medication. Monitor labs and vitals. DVT and GI prophylaxis. Further recommendations as per clinical course of the patient Dictation was produced using [employer] dictation software. please excuse any grammatical, word or spelling errors. Objective - Vital Signs Vital signs: Vital Signs Temp 98.0 F 01/09/24 04:00 Pulse 88 01/09/24 09:30 Resp 17 01/09/24 04:00 BP 118/62 01/09/24 04:00 Pulse Ox 97 01/09/24 04:00 FiO2 Intake & Output 01/08/24 01/09/24 01/09/24 18:59 06:59 18:59 Intake Total 698 358 Output Total 600 Balance 98 358 Weight 101.2 kg Intake: Oral 698 358 Output: Urine 600 Straight 350 Other: Voiding Method Toilet Toilet Urinal Urinal # Voids 1 2 # Bowel Movements 4 - Labs CBC & Chem 7: 01/08/24 10:50 01/08/24 10:50 Labs: Abnormal Lab Results - Last 24 Hours (Table) 01/08/24 01/08/24 01/08/24 Range/Units 10:11 10:13 10:23 WBC (3.8-10.6) k/uL MCV (80.0-100.0) fL Carbon Dioxide (22-30) mmol/L BUN (9-20) mg/dL Glucose (74-99) mg/dL POC Glucose (mg/dL) 43 L 44 L 52 L (70-110) mg/dL 01/08/24 01/08/24 01/08/24 Range/Units 10:30 10:50 10:50 WBC 24.3 H (3.8-10.6) k/uL MCV 105.0 H (80.0-100.0) fL Carbon Dioxide 21 L (22-30) mmol/L BUN 42 H (9-20) mg/dL Glucose 109 H (74-99) mg/dL POC Glucose (mg/dL) 242 H (70-110) mg/dL 01/08/24 01/08/24 01/08/24 Range/Units 11:33 12:09 12:52 WBC (3.8-10.6) k/uL MCV (80.0-100.0) fL Carbon Dioxide (22-30) mmol/L BUN (9-20) mg/dL Glucose (74-99) mg/dL POC Glucose (mg/dL) 69 L 56 L 182 H (70-110) mg/dL 01/08/24 01/08/24 01/09/24 Range/Units 16:37 20:01 02:32 WBC (3.8-10.6) k/uL MCV (80.0-100.0) fL Carbon Dioxide (22-30) mmol/L BUN (9-20) mg/dL Glucose (74-99) mg/dL POC Glucose (mg/dL) 201 H 191 H 206 H (70-110) mg/dL 01/09/24 Range/Units 06:02 WBC (3.8-10.6) k/uL MCV (80.0-100.0) fL Carbon Dioxide (22-30) mmol/L BUN (9-20) mg/dL Glucose (74-99) mg/dL POC Glucose (mg/dL) 173 H (70-110) mg/dL Microbiology - Last 24 Hours (Table) 01/06/24 12:00 Stool Culture - Preliminary Stool Yeast species
[2024-01-09 13:43] LABS: Glucose,Whole Blood 103 mg/dL (70-110)
--- NOTE | 2024-01-09 14:03 | P.PN ---
Subjective Progress Note Date: 01/09/24 Principal diagnosis: Acute COPD exacerbation On today's evaluation of 01/01/2024, the patient is still having some cough and congestion. No significant sputum production. He started having diarrhea as of yesterday and the patient was having frequent episodes. He remains on IV Rocephin. He is also on bronchodilators and steroids. A repeat echocardiogram was done and the patient was found to have an ejection fraction of 20 to 25%. There is severe global LV dysfunction and possibility of a small LV thrombus as noted on echocardiogram. Based on that, the patient has been maintained on anticoagulation with Eliquis 5 mg p.o. twice a day. The patient remains on Entresto. The patient remains on Lasix 40 mg every 12 hours. At the same time, the patient is on Symbicort 2 puffs twice a day, he has Trelegy Ellipta at the bedside. He is also on IV Solu-Medrol 40 mg every 12 hours. Labs from today shows a WBC count of 9.2, hemoglobin is at 12.8 and a platelet count is 140. BUN is 36 with a creatinine 1.07 and a sodium level is at 134. Awake and alert and communicating at this point in time. On today's evaluation of 01/02/2024, the patient is being seen for a follow-up. Improved compared to yesterday. Diarrhea is subsiding. Less short of breath. Less bronchospastic and wheezy. Remains on bronchodilators. Remains on Solu- Medrol. He is currently on a dose of 40 mg IV every 12 hours. Is also on Lasix and his patient is diuresing adequately. BUN is at 41 with a creatinine 1.1. Sodium is at 139. Patient is currently on 2 L of oxygen by nasal cannula. Reevaluate today on 01/03/2024, patient continues to have cough and wheezing, continues to have intermittent episodes of diarrhea, patient is on maximal course of bronchodilators, he is also on diuretics for history of ischemic cardiomyopathy and LV dysfunction. Chest x-ray showed no evidence of congestive heart failure, there is mostly evidence of atelectasis. Also doubt pneumoniaPatient is on 3 L nasal cannula O2 sats is 95%. BBC count today is 12.1 hemoglobin 14.6. Potassium is 4.7 procalcitonin level on admission is 0.28. Admission chest x-ray showed mostly atelectasis at the left base with interstitial edema, underlying left lower lobe infiltrate is not entirely ruled out Reevaluated today on 01/04/2024, patient is doing much better from the pulmonary perspective, he does not seem to be concerned about his pulmonary symptoms he seems to be more concerned about his ongoing diarrhea. Patient has been going to the bathroom almost on a hourly basis. He is receiving Lomotil, and today I added Pepto-Bismol, his screening for C. difficile toxin has been negative twice now. WBC count is 13.8 hemoglobin 13.4 basic metabolic profile is normal BUN is 44 creatinine 1.15 last chest x-ray few days ago showed right lower lobe atelectasis, questionable pneumonia, and mild pulmonary vascular congestion patient is now transition to oral Lasix, and he is also on Eliquis, patient does have history of LV thrombus Reevaluate today on 01/05/2024, patient continues to have intermittent and severe episodes of diarrhea. Patient was seen by infectious disease on consultation, and he was placed empirically on oral vancomycin, although 2 screenings for C. difficile colitis were negative. In the meantime, the patient remains on Lomotil, remains on Pepto-Bismol, and his diarrhea seems to be persistent. I feel the patient may have get GI evaluation and possibly colonoscopy. Pulmonary noble patient is doing better, breathing easier, occasional cough and wheezing only. Reevaluate today on 01/06/2024, patient is doing well from a pulmonary perspective, continues to have severe diarrhea. Patient is going to the bathroom on the average of once every 2 hours. Slightly better compared to yesterday he was going once every 1 hour. Pulmonary noble hardly any pulmonary symptoms no cough no wheezing no shortness of breath no chest pain. Reevaluate today on 01/07/2024, patient has no active pulmonary issues but he has mostly GI issues and persistent diarrhea go to the bathroom on the average of 1 every 1 and half hours. Denies any melena or hematemesis, denies any nausea or vomiting, considering we have no GI coverage, I am recommending surgical consultation, patient may need colonoscopy and biopsy.Continues to have leukocytosis with WBC of 16.8 hemoglobin 13.1 basic metabolic profile is normal BUN is 47 creatinine 1.19 Reevaluate today on 01/08/24, during my evaluation the patient this morning, he was noted to have shortness of breath, on physical examination he had scattered rhonchi and wheezes, he was also in atrial fibrillation with RVR, patient received Decadron, he also received a DuoNeb updrafts 4 times daily and as needed, and he received a low-dose dose of Lasix. Stat EKG was ordered, stat chest x-ray was ordered, chest x-ray showed no evidence of pulmonary edema and no acute process was noted basically had just minimal atelectasis at the right base, otherwise lungs were clear. Atrial fibrillation and RVR is being addressed by cardiology on the case. Continues to have diarrhea Patient was reevaluated today on 01/09/2024, patient seems to be doing better today compared to yesterday, but he continues to have intermittent episodes of diarrhea. Patient is scheduled to have colonoscopy tomorrow. In addition to his diarrhea, patient has underlying COPD with recurrent episodes of COPD exacerbation, and he does have acute on chronic congestive heart failure with reduced ejection fraction. Patient had previous AICD implantation. He also has diabetes, hypertension, and apparently atrial fibrillation was ruled out. ICD interrogation. He does have a small LV thrombus per echo chest x-ray this morning showed limited atelectasis at the right lung base, no evidence of pneumonia and no evidence of congestive heart failure Objective - Vital Signs Vital signs: Vital Signs Temp 97.6 F 01/09/24 11:15 Pulse 92 01/09/24 12:35 Resp 18 01/09/24 11:15 BP 118/74 01/09/24 11:15 Pulse Ox 96 01/09/24 11:15 FiO2 Intake & Output 01/08/24 01/09/24 01/09/24 18:59 06:59 18:59 Intake Total 698 898 Output Total 600 Balance 98 898 Weight 101.2 kg Intake: Oral 698 898 Output: Urine 600 Straight 350 Other: Voiding Method Toilet Toilet Toilet Urinal Urinal Urinal # Voids 1 2 # Bowel Movements 4 - Exam GENERAL EXAM: Alert, 73-year-old white male, on nasal cannula not in distress HEAD: Normocephalic and atraumatic EYES: Normal reaction of pupils, equal size. NOSE: Clear with pink turbinates. THROAT: No erythema or exudates. NECK: No masses, no JVD. CHEST: No chest wall deformity. LUNGS: Scattered rhonchi bilateral, more so on forced expiratory maneuver CVS: Normal S1-S2, no S3 gallop, regular rhythm. ABDOMEN: No hepatosplenomegaly, active bowel sounds, no guarding or rigidity. SKIN: No rashes CENTRAL NERVOUS SYSTEM: No focal deficits, tone is normal in all 4 extremities. EXTREMITIES: There is no peripheral edema, clubbing, or cyanosis. Peripheral pulses are intact. - Labs CBC & Chem 7: 01/08/24 10:50 01/08/24 10:50 Labs: Abnormal Lab Results - Last 24 Hours (Table) 01/08/24 01/08/24 01/09/24 Range/Units 16:37 20:01 02:32 POC Glucose (mg/dL) 201 H 191 H 206 H (70-110) mg/dL 01/09/24 Range/Units 06:02 POC Glucose (mg/dL) 173 H (70-110) mg/dL Microbiology - Last 24 Hours (Table) 01/06/24 12:00 Stool Culture - Preliminary Stool Yeast species Assessment and Plan Assessment: Impression: acute COPD exacerbation/, suspect also acute systolic CHF, significantly improved, chest x-ray this morning is reassuring Paroxysmal atrial fibrillation with RVR presently in sinus rhythm and intermittently tachycardic. Coronary artery disease with previous coronary stenting Ischemic cardiomyopathy/ systolic heart failure with an ejection fraction of 20 to 25% along with LV thrombus, currently on anticoagulation with Eliquis Diabetes mellitus type II, insulin-dependent, with hyperglycemia and mild DKA Mild anion gap metabolic acidosis, likely secondary to above and lactic acidosis History of implanted AICD/pacemaker History of hyperlipidemia History of coronary artery disease with previous PCI/stent Obesity, with a BMI of 31.2 kg/m Acute gastroenteritis, patient is on treatment, slight improvement Recommendation: This x-ray this morning is reassuring Continue updraft Continue diuretics Continue meant of his diarrhea, still not responding to treatment patient is scheduled for colonoscopy tomorrow Continue oral vancomycin as ordered by ID Continue Lomotil and Pepto-Bismol Continue bronchodilators Continue eliquis Continue Levemir insulin and insulin as per sliding scale Patient is off antibiotics altogether. Chest x-ray showed no pneumonia but minimal atelectasis at the right base/limited General surgery considering colonoscopy on this patient to further assess his diarrhea Will follow Time with Patient: Less than 30
[2024-01-09] MEDS ORDERED: PEG 3350 (236 GM/BTL) + LYTES 4,000 ML BOTTLE PO ONE (15:00)
--- NOTE | 2024-01-09 15:51 | P.PN ---
Subjective Progress Note Date: 01/09/24 Principal diagnosis: Reason for follow-up with diarrhea and leukocytosis Patient is a 73-year-old male past medical history significant for diabetes mellitus hypertension [place] COPD heart failure coronary artery disease presenting to the hospital for evaluation of increasing shortness of breath also developed significant diarrhea prompting this consultation. On today's evaluation that is 01/09/2024,the patient remains to be afebrile, patient is on room air not requiring supplemental oxygen however the congestion is complaining of shortness of breath no chest pain but continued to have cough.Patient denies having any nausea or vomiting, no abdominal pain still have significant diarrhea every hour on the hour. No new labs were obtained today white count was 24.3 yesterday Objective - Vital Signs Vital signs: Vital Signs Temp 97.6 F 01/09/24 11:15 Pulse 92 01/09/24 12:35 Resp 18 01/09/24 11:15 BP 118/74 01/09/24 11:15 Pulse Ox 96 01/09/24 11:15 FiO2 Intake & Output 01/08/24 01/09/24 01/09/24 18:59 06:59 18:59 Intake Total 698 898 Output Total 600 Balance 98 898 Weight 101.2 kg Intake: Oral 698 898 Output: Urine 600 Straight 350 Other: Voiding Method Toilet Toilet Toilet Urinal Urinal Urinal # Voids 1 2 # Bowel Movements 4 - Exam GENERAL DESCRIPTION: An elderly male up in bed in no distress RESPIRATORY SYSTEM: Unlabored breathing , decreased breath sounds at bases HEART: S1 S2 regular rate and rhythm , ABDOMEN: Soft , no tenderness EXTREMITIES: No edema feet - Labs CBC & Chem 7: 01/08/24 10:50 01/08/24 10:50 Labs: Abnormal Lab Results - Last 24 Hours (Table) 01/08/24 01/08/24 01/09/24 Range/Units 16:37 20:01 02:32 POC Glucose (mg/dL) 201 H 191 H 206 H (70-110) mg/dL 01/09/24 Range/Units 06:02 POC Glucose (mg/dL) 173 H (70-110) mg/dL Microbiology - Last 24 Hours (Table) 01/06/24 12:00 Stool Culture - Preliminary Stool Yeast species Assessment and Plan (1) Diarrhea Current Visit: Yes Status: Acute Code(s): R19.7 - DIARRHEA, UNSPECIFIED SNOMED Code(s): 16724180 (2) Leukocytosis Current Visit: Yes Status: Acute Code(s): D72.829 - ELEVATED WHITE BLOOD CELL COUNT, UNSPECIFIED SNOMED Code(s): 173973928 Plan: 1patient with extensive diarrhea over the last few days this patient has been exposed to antibiotics on the question of possible antibiotic associated diarrhea versus C. difficile colitis high clinical suspicions keeping in mind elevated white count 2-patient stool for C. difficile PCR came back negative, stool culture has been negative 3-patient continues to have significant diarrhea and did have elevated white count that is why vancomycin was added yesterday we will continue we will repeat a CBC tomorrow and await colonoscopy scheduled for tomorrow Family at the bedside questions answered Dictation was produced using [employer] dictation software. please excuse any grammatical, word or spelling errors. Time with Patient: Less than 30
[2024-01-09 16:57] LABS: Glucose,Whole Blood 81 mg/dL (70-110)
[2024-01-09 19:54] LABS: Glucose,Whole Blood 92 mg/dL (70-110)
[2024-01-09 23:02] LABS: Glucose,Whole Blood 53 mg/dL (70-110)
[2024-01-09 23:18] LABS: Glucose,Whole Blood 60 mg/dL (70-110)
[2024-01-09 23:39] LABS: Glucose,Whole Blood 180 mg/dL (70-110)
[2024-01-10 01:58] LABS: Glucose,Whole Blood 88 mg/dL (70-110)
[2024-01-10 06:05] LABS: Glucose,Whole Blood 62 mg/dL (70-110)
[2024-01-10 06:29] LABS: Glucose,Whole Blood 67 mg/dL (70-110)
[2024-01-10 06:45] LABS: Glucose,Whole Blood 91 mg/dL (70-110)
[2024-01-10 09:47] LABS: Glucose,Whole Blood 62 mg/dL (70-110)
[2024-01-10 10:05] LABS: Glucose,Whole Blood 94 mg/dL (70-110)
[2024-01-10 10:22] LABS: Glucose,Whole Blood 76 mg/dL (70-110)
[2024-01-10 10:26] LABS: HCT 46.4 % (39.0-53.0); HGB 14.2 gm/dL (13.0-17.5); MCH 31.4 pg (25.0-35.0); MCHC 30.6 g/dL (31.0-37.0); MCV 102.5 fL (80.0-100.0); Macrocytosis Slight; Mean Platelet Volume 8.6; Platelet Count 168 k/uL (150-450); RBC 4.53 m/uL (4.30-5.90); RDW 15.2 % (11.5-15.5); WBC 17.4 k/uL (3.8-10.6)
[2024-01-10 10:32] LABS: ALT 64 U/L (4-49); AST 51 U/L (17-59); African American GFR (CKD) 80 (>60 ml/min/1.73 sqM); Albumin 2.8 g/dL (3.5-5.0); Alkaline Phosphatase 173 U/L (38-126); Anion Gap 6 mmol/L; Blood Urea Nitrogen 36 mg/dL (9-20); C Reactive Protein 1.6 mg/dL (<1.0); Calcium 8.7 mg/dL (8.4-10.2); Carbon Dioxide 28 mmol/L (22-30); Chloride 102 mmol/L (98-107); Glucose 110 mg/dL (74-99); Non-African American GFR(CKD) 69 (>60 ml/min/1.73 sqM); Potassium 4.2 mmol/L (3.5-5.1); Sodium 136 mmol/L (137-145); Total Bilirubin 1.2 mg/dL (0.2-1.3); Total Protein 5.9 g/dL (6.3-8.2)
[2024-01-10 10:40] LABS: Glucose,Whole Blood 79 mg/dL (70-110)
[2024-01-10] MEDS: DEXTROSE 5%-0.45% NACL 1,000 ML IV SCH (10:43)
[2024-01-10] MEDS: DEXTROSE 50% SYRINGE 50 ML IVP STA (10:43)
[2024-01-10 11:21] LABS: Glucose,Whole Blood 130 mg/dL (70-110)
--- NOTE | 2024-01-10 14:24 | P.PN ---
Subjective Progress Note Date: 01/10/24 Principal diagnosis: Pneumonia. Reevaluate today on 01/03/2024, patient continues to have cough and wheezing, continues to have intermittent episodes of diarrhea, patient is on maximal course of bronchodilators, he is also on diuretics for history of ischemic cardiomyopathy and LV dysfunction. Chest x-ray showed no evidence of congestive heart failure, there is mostly evidence of atelectasis. Also doubt pneumoniaPatient is on 3 L nasal cannula O2 sats is 95%. BBC count today is 12.1 hemoglobin 14.6. Potassium is 4.7 procalcitonin level on admission is 0.28. Admission chest x-ray showed mostly atelectasis at the left base with interstitial edema, underlying left lower lobe infiltrate is not entirely ruled out Reevaluated today on 01/04/2024, patient is doing much better from the pulmonary perspective, he does not seem to be concerned about his pulmonary symptoms he seems to be more concerned about his ongoing diarrhea. Patient has been going to the bathroom almost on a hourly basis. He is receiving Lomotil, and today I added Pepto-Bismol, his screening for C. difficile toxin has been negative twice now. WBC count is 13.8 hemoglobin 13.4 basic metabolic profile is normal BUN is 44 creatinine 1.15 last chest x-ray few days ago showed right lower lobe atel ectasis, questionable pneumonia, and mild pulmonary vascular congestion patient is now transition to oral Lasix, and he is also on Eliquis, patient does have history of LV thrombus Reevaluate today on 01/05/2024, patient continues to have intermittent and severe episodes of diarrhea. Patient was seen by infectious disease on consultation, and he was placed empirically on oral vancomycin, although 2 screenings for C. difficile colitis were negative. In the meantime, the patient remains on Lomot il, remains on Pepto-Bismol, and his diarrhea seems to be persistent. I feel the patient may have get GI evaluation and possibly colonoscopy. Pulmonary noble patient is doing better, breathing easier, occasional cough and wheezing only. Reevaluate today on 01/06/2024, patient is doing well from a pulmonary perspective, continues to have severe diarrhea. Patient is going to the bathroom on the average of once every 2 hours. Slightly better compared to yesterday he was going once every 1 hour. Pulmonary noble hardly any pulmonary symptoms no cough no wheezing no shortness of breath no chest pain. Reevaluate today on 01/07/2024, patient has no active pulmonary issues but he has mostly GI issues and persistent diarrhea go to the bathroom on the average of 1 every 1 and half hours. Denies any melena or hematemesis, denies any nausea or vomiting, considering we have no GI coverage, I am recommending surgical consultation, patient may need colonoscopy and biopsy.Continues to have leukocyt osis with WBC of 16.8 hemoglobin 13.1 basic metabolic profile is normal BUN is 47 creatinine 1.19 Reevaluate today on 01/08/24, during my evaluation the patient this morning, he was noted to have shortness of breath, on physical examination he had scattered rhonchi and wheezes, he was also in atrial fibrillation with RVR, patient received Decadron, he also received a DuoNeb updrafts 4 times daily and as needed, and he received a low-dose dose of Lasix. Stat EKG was ordered, stat chest x-ray was ordered, chest x-ray showed no evidence of pulmonary edema and no acute process was noted basically had just minimal atelectasis at the right base, otherwise lungs were clear. Atrial fibrillation and RVR is being addressed by cardiology on the case. Continues to have diarrhea Patient was reevaluated today on 01/09/2024, patient seems to be doing better today compared to yesterday, but he continues to have intermittent episodes of diarrhea. Patient is scheduled to have colonoscopy tomorrow. In addition to his diarrhea, patient has underlying COPD with recurrent episodes of COPD exacerbation, and he does have acute on chronic congestive heart failure with reduced ejection fraction. Patient had previous AICD implantation. He also has diabetes, hypertension, and apparently atrial fibrillation was ruled out. ICD interrogation. He does have a small LV thrombus per echo chest x-ray this morning showed limited atelectasis at the right lung base, no evidence of pneumonia and no evidence of congestive heart failure Progress note dated January 10, 2024. The patient is seen today in room 375. This is a 73-year-old gentleman who was admitted with a diagnosis of pneumonia. The patient is getting 3 L of oxygen by nasal cannula. He is also getting dextrose with half-normal saline at 50 cc an hour. The patient is scheduled to have a colonoscopy today. He has been having significant diarrhea, and was started on oral vancomycin. He still having significant diarrhea. Labs today include a white count of 17.4, hemoglobin 14.2, hematocrit 46.4, and platelet count of 168,000. Sodium 136, potassium 4.2, chlorides 102, CO2 28, BUN 36, creatinine 1.06. Albumin is 2.8. Glucose is 130. Stool cultures only show evidence of yeast species. Objective - Vital Signs Vital signs: Vital Signs Temp 97.4 F L 01/10/24 11:54 Pulse 66 01/10/24 11:54 Resp 20 01/10/24 11:54 BP 111/66 01/10/24 11:54 Pulse Ox 92 L 01/10/24 11:54 FiO2 Intake & Output 01/09/24 01/10/24 01/10/24 18:59 06:59 18:59 Intake Total 898 Balance 898 Weight 99.5 kg Intake: Oral 898 Other: Voiding Method Toilet Toilet Urinal Urinal - Exam No acute distress, oriented 3. Currently on 3 L of oxygen. No conversational dyspnea or use of accessory muscles. HEENT examination is grossly unremarkable. Mucous membranes are moist. No oral lesions. Neck supple. Full range of motion. No adenopathy thyromegaly or neck vein distention. Cardiovascular examination reveals regular rhythm rate. S1-S2 normal. No S3 or S4. No discernible murmur noted. Heart rate 66 bpm. Heart sounds are distant. Lungs reveal scattered bilateral rhonchi. No wheezes or crackles. Breath sounds equal bilaterally. 3 L saturation is 95%. Abdomen soft bowel sounds are heard. No masses or tenderness. Extremities are intact. No cyanosis clubbing or edema. Skin is without rash or lesion. Neurologic examination is brief but nonfocal. - Labs CBC & Chem 7: 01/10/24 09:53 01/10/24 09:53 Labs: Abnormal Lab Results - Last 24 Hours (Table) 01/09/24 01/09/24 01/09/24 Range/Units 23:00 23:16 23:37 WBC (3.8-10.6) k/uL MCV (80.0-100.0) fL MCHC (31.0-37.0) g/dL Sodium (137-145) mmol/L BUN (9-20) mg/dL Glucose (74-99) mg/dL POC Glucose (mg/dL) 53 L 60 L 180 H (70-110) mg/dL ALT (4-49) U/L Alkaline Phosphatase (38-126) U/L C-Reactive Protein (<1.0) mg/dL Total Protein (6.3-8.2) g/dL Albumin (3.5-5.0) g/dL 01/10/24 01/10/24 01/10/24 Range/Units 06:03 06:28 09:45 WBC (3.8-10.6) k/uL MCV (80.0-100.0) fL MCHC (31.0-37.0) g/dL Sodium (137-145) mmol/L BUN (9-20) mg/dL Glucose (74-99) mg/dL POC Glucose (mg/dL) 62 L 67 L 62 L (70-110) mg/dL ALT (4-49) U/L Alkaline Phosphatase (38-126) U/L C-Reactive Protein (<1.0) mg/dL Total Protein (6.3-8.2) g/dL Albumin (3.5-5.0) g/dL 01/10/24 01/10/24 01/10/24 Range/Units 09:53 09:53 11:18 WBC 17.4 H (3.8-10.6) k/uL MCV 102.5 H (80.0-100.0) fL MCHC 30.6 L (31.0-37.0) g/dL Sodium 136 L (137-145) mmol/L BUN 36 H (9-20) mg/dL Glucose 110 H (74-99) mg/dL POC Glucose (mg/dL) 130 H (70-110) mg/dL ALT 64 H (4-49) U/L Alkaline Phosphatase 173 H (38-126) U/L C-Reactive Protein 1.6 H (<1.0) mg/dL Total Protein 5.9 L (6.3-8.2) g/dL Albumin 2.8 L (3.5-5.0) g/dL Microbiology - Last 24 Hours (Table) 01/06/24 12:00 Stool Culture - Final Stool Yeast species Assessment and Plan Assessment: Acute COPD exacerbation, along with acute systolic CHF, both much improved. Paroxysmal atrial fibrillation with RVR. Coronary artery disease with previous coronary stenting. Ischemic cardiomyopathy/systolic heart failure, with an ejection fraction of 20 to 25%. LV thrombus. Diabetes mellitus. Anion gap metabolic acidosis, resolved. History of implanted AICD/pacemaker. Hyperlipidemia. Obesity. Acute gastroenteritis. Plan: Plan dated January 10, 2024. The patient continues on oral vancomycin, for suspected C. difficile colitis. Studies have been negative. The patient is going to have a colonoscopy later today. He continues on updrafts, and diuretics. He also continues on other appropriate antidiarrheal medications. The patient also continues on Eliquis. We will continue to follow the patient, make recommendations along the way. Labs, x-rays, and medications are reviewed. Prognosis is guarded. Time with Patient: Less than 30
[2024-01-10] MEDS ORDERED: ETOMIDATE 2 MG/ML 10 ML VIAL ONE (15:00)
--- NOTE | 2024-01-10 15:00 | P.GSCN ---
History of Present Illness Consult date: 02/07/24 Reason for Consult: diarrhea History of present illness: this a 73-year-old male with multiple medical problems. Patient has had with diarrhea. I been asked him regarding colonoscopy. Past Medical History Past Medical History: Coronary Artery Disease (CAD), Heart Failure, COPD, Diabetes Mellitus, Hyperlipidemia, Myocardial Infarction ([place]) Additional Past Medical History / Comment(s): defibrilator bph Last Myocardial Infarction Date:: 2002 History of Any Multi-Drug Resistant Organisms: None Reported Past Surgical History: Cholecystectomy, Heart Catheterization With Stent Past Anesthesia/Blood Transfusion Reactions: No Reported Reaction Date of Last Stent Placement:: 2002 Type of Cardiac Device: AICD Device Placement Date:: 2013 Past Psychological History: No Psychological Hx Reported Past Alcohol Use History: Rare Past Drug Use History: None Reported Medications and Allergies Home Medications Medication Instructions Recorded Confirmed Type Albuterol Inhaler [Ventolin Hfa 1 - 2 puff INHALATION RT-QID PRN 05/22/17 12/30/23 History Inhaler] Aspirin EC [Ecotrin Low Dose] 81 mg PO HS 05/22/17 12/30/23 History Atorvastatin [Lipitor] 40 mg PO HS 05/22/17 12/30/23 History Budesonide [Pulmicort] 0.5 mg INHALATION RT-BID 05/22/17 12/30/23 History Clindamycin Topical Soln 1 applic TOPICAL BID PRN 05/22/17 12/30/23 History [Cleocin-T Topical Soln] Formoterol Fumarate [Perforomist] 20 mcg INHALATION RT-BID 05/22/17 12/30/23 History Furosemide [Lasix] 40 mg PO DAILY PRN 05/22/17 12/30/23 History Insulin Glargine,Hum.rec.anlog 50 unit SQ DAILY 05/22/17 12/30/23 History [Lantus Solostar] Ipratropium-Albuterol Nebulize 3 ml INHALATION RT-QID 05/22/17 12/30/23 History [Duoneb 0.5 mg-3 mg/3 ml Soln] Loratadine [Claritin] 10 mg PO DAILY 05/22/17 12/30/23 History Montelukast [Singulair] 10 mg PO HS 05/22/17 12/30/23 History Nitroglycerin Sl Tabs [Nitrostat] 0.4 mg SUBLINGUAL Q5M PRN 05/22/17 12/30/23 History Potassium Chloride ER [K-Dur 20] 20 meq PO DAILY PRN 05/22/17 12/30/23 History traMADol HCL [Ultram] 50 mg PO BID PRN 05/22/17 12/30/23 History Bisoprolol Fumarate 5 mg PO DAILY 12/30/23 12/30/23 History Cholecalciferol [Vitamin D3 (125 125 mcg PO DAILY 12/30/23 12/30/23 History Mcg = 5000 Iu)] Dapagliflozin Propanediol [Farxiga] 10 mg PO DAILY 12/30/23 12/30/23 History Fluticasone/Umeclidin/Vilanter 1 puff INHALATION RT-DAILY 12/30/23 12/30/23 History [Trelegy Ellipta 200-62.5-25] Insulin Aspart (Niacinamide) 15 units SQ HS 12/30/23 12/30/23 History [Fiasp 100 Unit/ml Flextouch Pen] Insulin Aspart (Niacinamide) 22 units SQ TID-W/MEALS 12/30/23 12/30/23 History [Fiasp 100 Unit/ml Flextouch Pen] Insulin Glargine,Hum.rec.anlog 10 units SQ W/SUPPER PRN 12/30/23 12/30/23 History [Lantus Solostar Pen] Ketoconazole 2% Cream [Nizoral 2%] 1 applic TOPICAL BID PRN 12/30/23 12/30/23 History Midodrine [ProAmatine] 5 mg PO TID 12/30/23 12/30/23 History Omeprazole 20 mg PO BID 12/30/23 12/30/23 History Sacubitril/Valsartan [Entresto 24 1 tab PO BID 12/30/23 12/30/23 History mg-26 mg Tablet] Spironolactone [Aldactone] 25 mg PO DIRECTED 12/30/23 12/30/23 History Tamsulosin [Flomax] 0.4 mg PO BID 12/30/23 12/30/23 History guaiFENesin [Mucinex] 1,200 mg PO BID PRN 12/30/23 12/30/23 History predniSONE See Taper PO DIRECTED 12/30/23 12/30/23 History predniSONE See Taper PO DIRECTED PRN 12/30/23 12/30/23 History Allergies Allergy/AdvReac Type Severity Reaction Status Date / Time carvedilol [From Coreg] Allergy Rash/Hives Verified 12/30/23 13:05 metformin AdvReac Diarrhea Verified 12/30/23 13:05 Surgical - Exam Vital Signs Temp Pulse Resp BP Pulse Ox 97.2 F L 104 H 20 101/71 98 12/30/23 10:46 12/30/23 10:46 12/30/23 10:46 12/30/23 10:46 12/30/23 10:46 - General well developed, well nourished, no distress - Eyes PERRL - ENT normal pinna - Neck no masses - Respiratory normal expansion - Cardiovascular Rhythm: regular - Abdomen Abdomen: soft, non tender Results - Labs 01/10/24 09:53 01/10/24 09:53 Abnormal Lab Results - Last 24 Hours (Table) 01/06/24 01/09/24 01/09/24 Range/Units 12:00 23:00 23:16 WBC (3.8-10.6) k/uL MCV (80.0-100.0) fL MCHC (31.0-37.0) g/dL Sodium (137-145) mmol/L BUN (9-20) mg/dL Glucose (74-99) mg/dL POC Glucose (mg/dL) 53 L 60 L (70-110) mg/dL ALT (4-49) U/L Alkaline Phosphatase (38-126) U/L C-Reactive Protein (<1.0) mg/dL Total Protein (6.3-8.2) g/dL Albumin (3.5-5.0) g/dL Stool Lactoferrin Positive A (Negative) 01/09/24 01/10/24 01/10/24 Range/Units 23:37 06:03 06:28 WBC (3.8-10.6) k/uL MCV (80.0-100.0) fL MCHC (31.0-37.0) g/dL Sodium (137-145) mmol/L BUN (9-20) mg/dL Glucose (74-99) mg/dL POC Glucose (mg/dL) 180 H 62 L 67 L (70-110) mg/dL ALT (4-49) U/L Alkaline Phosphatase (38-126) U/L C-Reactive Protein (<1.0) mg/dL Total Protein (6.3-8.2) g/dL Albumin (3.5-5.0) g/dL Stool Lactoferrin (Negative) 01/10/24 01/10/24 01/10/24 Range/Units 09:45 09:53 09:53 WBC 17.4 H (3.8-10.6) k/uL MCV 102.5 H (80.0-100.0) fL MCHC 30.6 L (31.0-37.0) g/dL Sodium 136 L (137-145) mmol/L BUN 36 H (9-20) mg/dL Glucose 110 H (74-99) mg/dL POC Glucose (mg/dL) 62 L (70-110) mg/dL ALT 64 H (4-49) U/L Alkaline Phosphatase 173 H (38-126) U/L C-Reactive Protein 1.6 H (<1.0) mg/dL Total Protein 5.9 L (6.3-8.2) g/dL Albumin 2.8 L (3.5-5.0) g/dL Stool Lactoferrin (Negative) 01/10/24 Range/Units 11:18 WBC (3.8-10.6) k/uL MCV (80.0-100.0) fL MCHC (31.0-37.0) g/dL Sodium (137-145) mmol/L BUN (9-20) mg/dL Glucose (74-99) mg/dL POC Glucose (mg/dL) 130 H (70-110) mg/dL ALT (4-49) U/L Alkaline Phosphatase (38-126) U/L C-Reactive Protein (<1.0) mg/dL Total Protein (6.3-8.2) g/dL Albumin (3.5-5.0) g/dL Stool Lactoferrin (Negative) Microbiology - Last 24 Hours (Table) 01/06/24 12:00 Stool Culture - Final Stool Yeast species Diabetes panel 01/10/24 Range/Units 09:53 Sodium 136 L (137-145) mmol/L Potassium 4.2 (3.5-5.1) mmol/L Chloride 102 (98-107) mmol/L Carbon Dioxide 28 (22-30) mmol/L BUN 36 H (9-20) mg/dL Creatinine 1.06 (0.66-1.25) mg/dL Glucose 110 H (74-99) mg/dL Calcium 8.7 (8.4-10.2) mg/dL AST 51 (17-59) U/L ALT 64 H (4-49) U/L Alkaline Phosphatase 173 H (38-126) U/L Total Protein 5.9 L (6.3-8.2) g/dL Albumin 2.8 L (3.5-5.0) g/dL Calcium panel 01/10/24 Range/Units 09:53 Calcium 8.7 (8.4-10.2) mg/dL Albumin 2.8 L (3.5-5.0) g/dL Pituitary panel 01/10/24 Range/Units 09:53 Sodium 136 L (137-145) mmol/L Potassium 4.2 (3.5-5.1) mmol/L Chloride 102 (98-107) mmol/L Carbon Dioxide 28 (22-30) mmol/L BUN 36 H (9-20) mg/dL Creatinine 1.06 (0.66-1.25) mg/dL Glucose 110 H (74-99) mg/dL Calcium 8.7 (8.4-10.2) mg/dL Adrenal panel 01/10/24 Range/Units 09:53 Sodium 136 L (137-145) mmol/L Potassium 4.2 (3.5-5.1) mmol/L Chloride 102 (98-107) mmol/L Carbon Dioxide 28 (22-30) mmol/L BUN 36 H (9-20) mg/dL Creatinine 1.06 (0.66-1.25) mg/dL Glucose 110 H (74-99) mg/dL Calcium 8.7 (8.4-10.2) mg/dL Total Bilirubin 1.2 (0.2-1.3) mg/dL AST 51 (17-59) U/L ALT 64 H (4-49) U/L Alkaline Phosphatase 173 H (38-126) U/L Total Protein 5.9 L (6.3-8.2) g/dL Albumin 2.8 L (3.5-5.0) g/dL Assessment and Plan Assessment: we'll perform colonoscopy.
[2024-01-10] MEDS: IV FLUID CONTINUATION 1,000 ML IV ONE (15:01)
--- NOTE | 2024-01-10 15:19 | P.OP ---
Date of Procedure: 01/10/24 Preoperative Diagnosis: colonoscopy Postoperative Diagnosis: rectal polyp Procedure(s) Performed: colonoscopy Anesthesia: MAC Surgeon: Amari Foote Pathology: other (rectal polyp) Condition: stable Disposition: PACU Description of Procedure: the patient's placed on the endoscopy table in the lateral position. He received IV sedation. Digital rectal exam performed. This revealed no abnormalities. Flexible colonoscope was then placed patient anus and passed throughout the colon. In the right colon there was a large amount of liquid stool. This prevented the scope be advanced into the cecum. The visualized distal rightcolon appeared normal.the transverse colon appeared normal. In the descending; there was moderate diverticulosis. Scope summer back the rectum and a smasmall polyp was seen. This removed with the cold forcep. Scope withdrawn for patient.
[2024-01-10] MEDS: INSULIN ASPART (NovoLOG) 100 UNIT/ML VIAL SQ SCH (15:43)
[2024-01-10 16:56] LABS: Glucose,Whole Blood 179 mg/dL (70-110)
--- NOTE | 2024-01-10 18:55 | P.PN ---
Subjective Progress Note Date: 01/10/24 Principal diagnosis: Reason for follow-up with diarrhea and leukocytosis Patient is a 73-year-old male past medical history significant for diabetes mellitus hypertension MD COPD heart failure coronary artery disease presenting to the hospital for evaluation of increasing shortness of breath also developed significant diarrhea prompting this consultation. On today's evaluation that is 01/10/2024, the patient continues to be afebrile, the patient is on 3 L current oxygen has been complaining of shortness of breath he did have a cough but no sputum production denies abdominal pain no nausea vomiting did have significant output from the bowel prep. Patient white count is down to 17.4, creatinine 1.06 Objective - Vital Signs Vital signs: Vital Signs Temp 97.4 F L 01/10/24 11:54 Pulse 66 01/10/24 11:54 Resp 20 01/10/24 11:54 BP 111/66 01/10/24 11:54 Pulse Ox 92 L 01/10/24 11:54 FiO2 Intake & Output 01/09/24 01/10/24 01/10/24 18:59 06:59 18:59 Intake Total 898 Balance 898 Weight 99.5 kg Intake: Oral 898 Other: Voiding Method Toilet Toilet Urinal Urinal - Exam GENERAL DESCRIPTION: An elderly male up in bed in no distress RESPIRATORY SYSTEM: Unlabored breathing , decreased breath sounds at bases HEART: S1 S2 regular rate and rhythm , ABDOMEN: Soft , no tenderness EXTREMITIES: No edema feet - Labs CBC & Chem 7: 01/10/24 09:53 01/10/24 09:53 Labs: Abnormal Lab Results - Last 24 Hours (Table) 01/09/24 01/09/24 01/09/24 Range/Units 23:00 23:16 23:37 WBC (3.8-10.6) k/uL MCV (80.0-100.0) fL MCHC (31.0-37.0) g/dL Sodium (137-145) mmol/L BUN (9-20) mg/dL Glucose (74-99) mg/dL POC Glucose (mg/dL) 53 L 60 L 180 H (70-110) mg/dL ALT (4-49) U/L Alkaline Phosphatase (38-126) U/L C-Reactive Protein (<1.0) mg/dL Total Protein (6.3-8.2) g/dL Albumin (3.5-5.0) g/dL 01/10/24 01/10/24 01/10/24 Range/Units 06:03 06:28 09:45 WBC (3.8-10.6) k/uL MCV (80.0-100.0) fL MCHC (31.0-37.0) g/dL Sodium (137-145) mmol/L BUN (9-20) mg/dL Glucose (74-99) mg/dL POC Glucose (mg/dL) 62 L 67 L 62 L (70-110) mg/dL ALT (4-49) U/L Alkaline Phosphatase (38-126) U/L C-Reactive Protein (<1.0) mg/dL Total Protein (6.3-8.2) g/dL Albumin (3.5-5.0) g/dL 01/10/24 01/10/24 01/10/24 Range/Units 09:53 09:53 11:18 WBC 17.4 H (3.8-10.6) k/uL MCV 102.5 H (80.0-100.0) fL MCHC 30.6 L (31.0-37.0) g/dL Sodium 136 L (137-145) mmol/L BUN 36 H (9-20) mg/dL Glucose 110 H (74-99) mg/dL POC Glucose (mg/dL) 130 H (70-110) mg/dL ALT 64 H (4-49) U/L Alkaline Phosphatase 173 H (38-126) U/L C-Reactive Protein 1.6 H (<1.0) mg/dL Total Protein 5.9 L (6.3-8.2) g/dL Albumin 2.8 L (3.5-5.0) g/dL Microbiology - Last 24 Hours (Table) 01/06/24 12:00 Stool Culture - Final Stool Yeast species Assessment and Plan (1) Diarrhea Current Visit: Yes Status: Acute Code(s): R19.7 - DIARRHEA, UNSPECIFIED SNOMED Code(s): 18468074 (2) Leukocytosis Current Visit: Yes Status: Acute Code(s): D72.829 - ELEVATED WHITE BLOOD CELL COUNT, UNSPECIFIED SNOMED Code(s): 887399392 Plan: 1patient with extensive diarrhea over the last few days this patient has been e xposed to antibiotics on the question of possible antibiotic associated diarrhea versus C. difficile colitis high clinical suspicions keeping in mind elevated white count 2-patient stool for C. difficile PCR came back negative, stool culture has been negative 3-patient white count is trending down we will keep the patient on oral vancomycin await colonoscopy question concern answered Dictation was produced using [employer] dictation software. please excuse any grammatical, word or spelling errors. Time with Patient: Less than 30
[2024-01-10 19:54] LABS: Glucose,Whole Blood 333 mg/dL (70-110)
--- NOTE | 2024-01-10 23:55 | P.PN ---
Subjective Patient is a 73-year-old male with a known history of hyperlipidemia, diabetes type 2 insulin-dependent, coronary artery disease with prior stent placement, history of mild chronic CHF with mildly impaired systolic dysfunction ejection fraction 40 to 45% and moderate left ventricular concentric hypertrophy presents to ER with complaints of shortness of breath for the past 2 weeks and not getting better. Patient states that he has been having difficulty in breathing and felt like fluid in the lung. Also states that he felt warm and sweating at home. Patient was seen by his primary care physician and was given prednisone tapering course couple days ago which he has been taking. Patient is also complaining of diarrhea. Denies any fever or chills at home. Patient also states that he has increased leg swelling and gaining weight and has been taking extra dose of Lasix at home. Patient states that he has CHF and COPD. Chest x-ray on admission showed left basilar atelectasis or early infiltrate. EKG showed electronic ventricular paced rhythm. Laboratory data showed WBC 11.3 hemoglobin 14.2 and platelets 185 Sodium 132 potassium 3.5 chloride 94 bicarb is 19 anion gap 19 BUN 27 creatinine 1.12 and blood sugar 524 Lactic acid 4.1 calcium 8.0 magnesium 2.0 and total bili 1.8 liver regnancy not elevated troponin less than 0.12 and proBNP 2670 and albumin 2.8 Urinalysis showed 4+ glucose and leukocyte esterase negative. Influenza A B RSV and COVID-19 PCR not detected. 12/31/2023 Patient is resting in the bed. Awake alert and oriented. Overnight patient was hyperglycemic and requiring insulin drip. Patient was also started on IV Lasix. Breathing status is better today. No complaints of chest pain. No nausea vomiting abdominal pain or diarrhea. Patient is tolerating oral diet. Repeat chest x-ray this morning showed left retrocardiac consolidation correlate for atelectasis versus early pneumonia. Patient is being continued on antibiotics ceftriaxone and azithromycin. Pulmonary and cardiology is on board. Laboratory data showed WBC 11.4 hemoglobin 13.0 and platelets 167 12/31. Patient seen and examined. Complaining of diarrhea denies any nausea or vomiting. Shortness of breath is improved. 01/01. Patient seen and examined. Labs this morning showed sodium 139, potassium 4.4, BUN 41, creatinine 1.14. Diarrhea has improved. Currently on IV Lasix and Eliquis. Swelling of legs has improved 01/02. Patient seen and examined. States he is still having diarrhea. States the frequency has improved but still going up to 10 times per day. Denies any blood in the stools. 01/03. Patient seen and examined. Blood work showed WBC 13.8, hemoglobin 13.4, platelet count 214, sodium 137 potassium 4.3, BUN 10, creatinine 44. Continues to complain of diarrhea. Denies any blood in the stools. Denies any abdominal pain 01/04. Patient seen and examined. Patient still having diarrhea, states he is going every hour. Does not look in any distress. Currently on vancomycin which was started by ID for C. difficile suspicion, stool for C. difficile is negative. 01/05. Patient seen and examined. States diarrhea has improved, now he is saying hours diarrhea is every 2 hours. 01/06. Patient seen and examined. Continues to have diarrhea, surgery evaluated the patient, planning colonoscopy on Sunday 01/07. Patient seen and examined. Patient had a team called this morning for A- fib with RVR. Patient blood sugar was also found to be low. Patient was given Cardizem bolus 10 mg once and his heart rate improved. Patient night Dose of NovoLog was discontinued, morning dose of NovoLog was decreased to 15 units. 01/08. Patient seen and examined. Cardiology evaluated patient, recommended keeping patient on current medication regimen and getting AICD interrogation. Blood sugars remained stable. Surgery planning colonoscopy on Wednesday complains of shortness of breath on exertion. 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 Also will lower his NovoLog 22 units down to 20 units twice daily, also he takes 15 units with breakfast which is unchanged today. Keep monitoring glucose. Patient is having a lot of loose stool secondary to bowel preparation as he is going for colonoscopy today. at bedside and all questions were answered Objective - Vital Signs Vital signs: Vital Signs Temp 97.6 F 01/10/24 08:00 Pulse 92 01/10/24 08:45 Resp 20 01/10/24 08:00 BP 105/70 01/10/24 08:00 Pulse Ox 96 01/10/24 08:00 FiO2 Intake & Output 01/09/24 01/10/24 01/10/24 18:59 06:59 18:59 Intake Total 898 Balance 898 Weight 99.5 kg Intake: Oral 898 Other: Voiding Method Toilet Toilet Urinal Urinal - Exam GENERAL: The patient is alert and oriented x3, not in any acute distress. Well developed, well nourished. HEENT: Pupils are round and equally reacting to light. EOMI. No scleral icterus. No conjunctival pallor. Normocephalic, atraumatic. No pharyngeal erythema. No thyromegaly. CARDIOVASCULAR: S1 and S2 present. No murmurs, rubs, or gallops. PULMONARY: Chest is clear to auscultation, no wheezing , no crackles. ABDOMEN: Soft, nontender, nondistended, normoactive bowel sounds. No palpable organomegaly. MUSCULOSKELETAL: No joint swelling or deformity. EXTREMITIES: No cyanosis, clubbing, or pedal edema. NEUROLOGICAL: Gross neurological examination did not reveal any focal deficits. SKIN: No rashes. no petechiae. - Labs CBC & Chem 7: 01/10/24 09:53 01/10/24 09:53 Labs: Abnormal Lab Results - Last 24 Hours (Table) 01/09/24 01/09/24 01/09/24 Range/Units 23:00 23:16 23:37 POC Glucose (mg/dL) 53 L 60 L 180 H (70-110) mg/dL 01/10/24 01/10/24 01/10/24 Range/Units 06:03 06:28 09:45 POC Glucose (mg/dL) 62 L 67 L 62 L (70-110) mg/dL Microbiology - Last 24 Hours (Table) 01/06/24 12:00 Stool Culture - Preliminary Stool Yeast species Assessment and Plan Assessment: Acute COPD exacerbation failed outpatient treatment. LV thrombus Hyperglycemia with uncontrolled diabetes type 2 insulin-dependent A1c 12 Left basilar atelectasis and possible early infiltrate/pneumonia Acute on Chronic CHF with mildly reduced systolic dysfunction ejection fraction 40 to 45% as per 2D echocardiogram in 2018. Patient had stress test in 2018. follows with Dr. Graham as an outpatient. Coronary artery disease history of stent placement Lactic acidosis likely due to tissue hypoperfusion Hypovolemic hyponatremia and pseudohyponatremia Hypoalbuminemia Hyperlipidemia History of [place] Plan: Patient is going for colonoscop with surgery team for his diarrheal disease today Continue with Eliquis Continue with prednisone 30 mg On oral vancomycin On aspirin 81 mg On metoprolol Entresto and Aldactone also he is on Lasix and Farxiga. Cardiology and pulmonary service consult GI and DVT prophylaxis Prognosis is guarded
[2024-01-11 01:58] LABS: Glucose,Whole Blood 336 mg/dL (70-110)
[2024-01-11 05:57] LABS: Glucose,Whole Blood 205 mg/dL (70-110)
[2024-01-11] MEDS: INSULIN DETEMIR (LEVEMIR) 100 UNIT/ML SYR SQ SCH (06:52)
--- NOTE | 2024-01-11 10:16 | P.PN ---
Subjective Patient is a 73-year-old male with a known history of hyperlipidemia, diabetes type 2 insulin-dependent, coronary artery disease with prior stent placement, history of mild chronic CHF with mildly impaired systolic dysfunction ejection fraction 40 to 45% and moderate left ventricular concentric hypertrophy presents to ER with complaints of shortness of breath for the past 2 weeks and not getting better. Patient states that he has been having difficulty in breathing and felt like fluid in the lung. Also states that he felt warm and sweating at home. Patient was seen by his primary care physician and was given prednisone tapering course couple days ago which he has been taking. Patient is also complaining of diarrhea. Denies any fever or chills at home. Patient also states that he has increased leg swelling and gaining weight and has been taking extra dose of Lasix at home. Patient states that he has CHF and COPD. Chest x-ray on admission showed left basilar atelectasis or early infiltrate. EKG showed electronic ventricular paced rhythm. Laboratory data showed WBC 11.3 hemoglobin 14.2 and platelets 185 Sodium 132 potassium 3.5 chloride 94 bicarb is 19 anion gap 19 BUN 27 creatinine 1.12 and blood sugar 524 Lactic acid 4.1 calcium 8.0 magnesium 2.0 and total bili 1.8 liver regnancy not elevated troponin less than 0.12 and proBNP 2670 and albumin 2.8 Urinalysis showed 4+ glucose and leukocyte esterase negative. Influenza A B RSV and COVID-19 PCR not detected. 12/31/2023 Patient is resting in the bed. Awake alert and oriented. Overnight patient was hyperglycemic and requiring insulin drip. Patient was also started on IV Lasix. Breathing status is better today. No complaints of chest pain. No nausea vomiting abdominal pain or diarrhea. Patient is tolerating oral diet. Repeat chest x-ray this morning showed left retrocardiac consolidation correlate for atelectasis versus early pneumonia. Patient is being continued on antibiotics ceftriaxone and azithromycin. Pulmonary and cardiology is on board. Laboratory data showed WBC 11.4 hemoglobin 13.0 and platelets 167 12/31. Patient seen and examined. Complaining of diarrhea denies any nausea or vomiting. Shortness of breath is improved. 01/01. Patient seen and examined. Labs this morning showed sodium 139, potassium 4.4, BUN 41, creatinine 1.14. Diarrhea has improved. Currently on IV Lasix and Eliquis. Swelling of legs has improved 01/02. Patient seen and examined. States he is still having diarrhea. States the frequency has improved but still going up to 10 times per day. Denies any blood in the stools. 01/03. Patient seen and examined. Blood work showed WBC 13.8, hemoglobin 13.4, platelet count 214, sodium 137 potassium 4.3, BUN 10, creatinine 44. Continues to complain of diarrhea. Denies any blood in the stools. Denies any abdominal pain 01/04. Patient seen and examined. Patient still having diarrhea, states he is going every hour. Does not look in any distress. Currently on vancomycin which was started by ID for C. difficile suspicion, stool for C. difficile is negative. 01/05. Patient seen and examined. States diarrhea has improved, now he is saying hours diarrhea is every 2 hours. 01/06. Patient seen and examined. Continues to have diarrhea, surgery evaluated the patient, planning colonoscopy on Sunday 01/07. Patient seen and examined. Patient had a team called this morning for A- fib with RVR. Patient blood sugar was also found to be low. Patient was given Cardizem bolus 10 mg once and his heart rate improved. Patient night Dose of NovoLog was discontinued, morning dose of NovoLog was decreased to 15 units. 01/08. Patient seen and examined. Cardiology evaluated patient, recommended keeping patient on current medication regimen and getting AICD interrogation. Blood sugars remained stable. Surgery planning colonoscopy on Wednesday complains of shortness of breath on exertion. 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 Also will lower his NovoLog 22 units down to 20 units twice daily, also he takes 15 units with breakfast which is unchanged today. Keep monitoring glucose. Patient is having a lot of loose stool secondary to bowel preparation as he is going for colonoscopy today. at bedside and all questions were answered 01/11/2024 patient had colonoscopy yesterdaythe surgery team showing loses stool no specific lesion. Patient had frequent bowel movements are daily for bowel preparation, on admission his area was every hour, this morning he had 2 loose bowel movements of moderate amounts so far. No abdominal pain, has good appetite. No other complaints. His breathing is a stable, his fluid overload is also improved and currently On prednisone 30 mg and oral farxiga And Lasix once a day REASON Eliquis 5 mg and aspirin 81 mg Patient says he's never been evaluated by GI service before Objective - Vital Signs Vital signs: Vital Signs Temp 97.5 F L 01/11/24 08:00 Pulse 90 01/11/24 09:24 Resp 16 01/11/24 09:24 BP 108/65 01/11/24 08:00 Pulse Ox 96 01/11/24 08:00 FiO2 Intake & Output 01/10/24 01/11/24 01/11/24 18:59 06:59 18:59 Intake Total 418 237 180 Balance 418 237 180 Weight 99 kg Intake: IV 300 Oral 118 237 180 Other: Voiding Method Toilet Urinal - Exam GENERAL: The patient is alert and oriented x3, not in any acute distress. Well developed, well nourished. HEENT: Pupils are round and equally reacting to light. EOMI. No scleral icterus. No conjunctival pallor. Normocephalic, atraumatic. No pharyngeal erythema. No thyromegaly. CARDIOVASCULAR: S1 and S2 present. No murmurs, rubs, or gallops. PULMONARY: Chest is clear to auscultation, no wheezing , no crackles. ABDOMEN: Soft, nontender, nondistended, normoactive bowel sounds. No palpable organomegaly. MUSCULOSKELETAL: No joint swelling or deformity. EXTREMITIES: No cyanosis, clubbing, or pedal edema. NEUROLOGICAL: Gross neurological examination did not reveal any focal deficits. SKIN: No rashes. no petechiae. - Labs CBC & Chem 7: 01/10/24 09:53 01/10/24 09:53 Labs: Abnormal Lab Results - Last 24 Hours (Table) 01/06/24 01/10/24 01/10/24 Range/Units 12:00 09:53 09:53 WBC 17.4 H (3.8-10.6) k/uL MCV 102.5 H (80.0-100.0) fL MCHC 30.6 L (31.0-37.0) g/dL Sodium 136 L (137-145) mmol/L BUN 36 H (9-20) mg/dL Glucose 110 H (74-99) mg/dL POC Glucose (mg/dL) (70-110) mg/dL ALT 64 H (4-49) U/L Alkaline Phosphatase 173 H (38-126) U/L C-Reactive Protein 1.6 H (<1.0) mg/dL Total Protein 5.9 L (6.3-8.2) g/dL Albumin 2.8 L (3.5-5.0) g/dL Stool Lactoferrin Positive A (Negative) 01/10/24 01/10/24 01/10/24 Range/Units 11:18 16:55 19:51 WBC (3.8-10.6) k/uL MCV (80.0-100.0) fL MCHC (31.0-37.0) g/dL Sodium (137-145) mmol/L BUN (9-20) mg/dL Glucose (74-99) mg/dL POC Glucose (mg/dL) 130 H 179 H 333 H (70-110) mg/dL ALT (4-49) U/L Alkaline Phosphatase (38-126) U/L C-Reactive Protein (<1.0) mg/dL Total Protein (6.3-8.2) g/dL Albumin (3.5-5.0) g/dL Stool Lactoferrin (Negative) 01/11/24 01/11/24 Range/Units 01:56 05:56 WBC (3.8-10.6) k/uL MCV (80.0-100.0) fL MCHC (31.0-37.0) g/dL Sodium (137-145) mmol/L BUN (9-20) mg/dL Glucose (74-99) mg/dL POC Glucose (mg/dL) 336 H 205 H (70-110) mg/dL ALT (4-49) U/L Alkaline Phosphatase (38-126) U/L C-Reactive Protein (<1.0) mg/dL Total Protein (6.3-8.2) g/dL Albumin (3.5-5.0) g/dL Stool Lactoferrin (Negative) Microbiology - Last 24 Hours (Table) 01/06/24 12:00 Stool Culture - Final Stool Yeast species Assessment and Plan Assessment: acute worsening diarrhea Acute COPD exacerbation failed outpatient treatment. LV thrombus Hyperglycemia with uncontrolled diabetes type 2 insulin-dependent A1c 12 Left basilar atelectasis and possible early infiltrate/pneumonia Acute on Chronic CHF with mildly reduced systolic dysfunction ejection fraction 40 to 45% as per 2D echocardiogram in 2018. Patient had stress test in 2018. follows with Dr[address] Graham as an outpatient. Coronary artery disease history of stent placement Lactic acidosis likely due to tissue hypoperfusion Hypovolemic hyponatremia and pseudohyponatremia Hypoalbuminemia Hyperlipidemia History of [place] Plan: assessment colonoscopy reviewed GI team consult Continue with Eliquis Continue with prednisone 30 mg On oral vancomycin On aspirin 81 mg On metoprolol Entresto and Aldactone also he is on Lasix and Farxiga. Cardiology and pulmonary service consult GI and DVT prophylaxis Prognosis is guarded
[2024-01-11 11:41] LABS: Glucose,Whole Blood 130 mg/dL (70-110)
--- NOTE | 2024-01-11 14:53 | P.CONS ---
History of Present Illness - Reason for Consult Consult date: 01/11/24 Diarrhea Requesting physician: Andrea E Sheet - Chief Complaint Shortness of breath - History of Present Illness Is a pleasant 73-year-old male who had presented to the emergency department on 12/30/2023 with complaints of shortness of breath and dizziness. He has a past m edical history including coronary artery disease, heart failure, COPD, diabetes mellitus, hyperlipidemia and myocardial infarction. He was admitted to the hospital with pneumonia, hyperglycemia and metabolic acidosis. Patient had developed diarrhea after being exposed to antibiotic therapy and has been having quite a bit of diarrhea. And general surgery was consulted for colonoscopy. Yesterday the patient underwent colonoscopy however according to report appears that patient had poor prep and had a large amount of liquid stool in the right colon which prevented the scope to be advanced into the cecum. However reported that colon appeared normal there was a small polyp in the rectum that was removed with cold forcep. Infectious disease following as well for the diarrhea due to antibiotic exposure and possibility of diarrhea versus C. difficile colitis. C. difficile I will EIA as well as PCR were both negative. Patient was empirically started on oral vancomycin 500 mg p.o. 4 times daily. No stool cultures were obtained. He has been started on Lomotil as well as Questran. Past Medical History Past Medical History: Coronary Artery Disease (CAD), Heart Failure, COPD, Diabetes Mellitus, Hyperlipidemia, Myocardial Infarction (VT) Additional Past Medical History / Comment(s): defibrilator bph Last Myocardial Infarction Date:: 2002 History of Any Multi-Drug Resistant Organisms: None Reported Past Surgical History: Cholecystectomy, Heart Catheterization With Stent Past Anesthesia/Blood Transfusion Reactions: No Reported Reaction Date of Last Stent Placement:: 2002 Type of Cardiac Device: AICD Device Placement Date:: 2013 Past Psychological History: No Psychological Hx Reported Past Alcohol Use History: Rare Past Drug Use History: None Reported Medications and Allergies Home Medications Medication Instructions Recorded Confirmed Type Albuterol Inhaler [Ventolin Hfa 1 - 2 puff INHALATION RT-QID PRN 05/22/17 12/30/23 History Inhaler] Aspirin EC [Ecotrin Low Dose] 81 mg PO HS 05/22/17 12/30/23 History Atorvastatin [Lipitor] 40 mg PO HS 05/22/17 12/30/23 History Budesonide [Pulmicort] 0.5 mg INHALATION RT-BID 05/22/17 12/30/23 History Clindamycin Topical Soln 1 applic TOPICAL BID PRN 05/22/17 12/30/23 History [Cleocin-T Topical Soln] Formoterol Fumarate [Perforomist] 20 mcg INHALATION RT-BID 05/22/17 12/30/23 History Furosemide [Lasix] 40 mg PO DAILY PRN 05/22/17 12/30/23 History Insulin Glargine,Hum.rec.anlog 50 unit SQ DAILY 05/22/17 12/30/23 History [Lantus Solostar] Ipratropium-Albuterol Nebulize 3 ml INHALATION RT-QID 05/22/17 12/30/23 History [Duoneb 0.5 mg-3 mg/3 ml Soln] Loratadine [Claritin] 10 mg PO DAILY 05/22/17 12/30/23 History Montelukast [Singulair] 10 mg PO HS 05/22/17 12/30/23 History Nitroglycerin Sl Tabs [Nitrostat] 0.4 mg SUBLINGUAL Q5M PRN 05/22/17 12/30/23 History Potassium Chloride ER [K-Dur 20] 20 meq PO DAILY PRN 05/22/17 12/30/23 History traMADol HCL [Ultram] 50 mg PO BID PRN 05/22/17 12/30/23 History Bisoprolol Fumarate 5 mg PO DAILY 12/30/23 12/30/23 History Cholecalciferol [Vitamin D3 (125 125 mcg PO DAILY 12/30/23 12/30/23 History Mcg = 5000 Iu)] Dapagliflozin Propanediol [Farxiga] 10 mg PO DAILY 12/30/23 12/30/23 History Fluticasone/Umeclidin/Vilanter 1 puff INHALATION RT-DAILY 12/30/23 12/30/23 History [Trelegy Ellipta 200-62.5-25] Insulin Aspart (Niacinamide) 15 units SQ HS 12/30/23 12/30/23 History [Fiasp 100 Unit/ml Flextouch Pen] Insulin Aspart (Niacinamide) 22 units SQ TID-W/MEALS 12/30/23 12/30/23 History [Fiasp 100 Unit/ml Flextouch Pen] Insulin Glargine,Hum.rec.anlog 10 units SQ W/SUPPER PRN 12/30/23 12/30/23 History [Lantus Solostar Pen] Ketoconazole 2% Cream [Nizoral 2%] 1 applic TOPICAL BID PRN 12/30/23 12/30/23 History Midodrine [ProAmatine] 5 mg PO TID 12/30/23 12/30/23 History Omeprazole 20 mg PO BID 12/30/23 12/30/23 History Sacubitril/Valsartan [Entresto 24 1 tab PO BID 12/30/23 12/30/23 History mg-26 mg Tablet] Spironolactone [Aldactone] 25 mg PO DIRECTED 12/30/23 12/30/23 History Tamsulosin [Flomax] 0.4 mg PO BID 12/30/23 12/30/23 History guaiFENesin [Mucinex] 1,200 mg PO BID PRN 12/30/23 12/30/23 History predniSONE See Taper PO DIRECTED 12/30/23 12/30/23 History predniSONE See Taper PO DIRECTED PRN 12/30/23 12/30/23 History Allergies Allergy/AdvReac Type Severity Reaction Status Date / Time carvedilol [From Coreg] Allergy Rash/Hives Verified 12/30/23 13:05 metformin AdvReac Diarrhea Verified 12/30/23 13:05 Physical Exam Vitals: Vital Signs Temp Pulse Pulse Pulse Resp BP Pulse Ox 01/11/24 11:55 88 16 01/11/24 11:43 90 16 01/11/24 11:29 98.2 F 82 20 124/71 100 01/11/24 09:24 90 16 01/11/24 09:16 92 16 01/11/24 08:00 97.5 F L 61 20 108/65 96 01/11/24 04:00 97.7 F 90 20 122/65 99 01/11/24 00:00 97.9 F 78 20 104/58 96 01/10/24 20:32 93 01/10/24 20:22 92 01/10/24 20:00 97.7 F 89 20 111/61 97 01/10/24 16:48 90 01/10/24 16:38 92 01/10/24 15:36 97.5 F L 92 22 104/65 97 Intake and Output 01/10/24 01/11/24 01/11/24 22:59 06:59 14:59 Intake Total 655 180 Balance 655 180 Intake: IV 300 Oral 355 180 Other: Voiding Method Toilet Toilet Urinal Urinal # Voids 2 Weight 99 kg General appearance: The patient is alert, oriented, appears in no acute distress. HET: Head is normocephalic and atraumatic. Conjunctiva pink. Sclera anicteric. Neck: Supple without lymphadenopathy. Trachea midline. Heart: Regular. Lungs: Equal expansion, normal respiratory effort. Abdomen: Soft, nontender, nondistended with bowel sounds. No guarding or rigidity. Skin: No rashes. No jaundice. Extremities: Normal skin color and turgor. No pedal edema. Neurological: No focal deficits. Alert and oriented x3. Results CBC & Chem 7: 01/10/24 09:53 01/10/24 09:53 Labs: Abnormal Lab Results - Last 24 Hours (Table) 01/06/24 01/10/24 01/10/24 Range/Units 12:00 16:55 19:51 POC Glucose (mg/dL) 179 H 333 H (70-110) mg/dL Stool Lactoferrin Positive A (Negative) 01/11/24 01/11/24 01/11/24 Range/Units 01:56 05:56 11:40 POC Glucose (mg/dL) 336 H 205 H 130 H (70-110) mg/dL Stool Lactoferrin (Negative) Microbiology - Last 24 Hours (Table) 01/06/24 12:00 Stool Culture - Final Stool Yeast species Assessment and Plan (1) Diarrhea Narrative/Plan: 73-year-old male with a history of chronic diarrhea presenting for shortness of breath and acute on chronic diarrhea. Patient states starting December 09 he had been given antibiotics by his primary care physician for urinary tract infection. Since that time he states he started having diarrhea nonbloody hourly. States his normal bowel pattern is 4-5 loose bowels a day. States that this has been ongoing for years. He has never had any true workup for it. He does admit to having a colonoscopy probably around age 49 and maybe 54 with col on polyps status post polypectomy. Also has a history of cholecystectomy, he was seen by general surgery during this hospitalization for ongoing diarrhea for which he underwent a colonoscopy yesterday with poor prep and nonvisualization of the cecum but otherwise reportedly normal colon. Continues to have diarrhea at although somewhat improved. C. difficile stool negative EIA as well as PCR. Patient empirically started on oral vancomycin by infectious disease. Would recommend continue with Questran, increasing Lomotil to 2 tablets 4 times a day. And no plans on further endoscopic evaluation at this time. Current Visit: Yes Status: Acute Code(s): R19.7 - DIARRHEA, UNSPECIFIED SNOMED Code(s): 70062595 Plan: 1. Continue symptomatic and supportive care 2. Increase Lomotil to 2 tablets 4 times a day 3. Continue with Questran 4. Diet as tolerated 5. No plans on further endoscopic evaluation as patient just had colonoscopy 6. Continue rest of medical management per primary medical team Thank you for this consultation, we will continue to follow. Dr. Torsten Graham I agree with the dictator's note, documented as a scribe by Marion Campos.
--- NOTE | 2024-01-11 15:16 | P.PN ---
Subjective Progress Note Date: 01/11/24 Principal diagnosis: Pneumonia. Reevaluate today on 01/03/2024, patient continues to have cough and wheezing, continues to have intermittent episodes of diarrhea, patient is on maximal course of bronchodilators, he is also on diuretics for history of ischemic cardiomyopathy and LV dysfunction. Chest x-ray showed no evidence of congestive heart failure, there is mostly evidence of atelectasis. Also doubt pneumoniaPatient is on 3 L nasal cannula O2 sats is 95%. BBC count today is 12.1 hemoglobin 14.6. Potassium is 4.7 procalcitonin level on admission is 0.28. Admission chest x-ray showed mostly atelectasis at the left base with interstitial edema, underlying left lower lobe infiltrate is not entirely ruled out Reevaluated today on 01/04/2024, patient is doing much better from the pulmonary perspective, he does not seem to be concerned about his pulmonary symptoms he seems to be more concerned about his ongoing diarrhea. Patient has been going to the bathroom almost on a hourly basis. He is receiving Lomotil, and today I added Pepto-Bismol, his screening for C. difficile toxin has been negative twice now. WBC count is 13.8 hemoglobin 13.4 basic metabolic profile is normal BUN is 44 creatinine 1.15 last chest x-ray few days ago showed right lower lobe atel ectasis, questionable pneumonia, and mild pulmonary vascular congestion patient is now transition to oral Lasix, and he is also on Eliquis, patient does have history of LV thrombus Reevaluate today on 01/05/2024, patient continues to have intermittent and severe episodes of diarrhea. Patient was seen by infectious disease on consultation, and he was placed empirically on oral vancomycin, although 2 screenings for C. difficile colitis were negative. In the meantime, the patient remains on Lomot il, remains on Pepto-Bismol, and his diarrhea seems to be persistent. I feel the patient may have get GI evaluation and possibly colonoscopy. Pulmonary noble patient is doing better, breathing easier, occasional cough and wheezing only. Reevaluate today on 01/06/2024, patient is doing well from a pulmonary perspective, continues to have severe diarrhea. Patient is going to the bathroom on the average of once every 2 hours. Slightly better compared to yesterday he was going once every 1 hour. Pulmonary noble hardly any pulmonary symptoms no cough no wheezing no shortness of breath no chest pain. Reevaluate today on 01/07/2024, patient has no active pulmonary issues but he has mostly GI issues and persistent diarrhea go to the bathroom on the average of 1 every 1 and half hours. Denies any melena or hematemesis, denies any nausea or vomiting, considering we have no GI coverage, I am recommending surgical consultation, patient may need colonoscopy and biopsy.Continues to have leukocyt osis with WBC of 16.8 hemoglobin 13.1 basic metabolic profile is normal BUN is 47 creatinine 1.19 Reevaluate today on 01/08/24, during my evaluation the patient this morning, he was noted to have shortness of breath, on physical examination he had scattered rhonchi and wheezes, he was also in atrial fibrillation with RVR, patient received Decadron, he also received a DuoNeb updrafts 4 times daily and as needed, and he received a low-dose dose of Lasix. Stat EKG was ordered, stat chest x-ray was ordered, chest x-ray showed no evidence of pulmonary edema and no acute process was noted basically had just minimal atelectasis at the right base, otherwise lungs were clear. Atrial fibrillation and RVR is being addressed by cardiology on the case. Continues to have diarrhea Patient was reevaluated today on 01/09/2024, patient seems to be doing better today compared to yesterday, but he continues to have intermittent episodes of diarrhea. Patient is scheduled to have colonoscopy tomorrow. In addition to his diarrhea, patient has underlying COPD with recurrent episodes of COPD exacerbation, and he does have acute on chronic congestive heart failure with reduced ejection fraction. Patient had previous AICD implantation. He also has diabetes, hypertension, and apparently atrial fibrillation was ruled out. ICD interrogation. He does have a small LV thrombus per echo chest x-ray this morning showed limited atelectasis at the right lung base, no evidence of pneumonia and no evidence of congestive heart failure Progress note dated January 10, 2024. The patient is seen today in room 375. This is a 73-year-old gentleman who was admitted with a diagnosis of pneumonia. The patient is getting 3 L of oxygen by nasal cannula. He is also getting dextrose with half-normal saline at 50 cc an hour. The patient is scheduled to have a colonoscopy today. He has been having significant diarrhea, and was started on oral vancomycin. He still having significant diarrhea. Labs today include a white count of 17.4, hemoglobin 14.2, hematocrit 46.4, and platelet count of 168,000. Sodium 136, potassium 4.2, chlorides 102, CO2 28, BUN 36, creatinine 1.06. Albumin is 2.8. Glucose is 130. Stool cultures only show evidence of yeast species. Progress note dated 01/11/2024. The patient is seen today in room 375. The patient is resting comfortably. He is on oxygen at 3 L. The patient had his colonoscopy yesterday. Not much was found, according to the surgeon. The patient has some diverticuli, and a polyp. Other than that, there is not much going on in the way of his colonoscopy. The patient does continue on p.o. vancomycin. He states that his diarrhea is much improved. Clinically, he is feeling well. Labs today include a glucose of 138. Objective - Vital Signs Vital signs: Vital Signs Temp 98.2 F 01/11/24 11:29 Pulse 88 01/11/24 11:55 Resp 16 01/11/24 11:55 BP 124/71 01/11/24 11:29 Pulse Ox 100 01/11/24 11:29 FiO2 Intake & Output 01/10/24 01/11/24 01/11/24 18:59 06:59 18:59 Intake Total 418 237 360 Balance 418 237 360 Weight 99 kg Intake: IV 300 Oral 118 237 360 Other: Voiding Method Toilet Urinal # Voids 2 - Exam No acute distress, oriented 3. Currently on 3 L of oxygen. No conversational dyspnea or use of accessory muscles. HEENT examination is grossly unremarkable. Mucous membranes are moist. No oral lesions. Neck supple. Full range of motion. No adenopathy thyromegaly or neck vein distention. Cardiovascular examination reveals regular rhythm rate. S1-S2 normal. No S3 or S4. No discernible murmur noted. Heart rate 88 bpm. Heart sounds are distant. Lungs reveal scattered bilateral rhonchi. No wheezes or crackles. Breath sounds equal bilaterally. 3 L saturation is 98 %. Abdomen soft bowel sounds are heard. No masses or tenderness. Extremities are intact. No cyanosis clubbing or edema. Skin is without rash or lesion. Neurologic examination is brief but nonfocal. - Labs CBC & Chem 7: 01/10/24 09:53 01/10/24 09:53 Labs: Abnormal Lab Results - Last 24 Hours (Table) 01/10/24 01/10/24 01/11/24 Range/Units 16:55 19:51 01:56 POC Glucose (mg/dL) 179 H 333 H 336 H (70-110) mg/dL 01/11/24 01/11/24 Range/Units 05:56 11:40 POC Glucose (mg/dL) 205 H 130 H (70-110) mg/dL Microbiology - Last 24 Hours (Table) 01/06/24 12:00 Stool Culture - Final Stool Yeast species Assessment and Plan Assessment: Acute COPD exacerbation, along with acute systolic CHF, both much improved. Paroxysmal atrial fibrillation with RVR. Coronary artery disease with previous coronary stenting. Ischemic cardiomyopathy/systolic heart failure, with an ejection fraction of 20 to 25%. LV thrombus. Diabetes mellitus. Anion gap metabolic acidosis, resolved. History of implanted AICD/pacemaker. Hyperlipidemia. Obesity. Acute gastroenteritis. Plan: Plan dated January 10, 2024. The patient continues on oral vancomycin, for suspected C. difficile colitis. Studies have been negative. The patient is going to have a colonoscopy later today. He continues on updrafts, and diuretics. He also continues on other appropriate antidiarrheal medications. The patient also continues on Eliquis. We will continue to follow the patient, make recommendations along the way. Labs, x-rays, and medications are reviewed. Prognosis is guarded. Plan dated January 11, 2024. The patient continues on oral vancomycin. The patient had a colonoscopy yesterday, and fortunately, not much was seen. Biopsies were done, and are currently pending. The patient did have some diverticuli, and a colonic polyp. Clinically, the patient is feeling better. He is having much less diarrhea. He denies any respiratory issues. Labs, x-rays, and medications are reviewed. He continues on oxygen, at 3 L. No additional recommendations are made. We will continue to follow the patient, and make recommendations along the way. Time with Patient: Less than 30
--- NOTE | 2024-01-11 16:16 | P.PN ---
Subjective Progress Note Date: 01/11/24 CHIEF COMPLAINT: Diarrhea HISTORY OF PRESENT ILLNESS: Patient status post colonoscopy with removal of rec siobhan polyp. Patient denies any blood in the stools. He reports less diarrhea today. Denies any nausea or vomiting. He denies any blood in his stools. He denies any abdominal pain. PHYSICAL EXAM: VITAL SIGNS: Reviewed. GENERAL: Well-developed in no acute distress. ABDOMEN: Soft. Nondistended. Nontender. NEUROLOGIC: Alert and oriented. Cranial nerves II through XII grossly intact. ASSESSMENT: 1. Diarrhea 2. Status post colonoscopy with removal of rectal polyp PLAN: -Continue regular diet -Agree with GI consult Physician Mushroom Sorter Grader note has been reviewed by physician. Signing provider agrees with the documented findings, assessment, and plan of care. Objective - Vital Signs Vital signs: Vital Signs Temp 98.2 F 01/11/24 11:29 Pulse 90 01/11/24 16:05 Resp 16 01/11/24 16:05 BP 124/71 01/11/24 11:29 Pulse Ox 100 01/11/24 11:29 FiO2 Intake & Output 01/10/24 01/11/24 01/11/24 18:59 06:59 18:59 Intake Total 418 237 360 Balance 418 237 360 Weight 99 kg Intake: IV 300 Oral 118 237 360 Other: Voiding Method Toilet Urinal # Voids 2 - Labs CBC & Chem 7: 01/10/24 09:53 01/10/24 09:53 Labs: Abnormal Lab Results - Last 24 Hours (Table) 01/10/24 01/10/24 01/11/24 Range/Units 16:55 19:51 01:56 POC Glucose (mg/dL) 179 H 333 H 336 H (70-110) mg/dL 01/11/24 01/11/24 Range/Units 05:56 11:40 POC Glucose (mg/dL) 205 H 130 H (70-110) mg/dL Microbiology - Last 24 Hours (Table) 01/06/24 12:00 Stool Culture - Final Stool Yeast species
--- NOTE | 2024-01-11 16:30 | P.PN ---
Subjective Progress Note Date: 01/11/24 Principal diagnosis: Reason for follow-up with diarrhea and leukocytosis Patient is a 73-year-old male past medical history significant for diabetes mellitus hypertension [place] COPD heart failure coronary artery disease presenting to the hospital for evaluation of increasing shortness of breath also developed significant diarrhea prompting this consultation. On today's evaluation that is 01/11/2024, Patient is afebrile patient is currently on room air and mention breathing slightly comfortably, the patient denies any chest pain or worsening cough, the patient denies any nausea vomiting did not have any abdominal pain and diarrhea has slowed down. No labs obtained today Objective - Vital Signs Vital signs: Vital Signs Temp 98.2 F 01/11/24 11:29 Pulse 90 01/11/24 16:05 Resp 16 01/11/24 16:05 BP 124/71 01/11/24 11:29 Pulse Ox 100 01/11/24 11:29 FiO2 Intake & Output 01/10/24 01/11/24 01/11/24 18:59 06:59 18:59 Intake Total 418 237 360 Balance 418 237 360 Weight 99 kg Intake: IV 300 Oral 118 237 360 Other: Voiding Method Toilet Urinal # Voids 2 - Exam GENERAL DESCRIPTION: An elderly male up in bed in no distress RESPIRATORY SYSTEM: Unlabored breathing , decreased breath sounds at bases HEART: S1 S2 regular rate and rhythm , ABDOMEN: Soft , no tenderness EXTREMITIES: No edema feet - Labs CBC & Chem 7: 01/10/24 09:53 01/10/24 09:53 Labs: Abnormal Lab Results - Last 24 Hours (Table) 01/10/24 01/10/24 01/11/24 Range/Units 16:55 19:51 01:56 POC Glucose (mg/dL) 179 H 333 H 336 H (70-110) mg/dL 01/11/24 01/11/24 Range/Units 05:56 11:40 POC Glucose (mg/dL) 205 H 130 H (70-110) mg/dL Microbiology - Last 24 Hours (Table) 01/06/24 12:00 Stool Culture - Final Stool Yeast species Assessment and Plan (1) Diarrhea Current Visit: Yes Status: Acute Code(s): R19.7 - DIARRHEA, UNSPECIFIED SNOMED Code(s): 78682273 (2) Leukocytosis Current Visit: Yes Status: Acute Code(s): D72.829 - ELEVATED WHITE BLOOD CELL COUNT, UNSPECIFIED SNOMED Code(s): 063492778 Plan: 1patient with extensive diarrhea over the last few days this patient has been exposed to antibiotics on the question of possible antibiotic associated diarrhea versus C. difficile colitis high clinical suspicions keeping in mind elevated white count 2-patient stool for C. difficile PCR came back negative, stool culture has been negative, colonoscopy did not show any abnormality 3-patient white count is trending down as of yesterday, patient to continue with the oral vancomycin patient has been seen by POLLY Cordobatil has been added we will repeat his CBC with a.m. lab Dictation was produced using [employer] dictation software. please excuse any grammatical, word or spelling errors. Time with Patient: Less than 30
[2024-01-11 16:40] LABS: Glucose,Whole Blood 274 mg/dL (70-110)
[2024-01-11] MEDS: DIPHENOX-ATROP 2.5-0.025 MG 1 EACH TAB PO SCH (17:20)
[2024-01-11 20:03] LABS: Glucose,Whole Blood 314 mg/dL (70-110)
[2024-01-11 21:46] LABS: Glucose,Whole Blood 292 mg/dL (70-110)
[2024-01-12 01:58] LABS: Glucose,Whole Blood 159 mg/dL (70-110)
[2024-01-12 06:09] LABS: Glucose,Whole Blood 180 mg/dL (70-110)
[2024-01-12] MEDS: INSULIN DETEMIR (LEVEMIR) 100 UNIT/ML SYR SQ SCH (06:44)
[2024-01-12 11:10] LABS: Basophils # (A) 0.1 k/uL (0-0.2); Basophils % (A) 1 %; Eosinophils # (A) 0.1 k/uL (0-0.7); Eosinophils % (A) 0 %; HCT 37.6 % (39.0-53.0); Lymphocytes # (A) 1.6 k/uL (1.0-4.8); Lymphocytes % (A) 14 %; MCH 32.5 pg (25.0-35.0); MCHC 31.9 g/dL (31.0-37.0); MCV 101.9 fL (80.0-100.0); Macrocytosis Slight; Mean Platelet Volume 9.3; Monocytes # (A) 0.6 k/uL (0-1.0); Monocytes % (A) 6 %; Neutrophils # (A) 8.9 k/uL (1.3-7.7); Neutrophils % (A) 79 %; Platelet Count 108 k/uL (150-450); RBC 3.69 m/uL (4.30-5.90); RDW 15.5 % (11.5-15.5); WBC 11.3 k/uL (3.8-10.6)
[2024-01-12 11:14] LABS: Glucose,Whole Blood 47 mg/dL (70-110)
[2024-01-12 11:33] LABS: Glucose,Whole Blood 49 mg/dL (70-110)
--- NOTE | 2024-01-12 11:47 | P.PN ---
Subjective Progress Note Date: 01/12/24 Principal diagnosis: Pneumonia. Reevaluate today on 01/03/2024, patient continues to have cough and wheezing, continues to have intermittent episodes of diarrhea, patient is on maximal course of bronchodilators, he is also on diuretics for history of ischemic cardiomyopathy and LV dysfunction. Chest x-ray showed no evidence of congestive heart failure, there is mostly evidence of atelectasis. Also doubt pneumoniaPatient is on 3 L nasal cannula O2 sats is 95%. BBC count today is 12.1 hemoglobin 14.6. Potassium is 4.7 procalcitonin level on admission is 0.28. Admission chest x-ray showed mostly atelectasis at the left base with interstitial edema, underlying left lower lobe infiltrate is not entirely ruled out Reevaluated today on 01/04/2024, patient is doing much better from the pulmonary perspective, he does not seem to be concerned about his pulmonary symptoms he seems to be more concerned about his ongoing diarrhea. Patient has been going to the bathroom almost on a hourly basis. He is receiving Lomotil, and today I added Pepto-Bismol, his screening for C. difficile toxin has been negative twice now. WBC count is 13.8 hemoglobin 13.4 basic metabolic profile is normal BUN is 44 creatinine 1.15 last chest x-ray few days ago showed right lower lobe atel ectasis, questionable pneumonia, and mild pulmonary vascular congestion patient is now transition to oral Lasix, and he is also on Eliquis, patient does have history of LV thrombus Reevaluate today on 01/05/2024, patient continues to have intermittent and severe episodes of diarrhea. Patient was seen by infectious disease on consultation, and he was placed empirically on oral vancomycin, although 2 screenings for C. difficile colitis were negative. In the meantime, the patient remains on Lomot il, remains on Pepto-Bismol, and his diarrhea seems to be persistent. I feel the patient may have get GI evaluation and possibly colonoscopy. Pulmonary noble patient is doing better, breathing easier, occasional cough and wheezing only. Reevaluate today on 01/06/2024, patient is doing well from a pulmonary perspective, continues to have severe diarrhea. Patient is going to the bathroom on the average of once every 2 hours. Slightly better compared to yesterday he was going once every 1 hour. Pulmonary noble hardly any pulmonary symptoms no cough no wheezing no shortness of breath no chest pain. Reevaluate today on 01/07/2024, patient has no active pulmonary issues but he has mostly GI issues and persistent diarrhea go to the bathroom on the average of 1 every 1 and half hours. Denies any melena or hematemesis, denies any nausea or vomiting, considering we have no GI coverage, I am recommending surgical consultation, patient may need colonoscopy and biopsy.Continues to have leukocyt osis with WBC of 16.8 hemoglobin 13.1 basic metabolic profile is normal BUN is 47 creatinine 1.19 Reevaluate today on 01/08/24, during my evaluation the patient this morning, he was noted to have shortness of breath, on physical examination he had scattered rhonchi and wheezes, he was also in atrial fibrillation with RVR, patient received Decadron, he also received a DuoNeb updrafts 4 times daily and as needed, and he received a low-dose dose of Lasix. Stat EKG was ordered, stat chest x-ray was ordered, chest x-ray showed no evidence of pulmonary edema and no acute process was noted basically had just minimal atelectasis at the right base, otherwise lungs were clear. Atrial fibrillation and RVR is being addressed by cardiology on the case. Continues to have diarrhea Patient was reevaluated today on 01/09/2024, patient seems to be doing better today compared to yesterday, but he continues to have intermittent episodes of diarrhea. Patient is scheduled to have colonoscopy tomorrow. In addition to his diarrhea, patient has underlying COPD with recurrent episodes of COPD exacerbation, and he does have acute on chronic congestive heart failure with reduced ejection fraction. Patient had previous AICD implantation. He also has diabetes, hypertension, and apparently atrial fibrillation was ruled out. ICD interrogation. He does have a small LV thrombus per echo chest x-ray this morning showed limited atelectasis at the right lung base, no evidence of pneumonia and no evidence of congestive heart failure Progress note dated January 10, 2024. The patient is seen today in room 375. This is a 73-year-old gentleman who was admitted with a diagnosis of pneumonia. The patient is getting 3 L of oxygen by nasal cannula. He is also getting dextrose with half-normal saline at 50 cc an hour. The patient is scheduled to have a colonoscopy today. He has been having significant diarrhea, and was started on oral vancomycin. He still having significant diarrhea. Labs today include a white count of 17.4, hemoglobin 14.2, hematocrit 46.4, and platelet count of 168,000. Sodium 136, potassium 4.2, chlorides 102, CO2 28, BUN 36, creatinine 1.06. Albumin is 2.8. Glucose is 130. Stool cultures only show evidence of yeast species. Progress note dated 01/11/2024. The patient is seen today in room 375. The patient is resting comfortably. He is on oxygen at 3 L. The patient had his colonoscopy yesterday. Not much was found, according to the surgeon. The patient has some diverticuli, and a polyp. Other than that, there is not much going on in the way of his colonoscopy. The patient does continue on p.o. vancomycin. He states that his diarrhea is much improved. Clinically, he is feeling well. Labs today include a glucose of 138. Progress note dated January 12, 2024. 73-year-old male seen today in room 375. The patient appears to be doing relatively well, without specific complaints. He denies any shortness of breath, cough, wheezing, chest tightness, or phlegm production. He also denies any chest pain or pressure. His abdomen is soft. His diarrhea is improved. He is currently on 3 L of oxygen. He continues on oral vancomycin. Labs today include a white count 11.3, hemoglobin 12, hematocrit 37.6, and a platelet count of 108,000. Objective - Vital Signs Vital signs: Vital Signs Temp 97.9 F 01/12/24 08:11 Pulse 134 H 01/12/24 11:06 Resp 18 01/12/24 11:06 BP 139/84 01/12/24 11:06 Pulse Ox 96 01/12/24 11:06 FiO2 Intake & Output 01/11/24 01/12/24 01/12/24 18:59 06:59 18:59 Intake Total 360 Balance 360 Intake: Oral 360 Other: Voiding Method Toilet Toilet Urinal Urinal # Voids 2 3 # Bowel Movements 3 - Exam No acute distress, oriented 3. Currently on 3 L of oxygen. No conversational dyspnea or use of accessory muscles. HEENT examination is grossly unremarkable. Mucous membranes are moist. No oral lesions. Neck supple. Full range of motion. No adenopathy thyromegaly or neck vein distention. Cardiovascular examination reveals regular rhythm rate. S1-S2 normal. No S3 or S4. No discernible murmur noted. Heart rate 96 bpm. Heart sounds are distant. Lungs reveal scattered bilateral rhonchi. No wheezes or crackles. Breath s ounds equal bilaterally. 3 L saturation is 96 %. Abdomen soft bowel sounds are heard. No masses or tenderness. Extremities are intact. No cyanosis clubbing or edema. Skin is without rash or lesion. Neurologic examination is brief but nonfocal. - Labs CBC & Chem 7: 01/12/24 09:28 01/10/24 09:53 Labs: Abnormal Lab Results - Last 24 Hours (Table) 01/11/24 01/11/24 01/11/24 Range/Units 16:39 20:01 21:45 WBC (3.8-10.6) k/uL RBC (4.30-5.90) m/uL Hgb (13.0-17.5) gm/dL Hct (39.0-53.0) % MCV (80.0-100.0) fL Plt Count (150-450) k/uL Neutrophils # (1.3-7.7) k/uL POC Glucose (mg/dL) 274 H 314 H 292 H (70-110) mg/dL C-Reactive Protein (<1.0) mg/dL 01/12/24 01/12/24 01/12/24 Range/Units 01:56 06:08 09:28 WBC 11.3 H (3.8-10.6) k/uL RBC 3.69 L (4.30-5.90) m/uL Hgb 12.0 L (13.0-17.5) gm/dL Hct 37.6 L (39.0-53.0) % MCV 101.9 H (80.0-100.0) fL Plt Count 108 L (150-450) k/uL Neutrophils # 8.9 H (1.3-7.7) k/uL POC Glucose (mg/dL) 159 H 180 H (70-110) mg/dL C-Reactive Protein (<1.0) mg/dL 01/12/24 01/12/24 01/12/24 Range/Units 09:28 11:12 11:31 WBC (3.8-10.6) k/uL RBC (4.30-5.90) m/uL Hgb (13.0-17.5) gm/dL Hct (39.0-53.0) % MCV (80.0-100.0) fL Plt Count (150-450) k/uL Neutrophils # (1.3-7.7) k/uL POC Glucose (mg/dL) 47 L 49 L (70-110) mg/dL C-Reactive Protein 1.3 H (<1.0) mg/dL Microbiology - Last 24 Hours (Table) 01/06/24 12:00 Stool Culture - Final Stool Yeast species Assessment and Plan Assessment: Acute COPD exacerbation, along with acute systolic CHF, both much improved. Paroxysmal atrial fibrillation with RVR. Coronary artery disease with previous coronary stenting. Ischemic cardiomyopathy/systolic heart failure, with an ejection fraction of 20 to 25%. LV thrombus. Diabetes mellitus. Anion gap metabolic acidosis, resolved. History of implanted AICD/pacemaker. Hyperlipidemia. Obesity. Acute gastroenteritis, with suspected C. difficile colitis, which was not proven. Plan: Plan dated January 10, 2024. The patient continues on oral vancomycin, for suspected C. difficile colitis. Studies have been negative. The patient is going to have a colonoscopy later today. He continues on updrafts, and diuretics. He also continues on other appropriate antidiarrheal medications. The patient also continues on Eliquis. We will continue to follow the patient, make recommendations along the way. Labs, x-rays, and medications are reviewed. Prognosis is guarded. Plan dated January 11, 2024. The patient continues on oral vancomycin. The patient had a colonoscopy yesterday, and fortunately, not much was seen. Biopsies were done, and are currently pending. The patient did have some diverticuli, and a colonic polyp. Clinically, the patient is feeling better. He is having much less diarrhea. He denies any respiratory issues. Labs, x-rays, and medications are reviewed. He continues on oxygen, at 3 L. No additional recommendations are made. We will continue to follow the patient, and make recommendations along the way. Plan dated January 13, 2024. The patient is seen today in room 375. He continues on oxygen at 3 L. The p atient states that his abdomen is feeling better, and is not having near as much diarrhea. Clinically, he seems to be much improved. Labs, x-rays, and medications are reviewed. We will continue to follow and make recommendations along the way. From the pulmonary status, the patient could be considered for discharge. Prognosis is guarded. Colonoscopy, revealed only diverticuli, and colonic polyp. Time with Patient: Less than 30
[2024-01-12 11:52] LABS: Glucose,Whole Blood 59 mg/dL (70-110)
[2024-01-12 12:13] LABS: Glucose,Whole Blood 51 mg/dL (70-110)
[2024-01-12 12:16] LABS: Glucose,Whole Blood 51 mg/dL (70-110)
[2024-01-12 13:10] LABS: Glucose,Whole Blood 89 mg/dL (70-110)
--- NOTE | 2024-01-12 14:06 | P.PN ---
Subjective Progress Note Date: 01/12/24 CHIEF COMPLAINT: Diarrhea HISTORY OF PRESENT ILLNESS: Patient status post colonoscopy with removal of rec siobhan polyp and diverticulosis. Patient reports his diarrhea is less. He is tolerating diet. Denies any abdominal pain. Afebrile. Patient seen by GI service and they added Lomotil. PHYSICAL EXAM: VITAL SIGNS: Reviewed. GENERAL: Well-developed in no acute distress. ABDOMEN: Soft. Nondistended. Nontender. NEUROLOGIC: Alert and oriented. Cranial nerves II through XII grossly intact. ASSESSMENT: 1. Diarrhea 2. Status post colonoscopy with removal of rectal polyp PLAN: -Patient can be discharged from surgical standpoint when medically cleared -Continue regular diet -Recommend to follow-up with GI outpatient Physician Sweatband Flanger note has been reviewed by physician. Signing provider agrees with the documented findings, assessment, and plan of care. Objective - Vital Signs Vital signs: Vital Signs Temp 97.9 F 01/12/24 08:11 Pulse 134 H 01/12/24 11:06 Resp 18 01/12/24 11:06 BP 139/84 01/12/24 11:06 Pulse Ox 96 01/12/24 11:06 FiO2 Intake & Output 01/11/24 01/12/24 01/12/24 18:59 06:59 18:59 Intake Total 360 240 Balance 360 240 Intake: Oral 360 240 Other: Voiding Method Toilet Toilet Urinal Urinal # Voids 2 3 5 # Bowel Movements 3 4 - Labs CBC & Chem 7: 01/12/24 09:28 01/10/24 09:53 Labs: Abnormal Lab Results - Last 24 Hours (Table) 01/11/24 01/11/24 01/11/24 Range/Units 16:39 20:01 21:45 WBC (3.8-10.6) k/uL RBC (4.30-5.90) m/uL Hgb (13.0-17.5) gm/dL Hct (39.0-53.0) % MCV (80.0-100.0) fL Plt Count (150-450) k/uL Neutrophils # (1.3-7.7) k/uL POC Glucose (mg/dL) 274 H 314 H 292 H (70-110) mg/dL C-Reactive Protein (<1.0) mg/dL 01/12/24 01/12/24 01/12/24 Range/Units 01:56 06:08 09:28 WBC 11.3 H (3.8-10.6) k/uL RBC 3.69 L (4.30-5.90) m/uL Hgb 12.0 L (13.0-17.5) gm/dL Hct 37.6 L (39.0-53.0) % MCV 101.9 H (80.0-100.0) fL Plt Count 108 L (150-450) k/uL Neutrophils # 8.9 H (1.3-7.7) k/uL POC Glucose (mg/dL) 159 H 180 H (70-110) mg/dL C-Reactive Protein (<1.0) mg/dL 01/12/24 01/12/24 01/12/24 Range/Units 09:28 11:12 11:31 WBC (3.8-10.6) k/uL RBC (4.30-5.90) m/uL Hgb (13.0-17.5) gm/dL Hct (39.0-53.0) % MCV (80.0-100.0) fL Plt Count (150-450) k/uL Neutrophils # (1.3-7.7) k/uL POC Glucose (mg/dL) 47 L 49 L (70-110) mg/dL C-Reactive Protein 1.3 H (<1.0) mg/dL 01/12/24 01/12/24 01/12/24 Range/Units 11:50 12:12 12:15 WBC (3.8-10.6) k/uL RBC (4.30-5.90) m/uL Hgb (13.0-17.5) gm/dL Hct (39.0-53.0) % MCV (80.0-100.0) fL Plt Count (150-450) k/uL Neutrophils # (1.3-7.7) k/uL POC Glucose (mg/dL) 59 L 51 L 51 L (70-110) mg/dL C-Reactive Protein (<1.0) mg/dL Microbiology - Last 24 Hours (Table) 01/06/24 12:00 Stool Culture - Final Stool Yeast species
--- NOTE | 2024-01-12 15:01 | P.PN ---
Subjective Progress Note Date: 01/12/24 Principal diagnosis: Reason for follow-up with diarrhea and leukocytosis Patient is a 73-year-old male past medical history significant for diabetes mellitus hypertension [place] COPD heart failure coronary artery disease presenting to the hospital for evaluation of increasing shortness of breath also developed significant diarrhea prompting this consultation. On today's evaluation that is 01/12/2024, patient has been afebrile, patient is breathing comfortably and is currently on 3 L nasal cannula oxygen, patient denies having any significant cough no chest pain, patient denies nausea vomiting, no abdominal pain and patient mentioned that he has slowed down. No blood draw today Objective - Vital Signs Vital signs: Vital Signs Temp 97.9 F 01/12/24 08:11 Pulse 134 H 01/12/24 11:06 Resp 18 01/12/24 11:06 BP 139/84 01/12/24 11:06 Pulse Ox 96 01/12/24 11:06 FiO2 Intake & Output 01/11/24 01/12/24 01/12/24 18:59 06:59 18:59 Intake Total 360 Balance 360 Intake: Oral 360 Other: Voiding Method Toilet Toilet Urinal Urinal # Voids 2 3 # Bowel Movements 3 - Exam GENERAL DESCRIPTION: An elderly male up in bed in no distress RESPIRATORY SYSTEM: Unlabored breathing , decreased breath sounds at bases HEART: S1 S2 regular rate and rhythm , ABDOMEN: Soft , no tenderness EXTREMITIES: No edema feet - Labs CBC & Chem 7: 01/12/24 09:28 01/10/24 09:53 Labs: Abnormal Lab Results - Last 24 Hours (Table) 01/11/24 01/11/24 01/11/24 Range/Units 16:39 20:01 21:45 WBC (3.8-10.6) k/uL RBC (4.30-5.90) m/uL Hgb (13.0-17.5) gm/dL Hct (39.0-53.0) % MCV (80.0-100.0) fL Plt Count (150-450) k/uL Neutrophils # (1.3-7.7) k/uL POC Glucose (mg/dL) 274 H 314 H 292 H (70-110) mg/dL C-Reactive Protein (<1.0) mg/dL 01/12/24 01/12/24 01/12/24 Range/Units 01:56 06:08 09:28 WBC 11.3 H (3.8-10.6) k/uL RBC 3.69 L (4.30-5.90) m/uL Hgb 12.0 L (13.0-17.5) gm/dL Hct 37.6 L (39.0-53.0) % MCV 101.9 H (80.0-100.0) fL Plt Count 108 L (150-450) k/uL Neutrophils # 8.9 H (1.3-7.7) k/uL POC Glucose (mg/dL) 159 H 180 H (70-110) mg/dL C-Reactive Protein (<1.0) mg/dL 01/12/24 01/12/24 01/12/24 Range/Units 09:28 11:12 11:31 WBC (3.8-10.6) k/uL RBC (4.30-5.90) m/uL Hgb (13.0-17.5) gm/dL Hct (39.0-53.0) % MCV (80.0-100.0) fL Plt Count (150-450) k/uL Neutrophils # (1.3-7.7) k/uL POC Glucose (mg/dL) 47 L 49 L (70-110) mg/dL C-Reactive Protein 1.3 H (<1.0) mg/dL 01/12/24 01/12/24 01/12/24 Range/Units 11:50 12:12 12:15 WBC (3.8-10.6) k/uL RBC (4.30-5.90) m/uL Hgb (13.0-17.5) gm/dL Hct (39.0-53.0) % MCV (80.0-100.0) fL Plt Count (150-450) k/uL Neutrophils # (1.3-7.7) k/uL POC Glucose (mg/dL) 59 L 51 L 51 L (70-110) mg/dL C-Reactive Protein (<1.0) mg/dL Microbiology - Last 24 Hours (Table) 01/06/24 12:00 Stool Culture - Final Stool Yeast species Assessment and Plan (1) Diarrhea Current Visit: Yes Status: Acute Code(s): R19.7 - DIARRHEA, UNSPECIFIED SNOMED Code(s): 11140063 (2) Leukocytosis Current Visit: Yes Status: Acute Code(s): D72.829 - ELEVATED WHITE BLOOD CELL COUNT, UNSPECIFIED SNOMED Code(s): 778340235 Plan: 1patient with extensive diarrhea over the last few days this patient has been exposed to antibiotics on the question of possible antibiotic associated diarrhea versus C. difficile colitis high clinical suspicions keeping in mind elevated white count 2-patient stool for C. difficile PCR came back negative, stool culture has been negative, colonoscopy did not show any abnormality 3-patient white count is trending down as of 01/10/2024 no CBC was done today we will order CBC for the a.m. lab, patient to continue with the oral vancomycin and Lomotil per GI Dictation was produced using [employer] dictation software. please excuse any grammatical, word or spelling errors. Time with Patient: Less than 30
--- NOTE | 2024-01-12 15:34 | P.PN ---
Subjective Progress Note Date: 01/12/24 Principal diagnosis: Diarrhea This is a pleasant 73-year-old male who had presented to the emergency department on 12/30/2023 with complaints of shortness of breath and dizziness. He has a past medical history including coronary artery disease, heart failure, COPD, diabetes mellitus, hyperlipidemia and myocardial infarction. He was admitted to the hospital with pneumonia, hyperglycemia and metabolic acidosis. Patient had developed diarrhea after being exposed to antibiotic therapy and has been having quite a bit of diarrhea. And general surgery was consulted for colonoscopy. Yesterday the patient underwent colonoscopy however according to report appears that patient had poor prep and had a large amount of liquid stool in the right colon which prevented the scope to be advanced into the cecum. However reported that colon appeared normal there was a small polyp in the rectum that was removed with cold forcep. Infectious disease following as well for the diarrhea due to antibiotic exposure and possibility of diarrhea versus C. difficile colitis. C. difficile I will EIA as well as PCR were both negative. Patient was empirically started on oral vancomycin 500 mg p.o. 4 times daily. No stool cultures were obtained. He has been started on Lomotil as well as Questran. January 12, 2024 Patient seen and examined today as a follow-up for diarrhea. Patient states diarrhea seems to have improved some from initially every hour. States he had about 2-3 this morning. They are not as loose as before they are soft but not formed. He denies any abdominal pain, nausea or vomiting. No blood in his stool. Denies any fevers or chills. Objective - Vital Signs Vital signs: Vital Signs Temp 97.9 F 01/12/24 08:11 Pulse 134 H 01/12/24 11:06 Resp 18 01/12/24 11:06 BP 139/84 01/12/24 11:06 Pulse Ox 96 01/12/24 11:06 FiO2 Intake & Output 01/11/24 01/12/24 01/12/24 18:59 06:59 18:59 Intake Total 360 Balance 360 Intake: Oral 360 Other: Voiding Method Toilet Toilet Urinal Urinal # Voids 2 3 # Bowel Movements 3 - Exam General appearance: The patient is alert, oriented, appears in no acute distress. HET: Head is normocephalic and atraumatic. Conjunctiva pink. Sclera anicteric. Neck: Supple without lymphadenopathy. Abdomen: Soft, nontender, nondistended with bowel sounds. No guarding or rigidity. Extremities: Normal skin color and turgor. No pedal edema Skin: No rashes, no jaundice Neurological: No focal deficits. Alert and oriented. - Labs CBC & Chem 7: 01/12/24 09:28 01/10/24 09:53 Labs: Abnormal Lab Results - Last 24 Hours (Table) 01/11/24 01/11/24 01/11/24 Range/Units 16:39 20:01 21:45 WBC (3.8-10.6) k/uL RBC (4.30-5.90) m/uL Hgb (13.0-17.5) gm/dL Hct (39.0-53.0) % MCV (80.0-100.0) fL Plt Count (150-450) k/uL Neutrophils # (1.3-7.7) k/uL POC Glucose (mg/dL) 274 H 314 H 292 H (70-110) mg/dL C-Reactive Protein (<1.0) mg/dL 01/12/24 01/12/24 01/12/24 Range/Units 01:56 06:08 09:28 WBC 11.3 H (3.8-10.6) k/uL RBC 3.69 L (4.30-5.90) m/uL Hgb 12.0 L (13.0-17.5) gm/dL Hct 37.6 L (39.0-53.0) % MCV 101.9 H (80.0-100.0) fL Plt Count 108 L (150-450) k/uL Neutrophils # 8.9 H (1.3-7.7) k/uL POC Glucose (mg/dL) 159 H 180 H (70-110) mg/dL C-Reactive Protein (<1.0) mg/dL 01/12/24 01/12/24 01/12/24 Range/Units 09:28 11:12 11:31 WBC (3.8-10.6) k/uL RBC (4.30-5.90) m/uL Hgb (13.0-17.5) gm/dL Hct (39.0-53.0) % MCV (80.0-100.0) fL Plt Count (150-450) k/uL Neutrophils # (1.3-7.7) k/uL POC Glucose (mg/dL) 47 L 49 L (70-110) mg/dL C-Reactive Protein 1.3 H (<1.0) mg/dL 01/12/24 Range/Units 11:50 WBC (3.8-10.6) k/uL RBC (4.30-5.90) m/uL Hgb (13.0-17.5) gm/dL Hct (39.0-53.0) % MCV (80.0-100.0) fL Plt Count (150-450) k/uL Neutrophils # (1.3-7.7) k/uL POC Glucose (mg/dL) 59 L (70-110) mg/dL C-Reactive Protein (<1.0) mg/dL Microbiology - Last 24 Hours (Table) 01/06/24 12:00 Stool Culture - Final Stool Yeast species Assessment and Plan (1) Diarrhea Narrative/Plan: 73-year-old male with a history of chronic diarrhea presenting for shortness of breath and acute on chronic diarrhea. Patient states starting December 09 he had been given antibiotics by his primary care physician for urinary tract infection. Since that time he states he started having diarrhea nonbloody hourly. States his normal bowel pattern is 4-5 loose bowels a day. States that this has been ongoing for years. He has never had any true workup for it. He does admit to having a colonoscopy probably around age 49 and maybe 54 with colon polyps status post polypectomy. Also has a history of cholecystectomy, he was seen by general surgery during this hospitalization for ongoing diarrhea for which he underwent a colonoscopy yesterday with poor prep and nonvisualization of the cecum but otherwise reportedly normal colon. Continues to have diarrhea at although somewhat improved. C. difficile stool negative EIA as well as PCR. Patient empirically started on oral vancomycin by infectious disease. Would recommend continue with Questran, increasing Lomotil to 2 tablets 4 times a day. And no plans on further endoscopic evaluation at this time. Current Visit: Yes Status: Acute Code(s): R19.7 - DIARRHEA, UNSPECIFIED SNOMED Code(s): 22895319 Plan: 1. Continue symptomatic and supportive care 2. Continue Lomotil to 2 tablets 4 times a day 3. Continue with Questran 4. Diet as tolerated 5. No plans on further endoscopic evaluation as patient just had colonoscopy 6. Celiac panel ordered 7. Patient near baseline chronic diarrhea. As long as diarrhea continues to improve he may be discharged home likely tomorrow. With outpatient follow-up with gastroenterology. 8. Rest of medical management per primary medical team Thank you for this consultation, we will continue to follow. Dr. Torsten Graham I agree with the dictator's note, documented as a scribe by Marion Campos.
[2024-01-12 16:18] LABS: Glucose,Whole Blood 145 mg/dL (70-110)
[2024-01-12 19:59] LABS: Glucose,Whole Blood 167 mg/dL (70-110)
--- NOTE | 2024-01-12 23:19 | P.PN ---
Subjective Patient is a 73-year-old male with a known history of hyperlipidemia, diabetes type 2 insulin-dependent, coronary artery disease with prior stent placement, history of mild chronic CHF with mildly impaired systolic dysfunction ejection fraction 40 to 45% and moderate left ventricular concentric hypertrophy presents to ER with complaints of shortness of breath for the past 2 weeks and not getting better. Patient states that he has been having difficulty in breathing and felt like fluid in the lung. Also states that he felt warm and sweating at home. Patient was seen by his primary care physician and was given prednisone tapering course couple days ago which he has been taking. Patient is also complaining of diarrhea. Denies any fever or chills at home. Patient also states that he has increased leg swelling and gaining weight and has been taking extra dose of Lasix at home. Patient states that he has CHF and COPD. Chest x-ray on admission showed left basilar atelectasis or early infiltrate. EKG showed electronic ventricular paced rhythm. Laboratory data showed WBC 11.3 hemoglobin 14.2 and platelets 185 Sodium 132 potassium 3.5 chloride 94 bicarb is 19 anion gap 19 BUN 27 creatinine 1.12 and blood sugar 524 Lactic acid 4.1 calcium 8.0 magnesium 2.0 and total bili 1.8 liver regnancy not elevated troponin less than 0.12 and proBNP 2670 and albumin 2.8 Urinalysis showed 4+ glucose and leukocyte esterase negative. Influenza A B RSV and COVID-19 PCR not detected. 12/31/2023 Patient is resting in the bed. Awake alert and oriented. Overnight patient was hyperglycemic and requiring insulin drip. Patient was also started on IV Lasix. Breathing status is better today. No complaints of chest pain. No nausea vomiting abdominal pain or diarrhea. Patient is tolerating oral diet. Repeat chest x-ray this morning showed left retrocardiac consolidation correlate for atelectasis versus early pneumonia. Patient is being continued on antibiotics ceftriaxone and azithromycin. Pulmonary and cardiology is on board. Laboratory data showed WBC 11.4 hemoglobin 13.0 and platelets 167 12/31. Patient seen and examined. Complaining of diarrhea denies any nausea or vomiting. Shortness of breath is improved. 01/01. Patient seen and examined. Labs this morning showed sodium 139, potassium 4.4, BUN 41, creatinine 1.14. Diarrhea has improved. Currently on IV Lasix and Eliquis. Swelling of legs has improved 01/02. Patient seen and examined. States he is still having diarrhea. States the frequency has improved but still going up to 10 times per day. Denies any blood in the stools. 01/03. Patient seen and examined. Blood work showed WBC 13.8, hemoglobin 13.4, platelet count 214, sodium 137 potassium 4.3, BUN 10, creatinine 44. Continues to complain of diarrhea. Denies any blood in the stools. Denies any abdominal pain 01/04. Patient seen and examined. Patient still having diarrhea, states he is going every hour. Does not look in any distress. Currently on vancomycin which was started by ID for C. difficile suspicion, stool for C. difficile is negative. 01/05. Patient seen and examined. States diarrhea has improved, now he is saying hours diarrhea is every 2 hours. 01/06. Patient seen and examined. Continues to have diarrhea, surgery evaluated the patient, planning colonoscopy on Sunday 01/07. Patient seen and examined. Patient had a team called this morning for A- fib with RVR. Patient blood sugar was also found to be low. Patient was given Cardizem bolus 10 mg once and his heart rate improved. Patient night Dose of NovoLog was discontinued, morning dose of NovoLog was decreased to 15 units. 01/08. Patient seen and examined. Cardiology evaluated patient, recommended keeping patient on current medication regimen and getting AICD interrogation. Blood sugars remained stable. Surgery planning colonoscopy on Wednesday complains of shortness of breath on exertion. 01/10/2024 Patient is awake and alert lying in bed looks little bit discomfort but no signi ficant distress He denies abdominal pain but he still has diarrhea funeral pre need consultant he had chest pain or dyspnea related to his hypoglycemia, He will lower his Levemir 50 units down to 40 units, at home he was taking Lantus 50 units daily. Also will lower his NovoLog 22 units down to 20 units twice daily, also he takes 15 units with breakfast which is unchanged today. Keep monitoring glucose. Patient is having a lot of loose stool secondary to bowel preparation as he is going for colonoscopy today. at bedside and all questions were answered 01/11/2024 patient had colonoscopy yesterdaythe surgery team showing loses stool no specific lesion. Patient had frequent bowel movements are daily for bowel preparation, on admission his area was every hour, this morning he had 2 loose bowel movements of moderate amounts so far. No abdominal pain, has good appetite. No other complaints. His breathing is a stable, his fluid overload is also improved and currently On prednisone 30 mg and oral farxiga And Lasix once a day REASON Eliquis 5 mg and aspirin 81 mg Patient says he's never been evaluated by GI service before 01/12/2024 Patient clinically improving, he is asking to be discharged soon. He denies abdominal pain or tenderness and he tolerates diet His main complaint is diarrhea but patient states he has diarrhea for years, it was somewhat more prominent over the last 2 months become more severe lately but today patient reports improvement becoming less frequent than on admission and thinks patient can be discharged soon GI service also following the case and will continue to monitor for now Surgery team, pulmonary team already. The patient for discharge. Cardiology recommended outpatient follow-up His glucose was low today therefore we lowered his Levemir 50 units down to 7 units and switch his NovoLog to 10 units with meal, however his hemoglobin A1c is 11 which make it questionable compliance issue. Patient will benefit from outpatient referral to news correspondent, patient was instructed to follow-up with news correspondent Dr. Cook and he agrees Objective - Vital Signs Vital signs: Vital Signs Temp 97.9 F 01/12/24 08:11 Pulse 65 01/12/24 15:59 Resp 18 01/12/24 11:06 BP 139/84 01/12/24 11:06 Pulse Ox 96 01/12/24 11:06 FiO2 Intake & Output 01/11/24 01/12/24 01/12/24 18:59 06:59 18:59 Intake Total 360 240 Balance 360 240 Intake: Oral 360 240 Other: Voiding Method Toilet Toilet Urinal Urinal # Voids 2 3 5 # Bowel Movements 3 4 - Exam GENERAL: The patient is alert and oriented x3, not in any acute distress. Well developed, well nourished. HEENT: Pupils are round and equally reacting to light. EOMI. No scleral icterus. No conjunctival pallor. Normocephalic, atraumatic. No pharyngeal erythema. No thyromegaly. CARDIOVASCULAR: S1 and S2 present. No murmurs, rubs, or gallops. PULMONARY: Chest is clear to auscultation, no wheezing , no crackles. ABDOMEN: Soft, nontender, nondistended, normoactive bowel sounds. No palpable organomegaly. MUSCULOSKELETAL: No joint swelling or deformity. EXTREMITIES: No cyanosis, clubbing, or pedal edema. NEUROLOGICAL: Gross neurological examination did not reveal any focal deficits. SKIN: No rashes. no petechiae. - Labs CBC & Chem 7: 01/12/24 09:28 01/10/24 09:53 Labs: Abnormal Lab Results - Last 24 Hours (Table) 01/11/24 01/11/24 01/11/24 Range/Units 16:39 20:01 21:45 WBC (3.8-10.6) k/uL RBC (4.30-5.90) m/uL Hgb (13.0-17.5) gm/dL Hct (39.0-53.0) % MCV (80.0-100.0) fL Plt Count (150-450) k/uL Neutrophils # (1.3-7.7) k/uL POC Glucose (mg/dL) 274 H 314 H 292 H (70-110) mg/dL C-Reactive Protein (<1.0) mg/dL 01/12/24 01/12/24 01/12/24 Range/Units 01:56 06:08 09:28 WBC 11.3 H (3.8-10.6) k/uL RBC 3.69 L (4.30-5.90) m/uL Hgb 12.0 L (13.0-17.5) gm/dL Hct 37.6 L (39.0-53.0) % MCV 101.9 H (80.0-100.0) fL Plt Count 108 L (150-450) k/uL Neutrophils # 8.9 H (1.3-7.7) k/uL POC Glucose (mg/dL) 159 H 180 H (70-110) mg/dL C-Reactive Protein (<1.0) mg/dL 01/12/24 01/12/24 01/12/24 Range/Units 09:28 11:12 11:31 WBC (3.8-10.6) k/uL RBC (4.30-5.90) m/uL Hgb (13.0-17.5) gm/dL Hct (39.0-53.0) % MCV (80.0-100.0) fL Plt Count (150-450) k/uL Neutrophils # (1.3-7.7) k/uL POC Glucose (mg/dL) 47 L 49 L (70-110) mg/dL C-Reactive Protein 1.3 H (<1.0) mg/dL 01/12/24 01/12/24 01/12/24 Range/Units 11:50 12:12 12:15 WBC (3.8-10.6) k/uL RBC (4.30-5.90) m/uL Hgb (13.0-17.5) gm/dL Hct (39.0-53.0) % MCV (80.0-100.0) fL Plt Count (150-450) k/uL Neutrophils # (1.3-7.7) k/uL POC Glucose (mg/dL) 59 L 51 L 51 L (70-110) mg/dL C-Reactive Protein (<1.0) mg/dL Assessment and Plan Assessment: acute worsening diarrhea Acute COPD exacerbation failed outpatient treatment. LV thrombus Hyperglycemia with uncontrolled diabetes type 2 insulin-dependent A1c 12 Left basilar atelectasis and possible early infiltrate/pneumonia Acute on Chronic CHF with mildly reduced systolic dysfunction ejection fraction 40 to 45% as per 2D echocardiogram in 2018. Patient had stress test in [address]. follows with Dr[address] Graham as an outpatient. Coronary artery disease history of stent placement Lactic acidosis likely due to tissue hypoperfusion Hypovolemic hyponatremia and pseudohyponatremia Hypoalbuminemia Hyperlipidemia History of [place] Plan: assessment colonoscopy reviewed GI team consult Continue with Eliquis Continue with prednisone 30 mg On oral vancomycin Lower dose of insulin to 30 units of Levemir and 10 units with NovoLog with travis ls On aspirin 81 mg On metoprolol Entresto and Aldactone also he is on Lasix and Farxiga. Cardiolog y and pulmonary service consult GI and DVT prophylaxis Prognosis is guarded
[2024-01-13 02:06] LABS: Glucose,Whole Blood 180 mg/dL (70-110)
[2024-01-13 06:15] LABS: Glucose,Whole Blood 142 mg/dL (70-110)
[2024-01-13] MEDS: INSULIN DETEMIR (LEVEMIR) 100 UNIT/ML SYR SQ SCH (07:51)
[2024-01-13] MEDS: INSULIN ASPART (NovoLOG) 100 UNIT/ML VIAL SQ SCH (07:51)
[2024-01-13 08:17] VITALS: TEMP 97.5
--- NOTE | 2024-01-13 11:32 | P.PN ---
Subjective Progress Note Date: 01/13/24 Principal diagnosis: Pneumonia. Reevaluate today on 01/03/2024, patient continues to have cough and wheezing, continues to have intermittent episodes of diarrhea, patient is on maximal course of bronchodilators, he is also on diuretics for history of ischemic cardiomyopathy and LV dysfunction. Chest x-ray showed no evidence of congestive heart failure, there is mostly evidence of atelectasis. Also doubt pneumoniaPatient is on 3 L nasal cannula O2 sats is 95%. BBC count today is 12.1 hemoglobin 14.6. Potassium is 4.7 procalcitonin level on admission is 0.28. Admission chest x-ray showed mostly atelectasis at the left base with interstitial edema, underlying left lower lobe infiltrate is not entirely ruled out Reevaluated today on 01/04/2024, patient is doing much better from the pulmonary perspective, he does not seem to be concerned about his pulmonary symptoms he seems to be more concerned about his ongoing diarrhea. Patient has been going to the bathroom almost on a hourly basis. He is receiving Lomotil, and today I added Pepto-Bismol, his screening for C. difficile toxin has been negative twice now. WBC count is 13.8 hemoglobin 13.4 basic metabolic profile is normal BUN is 44 creatinine 1.15 last chest x-ray few days ago showed right lower lobe atel ectasis, questionable pneumonia, and mild pulmonary vascular congestion patient is now transition to oral Lasix, and he is also on Eliquis, patient does have history of LV thrombus Reevaluate today on 01/05/2024, patient continues to have intermittent and severe episodes of diarrhea. Patient was seen by infectious disease on consultation, and he was placed empirically on oral vancomycin, although 2 screenings for C. difficile colitis were negative. In the meantime, the patient remains on Lomot il, remains on Pepto-Bismol, and his diarrhea seems to be persistent. I feel the patient may have get GI evaluation and possibly colonoscopy. Pulmonary noble patient is doing better, breathing easier, occasional cough and wheezing only. Reevaluate today on 01/06/2024, patient is doing well from a pulmonary perspective, continues to have severe diarrhea. Patient is going to the bathroom on the average of once every 2 hours. Slightly better compared to yesterday he was going once every 1 hour. Pulmonary noble hardly any pulmonary symptoms no cough no wheezing no shortness of breath no chest pain. Reevaluate today on 01/07/2024, patient has no active pulmonary issues but he has mostly GI issues and persistent diarrhea go to the bathroom on the average of 1 every 1 and half hours. Denies any melena or hematemesis, denies any nausea or vomiting, considering we have no GI coverage, I am recommending surgical consultation, patient may need colonoscopy and biopsy.Continues to have leukocyt osis with WBC of 16.8 hemoglobin 13.1 basic metabolic profile is normal BUN is 47 creatinine 1.19 Reevaluate today on 01/08/24, during my evaluation the patient this morning, he was noted to have shortness of breath, on physical examination he had scattered rhonchi and wheezes, he was also in atrial fibrillation with RVR, patient received Decadron, he also received a DuoNeb updrafts 4 times daily and as needed, and he received a low-dose dose of Lasix. Stat EKG was ordered, stat chest x-ray was ordered, chest x-ray showed no evidence of pulmonary edema and no acute process was noted basically had just minimal atelectasis at the right base, otherwise lungs were clear. Atrial fibrillation and RVR is being addressed by cardiology on the case. Continues to have diarrhea Patient was reevaluated today on 01/09/2024, patient seems to be doing better today compared to yesterday, but he continues to have intermittent episodes of diarrhea. Patient is scheduled to have colonoscopy tomorrow. In addition to his diarrhea, patient has underlying COPD with recurrent episodes of COPD exacerbation, and he does have acute on chronic congestive heart failure with reduced ejection fraction. Patient had previous AICD implantation. He also has diabetes, hypertension, and apparently atrial fibrillation was ruled out. ICD interrogation. He does have a small LV thrombus per echo chest x-ray this morning showed limited atelectasis at the right lung base, no evidence of pneumonia and no evidence of congestive heart failure Progress note dated January 10, 2024. The patient is seen today in room 375. This is a 73-year-old gentleman who was admitted with a diagnosis of pneumonia. The patient is getting 3 L of oxygen by nasal cannula. He is also getting dextrose with half-normal saline at 50 cc an hour. The patient is scheduled to have a colonoscopy today. He has been having significant diarrhea, and was started on oral vancomycin. He still having significant diarrhea. Labs today include a white count of 17.4, hemoglobin 14.2, hematocrit 46.4, and platelet count of 168,000. Sodium 136, potassium 4.2, chlorides 102, CO2 28, BUN 36, creatinine 1.06. Albumin is 2.8. Glucose is 130. Stool cultures only show evidence of yeast species. Progress note dated 01/11/2024. The patient is seen today in room 375. The patient is resting comfortably. He is on oxygen at 3 L. The patient had his colonoscopy yesterday. Not much was found, according to the surgeon. The patient has some diverticuli, and a polyp. Other than that, there is not much going on in the way of his colonoscopy. The patient does continue on p.o. vancomycin. He states that his diarrhea is much improved. Clinically, he is feeling well. Labs today include a glucose of 138. Progress note dated January 12, 2024. 73-year-old male seen today in room 375. The patient appears to be doing relatively well, without specific complaints. He denies any shortness of breath, cough, wheezing, chest tightness, or phlegm production. He also denies any chest pain or pressure. His abdomen is soft. His diarrhea is improved. He is currently on 3 L of oxygen. He continues on oral vancomycin. Labs today include a white count 11.3, hemoglobin 12, hematocrit 37.6, and a platelet count of 108,000. Progress note dated January 13, 2024. 73-year-old male again seen in room 375. The patient's respiratory status is stable. He continues on oxygen at 3 L. He is not receiving any IV fluids. He continues on vancomycin p.o., even though he never tested positive for C. difficile colitis. No new laboratory data other than a glucose of 142. The patient is clinically stable. Objective - Vital Signs Vital signs: Vital Signs Temp 97.5 F L 01/13/24 07:47 Pulse 71 01/13/24 08:10 Resp 19 01/13/24 07:47 BP 104/67 01/13/24 07:47 Pulse Ox 95 01/13/24 08:10 FiO2 Intake & Output 01/12/24 01/13/24 01/13/24 18:59 06:59 18:59 Intake Total 480 250 Balance 480 250 Intake: IV 10 Invasive Line 2 10 Oral 480 240 Other: Voiding Method Toilet Toilet Toilet Urinal Urinal Urinal # Voids 2 1 # Bowel Movements 2 2 1 - Exam No acute distress, oriented 3. Currently on 3 L of oxygen. No conversational dyspnea or use of accessory muscles. HEENT examination is grossly unremarkable. Mucous membranes are moist. No oral lesions. Neck supple. Full range of motion. No adenopathy thyromegaly or neck vein distention. Cardiovascular examination reveals regular rhythm rate. S1-S2 normal. No S3 or S4. No discernible murmur noted. Heart rate 72 bpm. Heart sounds are distant. Lungs reveal scattered bilateral rhonchi. No wheezes or crackles. Breath sounds equal bilaterally. 3 L saturation is 95 %. Abdomen soft bowel sounds are heard. No masses or tenderness. Extremities are intact. No cyanosis clubbing or edema. Skin is without rash or lesion. Neurologic examination is brief but nonfocal. - Labs CBC & Chem 7: 01/12/24 09:28 01/10/24 09:53 Labs: Abnormal Lab Results - Last 24 Hours (Table) 01/12/24 01/12/24 01/12/24 Range/Units 11:31 11:50 12:12 POC Glucose (mg/dL) 49 L 59 L 51 L (70-110) mg/dL 01/12/24 01/12/24 01/12/24 Range/Units 12:15 16:12 19:58 POC Glucose (mg/dL) 51 L 145 H 167 H (70-110) mg/dL 01/13/24 01/13/24 Range/Units 02:04 06:13 POC Glucose (mg/dL) 180 H 142 H (70-110) mg/dL Assessment and Plan Assessment: Acute COPD exacerbation, along with acute systolic CHF, both much improved. Paroxysmal atrial fibrillation with RVR. Coronary artery disease with previous coronary stenting. Ischemic cardiomyopathy/systolic heart failure, with an ejection fraction of 20 to 25%. LV thrombus. Diabetes mellitus. Anion gap metabolic acidosis, resolved. History of implanted AICD/pacemaker. Hyperlipidemia. Obesity. Acute gastroenteritis, with suspected C. difficile colitis, which was not prov en. Plan: Plan dated January 10, 2024. The patient continues on oral vancomycin, for suspected C. difficile colitis. Studies have been negative. The patient is going to have a colonoscopy later today. He continues on updrafts, and diuretics. He also continues on other appropriate antidiarrheal medications. The patient also continues on Eliquis. We will continue to follow the patient, make recommendations along the way. Labs, x-rays, and medications are reviewed. Prognosis is guarded. Plan dated January 11, 2024. The patient continues on oral vancomycin. The patient had a colonoscopy yesterday, and fortunately, not much was seen. Biopsies were done, and are currently pending. The patient did have some diverticuli, and a colonic polyp. Clinically, the patient is feeling better. He is having much less diarrhea. He denies any respiratory issues. Labs, x-rays, and medications are reviewed. He continues on oxygen, at 3 L. No additional recommendations are made. We will continue to follow the patient, and make recommendations along the way. Plan dated January 12, 2024. The patient is seen today in room 375. He continues on oxygen at 3 L. The patient states that his abdomen is feeling better, and is not having near as much diarrhea. Clinically, he seems to be much improved. Labs, x-rays, and medications are reviewed. We will continue to follow and make recommendations along the way. From the pulmonary status, the patient could be considered for discharge. Prognosis is guarded. Colonoscopy, revealed only diverticuli, and colonic polyp. Plan dated January 13, 2024. The patient is stable from the pulmonary standpoint. The patient has wanted to go home for the last 2 or 3 days. He denies any shortness of breath, cough, wheezing, chest tightness, or phlegm production. He continues on 3 L. Labs, x- rays, and medications are reviewed. His colonoscopy revealed diverticuli, and a colonic polyp. We will continue to follow. Prognosis is guarded. Time with Patient: Less than 30
[2024-01-13 11:40] LABS: ALT 41 U/L (4-49); African American GFR (CKD) 78 (>60 ml/min/1.73 sqM); Albumin 2.4 g/dL (3.5-5.0); Anion Gap 9 mmol/L; Blood Urea Nitrogen 34 mg/dL (9-20); C Reactive Protein 1.9 mg/dL (<1.0); Carbon Dioxide 16 mmol/L (22-30); Chloride 107 mmol/L (98-107); Glucose 179 mg/dL (74-99); Non-African American GFR(CKD) 67 (>60 ml/min/1.73 sqM); Sodium 132 mmol/L (137-145); Total Protein 5.2 g/dL (6.3-8.2)
[2024-01-13 11:46] LABS: Glucose,Whole Blood 177 mg/dL (70-110)
[2024-01-13 11:55] LABS: Basophils % (A) 0 %; Eosinophils % (A) 0 %; HCT 37.3 % (39.0-53.0); HGB 12.2 gm/dL (13.0-17.5); Lymphocytes # (A) 0.8 k/uL (1.0-4.8); Lymphocytes % (A) 6 %; MCH 33.1 pg (25.0-35.0); MCHC 32.6 g/dL (31.0-37.0); MCV 101.5 fL (80.0-100.0); Macrocytosis Slight; Mean Platelet Volume 9.7; Monocytes # (A) 0.6 k/uL (0-1.0); Monocytes % (A) 5 %; Neutrophils % (A) 88 %; Platelet Count 100 k/uL (150-450); RBC 3.67 m/uL (4.30-5.90); RDW 15.5 % (11.5-15.5); WBC 12.6 k/uL (3.8-10.6)
[2024-01-13 12:08] LABS: AST 33 U/L (17-59); Alkaline Phosphatase 167 U/L (38-126); Potassium 5.1 mmol/L (3.5-5.1)
[2024-01-13 13:02] VITALS: RESP 19
--- NOTE | 2024-01-13 14:38 | P.PN ---
Subjective Progress Note Date: 01/13/24 Principal diagnosis: Diarrhea This is a pleasant 73-year-old male who had presented to the emergency department on 12/30/2023 with complaints of shortness of breath and dizziness. He has a past medical history including coronary artery disease, heart failure, COPD, diabetes mellitus, hyperlipidemia and myocardial infarction. He was admitted to the hospital with pneumonia, hyperglycemia and metabolic acidosis. Patient had developed diarrhea after being exposed to antibiotic therapy and has been having quite a bit of diarrhea. And general surgery was consulted for colonoscopy. Yesterday the patient underwent colonoscopy however according to report appears that patient had poor prep and had a large amount of liquid stool in the right colon which prevented the scope to be advanced into the cecum. However reported that colon appeared normal there was a small polyp in the rectum that was removed with cold forcep. Infectious disease following as well for the diarrhea due to antibiotic exposure and possibility of diarrhea versus C. difficile colitis. C. difficile I will EIA as well as PCR were both negative. Patient was empirically started on oral vancomycin 500 mg p.o. 4 times daily. No stool cultures were obtained. He has been started on Lomotil as well as Questran. January 12, 2024 Patient seen and examined today as a follow-up for diarrhea. Patient states diarrhea seems to have improved some from initially every hour. States he had about 2-3 this morning. They are not as loose as before they are soft but not formed. He denies any abdominal pain, nausea or vomiting. No blood in his stool. Denies any fevers or chills. January 13, 2024 Patient seen and examined today as a follow-up. States he only had 1 episode of loose stool this morning. He states it is soft but not formed. It is brown no blood. No abdominal pain, nausea or vomiting. Objective - Vital Signs Vital signs: Vital Signs Temp 97.5 F L 01/13/24 07:47 Pulse 71 01/13/24 08:10 Resp 19 01/13/24 07:47 BP 104/67 01/13/24 07:47 Pulse Ox 95 01/13/24 08:10 FiO2 Intake & Output 01/12/24 01/13/24 01/13/24 18:59 06:59 18:59 Intake Total 480 250 Balance 480 250 Intake: IV 10 Invasive Line 2 10 Oral 480 240 Other: Voiding Method Toilet Toilet Toilet Urinal Urinal Urinal # Voids 2 1 # Bowel Movements 2 2 1 - Exam General appearance: The patient is alert, oriented, appears in no acute distr ess. HET: Head is normocephalic and atraumatic. Conjunctiva pink. Sclera anicteric. Neck: Supple without lymphadenopathy. Abdomen: Soft, nontender, nondistended with bowel sounds. No guarding or rigidity. Extremities: Normal skin color and turgor. No pedal edema Skin: No rashes, no jaundice Neurological: No focal deficits. Alert and oriented. - Labs CBC & Chem 7: 01/13/24 10:03 01/13/24 10:03 Labs: Abnormal Lab Results - Last 24 Hours (Table) 01/12/24 01/12/24 01/12/24 Range/Units 09:28 09:28 11:12 WBC 11.3 H (3.8-10.6) k/uL RBC 3.69 L (4.30-5.90) m/uL Hgb 12.0 L (13.0-17.5) gm/dL Hct 37.6 L (39.0-53.0) % MCV 101.9 H (80.0-100.0) fL Plt Count 108 L (150-450) k/uL Neutrophils # 8.9 H (1.3-7.7) k/uL POC Glucose (mg/dL) 47 L (70-110) mg/dL C-Reactive Protein 1.3 H (<1.0) mg/dL 01/12/24 01/12/24 01/12/24 Range/Units 11:31 11:50 12:12 WBC (3.8-10.6) k/uL RBC (4.30-5.90) m/uL Hgb (13.0-17.5) gm/dL Hct (39.0-53.0) % MCV (80.0-100.0) fL Plt Count (150-450) k/uL Neutrophils # (1.3-7.7) k/uL POC Glucose (mg/dL) 49 L 59 L 51 L (70-110) mg/dL C-Reactive Protein (<1.0) mg/dL 01/12/24 01/12/24 01/12/24 Range/Units 12:15 16:12 19:58 WBC (3.8-10.6) k/uL RBC (4.30-5.90) m/uL Hgb (13.0-17.5) gm/dL Hct (39.0-53.0) % MCV (80.0-100.0) fL Plt Count (150-450) k/uL Neutrophils # (1.3-7.7) k/uL POC Glucose (mg/dL) 51 L 145 H 167 H (70-110) mg/dL C-Reactive Protein (<1.0) mg/dL 01/13/24 01/13/24 Range/Units 02:04 06:13 WBC (3.8-10.6) k/uL RBC (4.30-5.90) m/uL Hgb (13.0-17.5) gm/dL Hct (39.0-53.0) % MCV (80.0-100.0) fL Plt Count (150-450) k/uL Neutrophils # (1.3-7.7) k/uL POC Glucose (mg/dL) 180 H 142 H (70-110) mg/dL C-Reactive Protein (<1.0) mg/dL Assessment and Plan (1) Diarrhea Narrative/Plan: 73-year-old male with a history of chronic diarrhea presenting for shortness of breath and acute on chronic diarrhea. Patient states starting December 09 he had been given antibiotics by his primary care physician for urinary tract infection. Since that time he states he started having diarrhea nonbloody hourly. States his normal bowel pattern is 4-5 loose bowels a day. States that this has been ongoing for years. He has never had any true workup for it. He does admit to having a colonoscopy probably around age 49 and maybe 54 with colon polyps status post polypectomy. Also has a history of cholecystectomy, he was seen by general surgery during this hospitalization for ongoing diarrhea for which he underwent a colonoscopy yesterday with poor prep and nonvisualization o f the cecum but otherwise reportedly normal colon. Continues to have diarrhea at although somewhat improved. C. difficile stool negative EIA as well as PCR. Patient empirically started on oral vancomycin by infectious disease. Would recommend continue with Questran, increasing Lomotil to 2 tablets 4 times a day. And no plans on further endoscopic evaluation at this time. Current Visit: Yes Status: Acute Code(s): R19.7 - DIARRHEA, UNSPECIFIED SNOMED Code(s): 86440266 Plan: 1. Continue symptomatic and supportive care 2. Continue Lomotil to 2 tablets 4 times a day 3. Continue with Questran 4. Diet as tolerated 5. No plans on further endoscopic evaluation as patient just had colonoscopy 6. Celiac panel ordered 7. Patient is cleared from gastroenterology for discharge. He can follow-up in outpatient setting in 1-2 weeks. Will review celiac panel at that time Thank you for this consultation, we will sign off at this time. Dr. Torsten Graham I agree with the dictator's note, documented as a scribe by Marion Campos.
--- NOTE | 2024-01-13 14:50 | P.PN ---
Subjective Progress Note Date: 01/13/24 CHIEF COMPLAINT: Diarrhea HISTORY OF PRESENT ILLNESS: Patient status post colonoscopy with removal of rec siobhan polyp and diverticulosis. Patient reports his diarrhea is less. He is tolerating diet. Denies any abdominal pain. Afebrile. Patient seen by GI service and they added Lomotil. PHYSICAL EXAM: VITAL SIGNS: Reviewed. GENERAL: Well-developed in no acute distress. ABDOMEN: Soft. Nondistended. Nontender. NEUROLOGIC: Alert and oriented. Cranial nerves II through XII grossly intact. ASSESSMENT: 1. Diarrhea 2. Status post colonoscopy with removal of rectal polyp PLAN: -Patient can be discharged from surgical standpoint when medically cleared -Continue regular diet -Recommend to follow-up with GI outpatient Physician Brazing Machine Feeder note has been reviewed by physician. Signing provider agrees with the documented findings, assessment, and plan of care. Objective - Vital Signs Vital signs: Vital Signs Temp 97.5 F L 01/13/24 07:47 Pulse 66 01/13/24 12:51 Resp 19 01/13/24 12:51 BP 112/71 01/13/24 12:51 Pulse Ox 98 01/13/24 12:51 FiO2 Intake & Output 01/12/24 01/13/24 01/13/24 18:59 06:59 18:59 Intake Total 480 490 Balance 480 490 Intake: IV 10 Invasive Line 2 10 Oral 480 480 Other: Voiding Method Toilet Toilet Toilet Urinal Urinal Urinal # Voids 2 1 # Bowel Movements 2 2 1 - Labs CBC & Chem 7: 01/13/24 10:03 01/13/24 10:03 Labs: Abnormal Lab Results - Last 24 Hours (Table) 01/12/24 01/12/24 01/13/24 Range/Units 16:12 19:58 02:04 WBC (3.8-10.6) k/uL RBC (4.30-5.90) m/uL Hgb (13.0-17.5) gm/dL Hct (39.0-53.0) % MCV (80.0-100.0) fL Plt Count (150-450) k/uL Neutrophils # (1.3-7.7) k/uL Lymphocytes # (1.0-4.8) k/uL Sodium (137-145) mmol/L Carbon Dioxide (22-30) mmol/L BUN (9-20) mg/dL Glucose (74-99) mg/dL POC Glucose (mg/dL) 145 H 167 H 180 H (70-110) mg/dL Calcium (8.4-10.2) mg/dL Alkaline Phosphatase (38-126) U/L C-Reactive Protein (<1.0) mg/dL Total Protein (6.3-8.2) g/dL Albumin (3.5-5.0) g/dL 01/13/24 01/13/24 01/13/24 Range/Units 06:13 10:03 10:03 WBC 12.6 H (3.8-10.6) k/uL RBC 3.67 L (4.30-5.90) m/uL Hgb 12.2 L (13.0-17.5) gm/dL Hct 37.3 L (39.0-53.0) % MCV 101.5 H (80.0-100.0) fL Plt Count 100 L (150-450) k/uL Neutrophils # 11.0 H (1.3-7.7) k/uL Lymphocytes # 0.8 L (1.0-4.8) k/uL Sodium 132 L (137-145) mmol/L Carbon Dioxide 16 L (22-30) mmol/L BUN 34 H (9-20) mg/dL Glucose 179 H (74-99) mg/dL POC Glucose (mg/dL) 142 H (70-110) mg/dL Calcium 8.0 L (8.4-10.2) mg/dL Alkaline Phosphatase 167 H (38-126) U/L C-Reactive Protein 1.9 H (<1.0) mg/dL Total Protein 5.2 L (6.3-8.2) g/dL Albumin 2.4 L (3.5-5.0) g/dL 01/13/24 Range/Units 11:45 WBC (3.8-10.6) k/uL RBC (4.30-5.90) m/uL Hgb (13.0-17.5) gm/dL Hct (39.0-53.0) % MCV (80.0-100.0) fL Plt Count (150-450) k/uL Neutrophils # (1.3-7.7) k/uL Lymphocytes # (1.0-4.8) k/uL Sodium (137-145) mmol/L Carbon Dioxide (22-30) mmol/L BUN (9-20) mg/dL Glucose (74-99) mg/dL POC Glucose (mg/dL) 177 H (70-110) mg/dL Calcium (8.4-10.2) mg/dL Alkaline Phosphatase (38-126) U/L C-Reactive Protein (<1.0) mg/dL Total Protein (6.3-8.2) g/dL Albumin (3.5-5.0) g/dL
--- NOTE | 2024-01-13 15:03 | P.PN ---
Subjective Progress Note Date: 01/13/24 Principal diagnosis: Reason for follow-up with diarrhea and leukocytosis Patient is a 73-year-old male past medical history significant for diabetes mellitus hypertension [place] COPD heart failure coronary artery disease presenting to the hospital for evaluation of increasing shortness of breath also developed significant diarrhea prompting this consultation. On today's evaluation that is 01/13/2024,the patient denies any fever or any chills, patient is breathing comfortably on room air, the patient denies chest pain shortness of breath and no significant cough, patient denies abdominal pain, no nausea vomiting and did have significant improvement in his diarrhea feeling better wants to go home. Patient did have a white count of 12.6 creatinine is 1.08 Objective - Vital Signs Vital signs: Vital Signs Temp 97.5 F L 01/13/24 07:47 Pulse 66 01/13/24 12:51 Resp 19 01/13/24 12:51 BP 112/71 01/13/24 12:51 Pulse Ox 98 01/13/24 12:51 FiO2 Intake & Output 01/12/24 01/13/24 01/13/24 18:59 06:59 18:59 Intake Total 480 250 Balance 480 250 Intake: IV 10 Invasive Line 2 10 Oral 480 240 Other: Voiding Method Toilet Toilet Toilet Urinal Urinal Urinal # Voids 2 1 # Bowel Movements 2 2 1 - Exam GENERAL DESCRIPTION: An elderly male up in bed in no distress RESPIRATORY SYSTEM: Unlabored breathing , decreased breath sounds at bases HEART: S1 S2 regular rate and rhythm , ABDOMEN: Soft , no tenderness EXTREMITIES: No edema feet - Labs CBC & Chem 7: 01/13/24 10:03 01/13/24 10:03 Labs: Abnormal Lab Results - Last 24 Hours (Table) 01/12/24 01/12/24 01/13/24 Range/Units 16:12 19:58 02:04 WBC (3.8-10.6) k/uL RBC (4.30-5.90) m/uL Hgb (13.0-17.5) gm/dL Hct (39.0-53.0) % MCV (80.0-100.0) fL Plt Count (150-450) k/uL Neutrophils # (1.3-7.7) k/uL Lymphocytes # (1.0-4.8) k/uL Sodium (137-145) mmol/L Carbon Dioxide (22-30) mmol/L BUN (9-20) mg/dL Glucose (74-99) mg/dL POC Glucose (mg/dL) 145 H 167 H 180 H (70-110) mg/dL Calcium (8.4-10.2) mg/dL Alkaline Phosphatase (38-126) U/L C-Reactive Protein (<1.0) mg/dL Total Protein (6.3-8.2) g/dL Albumin (3.5-5.0) g/dL 01/13/24 01/13/24 01/13/24 Range/Units 06:13 10:03 10:03 WBC 12.6 H (3.8-10.6) k/uL RBC 3.67 L (4.30-5.90) m/uL Hgb 12.2 L (13.0-17.5) gm/dL Hct 37.3 L (39.0-53.0) % MCV 101.5 H (80.0-100.0) fL Plt Count 100 L (150-450) k/uL Neutrophils # 11.0 H (1.3-7.7) k/uL Lymphocytes # 0.8 L (1.0-4.8) k/uL Sodium 132 L (137-145) mmol/L Carbon Dioxide 16 L (22-30) mmol/L BUN 34 H (9-20) mg/dL Glucose 179 H (74-99) mg/dL POC Glucose (mg/dL) 142 H (70-110) mg/dL Calcium 8.0 L (8.4-10.2) mg/dL Alkaline Phosphatase 167 H (38-126) U/L C-Reactive Protein 1.9 H (<1.0) mg/dL Total Protein 5.2 L (6.3-8.2) g/dL Albumin 2.4 L (3.5-5.0) g/dL 01/13/24 Range/Units 11:45 WBC (3.8-10.6) k/uL RBC (4.30-5.90) m/uL Hgb (13.0-17.5) gm/dL Hct (39.0-53.0) % MCV (80.0-100.0) fL Plt Count (150-450) k/uL Neutrophils # (1.3-7.7) k/uL Lymphocytes # (1.0-4.8) k/uL Sodium (137-145) mmol/L Carbon Dioxide (22-30) mmol/L BUN (9-20) mg/dL Glucose (74-99) mg/dL POC Glucose (mg/dL) 177 H (70-110) mg/dL Calcium (8.4-10.2) mg/dL Alkaline Phosphatase (38-126) U/L C-Reactive Protein (<1.0) mg/dL Total Protein (6.3-8.2) g/dL Albumin (3.5-5.0) g/dL Assessment and Plan (1) Diarrhea Current Visit: Yes Status: Acute Code(s): R19.7 - DIARRHEA, UNSPECIFIED SNOMED Code(s): 74495378 (2) Leukocytosis Current Visit: Yes Status: Acute Code(s): D72.829 - ELEVATED WHITE BLOOD CELL COUNT, UNSPECIFIED SNOMED Code(s): 440036520 Plan: 1patient with extensive diarrhea over the last few days this patient has been exposed to antibiotics on the question of possible antibiotic associated diarrhea versus C. difficile colitis high clinical suspicions keeping in mind elevated white count 2-patient stool for C. difficile PCR came back negative, stool culture has been negative, colonoscopy did not show any abnormality 3-patient did have improvement in his diarrhea could be related to his symptomatic treatment we will go ahead and discontinue vancomycin and monitor the patient closely off antibiotic Dictation was produced using [employer] dictation software. please excuse any grammatical, word or spelling errors. Time with Patient: Less than 30
[2024-01-13 16:20] VITALS: BP 122/70; PULSE 64
[2024-01-13 16:51] LABS: Glucose,Whole Blood 187 mg/dL (70-110)
[2024-01-13 21:29] LABS: Gliadin AB IgA, Deaminated Negative (Negative); Gliadin AB IgA, Unit <0.5 U/mL; Gliadin AB IgG, Deaminated Negative (Negative); Gliadin AB IgG, Unit <0.4 U/mL
--- NOTE | 2024-01-14 10:11 | P.DS ---
Providers Date of admission: 12/30/23 13:53 Attending physician: Anna Bell Consults: 12/30/23 21:46 Consult Physician Routine Consulting Provider: Irene Nash Consult Reason/Comments: COPD exac., DKA Do you want consulting provider notified?: Yes 12/30/23 22:46 Consult Physician Routine Consulting Provider: Terrance Graham Consult Reason/Comments: CHF Do you want consulting provider notified?: Yes 01/04/24 12:05 Consult Physician Routine Consulting Provider: Joslyn Miramontes Consult Reason/Comments: diarrhea Do you want consulting provider notified?: Yes 01/07/24 11:45 Consult Physician Routine Consulting Provider: Amari Foote Consult Reason/Comments: Ongoing diarrhea Do you want consulting provider notified?: Yes Primary care physician: [facility] Course: Diagnoses acute on chronic diarrhea, unknown exact etiology needs follow-up outpatient with GI service Acute COPD exacerbation failed outpatient treatment. Stable and cleared by director vaccine LV thrombus started on blood thinner Hyperglycemia/hypoglycemia with uncontrolled diabetes type 2 insulin-dependent A1c 12 Left basilar atelectasis and possible early infiltrate/pneumonia, resolved and patient is asymptomatic afebrile upon discharge. Also cleared by director vaccine Acute on Chronic CHF with mildly reduced systolic dysfunction ejection fraction 40 to 45% cleared by edge grinder machine for discharge. Coronary artery disease history of stent placement Lactic acidosis likely due to tissue hypoperfusion Hypovolemic hyponatremia and pseudohyponatremia Hypoalbuminemia Hyperlipidemia History of [place] Hospital course: Patient is a 73-year-old male with a known history of hyperlipidemia, diabetes type 2 insulin-dependent, coronary artery disease with prior stent placement, history of mild chronic CHF with mildly impaired systolic dysfunction ejection fraction 40 to 45% and moderate left ventricular concentric hypertrophy presents to ER with complaints of shortness of breath for the past 2 weeks and not getting better. Patient was admitted on 12/29 and discharged on 01/12. He had prolonged hospital course and has been seen by several consultants. Has been diagnosed with acute COPD exacerbation and has been evaluated by pulmonary service and treated with bronchodilators and steroids and other medications. Also evaluated by cardiology team for his cardiomyopathy and evaluated for blockages. Left ventricle thrombus is found and patient was started on blood thinner Eliquis by cardiology service. Patient tolerated the medication well. Eventually patient was cleared for discharge by cardiology and pulmonary services. And he has this diarrhea which was every 1 hour on admission as per patient, he states he has diarrhea for many years but recently got worse and. He has not at least 1-year and he has not been followed up with a finish molder and no cause was diagnosed extensive workup was done and several consultants called for his diarrhea including surgery team, gastroenterology and infectious disease, status most colonoscopy showing liquid stool in the colon, he was treated with oral vancomycin with no much benefit. And then he was placed on Questran and Lomotil by GI and ID service and that helped to slow down his diarrhea. On the day of discharge patient fully awake and oriented, he states his diarrhea improved back to baseline prior to worsening recently and he tolerates diet well with no abdominal pain and he is willing to go home today. Patient also was cleared for discharge by all consultants including GI team, ID team and surgery team Patient denies chest pain or dyspnea. No other new complaint. Problems and management plan were discussed with the patient and he verbalized understanding and acceptance Patient was found stable and can be discharged home in guarded prognosis however he needs follow-up as an outpatient. Patient was instructed to follow up with PCP within one week and patient agrees For his diabetes he was on Le long-acting insulin 50 units and NovoLog with meals 15 units, 22 units twice daily but this regiment he was developing hypoglycemia so we adjusted the regimen to Levemir 30 units and NovoLog 10 units with meal. His hemoglobin A1c was quite elevated during this admission. 11.0% compared to 8-9 previously. I tried to explain that to the patient his diabetes management however he got upset again he does not want to discuss it he states that he follow-up with his political geographer Dr. Horan every 3 months He was so upset he was not discharged earlier " you are going to sign my papers now believe or I will justin you" he states and he refused to continue conversations or give him explanation for his hospital course, also he refused to listen for review of discharge medication and instructions, however medical t eam continue care for the best of the patient. Also patient refused to complete discharge instructions and follow-up appointment recommendation. Patient was however recommended to follow-up with PCP, edge grinder machine, director vaccine, finish molder and political geographer, see discharge instructions Physical exam Gen: patient is a AAOx3, no distress CVS: S1-S2, RRR, no murmur Lungs: B/L CTA, no wheezing Abdomen: soft, no distention, no tenderness, positive bowel sounds Extremity: no leg edema or induration Time spent more than 35 minutes Patient Condition at Discharge: Fair Plan - Discharge Summary Discharge Rx Participant: No New Discharge Prescriptions: New Insulin Detemir (Levemir) [Levemir] 30 unit SQ DAILY@0700 #10 ml Metoprolol Tartrate [Lopressor] 50 mg PO BID #60 tab Diphenoxylate HCl/Atropine [Lomotil 2.5-0.025 mg Tablet] 1 tab PO QID PRN 14 Days #56 tab PRN Reason: Diarrhea INSULIN ASPART (NovoLOG) [NovoLOG (formulary)] 10 unit SQ AC-TID #10 ml predniSONE 10 mg PO DIRECTED #24 tab Cholestyramine (with Sugar) [Questran Packet] 4 gm PO BID@1000,1800 7 Days #14 packet Apixaban [Eliquis] 5 mg PO BID #60 tab Continue Loratadine [Claritin] 10 mg PO DAILY Clindamycin Topical Soln [Cleocin-T Topical Soln] 1 applic TOPICAL BID PRN PRN Reason: Skin Irritation Budesonide [Pulmicort] 0.5 mg INHALATION RT-BID Albuterol Inhaler [Ventolin Hfa Inhaler] 1 - 2 puff INHALATION RT-QID PRN PRN Reason: Shortness Of Breath Montelukast [Singulair] 10 mg PO HS Ipratropium-Albuterol Nebulize [Duoneb 0.5 mg-3 mg/3 ml Soln] 3 ml INHALATION RT-QID Formoterol Fumarate [Perforomist] 20 mcg INHALATION RT-BID Nitroglycerin Sl Tabs [Nitrostat] 0.4 mg SUBLINGUAL Q5M PRN PRN Reason: Chest Pain Potassium Chloride ER [K-Dur 20] 20 meq PO DAILY PRN PRN Reason: with lasix Atorvastatin [Lipitor] 40 mg PO HS Aspirin EC [Ecotrin Low Dose] 81 mg PO HS Omeprazole 20 mg PO BID Fluticasone/Umeclidin/Vilanter [Trelegy Ellipta 200-62.5-25] 1 puff INHALATION RT-DAILY Sacubitril/Valsartan [Entresto 24 mg-26 mg Tablet] 1 tab PO BID Ketoconazole 2% Cream [Nizoral 2%] 1 applic TOPICAL BID PRN PRN Reason: face and ear issues guaiFENesin [Mucinex] 1,200 mg PO BID PRN PRN Reason: Congestion Cholecalciferol [Vitamin D3 (125 Mcg = 5000 Iu)] 125 mcg PO DAILY Spironolactone [Aldactone] 25 mg PO DIRECTED Tamsulosin [Flomax] 0.4 mg PO BID Dapagliflozin Propanediol [Farxiga] 10 mg PO DAILY Furosemide [Lasix] 40 mg PO DAILY PRN #30 tab PRN Reason: Edema Discontinued traMADol HCL [Ultram] 50 mg PO BID PRN PRN Reason: Pain Insulin Glargine,Hum.rec.anlog [Lantus Solostar] 50 unit SQ DAILY Insulin Glargine,Hum.rec.anlog [Lantus Solostar Pen] 10 units SQ W/SUPPER PRN PRN Reason: when taking prednisone predniSONE See Taper PO DIRECTED Midodrine [ProAmatine] 5 mg PO TID Bisoprolol Fumarate 5 mg PO DAILY predniSONE See Taper PO DIRECTED PRN PRN Reason: breathing/lung issues Insulin Aspart (Niacinamide) [Fiasp 100 Unit/ml Flextouch Pen] 15 units SQ HS Insulin Aspart (Niacinamide) [Fiasp 100 Unit/ml Flextouch Pen] 22 units SQ TID-W/MEALS Discharge Medication List Albuterol Inhaler [Ventolin Hfa Inhaler] 1 - 2 puff INHALATION RT-QID PRN 05/22/17 [History] Aspirin EC [Ecotrin Low Dose] 81 mg PO HS 05/22/17 [History] Atorvastatin [Lipitor] 40 mg PO HS 05/22/17 [History] Budesonide [Pulmicort] 0.5 mg INHALATION RT-BID 05/22/17 [History] Clindamycin Topical Soln [Cleocin-T Topical Soln] 1 applic TOPICAL BID PRN 05/22/17 [History] Formoterol Fumarate [Perforomist] 20 mcg INHALATION RT-BID 05/22/17 [History] Ipratropium-Albuterol Nebulize [Duoneb 0.5 mg-3 mg/3 ml Soln] 3 ml INHALATION RT-QID 05/22/17 [History] Loratadine [Claritin] 10 mg PO DAILY 05/22/17 [History] Montelukast [Singulair] 10 mg PO HS 05/22/17 [History] Nitroglycerin Sl Tabs [Nitrostat] 0.4 mg SUBLINGUAL Q5M PRN 05/22/17 [History] Potassium Chloride ER [K-Dur 20] 20 meq PO DAILY PRN 05/22/17 [History] Cholecalciferol [Vitamin D3 (125 Mcg = 5000 Iu)] 125 mcg PO DAILY 12/30/23 [History] Dapagliflozin Propanediol [Farxiga] 10 mg PO DAILY 12/30/23 [History] Fluticasone/Umeclidin/Vilanter [Trelegy Ellipta 200-62.5-25] 1 puff INHALATION RT-DAILY 12/30/23 [History] Ketoconazole 2% Cream [Nizoral 2%] 1 applic TOPICAL BID PRN 12/30/23 [History] Omeprazole 20 mg PO BID 12/30/23 [History] Sacubitril/Valsartan [Entresto 24 mg-26 mg Tablet] 1 tab PO BID 12/30/23 [History] Spironolactone [Aldactone] 25 mg PO DIRECTED 12/30/23 [History] Tamsulosin [Flomax] 0.4 mg PO BID 12/30/23 [History] guaiFENesin [Mucinex] 1,200 mg PO BID PRN 12/30/23 [History] Apixaban [Eliquis] 5 mg PO BID #60 tab 01/13/24 [Rx] Cholestyramine (with Sugar) [Questran Packet] 4 gm PO BID@1000,1800 7 Days #14 packet 01/13/24 [Rx] Diphenoxylate HCl/Atropine [Lomotil 2.5-0.025 mg Tablet] 1 tab PO QID PRN 14 Days #56 tab 01/13/24 [Rx] Furosemide [Lasix] 40 mg PO DAILY PRN #30 tab 01/13/24 [Rx] INSULIN ASPART (NovoLOG) [NovoLOG (formulary)] 10 unit SQ AC-TID #10 ml 01/13/24 [Rx] Insulin Detemir (Levemir) [Levemir] 30 unit SQ DAILY@0700 #10 ml 01/13/24 [Rx] Metoprolol Tartrate [Lopressor] 50 mg PO BID #60 tab 01/13/24 [Rx] predniSONE 10 mg PO DIRECTED #24 tab 01/13/24 [Rx] Follow up Appointment(s)/Referral(s): Vidhi Chatterjee MD [STAFF PHYSICIAN] - 10 Days Nayeli Graham MD [STAFF PHYSICIAN] - 02/03/24 12:30 pm (February [address] [facility] Noe Bean DO [Primary Care Provider] - 1-2 days Patricia Burgess [STAFF PHYSICIAN] - 2 Weeks (Hair Mixer for your diabetes mellitus) Irene Nash MD [STAFF PHYSICIAN] - 2 Weeks (lung doctor ) Patient Instructions/Handouts: Leukocytosis (DC), Pneumonia (DC), Diabetic Hyperglycemia (DC) Activity/Diet/Wound Care/Special Instructions: heart healthy diet low carbohydrate diet activity is restricted till you see your doctor we recommend to check your glucose 4 times a day before each meal and at bed time , keep the results in a log book and bring it to your doctor upon your appointment date if your glucose is less than 70 or more than 400 then call 911 and come to emergency room your copay for Eliquis blood thinner is $43.00 per month. Discharge Disposition: HOME WITH HOME HEALTH SERVICES
== END 2024-01-13 18:30 | disposition home health service (06) | DRG 291 ==
LOC: EC 10:32 → 5NMEDONC 13:53 → 3SCARD 21:04
PROVIDERS: ADMIT Internal Medicine; ATTEND Internal Medicine
PROC: 4B02XTZ Measurement of Cardiac Defibrillator, External Approach (ICD-10-PCS; 2023-12-31)
PROC: 0DBP8ZZ Excision of Rectum, Via Natural or Artificial Opening Endoscopic (ICD-10-PCS; principal; 2024-01-10 08:00)
PROC: 05HF33Z Insertion of Infusion Device into Left Cephalic Vein, Percutaneous Approach (ICD-10-PCS; 2024-01-13)
DX: I11.0 Hypertensive heart disease with heart failure (principal); E11.10 Type 2 diabetes mellitus with ketoacidosis without coma; I50.23 Acute on chronic systolic (congestive) heart failure; J44.1 Chronic obstructive pulmonary disease with (acute) exacerbation; J44.0 Chronic obstructive pulmonary disease with (acute) lower respiratory infection; I24.0 Acute coronary thrombosis not resulting in myocardial infarction; E87.1 Hypo-osmolality and hyponatremia; K52.1 Toxic gastroenteritis and colitis; I25.119 Atherosclerotic heart disease of native coronary artery with unspecified angina pectoris; I25.5 Ischemic cardiomyopathy; I25.2 Old myocardial infarction; E88.09 Other disorders of plasma-protein metabolism, not elsewhere classified; Z68.29 Body mass index [BMI] 29.0-29.9, adult; I48.0 Paroxysmal atrial fibrillation; E11.649 Type 2 diabetes mellitus with hypoglycemia without coma; E66.9 Obesity, unspecified; E78.5 Hyperlipidemia, unspecified; E87.6 Hypokalemia; T36.95XA Adverse effect of unspecified systemic antibiotic, initial encounter; N40.0 Benign prostatic hyperplasia without lower urinary tract symptoms; I08.3 Combined rheumatic disorders of mitral, aortic and tricuspid valves; X58.XXXA Exposure to other specified factors, initial encounter; Z90.49 Acquired absence of other specified parts of digestive tract; Z95.810 Presence of automatic (implantable) cardiac defibrillator; Z68.31 Body mass index [BMI] 31.0-31.9, adult; Z79.01 Long term (current) use of anticoagulants; Z79.4 Long term (current) use of insulin; Z79.51 Long term (current) use of inhaled steroids; Z79.84 Long term (current) use of oral hypoglycemic drugs; Z79.899 Other long term (current) drug therapy; Z95.5 Presence of coronary angioplasty implant and graft; Z88.8 Allergy status to other drugs, medicaments and biological substances
CPT/HCPCS: 36410; 36415; 45380; 71045; 71046; 76937; 80048; 80051; 80053; 81003; 82009; 82565; 82803; 82947; 83036; 83516; 83605; 83630; 83735; 83880; 84100; 84132; 84145; 84484; 84520; 85025; 85027; 85610; 85730; 86140; 87040; 87045; 87046; 87324; 87449; 87493; 87636; 88305; 93005; 93306; 94640; 94667; 94760; 96361; 96365; 96366; 96367; 96372; 96375; 96376; 99285

== ENCOUNTER 2024-02-23 09:53 | Observation (INO) | payer MEDICARE ==
[2024-02-23 10:09] LABS: Glucose,Whole Blood 240 mg/dL (70-110)
--- NOTE | 2024-02-23 10:13 | ED ---
General Adult HPI - General Chief complaint: Head Injury Stated complaint: Fall-Head injury Time Seen by Provider: 02/23/24 09:58 Source: patient, EMS, RN notes reviewed, old records reviewed Mode of arrival: EMS Limitations: no limitations, altered mental status - History of Present Illness Initial comments: Patient is a 74-year-old male presents emergency department as a level 2 trauma activation. Patient is currently on Eliquis for left ventricular thrombus diagnosed and December 2023. He has a history of COPD and CHF on 3 L nasal cannula chronically. Also has a history of CAD with stents. Was started on Eliquis back in December. States he was walking from the garage today and stepped up 2-3 steps when he is not sure what happened but he ended up falling backwards and striking his head on the concrete. Complains of posterior head pain. He was able to crawl into the house and called 911. Was too weak to stand up. States he has been feeling more weak lately. No obvious fevers or chills. No significant coughing. No other acute complaints at this time. He is chronically on 3 L nasal cannula. Presents for further evaluation. - Related Data Home Medications Medication Instructions Recorded Confirmed Albuterol Inhaler [Ventolin Hfa 1 - 2 puff INHALATION RT-QID PRN 05/22/17 02/23/24 Inhaler] Aspirin EC [Ecotrin Low Dose] 81 mg PO HS 05/22/17 02/23/24 Atorvastatin [Lipitor] 40 mg PO HS 05/22/17 02/23/24 Budesonide [Pulmicort] 0.5 mg INHALATION RT-BID 05/22/17 02/23/24 Clindamycin Topical Soln 1 applic TOPICAL BID PRN 05/22/17 02/23/24 [Cleocin-T Topical Soln] Formoterol Fumarate [Perforomist] 20 mcg INHALATION RT-BID 05/22/17 02/23/24 Ipratropium-Albuterol Nebulize 3 ml INHALATION RT-QID 05/22/17 02/23/24 [Duoneb 0.5 mg-3 mg/3 ml Soln] Loratadine [Claritin] 10 mg PO DAILY 05/22/17 02/23/24 Montelukast [Singulair] 10 mg PO HS 05/22/17 02/23/24 Nitroglycerin Sl Tabs [Nitrostat] 0.4 mg SL Q5M PRN 05/22/17 02/23/24 Potassium Chloride ER [K-Dur 20] 20 meq PO DAILY PRN 05/22/17 02/23/24 Cholecalciferol [Vitamin D3 (125 125 mcg PO DAILY 12/30/23 02/23/24 Mcg = 5000 Iu)] Dapagliflozin Propanediol [Farxiga] 10 mg PO DAILY 12/30/23 02/23/24 Fluticasone/Umeclidin/Vilanter 1 puff INHALATION RT-DAILY 12/30/23 02/23/24 [Trelegy Ellipta 200-62.5-25] Ketoconazole 2% Cream [Nizoral 2%] 1 applic TOPICAL BID PRN 12/30/23 02/23/24 Omeprazole 20 mg PO BID 12/30/23 02/23/24 Sacubitril/Valsartan [Entresto 24 1 tab PO BID 12/30/23 02/23/24 mg-26 mg Tablet] Spironolactone [Aldactone] 25 mg PO DIRECTED 12/30/23 02/23/24 Tamsulosin [Flomax] 0.4 mg PO BID 12/30/23 02/23/24 guaiFENesin [Mucinex] 1,200 mg PO BID PRN 12/30/23 02/23/24 INSULIN ASPART (NovoLOG) [NovoLOG 8 - 10 unit SQ AC-TID 02/23/24 02/23/24 (formulary)] Insulin Detemir (Levemir) [Levemir] 15 unit SQ DAILY@0700 02/23/24 02/23/24 Previous Rx's Medication Instructions Recorded Apixaban [Eliquis] 5 mg PO BID #60 tab 01/13/24 Diphenoxylate HCl/Atropine 1 tab PO QID PRN 14 Days #56 tab 01/13/24 [Lomotil 2.5-0.025 mg Tablet] Furosemide [Lasix] 40 mg PO DAILY PRN #30 tab 01/13/24 Metoprolol Tartrate [Lopressor] 50 mg PO BID #60 tab 01/13/24 Allergies Allergy/AdvReac Type Severity Reaction Status Date / Time carvedilol [From Coreg] Allergy Rash/Hives Verified 02/23/24 11:21 metformin AdvReac Diarrhea Verified 02/23/24 11:21 Review of Systems ROS Statement: Those systems with pertinent positive or pertinent negative responses have been documented in the HPI. Review of Systems: CONST: Denies fever EYES: Denies blurry vision ENT: Denies nasal congestion C/V: Denies Chest pain RESP: Denies shortness of breath GI: Denies abdominal pain : Denies dysuria SKIN: Endorses posterior head abrasion MSK: Denies joint pain. NEURO: Denies headache ROS Other: All systems not noted in ROS Statement are negative. Past Medical History Past Medical History: Coronary Artery Disease (CAD), Heart Failure, COPD, Diabetes Mellitus, Hyperlipidemia, Myocardial Infarction ([place]) Additional Past Medical History / Comment(s): defibrilator bph Last Myocardial Infarction Date:: 2002 History of Any Multi-Drug Resistant Organisms: None Reported Past Surgical History: Cholecystectomy, Heart Catheterization With Stent Past Anesthesia/Blood Transfusion Reactions: No Reported Reaction Date of Last Stent Placement:: 2002 Type of Cardiac Device: AICD Device Placement Date:: 2013 Past Psychological History: No Psychological Hx Reported Past Alcohol Use History: Rare Past Drug Use History: None Reported General Exam - General Exam Comments Initial Comments: General: Appears in no acute distress. HEAD: Abrasion on the posterior occiput. Bleeding is currently controlled. Negative Blum sign. Negative raccoon eyes. EYES: PERRLA, EOMI, conjunctiva normal, no discharge. Pupils are 3 mm and equal bilaterally. ENT: Hearing grossly intact, normal oropharynx. RESPIRATORY: Mild end expiratory wheezing bilaterally. No significant respiratory distress. 100% on baseline 3 L nasal cannula. C/V: Regular rate and rhythm. S1 and S2 auscultated, no edema, peripheral pulses 2+ and intact throughout ABD: Abd is soft, nontender, nondistended EXT: Normal range of motion, no obvious deformity. No cervical, thoracic, lumbar spine tenderness to palpation. Pelvis is stable. SKIN: No rashes or lesions observed on exposed skin. NEURO: Alert and oriented x 4. Cranial nerves II-XII intact. No focal sensory or strength deficits. GCS of 15. Limitations: no limitations, altered mental status Course Vital Signs 02/23/24 02/23/24 02/23/24 09:54 10:00 11:00 Temperature 97.1 F L 97.4 F L 97.6 F Pulse Rate 73 71 62 Respiratory 20 20 20 Rate Blood Pressure 115/67 102/64 117/67 O2 Sat by Pulse 100 100 100 Oximetry 02/23/24 02/23/24 12:50 13:01 Temperature Pulse Rate 62 65 Respiratory Rate Blood Pressure O2 Sat by Pulse Oximetry Medical Decision Making - Medical Decision Making Was pt. sent in by a medical professional or institution (, PA, RESIDENTIAL APPRAISER, urgent care, hospital, or snf...) When possible be specific @ -No Did you speak to anyone other than the patient for history (EMS, parent, family, police, friend...)? What history was obtained from this source @ -Spoke with EMS and nursing staff who provided details of the patient. Patient was originally somewhat mildly confused at his home which is since resolved. Did you review nursing and triage notes (agree or disagree)? Why? @ -I reviewed and agree with nursing and triage notes Were old charts reviewed (outside hosp., previous admission, EMS record, old EKG, old radiological studies, urgent care reports/EKG's, snf records)? Report findings @ -Reviewed from prior admission in December 2023 including the discharge summary which outlined the patient does take Eliquis for a left ventricular thrombus diagnosed then. Differential Diagnosis (chest pain, altered mental status, abdominal pain women, abdominal pain men, vaginal bleeding, weakness, fever, dyspnea, syncope, headache, dizziness, GI bleed, back pain, seizure, CVA, palpatations, mental health, musculoskeletal)? @ -Differential Musculoskeletal Muscular strain, contusion, ligament sprain, fracture, arthritis, septic arthritis, bursitis, cellulitis, muscle spasm, nerve compression, DVT, arterial occlusion, herpes zoster, electrolyte abnormality, tumor.... This is not meant to be in all inclusive list. Also includes intracranial trauma. Also includes possible syncopal episode EKG interpreted by me (3pts min.). @ -As above X-rays interpreted by me (1pt min.). @ -Chest and pelvis x-rays negative for any obvious acute traumatic injury or process. CT interpreted by me (1pt min.). @ -CT brain, C-spine negative for any obvious traumatic injury or process. U/S interpreted by me (1pt. min.). @ -None done What testing was considered but not performed or refused? (CT, X-rays, U/S, labs)? Why? @ -None What meds were considered but not given or refused? Why? @ -None Did you discuss the management of the patient with other professionals (professionals i.e. , PA, RESIDENTIAL APPRAISER, lab, RT, psych nurse, social work instructor, level designer, teacher, control officer, correctional casework specialist)? Give summary @ -Discussed with on-call trauma surgeon, Dr. Mcgovern who was in agreement plan for workup. Discussed with admitting provider, Dr. Kyle who accepted the admission. Was smoking cessation discussed for >3mins.? @ -No Was critical care preformed (if so, how long)? @ -Yes, 33 minutes. Were there social determinants of health that impacted care today? How? (Homelessness, low income, unemployed, alcoholism, drug addiction, transportation, low edu. Level, literacy, decrease access to med. care, prison, rehab)? @ -No Was there de-escalation of care discussed even if they declined (Discuss DNR or withdrawal of care, Hospice)? DNR status @ -No What co-morbidities impacted this encounter? (DM, HTN, Smoking, COPD, CAD, Cancer, CVA, ARF, Chemo, Hep., AIDS, mental health diagnosis, sleep apnea, morbid obesity)? @ -Patient is on blood thinners. Was patient admitted / discharged? Hospital course, mention meds given and route, prescriptions, significant lab abnormalities, going to OR and other pertinent info. @ -Patient presents emergency department for fall on blood thinners. Unknown cause of the fall. Fell down approximately 2-3 steps backwards. Struck his head on the concrete. Questionable LOC. Patient made a level 2 trauma activation. ATLS protocol followed. Patient was refusing cervical collar at this time and removes it. Is only complaining of posterior occiput pain. Is on Eliquis. Vital signs within acceptable limits on his baseline 3 L nasal cannula. Patient will be administered a small fluid bolus as well as tetanus booster. Patient was in agreement this plan. Spoke with trauma surgeon on-call Dr. Mcgovern who was in agreement plan for workup. EKG shows no signs of acute ischemia. Imaging negative for any obvious traumatic injury. Patient's laboratory studies remarkable for hyperglycemia but otherwise negative for any obvious acute process. Urine is still pending at this time. On reevaluation, patient is resting comfortably. Patient did refuse a cervical collar upon presentation and still does not have it on. I updated him and was able to clear his cervical spine. Patient is a little wheezy at this time and we will treat him for COPD. I recommended admission at this time. He was in agreement this plan. Admission is for weakness and lightheadedness. We will repeat an echo, treat the patient for COPD and consult pulmonology, admit the patient to medicine after discussing the case with on-call trauma surgery Dr. Negro who requested to be made to consult as there is no obvious traumatic process other than abrasions. I believe this is reasonable. I spoke with Dr. Gilbert who accepted the admission. Undiagnosed new problem with uncertain prognosis? @ -No Drug Therapy requiring intensive monitoring for toxicity (Heparin, Nitro, Insulin, Cardizem)? @ -No Were any procedures done? @ -No Diagnosis/symptom? @ -Abrasions, fall on blood thinners, weakness, COPD Acute, or Chronic, or Acute on Chronic? @ -Acute Uncomplicated (without systemic symptoms) or Complicated (systemic symptoms)? @ -Complicated Side effects of treatment? @ -None Exacerbation, Progression, or Severe Exacerbation] @ -No Poses a threat to life or bodily function? @ -Yes - Lab Data Result diagrams: 02/23/24 10:07 02/23/24 10:07 Lab Results 02/23/24 02/23/24 02/23/24 Range/Units 10:00 10:05 10:06 WBC (3.8-10.6) k/uL RBC (4.30-5.90) m/uL Hgb (13.0-17.5) gm/dL Hct (39.0-53.0) % MCV (80.0-100.0) fL MCH (25.0-35.0) pg MCHC (31.0-37.0) g/dL RDW (11.5-15.5) % Plt Count (150-450) k/uL MPV Neutrophils % % Lymphocytes % % Monocytes % % Eosinophils % % Basophils % % Neutrophils # (1.3-7.7) k/uL Lymphocytes # (1.0-4.8) k/uL Monocytes # (0-1.0) k/uL Eosinophils # (0-0.7) k/uL Basophils # (0-0.2) k/uL Hypochromasia Poikilocytosis Anisocytosis Macrocytosis PT (10.0-12.5) sec INR (<1.2) APTT (22.0-30.0) sec Sodium (137-145) mmol/L Potassium (3.5-5.1) mmol/L Chloride (98-107) mmol/L Carbon Dioxide (22-30) mmol/L Anion Gap mmol/L BUN (9-20) mg/dL Creatinine (0.66-1.25) mg/dL Est GFR (CKD-EPI)AfAm (>60 ml/min/1.73 sqM) Est GFR (CKD-EPI)NonAf (>60 ml/min/1.73 sqM) Glucose (74-99) mg/dL POC Glucose (mg/dL) 240 H (70-110) mg/dL POC Glu Knot Borer ID [place], [place] Calcium (8.4-10.2) mg/dL Total Bilirubin (0.2-1.3) mg/dL AST (17-59) U/L ALT (4-49) U/L Alkaline Phosphatase (38-126) U/L Troponin I (0.000-0.034) ng/mL NT-Pro-B Natriuret Pep pg/mL Total Protein (6.3-8.2) g/dL Albumin (3.5-5.0) g/dL Serum Alcohol mg/dL Influenza Type A (PCR) (Not Detectd) Influenza Type B (PCR) (Not Detectd) RSV (PCR) (Not Detectd) SARS-CoV-2 (PCR) (Not Detectd) Blood Type A Positive Blood Type Confirm A Positive Blood Type Recheck No Previous Record Bld Type Recheck Status CABO Indicated Antibody Screen NEGATIVE Spec Expiration Date 02/26/2024230602/23/24 02/23/24 02/23/24 Range/Units 10:07 10:07 10:07 WBC 7.5 (3.8-10.6) k/uL RBC 3.51 L (4.30-5.90) m/uL Hgb 11.4 L (13.0-17.5) gm/dL Hct 35.3 L (39.0-53.0) % MCV 100.6 H (80.0-100.0) fL MCH 32.6 (25.0-35.0) pg MCHC 32.4 (31.0-37.0) g/dL RDW 17.2 H (11.5-15.5) % Plt Count 173 D (150-450) k/uL MPV 8.7 Neutrophils % 58 % Lymphocytes % 29 % Monocytes % 5 % Eosinophils % 6 % Basophils % 0 % Neutrophils # 4.3 (1.3-7.7) k/uL Lymphocytes # 2.2 (1.0-4.8) k/uL Monocytes # 0.4 (0-1.0) k/uL Eosinophils # 0.4 (0-0.7) k/uL Basophils # 0.0 (0-0.2) k/uL Hypochromasia Moderate Poikilocytosis Slight Anisocytosis Slight Macrocytosis Slight PT 11.1 (10.0-12.5) sec INR 1.0 (<1.2) APTT 22.5 (22.0-30.0) sec Sodium 138 (137-145) mmol/L Potassium 4.4 (3.5-5.1) mmol/L Chloride 111 H (98-107) mmol/L Carbon Dioxide 21 L (22-30) mmol/L Anion Gap 6 mmol/L BUN 9 (9-20) mg/dL Creatinine 0.85 (0.66-1.25) mg/dL Est GFR (CKD-EPI)AfAm >90 (>60 ml/min/1.73 sqM) Est GFR (CKD-EPI)NonAf 85 (>60 ml/min/1.73 sqM) Glucose 242 H (74-99) mg/dL POC Glucose (mg/dL) (70-110) mg/dL POC Glu Knot Borer ID Calcium 8.2 L (8.4-10.2) mg/dL Total Bilirubin 1.6 H (0.2-1.3) mg/dL AST 47 (17-59) U/L ALT 19 (4-49) U/L Alkaline Phosphatase 98 (38-126) U/L Troponin I (0.000-0.034) ng/mL NT-Pro-B Natriuret Pep 862 pg/mL Total Protein 5.9 L (6.3-8.2) g/dL Albumin 2.8 L (3.5-5.0) g/dL Serum Alcohol <10 mg/dL Influenza Type A (PCR) (Not Detectd) Influenza Type B (PCR) (Not Detectd) RSV (PCR) (Not Detectd) SARS-CoV-2 (PCR) (Not Detectd) Blood Type Blood Type Confirm Blood Type Recheck Bld Type Recheck Status Antibody Screen Spec Expiration Date 02/23/24 02/23/24 Range/Units 10:07 10:46 WBC (3.8-10.6) k/uL RBC (4.30-5.90) m/uL Hgb (13.0-17.5) gm/dL Hct (39.0-53.0) % MCV (80.0-100.0) fL MCH (25.0-35.0) pg MCHC (31.0-37.0) g/dL RDW (11.5-15.5) % Plt Count (150-450) k/uL MPV Neutrophils % % Lymphocytes % % Monocytes % % Eosinophils % % Basophils % % Neutrophils # (1.3-7.7) k/uL Lymphocytes # (1.0-4.8) k/uL Monocytes # (0-1.0) k/uL Eosinophils # (0-0.7) k/uL Basophils # (0-0.2) k/uL Hypochromasia Poikilocytosis Anisocytosis Macrocytosis PT (10.0-12.5) sec INR (<1.2) APTT (22.0-30.0) sec Sodium (137-145) mmol/L Potassium (3.5-5.1) mmol/L Chloride (98-107) mmol/L Carbon Dioxide (22-30) mmol/L Anion Gap mmol/L BUN (9-20) mg/dL Creatinine (0.66-1.25) mg/dL Est GFR (CKD-EPI)AfAm (>60 ml/min/1.73 sqM) Est GFR (CKD-EPI)NonAf (>60 ml/min/1.73 sqM) Glucose (74-99) mg/dL POC Glucose (mg/dL) (70-110) mg/dL POC Glu Knot Borer ID Calcium (8.4-10.2) mg/dL Total Bilirubin (0.2-1.3) mg/dL AST (17-59) U/L ALT (4-49) U/L Alkaline Phosphatase (38-126) U/L Troponin I <0.012 (0.000-0.034) ng/mL NT-Pro-B Natriuret Pep pg/mL Total Protein (6.3-8.2) g/dL Albumin (3.5-5.0) g/dL Serum Alcohol mg/dL Influenza Type A (PCR) Not Detected (Not Detectd) Influenza Type B (PCR) Not Detected (Not Detectd) RSV (PCR) Not Detected (Not Detectd) SARS-CoV-2 (PCR) Not Detected (Not Detectd) Blood Type Blood Type Confirm Blood Type Recheck Bld Type Recheck Status Antibody Screen Spec Expiration Date - EKG Data -: EKG Interpreted by Me EKG Comments: 12-lead Electrocardiogram Interpretation Note EKG was reviewed and interpreted by myself. 12-lead ECG performed at 0958 is interpreted by me as revealing ventricularly paced rhythm at a rate of 75 beats per minute. Indeterminate axis. PA interval is 91 ms, QRS duration is 202 ms, QTc is 534 ms.. There were no ST or T wave abnormalities to suggest myocardial ischemia or injury. R wave progression across the precordium was satisfactory. By my interpretation this EKG is non-diagnostic for acute ischemia. Critical Care Time Critical Care Time: Yes Total Critical Care Time: 32 Disposition Clinical Impression: Weakness, Abrasion, COPD (chronic obstructive pulmonary disease), Fall Disposition: ADMITTED IP TO THIS HOSP Condition: Stable Time of Disposition: 11:55
[2024-02-23 10:27] LABS: Anisocytosis Slight; Basophils % (A) 0 %; Eosinophils # (A) 0.4 k/uL (0-0.7); Eosinophils % (A) 6 %; HCT 35.3 % (39.0-53.0); HGB 11.4 gm/dL (13.0-17.5); Hypochromasia Moderate; Lymphocytes # (A) 2.2 k/uL (1.0-4.8); Lymphocytes % (A) 29 %; MCH 32.6 pg (25.0-35.0); MCHC 32.4 g/dL (31.0-37.0); MCV 100.6 fL (80.0-100.0); Macrocytosis Slight; Mean Platelet Volume 8.7; Monocytes # (A) 0.4 k/uL (0-1.0); Monocytes % (A) 5 %; Neutrophils # (A) 4.3 k/uL (1.3-7.7); Neutrophils % (A) 58 %; Poikilocytosis Slight; RBC 3.51 m/uL (4.30-5.90); RDW 17.2 % (11.5-15.5); WBC 7.5 k/uL (3.8-10.6)
[2024-02-23 10:29] LABS: Platelet Count 173 k/uL (150-450)
--- NOTE | 2024-02-23 10:30 | XR ---
EXAMINATION TYPE: XR chest 1V portable DATE OF EXAM: 02/23/2024 10:14 AM CLINICAL INDICATION:Male, 74 years old with history of trauma; COMPARISON: Chest radiographs from 01/09/2024 TECHNIQUE: XR chest 1V portable Frontal view of the chest. FINDINGS: Lungs/Pleura: There is no evidence of pleural effusion, focal consolidation, or pneumothorax. Pulmonary vascularity: Unremarkable. Heart/mediastinum: Cardiomediastinal silhouette is unremarkable. Three lead cardiac conduction device overlying the left hemithorax with lead tips projecting over the right ventricle, right atrium and c oronary sinus. Musculoskeletal: No acute osseous pathology. IMPRESSION: No acute cardiopulmonary disease/process.
--- NOTE | 2024-02-23 10:31 | XR ---
EXAMINATION TYPE: XR pelvis AP view DATE OF EXAM: 02/23/2024 10:14 AM CLINICAL INDICATION:Male, 74 years old with history of Trauma; [facility] COMPARISON: None TECHNIQUE: The pelvis was examined in a single projection. FINDINGS: There is no evidence of fracture or dislocation. There is no soft tissue abnormality. No a bnormal calcifications are present. The spine appears intact. The hips appear intact. No significant degeneration. IMPRESSION: No acute osseous pathology.
[2024-02-23 10:33] LABS: Partial Thromboplastin Time 22.5 sec (22.0-30.0); Prothrombin Time 11.1 sec (10.0-12.5)
[2024-02-23] MEDS: SODIUM CHLORIDE 0.9% 500 ML 500 ML IV STA (10:33)
[2024-02-23] MEDS: DIPH,PERTUS(ACELL)TETVAC-LF 0.5 ML VIAL IM ONE (10:34)
--- NOTE | 2024-02-23 10:36 | CT ---
There are EXAMINATION TYPE: CT brain cinthia read DATE OF EXAM: 02/23/2024 COMPARISON: 04/01/2023 HISTORY: FALL HEAD LAC, ON THINNERS CT DLP: 1329.[address] of the brain was performed. The ventricles, basal cisterns and sulci overlying the cerebral convexities demonstrate mild enlargem ent. There is no evidence for intracranial hemorrhage or sulcal effacement. There is decreased attenuatio n about the periventricular white matter and deep white matter of both cerebral hemispheres, compatib le with chronic small vessel ischemia. No mass effects are seen. If symptoms persist consider MRI. Osseous calvarium is intact. Left temporoparietal occipital scalp hematoma. IMPRESSION: 1. Age related atrophic and chronic small vessel ischemic change without acute intracranial process seen at this time. CT Cervical Spine: Unenhanced CT of the cervical spine was performed with bone and soft tissue window settings submitted . Coronal and sagittal reconstruction is obtained. There is normal alignment and prevertebral soft tissues. No evidence for acute cervical fracture . Scattered degenerative disc disease and spondylosis. Biapical scarring. IMPRESSION: 1. No evidence for acute fracture or subluxation of the cervical spine.
[2024-02-23] MEDS: ACETAMINOPHEN TAB 325 MG TAB PO STA (10:38)
[2024-02-23 10:48] LABS: ALT 19 U/L (4-49); African American GFR (CKD) >90 (>60 ml/min/1.73 sqM); Alcohol <10 mg/dL; Anion Gap 6 mmol/L; Blood Urea Nitrogen 9 mg/dL (9-20); Calcium 8.2 mg/dL (8.4-10.2); Carbon Dioxide 21 mmol/L (22-30); Chloride 111 mmol/L (98-107); Glucose 242 mg/dL (74-99); Non-African American GFR(CKD) 85 (>60 ml/min/1.73 sqM); Sodium 138 mmol/L (137-145); Total Bilirubin 1.6 mg/dL (0.2-1.3)
[2024-02-23 10:55] LABS: AST 47 U/L (17-59); Albumin 2.8 g/dL (3.5-5.0); NT-Pro-B-Type Natriuretic Pept 862 pg/mL; Potassium 4.4 mmol/L (3.5-5.1); Total Protein 5.9 g/dL (6.3-8.2)
[2024-02-23 10:56] LABS: Alkaline Phosphatase 98 U/L (38-126)
[2024-02-23] MEDS ORDERED: ONDANSETRON 4 MG/2 ML VIAL IVP PRN (11:55)
[2024-02-23] MEDS ORDERED: NALOXONE 0.4 MG/ML 1 ML VIAL IV PRN (11:55)
[2024-02-23] MEDS: IPRATROPIUM-ALBUTEROL 3 ML NEB INHALATION STA (12:21)
[2024-02-23] MEDS: IPRATROPIUM-ALBUTEROL 3 ML NEB INHALATION SCH (12:49)
[2024-02-23] MEDS ORDERED: POTASSIUM CHLORIDE ER 20 MEQ TAB.ER PO PRN (13:33)
[2024-02-23] MEDS ORDERED: FUROSEMIDE 40 MG TAB PO PRN (13:33)
[2024-02-23] MEDS: methylPREDNISolone SOD SUCCI 125 MG/2 ML VIAL IV STA (13:35)
[2024-02-23] MEDS: SODIUM CHLORIDE 0.9% 1,000 ML IV SCH (13:37)
[2024-02-23] MEDS ORDERED: SPIRONOLACTONE 25 MG TAB PO SCH (13:45)
--- NOTE | 2024-02-23 14:31 | P.CNPUL ---
History of Present Illness Consult date: 02/23/24 Requesting physician: Noe Bean Reason for consult: dyspnea, COPD, hypoxemia Chief complaint: COPD. History of present illness: Pulmonary consult dated February 23, 2024. 74-year-old male who presents to the emergency department, via EMS, having fallen, and injuring his head. This was a level 2 trauma activation. The patient was at home, and went out to the garage, to get some water from the refrigerator and tripped and fell. He did not lose consciousness, but he did hit his head on the cement. The patient is chronically on Eliquis, and for that reason, there was concern that there may be some significant internal injury. The patient has a history of COPD, for which she sees my partner, Dr. Nash. He does use home oxygen, at 3 L. He is currently on 2 L here. He also uses albuterol, and nebulizer machine, and Trelegy for his COPD. He apparently hurt his left arm and shoulder, and left leg. Apparently there were no fractures. He complains of head pain, posteriorly. Current labs include a white count 7.5, hemoglobin 11.4, hematocrit 35.3, and a normal platelet count. Sodium 138, potassium 4.4, chlorides 111, CO2 21, BUN 9, creatinine 0.85. Glucose 242. Calcium 8.2, bilirubin 1.6. Albumin 2.8. Troponins were negative. N-terminal proBNP 862. The patient was tested for influenza, A, and B, RSV, coronavirus, and tested negative for all 3. Chest x-ray showed no acute cardiopulmonary disease. The pelvic x-ray was negative for osseous abnormality. Head and cervical spine CT showed age-related atrophic and chronic small vessel ischemic changes without acute hemorrhage and the CT scan of the cervical spine showed no evidence of fracture or subluxation. Review of Systems REVIEW OF SYSTEMS: CONSTITUTIONAL: [Negative.] NEUROLOGIC: Injury to the head following a fall. HEENT: [ Negative.] CARDIAC: [Negative.] PULMONARY: [Negative.] GI: [Negative.] : [Negative.] RHEUMATOLOGIC: Injury to the left arm and left leg. IMMUNOLOGIC: [ Negative.] ENDOCRINE: [Negative. ] DERMATOLOGIC: [Negative.] Past Medical History Past Medical History: Coronary Artery Disease (CAD), Heart Failure, COPD, Diabetes Mellitus, Hyperlipidemia, Myocardial Infarction ([place]) Additional Past Medical History / Comment(s): defibrilator bph Last Myocardial Infarction Date:: 2002 History of Any Multi-Drug Resistant Organisms: None Reported Past Surgical History: Cholecystectomy, Heart Catheterization With Stent Past Anesthesia/Blood Transfusion Reactions: No Reported Reaction Date of Last Stent Placement:: 2002 Type of Cardiac Device: AICD Device Placement Date:: 2013 Past Psychological History: No Psychological Hx Reported Past Alcohol Use History: Rare Past Drug Use History: None Reported Medications and Allergies Home Medications Medication Instructions Recorded Confirmed Type Albuterol Inhaler [Ventolin Hfa 1 - 2 puff INHALATION RT-QID PRN 05/22/17 02/23/24 History Inhaler] Aspirin EC [Ecotrin Low Dose] 81 mg PO HS 05/22/17 02/23/24 History Atorvastatin [Lipitor] 40 mg PO HS 05/22/17 02/23/24 History Budesonide [Pulmicort] 0.5 mg INHALATION RT-BID 05/22/17 02/23/24 History Clindamycin Topical Soln 1 applic TOPICAL BID PRN 05/22/17 02/23/24 History [Cleocin-T Topical Soln] Formoterol Fumarate [Perforomist] 20 mcg INHALATION RT-BID 05/22/17 02/23/24 History Ipratropium-Albuterol Nebulize 3 ml INHALATION RT-QID 05/22/17 02/23/24 History [Duoneb 0.5 mg-3 mg/3 ml Soln] Loratadine [Claritin] 10 mg PO DAILY 05/22/17 02/23/24 History Montelukast [Singulair] 10 mg PO HS 05/22/17 02/23/24 History Nitroglycerin Sl Tabs [Nitrostat] 0.4 mg SL Q5M PRN 05/22/17 02/23/24 History Potassium Chloride ER [K-Dur 20] 20 meq PO DAILY PRN 05/22/17 02/23/24 History Cholecalciferol [Vitamin D3 (125 125 mcg PO DAILY 12/30/23 02/23/24 History Mcg = 5000 Iu)] Dapagliflozin Propanediol [Farxiga] 10 mg PO DAILY 12/30/23 02/23/24 History Fluticasone/Umeclidin/Vilanter 1 puff INHALATION RT-DAILY 12/30/23 02/23/24 History [Trelegy Ellipta 200-62.5-25] Ketoconazole 2% Cream [Nizoral 2%] 1 applic TOPICAL BID PRN 12/30/23 02/23/24 History Omeprazole 20 mg PO BID 12/30/23 02/23/24 History Sacubitril/Valsartan [Entresto 24 1 tab PO BID 12/30/23 02/23/24 History mg-26 mg Tablet] Spironolactone [Aldactone] 25 mg PO DIRECTED 12/30/23 02/23/24 History Tamsulosin [Flomax] 0.4 mg PO BID 12/30/23 02/23/24 History guaiFENesin [Mucinex] 1,200 mg PO BID PRN 12/30/23 02/23/24 History Apixaban [Eliquis] 5 mg PO BID #60 tab 01/13/24 02/23/24 Rx Diphenoxylate HCl/Atropine 1 tab PO QID PRN 14 Days #56 tab 01/13/24 02/23/24 Rx [Lomotil 2.5-0.025 mg Tablet] Furosemide [Lasix] 40 mg PO DAILY PRN #30 tab 01/13/24 02/23/24 Rx Metoprolol Tartrate [Lopressor] 50 mg PO BID #60 tab 01/13/24 02/23/24 Rx INSULIN ASPART (NovoLOG) [NovoLOG 8 - 10 unit SQ AC-TID 02/23/24 02/23/24 History (formulary)] Insulin Detemir (Levemir) [Levemir] 15 unit SQ DAILY@0700 02/23/24 02/23/24 History Allergies Allergy/AdvReac Type Severity Reaction Status Date / Time carvedilol [From Coreg] Allergy Rash/Hives Verified 02/23/24 11:21 metformin AdvReac Diarrhea Verified 02/23/24 11:21 Physical Exam Osteopathic Statement: *. No significant issues noted on an osteopathic structural exam other than those noted in the History and Physical/Consult. Vitals: Vital Signs Temp Pulse Resp BP Pulse Ox 02/23/24 13:01 65 02/23/24 13:00 97.7 F 81 20 128/65 100 02/23/24 12:50 62 02/23/24 11:00 97.6 F 62 20 117/67 100 02/23/24 10:00 97.4 F L 71 20 102/64 100 02/23/24 09:54 97.1 F L 73 20 115/67 100 Intake and Output 02/22/24 02/23/24 02/23/24 22:59 06:59 14:59 Other: Weight 97.114 kg No acute distress, oriented 3. The patient is currently on nasal O2 at 2 L. No respiratory distress. He is lucid, and able to give a complete history. HEENT examination is grossly unremarkable. Mucous membranes are moist. No oral lesions. His head is wrapped in gauze. Neck supple. Full range of motion. No adenopathy thyromegaly or neck vein distention. Cardiovascular examination reveals regular rhythm rate. S1-S2 normal. No S3 or S4. No discernible murmur noted. Heart rate 80 bpm. Lungs reveal scattered rhonchi. No wheezes or crackles. Breath sounds equal. Saturations are 100%. Abdomen soft bowel sounds are heard. No masses or tenderness. Extremities are intact. No cyanosis clubbing or edema. Skin is without rash or lesion. Neurologic examination is brief but nonfocal. Results - Laboratory Findings CBC and BMP: 02/23/24 10:07 02/23/24 10:07 PT/INR, D-dimer PT 11.1 sec (10.0-12.5) 02/23/24 10:07 INR 1.0 (<1.2) 02/23/24 10:07 Abnormal lab findings: Abnormal Labs 02/23/24 02/23/24 02/23/24 10:06 10:07 10:07 RBC 3.51 L Hgb 11.4 L Hct 35.3 L MCV 100.6 H RDW 17.2 H Chloride 111 H Carbon Dioxide 21 L Glucose 242 H POC Glucose (mg/dL) 240 H Calcium 8.2 L Total Bilirubin 1.6 H Total Protein 5.9 L Albumin 2.8 L - Diagnostic Findings Chest x-ray: image reviewed Assessment and Plan Assessment: Status post fall, with injury to head, and left side of body, but without fracture, or significant intracranial pathology. History of coronary artery disease, status post stent placement. History of CHF. History of oxygen dependent COPD. History of diabetes mellitus. History of hyperlipidemia. History of myocardial infarction. Status post AICD implantation, 2013. Plan: Plan dated February 23, 2024. The patient was seen in the emergency department, trauma room #1. He is currently on between 2 to 3 L of oxygen by nasal cannula. This is what he is on at home. The patient will be given a combination of Symbicort, and DuoNebs, to be used, here in the hospital. This will mimic what he is getting at home, which is albuterol, and Trelegy. He is stable from the pulmonary standpoint. His chest x-ray shows no pathology or acute abnormality. Saturations are excellent. We will continue to follow. Prognosis is guarded.
[2024-02-23] MEDS ORDERED: guaiFENesin 600 MG TABLET.ER PO PRN (15:31)
[2024-02-23] MEDS ORDERED: CLOTRIMAZOLE 1% CREAM 30 GM TUBE TOPICAL PRN (15:31)
[2024-02-23] MEDS ORDERED: HYDROcodone/APAP 5-325MG 1 EACH TAB PO PRN (15:33)
--- NOTE | 2024-02-23 16:28 | P.GSCN ---
History of Present Illness Consult date: 02/23/24 History of present illness: CHIEF COMPLAINT: Fall HISTORY OF PRESENT ILLNESS: This is a 74-year-old male who was walking up 2-3 steps in the garage where he fell backwards hitting the back of his head. He crawled into the house and called 911. History was obtained from patient and the chart. Patient reports after the fall he had some difficulty with his speech for a moment. He denies any loss of consciousness. Patient has full range of motion of extremities. Denies any abdominal pain. He does take a blood thinner at home. CT scan of the brain had reported age-related atrophic and chronic small vessel ischemic changes without acute intracranial process. Trauma service consulted in regards to patient's fall and injury to head. PAST MEDICAL HISTORY: See list. PAST SURGICAL HISTORY: See list. MEDICATIONS: See list. ALLERGIES: See list. SOCIAL HISTORY: No illicit drug use. REVIEW OF SYSTEMS: CONSTITUTIONAL: Denies fever or chills. HEENT: Denies blurred vision, vision changes, or eye pain. Denies hemoptysis ENDOCRINE: Denies heat or cold intolerance. CARDIOVASCULAR: Denies chest pain or pressure. RESPIRATORY: No shortness of breath. GASTROINTESTINAL: Denies abdominal pain. Denies nausea or vomiting. NEURO: Denies history of seizures. PSYCH: No depression or suicidal ideation HEMATOLOGIC: Denies bleeding disorders. LYMPHATIC: The patient denies any lumps and bumps around the neck. GENITOURINARY: Denies any blood in urine or increased urinary frequency. MUSCULOSKELETAL: Denies myalgias. Denies joint swelling. Denies decreased range of motion beyond patients baseline. SKIN: Denies pruitis. Denies rash. PHYSICAL EXAM: VITAL SIGNS: Reviewed GENERAL: Well-developed in no acute distress. HEENT: Patient has scalp abrasion posterior aspect of the left head with controlled bleeding. Negative raccoon eyes. No sclera icterus. Extraocular movements grossly intact. Moist buccal mucosa. Head is atraumatic, normocephalic. Hears conversational speech. No nasal drainage. NECK: Supple without lymphadenopathy. CHEST: Non-labored respirations and equal bilateral excursions. CARDIOVASCULAR: Palpable 2+ radial pulses. ABDOMEN: Soft. Nondistended. Nontender MUSCULOSKELETAL: No clubbing or cyanosis. Able to move all 4 extremities NEUROLOGIC: No focal or lateralizing signs. Cranial nerves II through XII grossly intact. PSYCH: Appropriate affect. Alert and oriented to person, place and time. SKIN: Abrasions noted on knees LABORATORY DATA: WBC 7.5 Hgb 11.4 platelets 173 Sodium is 138 potassium 4.4 creatinine 0.85 Total bili 1.6 AST 47 ALT 19 alk phos 98 Alcohol level less than 10 Influenza, RSV and COVID-19 not detected IMAGING: CT scan of head and neck reported age-related atrophic and chronic small vessel ischemic change without acute intracranial process. No evidence for acute fracture or subluxation of the cervical spine. Chest x-ray no acute cardiopulmonary disease or process Pelvic x-ray no acute osseous pathology ASSESSMENT: 1. Fall with trauma to the posterior aspect of the head 2. Left posterior scalp abrasion with bleeding controlled 3. History of left ventricle thrombus on Eliquis at home 4. Diabetes mellitus 5. History of AICD 6. History of COPD 7. History of CHF PLAN: -Consult neuro for trauma to head as well as change in speech that resolved after a few minutes -Continue supportive care -Continue heart healthy diet -PT OT on consult Physician Vegetable Cutter note has been reviewed by physician. Signing provider agrees with the documented findings, assessment, and plan of care. Past Medical History Past Medical History: Coronary Artery Disease (CAD), Heart Failure, COPD, Diabetes Mellitus, Hyperlipidemia, Myocardial Infarction ([place]) Additional Past Medical History / Comment(s): defibrilator bph Last Myocardial Infarction Date:: 2002 History of Any Multi-Drug Resistant Organisms: None Reported Past Surgical History: Cholecystectomy, Heart Catheterization With Stent Past Anesthesia/Blood Transfusion Reactions: No Reported Reaction Date of Last Stent Placement:: 2002 Type of Cardiac Device: AICD Device Placement Date:: 2013 Past Psychological History: No Psychological Hx Reported Past Alcohol Use History: Rare Past Drug Use History: None Reported Medications and Allergies Home Medications Medication Instructions Recorded Confirmed Type Albuterol Inhaler [Ventolin Hfa 1 - 2 puff INHALATION RT-QID PRN 05/22/17 02/23/24 History Inhaler] Aspirin EC [Ecotrin Low Dose] 81 mg PO HS 05/22/17 02/23/24 History Atorvastatin [Lipitor] 40 mg PO HS 05/22/17 02/23/24 History Budesonide [Pulmicort] 0.5 mg INHALATION RT-BID 05/22/17 02/23/24 History Clindamycin Topical Soln 1 applic TOPICAL BID PRN 05/22/17 02/23/24 History [Cleocin-T Topical Soln] Formoterol Fumarate [Perforomist] 20 mcg INHALATION RT-BID 05/22/17 02/23/24 History Ipratropium-Albuterol Nebulize 3 ml INHALATION RT-QID 05/22/17 02/23/24 History [Duoneb 0.5 mg-3 mg/3 ml Soln] Loratadine [Claritin] 10 mg PO DAILY 05/22/17 02/23/24 History Montelukast [Singulair] 10 mg PO HS 05/22/17 02/23/24 History Nitroglycerin Sl Tabs [Nitrostat] 0.4 mg SL Q5M PRN 05/22/17 02/23/24 History Potassium Chloride ER [K-Dur 20] 20 meq PO DAILY PRN 05/22/17 02/23/24 History Cholecalciferol [Vitamin D3 (125 125 mcg PO DAILY 12/30/23 02/23/24 History Mcg = 5000 Iu)] Dapagliflozin Propanediol [Farxiga] 10 mg PO DAILY 12/30/23 02/23/24 History Fluticasone/Umeclidin/Vilanter 1 puff INHALATION RT-DAILY 12/30/23 02/23/24 History [Trelegy Ellipta 200-62.5-25] Ketoconazole 2% Cream [Nizoral 2%] 1 applic TOPICAL BID PRN 12/30/23 02/23/24 History Omeprazole 20 mg PO BID 12/30/23 02/23/24 History Sacubitril/Valsartan [Entresto 24 1 tab PO BID 12/30/23 02/23/24 History mg-26 mg Tablet] Spironolactone [Aldactone] 25 mg PO DIRECTED 12/30/23 02/23/24 History Tamsulosin [Flomax] 0.4 mg PO BID 12/30/23 02/23/24 History guaiFENesin [Mucinex] 1,200 mg PO BID PRN 12/30/23 02/23/24 History Apixaban [Eliquis] 5 mg PO BID #60 tab 01/13/24 02/23/24 Rx Diphenoxylate HCl/Atropine 1 tab PO QID PRN 14 Days #56 tab 01/13/24 02/23/24 Rx [Lomotil 2.5-0.025 mg Tablet] Furosemide [Lasix] 40 mg PO DAILY PRN #30 tab 01/13/24 02/23/24 Rx Metoprolol Tartrate [Lopressor] 50 mg PO BID #60 tab 01/13/24 02/23/24 Rx INSULIN ASPART (NovoLOG) [NovoLOG 8 - 10 unit SQ AC-TID 02/23/24 02/23/24 History (formulary)] Insulin Detemir (Levemir) [Levemir] 15 unit SQ DAILY@0700 02/23/24 02/23/24 History Allergies Allergy/AdvReac Type Severity Reaction Status Date / Time carvedilol [From Coreg] Allergy Rash/Hives Verified 02/23/24 11:21 metformin AdvReac Diarrhea Verified 02/23/24 11:21 Surgical - Exam Vital Signs Temp Pulse Resp BP Pulse Ox 97.1 F L 73 20 115/67 100 02/23/24 09:54 02/23/24 09:54 02/23/24 09:54 02/23/24 09:54 02/23/24 09:54 Results - Labs 02/23/24 10:07 02/23/24 10:07 Abnormal Lab Results - Last 24 Hours (Table) 02/23/24 02/23/24 02/23/24 Range/Units 10:06 10:07 10:07 RBC 3.51 L (4.30-5.90) m/uL Hgb 11.4 L (13.0-17.5) gm/dL Hct 35.3 L (39.0-53.0) % MCV 100.6 H (80.0-100.0) fL RDW 17.2 H (11.5-15.5) % Chloride 111 H (98-107) mmol/L Carbon Dioxide 21 L (22-30) mmol/L Glucose 242 H (74-99) mg/dL POC Glucose (mg/dL) 240 H (70-110) mg/dL Calcium 8.2 L (8.4-10.2) mg/dL Total Bilirubin 1.6 H (0.2-1.3) mg/dL Total Protein 5.9 L (6.3-8.2) g/dL Albumin 2.8 L (3.5-5.0) g/dL Diabetes panel 02/23/24 Range/Units 10:07 Sodium 138 (137-145) mmol/L Potassium 4.4 (3.5-5.1) mmol/L Chloride 111 H (98-107) mmol/L Carbon Dioxide 21 L (22-30) mmol/L BUN 9 (9-20) mg/dL Creatinine 0.85 (0.66-1.25) mg/dL Glucose 242 H (74-99) mg/dL Calcium 8.2 L (8.4-10.2) mg/dL AST 47 (17-59) U/L ALT 19 (4-49) U/L Alkaline Phosphatase 98 (38-126) U/L Total Protein 5.9 L (6.3-8.2) g/dL Albumin 2.8 L (3.5-5.0) g/dL Calcium panel 02/23/24 Range/Units 10:07 Calcium 8.2 L (8.4-10.2) mg/dL Albumin 2.8 L (3.5-5.0) g/dL Pituitary panel 02/23/24 Range/Units 10:07 Sodium 138 (137-145) mmol/L Potassium 4.4 (3.5-5.1) mmol/L Chloride 111 H (98-107) mmol/L Carbon Dioxide 21 L (22-30) mmol/L BUN 9 (9-20) mg/dL Creatinine 0.85 (0.66-1.25) mg/dL Glucose 242 H (74-99) mg/dL Calcium 8.2 L (8.4-10.2) mg/dL Adrenal panel 02/23/24 Range/Units 10:07 Sodium 138 (137-145) mmol/L Potassium 4.4 (3.5-5.1) mmol/L Chloride 111 H (98-107) mmol/L Carbon Dioxide 21 L (22-30) mmol/L BUN 9 (9-20) mg/dL Creatinine 0.85 (0.66-1.25) mg/dL Glucose 242 H (74-99) mg/dL Calcium 8.2 L (8.4-10.2) mg/dL Total Bilirubin 1.6 H (0.2-1.3) mg/dL AST 47 (17-59) U/L ALT 19 (4-49) U/L Alkaline Phosphatase 98 (38-126) U/L Total Protein 5.9 L (6.3-8.2) g/dL Albumin 2.8 L (3.5-5.0) g/dL
[2024-02-23 17:19] LABS: Appearance,Urine Clear (Clear); Bilirubin,Urine Negative (Negative); Blood,Urine Negative (Negative); Color,Urine Light Yellow; Glucose,Urine (UA) 4+ (Negative); Ketones,Urine Negative (Negative); Leukocyte Esterase,Urine Negative (Negative); Nitrite,Urine Negative (Negative); Protein,Urine Negative (Negative); Specific Gravity,Urine 1.036 (1.001-1.035); Urobilinogen,Urine <2.0 mg/dL (<2.0)
[2024-02-23 17:35] LABS: Amphetamine Screen,Urine Not Detected (NotDetected); Barbiturate Screen,Urine Not Detected (NotDetected); Benzodiazepines Screen,Urine Not Detected (NotDetected); Cocaine Screen,Urine Not Detected (NotDetected); Methadone Screen, Urine Not Detected (NotDetected); Opiate Screen,Urine Not Detected (NotDetected); Oxycodone Screen, Urine Not Detected (NotDetected); Phencyclidine Screen,Urine Not Detected (NotDetected); Tricyclic Antidepressant,Urine Not Detected (NotDetected); Urn Cannabinoid Scrn Not Detected (NotDetected)
[2024-02-23] MEDS: SYMBICORT 160-4.5 MCG INHALER INHALATION SCH (18:02)
[2024-02-23 18:08] LABS: Glucose,Whole Blood 446 mg/dL (70-110)
[2024-02-23] MEDS: INSULIN ASPART (NovoLOG) 100 UNIT/ML VIAL SQ SCH (18:10)
[2024-02-23] MEDS ORDERED: BUDESONIDE 0.5 MG/2 ML NEBU INHALATION SCH (20:00)
[2024-02-23] MEDS ORDERED: FORMOTEROL FUMARATE 20 MCG/2 ML NEBU INHALATION SCH (20:00)
[2024-02-23] MEDS: APIXABAN 5 MG TAB PO SCH (20:13)
[2024-02-23] MEDS: ASPIRIN 81 MG PO SCH (20:13)
[2024-02-23] MEDS ORDERED: methylPREDNISolone SOD SUCCI 40 MG/ML 1 ML VIAL IV SCH (21:00)
[2024-02-23] MEDS: DIPHENOX-ATROP 2.5-0.025 MG 1 EACH TAB PO PRN (21:20)
[2024-02-23] MEDS: TAMSULOSIN 0.4 MG CAP.ER.24H PO SCH (21:20)
[2024-02-23] MEDS: PANTOPRAZOLE 40 MG TABLET PO SCH (21:20)
[2024-02-23] MEDS: SACUBITRIL/VALSARTAN 24 MG-26 MG TABLET PO SCH (21:21)
[2024-02-23] MEDS: ATORVASTATIN 40 MG TAB PO SCH (21:21)
[2024-02-23] MEDS: MONTELUKAST 10 MG TAB PO SCH (21:21)
[2024-02-23] MEDS: METOPROLOL TARTRATE 50 MG TAB PO SCH (21:21)
[2024-02-23 21:36] LABS: Glucose,Whole Blood 448 mg/dL (70-110)
[2024-02-23] MEDS ORDERED: DEXTROSE 50% SYRINGE 50 ML IVP PRN ×2 (21:41)
[2024-02-23] MEDS: INSULIN DETEMIR (LEVEMIR) 100 UNIT/ML SYR SQ SCH (21:50)
[2024-02-23] MEDS: INSULIN ASPART (NovoLOG) 100 UNIT/ML VIAL SQ ONE (21:58)
--- NOTE | 2024-02-23 22:53 | HP ---
HISTORY AND PHYSICAL CHIEF COMPLAINT: Fall, head injury, and left upper and lower limb pain. HISTORY OF PRESENT ILLNESS: This is a 74-year-old gentleman with a past medical history of multiple medical problems including COPD, CHF, apparently had a fall from garage. The patient is complaining of some abrasions on the head as well as ecchymosis and pain in the left upper and lower limbs. No fractures or intracranial abnormality is detected and the patient is admitted for further evaluation and treatment. Chest x-ray showed no active CHF. The patient also had some possibly intraventricular thrombus and was receiving anticoagulation for that. Blood sugars elevated up to 240. PAST MEDICAL HISTORY: Reviewed include COPD, CHF, CAD, and diabetes mellitus type 2. Rest of the history and rest of the chart is also reviewed. HOME MEDICATIONS: Reviewed include Mucinex, dose and rest of medications reviewed. ALLERGIES: Coreg and metformin. FAMILY HISTORY: Previous history of smoking. REVIEW OF SYSTEMS: A 14-point review is negative except as mentioned earlier. PHYSICAL EXAMINATION: VITAL SIGNS: Pulse is 62, blood pressure 170/60, respirations 18. HEENT: Conjunctivae normal. NECK: No jugular venous distention. CARDIOVASCULAR: S1, S2. RESPIRATIONS: Diminished at the bases. Few scattered rhonchi and crackles. ABDOMEN: Soft, nontender. LEGS: No edema, no swelling. NERVOUS SYSTEM: Nonfocal. SKIN: Scalp abrasions present. Multiple ecchymoses left lower and upper ___. LABS: Reviewed. Chest x-ray reviewed personally. ASSESSMENT: 1. Fall and scalp laceration as well as left upper and lower limb pain. 2. Chronic obstructive pulmonary disease. 3. Congestive heart failure with chronic systolic dysfunction, ejection fraction 25% to 30%. 4. Intraventricular thrombus. 5. Diabetes mellitus type 2. 6. Hyperlipidemia. 7. History of myocardial infarction. 8. History of CAD, stent. 9. Full code. RECOMMENDATIONS AND DISCUSSION: This 74-year-old gentleman presented with multiple medical problems. Will monitor the patient closely. Continue the current medications, symptomatic treatment. Otherwise, resume the home medication, bronchodilators. We will follow closely with Cardiology, pulmonology, pain management. Prognosis guarded because of multiple complex medical issues. Further recommendations to follow. See orders for further details. Will stop the IV fluids. MMODL / IJN: [id number] /
[2024-02-24 01:26] LABS: Glucose,Whole Blood 314 mg/dL (70-110)
[2024-02-24 06:24] LABS: Glucose,Whole Blood 295 mg/dL (70-110)
[2024-02-24] MEDS: INSULIN ASPART (NovoLOG) 100 UNIT/ML VIAL SQ SCH (06:29)
[2024-02-24] MEDS ORDERED: INSULIN DETEMIR (LEVEMIR) 100 UNIT/ML SYR SQ SCH (07:00)
--- NOTE | 2024-02-24 07:22 | CA ---
Transthoracic Echo Report Name: Mayur Parmar Age: 74 Gender: M : 1950 Exam Date: 02/23/2024 14:49 Exam Location: [facility] Ht (in): 72 Wt (lb): 214 Ordering Physician: Froialn Rankin MD Attending/Referring Phys: Corporate Counselor Cari Kirkland RDCS Procedure CPT: Indications: history of LV thrombus Cardiac Hx: limited study Technical Quality: Technically difficult study Contrast 1: Definity Total Dose (mL): 2 Contrast 2: Total Dose (mL): MEASUREMENTS (Male / Female) Normal Values 2D ECHO RV Internal Dim ED PLAX 3.3 cm DOPPLER AV Peak Velocity 131.5 cm/s AV Peak Gradient 6.9 mmHg AI Peak Velocity 343.1 cm/s AI Peak Gradient 47.1 mmHg AI Pressure Half Time 1066.6 ms TR Peak Velocity 263.5 cm/s TR Peak Gradient 27.8 mmHg Right Ventricular Systolic Press 32.6 mmHg FINDINGS Left Ventricle Left ventricular ejection fraction is estimated at 30-35 %. Anteroapical, anteroseptal and anterolateral severe hypokinesis to akinesis. Right Ventricle Right ventricular systolic pressure within normal limits.catheter/pacemaker wire in the right ventricular cavity. Right Atrium Left Atrium Mitral Valve Aortic Valve Aortic valve sclerosis. Tricuspid Valve Structurally normal tricuspid valve. Mild tricuspid regurgitation. Pulmonic Valve Pericardium No pericardial effusion. No pleural effusion. Aorta CONCLUSIONS Limited echo. Technically difficult study. Definity ECHO contrast used for improved visualization of the endocardial borders (inadequate visualization of two or more contiguous segments). Severely impaired left ventricular systolic function with segmental wall motion abnormality consistent with CAD A wire was noted in the right ventricle Previewed by: Dr. Vidhi Chatterjee MD (Electronically Signed) Final Date: 24 Feb 2024 07:21
[2024-02-24] MEDS ORDERED: NON FORMULARY DRUG (Fluticasone/Umeclidin/Vilanter [Trelegy Ellipta 200-62.5-25] 1 EACH Bl INHALATION SCH (08:00)
[2024-02-24 08:45] LABS: Basophils # (A) 0 X 10*3/uL (0.00-0.10); Basophils % (A) 0 %; Eosinophils # (A) 0 X 10*3/uL (0.04-0.35); Eosinophils % (A) 0 %; HCT 32.9 % (39.6-50.0); HGB 10.4 g/dL (13.0-17.0); Lymphocytes # (A) 0.66 X 10*3/uL (0.90-5.00); Lymphocytes % (A) 13.1 %; MCH 31.2 pg (27.0-32.0); MCHC 31.6 g/dL (32.0-37.0); MCV 98.8 FL (80.0-97.0); Mean Platelet Volume 10.4 FL (9.5-12.2); Monocytes # (A) 0.09 X 10*3/uL (0.20-1.00); Monocytes % (A) 1.8 %; NRBC Per 100 WBC 0 X 10*3/uL (0.00-0.01); Neutrophils # (A) 4.25 X 10*3/uL (1.80-7.70); Neutrophils % (A) 84.5 %; Platelet Count 143 X 10*3/uL (140-440); RBC 3.33 X 10*6/uL (4.40-5.60); RDW 17.1 % (11.5-14.5); WBC 5.03 X 10*3/uL (4.50-10.00)
[2024-02-24] MEDS: CHOLECALCIFEROL 125 MCG (5000 IU) TABLET PO SCH (09:22)
[2024-02-24] MEDS: DAPAGLIFLOZIN PROPANEDIOL 10 MG TABLET PO SCH (09:22)
[2024-02-24] MEDS: LORATADINE 10 MG TAB PO SCH (09:23)
--- NOTE | 2024-02-24 10:13 | P.PN ---
Subjective Progress Note Date: 02/24/24 74-year-old male who presents to the emergency department, via EMS, having fallen, and injuring his head. This was a level 2 trauma activation. The patient was at home, and went out to the garage, to get some water from the refrigerator and tripped and fell. He did not lose consciousness, but he did hi t his head on the cement. The patient is chronically on Eliquis, and for that reason, there was concern that there may be some significant internal injury. The patient has a history of COPD, for which she sees my partner, Dr. Nash. He does use home oxygen, at 3 L. He is currently on 2 L here. He also uses albuterol, and nebulizer machine, and Trelegy for his COPD. He apparently hurt his left arm and shoulder, and left leg. Apparently there were no fractures. He complains of head pain, posteriorly. Current labs include a white count 7.5, hemoglobin 11.4, hematocrit 35.3, and a normal platelet count. Sodium 138, potassium 4.4, chlorides 111, CO2 21, BUN 9, creatinine 0.85. Glucose 242. Calcium 8.2, bilirubin 1.6. Albumin 2.8. Troponins were negative. N-terminal proBNP 862. The patient was tested for influenza, A, and B, RSV, coronavirus, and tested negative for all 3. Chest x-ray showed no acute cardiopulmonary disease. The pelvic x-ray was negative for osseous abnormality. Head and cervical spine CT showed age-related atrophic and chronic small vessel ischemic changes without acute hemorrhage and the CT scan of the cervical spine showed no evidence of fracture or subluxation. The patient is seen today February 24, 2024 in follow-up on the regular medical floor. He is currently resting comfortably in bed. Awake and alert in no acute distress. Maintaining good O2 saturations in the 90s on 3 L/min per nasal cannula. Afebrile. Hemodynamically stable. Echocardiogram revealed impaired left ventricular systolic function with ejection fraction of 30 to 35%. White count 5.0. Hemoglobin 10.4. Platelets 143. Glucose 194. Hemoglobin A1c 8.4. He remains on DuoNeb ventilations, Symbicort. Anticoagulated with Eliquis. He is doing very well today. He denies any neurologic deficits. His speech is clear. No headache. Objective - Vital Signs Vital signs: Vital Signs Temp 97.7 F 02/24/24 07:45 Pulse 72 02/24/24 08:58 Resp 16 02/24/24 07:45 BP 127/67 02/24/24 07:45 Pulse Ox 97 02/24/24 07:45 FiO2 Intake & Output 02/23/24 02/24/24 02/24/24 18:59 06:59 18:59 Intake Total 118 Output Total 950 Balance -950 118 Weight 97.114 kg Intake: Oral 118 Output: Urine 950 Other: # Voids 2 - Exam GENERAL EXAM: Alert, very pleasant 74-year-old male patient, on 3 L nasal can nula, comfortable in no apparent distress. HEAD: Normocephalic. Abrasions noted on the left posterior aspect of his head. EYES: Normal reaction of pupils, equal size. NOSE: Clear with pink turbinates. THROAT: No erythema or exudates. NECK: No masses, no JVD. CHEST: No chest wall deformity. LUNGS: Equal air entry with few scattered rhonchi. CVS: S1 and S2 normal with no audible murmur, regular rhythm. ABDOMEN: No hepatosplenomegaly, normal bowel sounds, no guarding or rigidity. SPINE: No scoliosis or deformity SKIN: No rashes CENTRAL NERVOUS SYSTEM: No focal deficits, tone is normal in all 4 extremities. EXTREMITIES: There is no peripheral edema. No clubbing, no cyanosis. Peripheral pulses are intact. - Labs CBC & Chem 7: 02/24/24 05:57 02/23/24 10:07 Labs: Abnormal Lab Results - Last 24 Hours (Table) 02/23/24 02/23/24 02/23/24 Range/Units 10:06 10:07 10:07 RBC 3.51 L (4.30-5.90) m/uL Hgb 11.4 L (13.0-17.5) gm/dL Hct 35.3 L (39.0-53.0) % MCV 100.6 H (80.0-100.0) fL MCHC (32.0-37.0) g/dL RDW 17.2 H (11.5-15.5) % Lymphocytes # (0.90-5.00) X 10*3/uL Monocytes # (0.20-1.00) X 10*3/uL Eosinophils # (0.04-0.35) X 10*3/uL Chloride 111 H (98-107) mmol/L Carbon Dioxide 21 L (22-30) mmol/L Glucose 242 H (74-99) mg/dL POC Glucose (mg/dL) 240 H (70-110) mg/dL Hemoglobin A1c (<=6.0) % Calcium 8.2 L (8.4-10.2) mg/dL Total Bilirubin 1.6 H (0.2-1.3) mg/dL Total Protein 5.9 L (6.3-8.2) g/dL Albumin 2.8 L (3.5-5.0) g/dL Ur Specific [place] (1.001-1.035) Urine Glucose (UA) (Negative) 02/23/24 02/23/24 02/23/24 Range/Units 16:57 18:06 21:31 RBC (4.30-5.90) m/uL Hgb (13.0-17.5) gm/dL Hct (39.0-53.0) % MCV (80.0-100.0) fL MCHC (32.0-37.0) g/dL RDW (11.5-15.5) % Lymphocytes # (0.90-5.00) X 10*3/uL Monocytes # (0.20-1.00) X 10*3/uL Eosinophils # (0.04-0.35) X 10*3/uL Chloride (98-107) mmol/L Carbon Dioxide (22-30) mmol/L Glucose (74-99) mg/dL POC Glucose (mg/dL) 446 H 448 H (70-110) mg/dL Hemoglobin A1c (<=6.0) % Calcium (8.4-10.2) mg/dL Total Bilirubin (0.2-1.3) mg/dL Total Protein (6.3-8.2) g/dL Albumin (3.5-5.0) g/dL Ur Specific [place] 1.036 H (1.001-1.035) Urine Glucose (UA) 4+ H (Negative) 02/24/24 02/24/24 02/24/24 Range/Units 01:24 05:57 05:57 RBC 3.33 L (4.30-5.90) m/uL Hgb 10.4 L (13.0-17.5) gm/dL Hct 32.9 L (39.0-53.0) % MCV 98.8 H (80.0-100.0) fL MCHC 31.6 L (32.0-37.0) g/dL RDW 17.1 H (11.5-15.5) % Lymphocytes # 0.66 L (0.90-5.00) X 10*3/uL Monocytes # 0.09 L (0.20-1.00) X 10*3/uL Eosinophils # 0 L (0.04-0.35) X 10*3/uL Chloride (98-107) mmol/L Carbon Dioxide (22-30) mmol/L Glucose (74-99) mg/dL POC Glucose (mg/dL) 314 H (70-110) mg/dL Hemoglobin A1c 8.4 H (<=6.0) % Calcium (8.4-10.2) mg/dL Total Bilirubin (0.2-1.3) mg/dL Total Protein (6.3-8.2) g/dL Albumin (3.5-5.0) g/dL Ur Specific [place] (1.001-1.035) Urine Glucose (UA) (Negative) 02/24/24 Range/Units 06:22 RBC (4.30-5.90) m/uL Hgb (13.0-17.5) gm/dL Hct (39.0-53.0) % MCV (80.0-100.0) fL MCHC (32.0-37.0) g/dL RDW (11.5-15.5) % Lymphocytes # (0.90-5.00) X 10*3/uL Monocytes # (0.20-1.00) X 10*3/uL Eosinophils # (0.04-0.35) X 10*3/uL Chloride (98-107) mmol/L Carbon Dioxide (22-30) mmol/L Glucose (74-99) mg/dL POC Glucose (mg/dL) 295 H (70-110) mg/dL Hemoglobin A1c (<=6.0) % Calcium (8.4-10.2) mg/dL Total Bilirubin (0.2-1.3) mg/dL Total Protein (6.3-8.2) g/dL Albumin (3.5-5.0) g/dL Ur Specific [place] (1.001-1.035) Urine Glucose (UA) (Negative) Assessment and Plan Assessment: Status post fall, with injury to head, and left side of body, but without fracture, or significant intracranial pathology History of coronary artery disease, status post stent placement History of systolic CHF. Impaired left ventricular systolic function with ejection fraction 30 to 35% History of oxygen dependent COPD. Maintained on Trelegy History of diabetes mellitus. Hemoglobin A1c 8.4% History of hyperlipidemia History of myocardial infarction Status post AICD implantation, 2013 History of left ventricular thrombus, anticoagulated with Eliquis Plan: The patient was seen and evaluated Echocardiogram, labs and medications reviewed Cardiology and neurology consults pending Stable for discharge from the pulmonary standpoint Continue his home pulmonary medications, oxygen Keep his follow-up appointment as scheduled This patient was seen independently by the pulmonary nurse practitioner addressing pulmonary issues I have personally seen and examined the patient, performed the documentation and the assessment and plan as written. Number of minutes spent on the visit: 24.
[2024-02-24 10:26] LABS: ALT 12 U/L (10-49); AST 16 U/L (14-35); Albumin 3.2 g/dL (3.8-4.9); Albumin/Globulin Ratio 1.33 Ratio (1.60-3.17); Alkaline Phosphatase 106 U/L (41-126); BUN/Creat Ratio 14.75 Ratio (12.00-20.00); Blood Urea Nitrogen 11.8 mg/dL (9.0-27.0); Calcium 8.3 mg/dL (8.7-10.3); Carbon Dioxide 17.1 mmol/L (21.6-31.8); Chloride 108 mmol/L (96-109); Globulin 2.4 g/dL (1.6-3.3); Glucose 310 mg/dL (70-110); Sodium 140 mmol/L (135-145); Total Protein 5.6 g/dL (6.2-8.2)
--- NOTE | 2024-02-24 11:16 | P.CRDCN ---
History of Present Illness Consult date: 02/24/24 Consult reason: congestive heart failure History of present illness: History of present illness: This is a 74-year-old male patient of Dr. Chatterjee with past medical history of coronary artery disease, ischemic cardiomyopathy with a EF of 35%, hype rlipidemia, status post biventricular ICD, diabetes mellitus type 2, chronic hypoxic respiratory failure on home O2 at 3 L nasal cannula. Patient had a recent hospitalization at which time there was concern for LV thrombus and he was started on Eliquis.. We have been asked to evaluate the patient for CHF. Patient states that he was in the garage and started going up steps into the house and he had a fall landing backwards and hitting his head. He believes that he had a loss of consciousness first. He gives history of dyspnea on exertion unable to walk more than 15 feet. He states with that he occasionally has chest pain. No lower extremity edema. He states he is dizzy most of the time but has had not had any other syncopal episodes until yesterday. He denies any cough, no fever. He complains of wheezing. He denies any blood in his urine or stool. He denies any abdominal pain. No nausea or vomiting. EKG paced rhythm Chest x-ray: No acute process Laboratory studies: WBC 5, hemoglobin 10.4. Sodium 140, potassium 4, BUN 11 and creatinine 0.8. Troponin negative x 1. proBNP 862. Home cardiac medications: Eliquis 5 mg twice daily, aspirin 81 mg at bedtime, Lipitor 40 mg at bedtime, Farxiga 10 mg daily, Lasix 40 mg daily as needed, Lopressor 50 mg twice daily, Nitrostat as needed, potassium chloride 20 mill equivalents daily as needed, Entresto 24-26 mg tablet 1 twice daily, Aldactone 25 mg daily. Most recent echocardiogram obtained in 06/2023 revealed ejection fraction 42%, mild to moderate MR, mild to moderate AR, mild to moderate TR Cardiac catheterization history: 2012 revealing 100% proximal D1, 50% mid circumflex, 20% mid RCA, left circumflex FFR 90% Limited echocardiogram performed on 02/24/2024 revealed technically difficult study. Definity contrast used for improved visualization of the Endo cardial borders. Inadequate visualization of 2 or more contiguous segments. Severely impaired left ventricular systolic function with segmental wall motion ab normality consistent with CAD. Wire was noted in the right ventricle. EF 30 to 35%. Biventricular ICD implantation [employer] on 08/08/2013 Lexiscan Cardiolite stress test done 10/22/2022 revealed EF 37%, fixed inferior apical defect. Review Of Systems: At the time of my exam: CONSTITUTIONAL: Denies fever or chills. HEENT: Denies blurred vision, vision changes, or eye pain. Denies hemoptysis CARDIOVASCULAR: Denies chest pain. Denies orthopnea. Denies PND. Denies palpitations RESPIRATORY: Denies shortness of breath. GASTROINTESTINAL: Denies abdominal pain. Denies nausea or vomiting. HEMATOLOGIC: Denies bleeding disorders. GENITOURINARY: Denies any blood in urine. SKIN: Denies pruitis. Denies rash. Physical examination: Gen: This is a 74-year-old male in no acute distress VS: reviewed, blood pressure 127/67, heart rate 76, pulse ox 97% on 3 L nasal cannula. HEENT: Head is atraumatic, normocephalic. Pupils equal, round. Sclerae is anicteric. NECK: Supple. No JVD. LUNGS: Clear to auscultation. No wheezes or rhonchi. No intercostal retractions. HEART: Regular rate and rhythm. No murmur. ABDOMEN: Soft No tenderness. EXTREMITIES: No pedal edema. No calf tenderness. NEUROLOGICAL: Patient is awake, alert and oriented x3. Assessment: Fall Closed head injury History of left ventricular thrombus on Eliquis History of coronary artery disease Ischemic cardiomyopathy status post AICD Hyperlipidemia Diabetes mellitus type 2 Chronic hypoxic respiratory failure on home O2 Plan: Resume patient's home cardiac medications no episodes of A-fib, V-fib, V. tach. No further cardiac workup is planned at this time Patient is cleared for discharge from cardiology and may follow-up in the office with Dr. Chatterjee in 1 to 2 weeks. Thank you kindly for this consultation. Nurse practitioner note has been reviewed, I agree with documented findings and plan of care. Patient was seen and examined. Past Medical History Past Medical History: Coronary Artery Disease (CAD), Heart Failure, COPD, Diabetes Mellitus, Hyperlipidemia, Myocardial Infarction (CT) Additional Past Medical History / Comment(s): defibrilator bph Last Myocardial Infarction Date:: 2002 History of Any Multi-Drug Resistant Organisms: None Reported Past Surgical History: Cholecystectomy, Heart Catheterization With Stent Past Anesthesia/Blood Transfusion Reactions: No Reported Reaction Date of Last Stent Placement:: 2002 Type of Cardiac Device: AICD Device Placement Date:: 2013 Past Psychological History: No Psychological Hx Reported Past Alcohol Use History: Rare Past Drug Use History: None Reported Medications and Allergies Home Medications Medication Instructions Recorded Confirmed Type Albuterol Inhaler [Ventolin Hfa 1 - 2 puff INHALATION RT-QID PRN 05/22/17 02/23/24 History Inhaler] Aspirin EC [Ecotrin Low Dose] 81 mg PO HS 05/22/17 02/23/24 History Atorvastatin [Lipitor] 40 mg PO HS 05/22/17 02/23/24 History Budesonide [Pulmicort] 0.5 mg INHALATION RT-BID 05/22/17 02/23/24 History Clindamycin Topical Soln 1 applic TOPICAL BID PRN 05/22/17 02/23/24 History [Cleocin-T Topical Soln] Formoterol Fumarate [Perforomist] 20 mcg INHALATION RT-BID 05/22/17 02/23/24 History Ipratropium-Albuterol Nebulize 3 ml INHALATION RT-QID 05/22/17 02/23/24 History [Duoneb 0.5 mg-3 mg/3 ml Soln] Loratadine [Claritin] 10 mg PO DAILY 05/22/17 02/23/24 History Montelukast [Singulair] 10 mg PO HS 05/22/17 02/23/24 History Nitroglycerin Sl Tabs [Nitrostat] 0.4 mg SL Q5M PRN 05/22/17 02/23/24 History Potassium Chloride ER [K-Dur 20] 20 meq PO DAILY PRN 05/22/17 02/23/24 History Cholecalciferol [Vitamin D3 (125 125 mcg PO DAILY 12/30/23 02/23/24 History Mcg = 5000 Iu)] Dapagliflozin Propanediol [Farxiga] 10 mg PO DAILY 12/30/23 02/23/24 History Fluticasone/Umeclidin/Vilanter 1 puff INHALATION RT-DAILY 12/30/23 02/23/24 History [Trelegy Ellipta 200-62.5-25] Ketoconazole 2% Cream [Nizoral 2%] 1 applic TOPICAL BID PRN 12/30/23 02/23/24 History Omeprazole 20 mg PO BID 12/30/23 02/23/24 History Sacubitril/Valsartan [Entresto 24 1 tab PO BID 12/30/23 02/23/24 History mg-26 mg Tablet] Spironolactone [Aldactone] 25 mg PO DIRECTED 12/30/23 02/23/24 History Tamsulosin [Flomax] 0.4 mg PO BID 12/30/23 02/23/24 History guaiFENesin [Mucinex] 1,200 mg PO BID PRN 12/30/23 02/23/24 History Apixaban [Eliquis] 5 mg PO BID #60 tab 01/13/24 02/23/24 Rx Diphenoxylate HCl/Atropine 1 tab PO QID PRN 14 Days #56 tab 01/13/24 02/23/24 Rx [Lomotil 2.5-0.025 mg Tablet] Furosemide [Lasix] 40 mg PO DAILY PRN #30 tab 01/13/24 02/23/24 Rx Metoprolol Tartrate [Lopressor] 50 mg PO BID #60 tab 01/13/24 02/23/24 Rx INSULIN ASPART (NovoLOG) [NovoLOG 8 - 10 unit SQ AC-TID 02/23/24 02/23/24 History (formulary)] Insulin Detemir (Levemir) [Levemir] 15 unit SQ DAILY@0700 02/23/24 02/23/24 History Allergies Allergy/AdvReac Type Severity Reaction Status Date / Time carvedilol [From Coreg] Allergy Rash/Hives Verified 02/23/24 11:21 metformin AdvReac Diarrhea Verified 02/23/24 11:21 Physical Exam Vitals: Vital Signs Temp Pulse Pulse Resp BP BP Pulse Ox 02/24/24 07:45 97.7 F 76 16 127/67 97 02/24/24 03:35 76 02/24/24 03:20 75 02/24/24 01:25 98.1 F 74 17 129/73 98 02/23/24 19:04 97.6 F 105 H 18 143/79 98 02/23/24 18:14 62 02/23/24 18:13 97.6 F 72 18 118/73 95 02/23/24 18:03 50 L 02/23/24 17:00 97.9 F 90 20 115/72 99 02/23/24 16:00 85 20 110/75 99 02/23/24 15:48 76 02/23/24 15:40 98 02/23/24 15:38 75 02/23/24 15:00 77 16 113/59 100 02/23/24 14:00 80 16 112/64 100 02/23/24 13:01 65 02/23/24 13:00 97.7 F 81 20 128/65 100 02/23/24 12:50 62 02/23/24 11:00 97.6 F 62 20 117/67 100 02/23/24 10:00 97.4 F L 71 20 102/64 100 02/23/24 09:54 97.1 F L 73 20 115/67 100 Intake and Output 02/23/24 02/24/24 02/24/24 22:59 06:59 14:59 Output Total 950 Balance -950 Output: Urine 950 Other: # Voids 2 Results 02/24/24 05:57 02/24/24 05:57 Cardiac Enzymes 02/23/24 02/23/24 Range/Units 10:07 10:07 AST 47 (17-59) U/L Troponin I <0.012 (0.000-0.034) ng/mL Coagulation 02/23/24 Range/Units 10:07 PT 11.1 (10.0-12.5) sec APTT 22.5 (22.0-30.0) sec CBC 02/23/24 Range/Units 10:07 WBC 7.5 (3.8-10.6) k/uL RBC 3.51 L (4.30-5.90) m/uL Hgb 11.4 L (13.0-17.5) gm/dL Hct 35.3 L (39.0-53.0) % Plt Count 173 D (150-450) k/uL Comprehensive Metabolic Panel 02/23/24 Range/Units 10:07 Sodium 138 (137-145) mmol/L Potassium 4.4 (3.5-5.1) mmol/L Chloride 111 H (98-107) mmol/L Carbon Dioxide 21 L (22-30) mmol/L BUN 9 (9-20) mg/dL Creatinine 0.85 (0.66-1.25) mg/dL Glucose 242 H (74-99) mg/dL Calcium 8.2 L (8.4-10.2) mg/dL AST 47 (17-59) U/L ALT 19 (4-49) U/L Alkaline Phosphatase 98 (38-126) U/L Total Protein 5.9 L (6.3-8.2) g/dL Albumin 2.8 L (3.5-5.0) g/dL Current Medications Generic Name Dose Route Start Last Admin Trade Name Freq PRN Reason Stop Dose Admin Acetaminophen 650 mg 02/23/24 11:55 Acetaminophen Tab 325 Mg Tab PO Q6HR PRN Mild Pain or Fever > 100.5 Hydrocodone Bitart/Acetaminophen 1 each 02/23/24 15:33 Hydrocodone/Apap 5-325mg 1 Each Tab PO Q6HR PRN Pain Albuterol/Ipratropium 3 ml 02/23/24 12:00 02/24/24 03:27 Ipratropium-Albuterol 3 Ml Neb INHALATION Not Given RT-Q4H [facility] Apixaban 5 mg 02/23/24 21:00 02/23/24 20:13 Apixaban 5 Mg Tab PO Not Given BID [facility] Protocol Aspirin 81 mg 02/23/24 21:00 02/23/24 20:13 Aspirin 81 Mg PO Not Given HS [facility] Atorvastatin Calcium 40 mg 02/23/24 21:00 02/23/24 21:21 Atorvastatin 40 Mg Tab PO 40 mg HS [facility] Administration Budesonide/Formoterol Fumarate 2 puff 02/23/24 20:00 02/23/24 18:02 Symbicort 160-4.5 Mcg Inhaler INHALATION 2 puff RT-BID [facility] Administration Cholecalciferol 125 mcg 02/24/24 09:00 Cholecalciferol 125 Mcg (5000 Iu) Tablet PO DAILY [facility] Clotrimazole 1 applic 02/23/24 15:31 Clotrimazole 1% Cream 30 Gm Tube TOPICAL BID PRN face and ear issues Dapagliflozin 10 mg 02/24/24 09:00 Dapagliflozin Propanediol 10 Mg Tablet PO DAILY [facility] Dextrose/Water 25 ml 02/23/24 21:41 Dextrose 50% Syringe 50 Ml IVP PER PROTOCOL PRN Hypoglycemia Protocol Dextrose/Water 50 ml 02/23/24 21:41 Dextrose 50% Syringe 50 Ml IVP PER PROTOCOL PRN Hypoglycemia Protocol Diphenoxylate HCl/Atropine 1 each 02/23/24 13:33 02/23/24 21:20 Diphenox-Atrop 2.5-0.025 Mg 1 Each Tab PO 1 each QID PRN Administration Diarrhea Furosemide 40 mg 02/23/24 13:33 Furosemide 40 Mg Tab PO DAILY PRN Edema Guaifenesin 1,200 mg 02/23/24 15:31 Guaifenesin 600 Mg Tablet.Er PO BID PRN Congestion Insulin Aspart 0 unit 02/24/24 07:30 02/24/24 06:29 Insulin Aspart (Novolog) 100 Unit/Ml Vial SQ 6 unit ACHS [facility] Administration Protocol Insulin Detemir 15 unit 02/23/24 21:45 02/24/24 06:29 Insulin Detemir (Levemir) 100 Unit/Ml Syr SQ 15 unit BID@0700,2100 [facility] Administration Loratadine 10 mg 02/24/24 09:00 Loratadine 10 Mg Tab PO DAILY [facility] Metoprolol Tartrate 50 mg 02/23/24 21:00 02/23/24 21:21 Metoprolol Tartrate 50 Mg Tab PO 50 mg BID [facility] Administration Montelukast Sodium 10 mg 02/23/24 21:00 02/23/24 21:21 Montelukast 10 Mg Tab PO 10 mg HS [facility] Administration Naloxone HCl 0.2 mg 02/23/24 11:55 Naloxone 0.4 Mg/Ml 1 Ml Vial IV Q2M PRN Opioid Reversal Ondansetron HCl 4 mg 02/23/24 11:55 Ondansetron 4 Mg/2 Ml Vial IVP Q8HR PRN Nausea And Vomiting Pantoprazole Sodium 40 mg 02/23/24 21:00 02/23/24 21:20 Pantoprazole 40 Mg Tablet PO 40 mg BID [facility] Administration Potassium Chloride 20 meq 02/23/24 13:33 Potassium Chloride Er 20 Meq Tab.Er PO DAILY PRN with lasix Sacubitril/Valsartan 1 each 02/23/24 21:00 02/23/24 21:21 Sacubitril/Valsartan 24 Mg-26 Mg Tablet PO 1 each BID [facility] Administration Tamsulosin HCl 0.4 mg 02/23/24 21:00 02/23/24 21:20 Tamsulosin 0.4 Mg Cap.Er.24h PO 0.4 mg BID [facility] Administration Intake and Output 02/23/24 02/24/24 02/24/24 22:59 06:59 14:59 Output Total 950 Balance -950 Output: Urine 950 Other: # Voids 2 02/23/24 10:07 02/23/24 10:07
[2024-02-24 12:01] LABS: Glucose,Whole Blood 292 mg/dL (70-110)
--- NOTE | 2024-02-24 13:56 | P.PN ---
Subjective Progress Note Date: 02/24/24 CHIEF COMPLAINT: Fall HISTORY OF PRESENT ILLNESS: Patient reports he is feeling better. He has no pain. Denies any nausea or vomiting. Denies any abdominal pain. He has been up and ambulating with walker. He is tolerating diet. Is had no further issues with his speech. Afebrile. WBC 5.03 Hgb 10.4 platelets 143 PHYSICAL EXAM: VITAL SIGNS: Reviewed. GENERAL: Well-developed in no acute distress. HEENT: Left posterior scalp with small hematoma and skin abrasion. No active bleeding ABDOMEN: Soft. Nondistended. Nontender. NEUROLOGIC: Alert and oriented. Cranial nerves II through XII grossly intact. Extremities able to move all 4 extremities ASSESSMENT: 1. Fall with trauma to the posterior aspect of the head 2. Left posterior scalp abrasion with bleeding controlled 3. History of left ventricle thrombus on Eliquis at home 4. Diabetes mellitus 5. History of AICD 6. History of COPD 7. History of CHF PLAN: -Patient can be discharged from trauma surgery standpoint when cleared by neurology service -Patient can shower -Pain management per medicine service -Surgical service will sign off. Please call with any questions or concerns. Physician [employer] Teacher note has been reviewed by physician. Signing provider agrees with the documented findings, assessment, and plan of care. Objective - Vital Signs Vital signs: Vital Signs Temp 97.7 F 02/24/24 07:45 Pulse 76 02/24/24 12:19 Resp 16 02/24/24 07:45 BP 120/67 02/24/24 11:47 Pulse Ox 97 02/24/24 07:45 FiO2 Intake & Output 02/23/24 02/24/24 02/24/24 18:59 06:59 18:59 Intake Total 118 Output Total 950 225 Balance -950 -107 Weight 97.114 kg Intake: Oral 118 Output: Urine 950 225 Other: # Voids 2 1 - Labs CBC & Chem 7: 02/24/24 05:57 02/24/24 05:57 Labs: Abnormal Lab Results - Last 24 Hours (Table) 02/23/24 02/23/24 02/23/24 Range/Units 16:57 18:06 21:31 RBC (4.40-5.60) X 10*6/uL Hgb (13.0-17.0) g/dL Hct (39.6-50.0) % MCV (80.0-97.0) [place] MCHC (32.0-37.0) g/dL RDW (11.5-14.5) % Lymphocytes # (0.90-5.00) X 10*3/uL Monocytes # (0.20-1.00) X 10*3/uL Eosinophils # (0.04-0.35) X 10*3/uL Carbon Dioxide (21.6-31.8) mmol/L Anion Gap (4.00-12.00) mmol/L Glucose (70-110) mg/dL POC Glucose (mg/dL) 446 H 448 H (70-110) mg/dL Hemoglobin A1c (<=6.0) % Calcium (8.7-10.3) mg/dL Total Protein (6.2-8.2) g/dL Albumin (3.8-4.9) g/dL Albumin/Globulin Ratio (1.60-3.17) Ratio Ur Specific [place] 1.036 H (1.001-1.035) Urine Glucose (UA) 4+ H (Negative) 02/24/24 02/24/24 02/24/24 Range/Units 01:24 05:57 05:57 RBC 3.33 L (4.40-5.60) X 10*6/uL Hgb 10.4 L (13.0-17.0) g/dL Hct 32.9 L (39.6-50.0) % MCV 98.8 H (80.0-97.0) [place] MCHC 31.6 L (32.0-37.0) g/dL RDW 17.1 H (11.5-14.5) % Lymphocytes # 0.66 L (0.90-5.00) X 10*3/uL Monocytes # 0.09 L (0.20-1.00) X 10*3/uL Eosinophils # 0 L (0.04-0.35) X 10*3/uL Carbon Dioxide 17.1 L (21.6-31.8) mmol/L Anion Gap 14.90 H (4.00-12.00) mmol/L Glucose 310 H (70-110) mg/dL POC Glucose (mg/dL) 314 H (70-110) mg/dL Hemoglobin A1c (<=6.0) % Calcium 8.3 L (8.7-10.3) mg/dL Total Protein 5.6 L (6.2-8.2) g/dL Albumin 3.2 L (3.8-4.9) g/dL Albumin/Globulin Ratio 1.33 L (1.60-3.17) Ratio Ur Specific [place] (1.001-1.035) Urine Glucose (UA) (Negative) 02/24/24 02/24/24 02/24/24 Range/Units 05:57 06:22 12:00 RBC (4.40-5.60) X 10*6/uL Hgb (13.0-17.0) g/dL Hct (39.6-50.0) % MCV (80.0-97.0) FL MCHC (32.0-37.0) g/dL RDW (11.5-14.5) % Lymphocytes # (0.90-5.00) X 10*3/uL Monocytes # (0.20-1.00) X 10*3/uL Eosinophils # (0.04-0.35) X 10*3/uL Carbon Dioxide (21.6-31.8) mmol/L Anion Gap (4.00-12.00) mmol/L Glucose (70-110) mg/dL POC Glucose (mg/dL) 295 H 292 H (70-110) mg/dL Hemoglobin A1c 8.4 H (<=6.0) % Calcium (8.7-10.3) mg/dL Total Protein (6.2-8.2) g/dL Albumin (3.8-4.9) g/dL Albumin/Globulin Ratio (1.60-3.17) Ratio Ur Specific [place] (1.001-1.035) Urine Glucose (UA) (Negative)
[2024-02-24] MEDS ORDERED: MECLIZINE 25 MG TAB PO PRN (17:38)
[2024-02-24 17:48] LABS: Glucose,Whole Blood 356 mg/dL (70-110)
[2024-02-24 21:22] LABS: Glucose,Whole Blood 288 mg/dL (70-110)
--- NOTE | 2024-02-24 23:54 | P.PN ---
Subjective Progress Note Date: 02/24/24 Patient is evaluated today resting in bed. No acute complaints overnight. Patient has been evaluted by cardiology and was cleared for discharge home. However orthostatics remain positive patient does continue on entresto. Limited echocardiogram reveals an EF 30-35%. Pacemaker was interrogated with no acute issues found. Blood glucose has been elevated in the 290s. Review of Systems Constitutional: Denied any fatigue denied any fever. Cardio vascular: denied any chest pain, palpitations Gastrointestinal: denied any nausea, vomiting, diarrhea Pulmonary: Denied any shortness of breath cough Neurologic denied any new focal deficits All inpatient medications were reviewed and appropriate changes in these medications as dictated in the interval history and assessment and plan. PHYSICAL EXAMINATION: GENERAL: The patient is alert and oriented x3, not in any acute distress. Well developed, well nourished. HEENT: Pupils are round and equally reacting to light. EOMI. No scleral icterus. No conjunctival pallor. Normocephalic, atraumatic. No pharyngeal erythema. No thyromegaly. CARDIOVASCULAR: S1 and S2 present. No murmurs, rubs, or gallops. PULMONARY: Chest is clear to auscultation, no wheezing or crackles. ABDOMEN: Soft, nontender, nondistended, normoactive bowel sounds. No palpable or ganomegaly. MUSCULOSKELETAL: No joint swelling or deformity. EXTREMITIES: No cyanosis, clubbing, or pedal edema. NEUROLOGICAL: Gross neurological examination did not reveal any focal deficits. SKIN: No rashes. Assessment and Plan Fall with trauma; scalp laceration and upper and lower extremity pain; patient was evaluated by physical therapy and cleared for discharge home COPD with no acute exacerbation oxygen dependent Positive orthostatic hypotension patient remains on entresto will be monitored overnight and repeat orthostatic blood pressures in the AM Chronic systolic dysfunction EF 25-30% Intraventricular thrombus continues on eliquis Diabetes mellitus type 2 Hyperlipidemia History of coronary artery disease with prior PCI HX of AICD was interrogated with no issues found GI prophylaxis DVT prophylaxis Full Code The impression and plan of care has been dictated by Nani Lauren, Nurse Practitioner as directed. Dr. Anderson MD I have performed a history and physical examination and medical decision making of this patient, discussed the same with the dictator, and agree with the dictators assessment and plan as written, documented as a scribe. Based on total visit time, I have performed more than 50% of this visit. Objective - Vital Signs Vital signs: Vital Signs Temp 97.7 F 02/24/24 20:00 Pulse 101 H 02/24/24 20:00 Resp 16 02/24/24 14:59 BP 115/71 02/24/24 20:00 Pulse Ox 98 02/24/24 20:00 FiO2 Intake & Output 02/24/24 02/24/24 02/25/24 06:59 18:59 06:59 Intake Total 476 Output Total 950 225 550 Balance -950 251 -550 Intake: Oral 476 Output: Urine 950 225 550 Other: # Voids 2 0 - Labs CBC & Chem 7: 02/24/24 05:57 02/24/24 05:57 Labs: Abnormal Lab Results - Last 24 Hours (Table) 02/24/24 02/24/24 02/24/24 Range/Units 01:24 05:57 05:57 RBC 3.33 L (4.40-5.60) X 10*6/uL Hgb 10.4 L (13.0-17.0) g/dL Hct 32.9 L (39.6-50.0) % MCV 98.8 H (80.0-97.0) FL MCHC 31.6 L (32.0-37.0) g/dL RDW 17.1 H (11.5-14.5) % Lymphocytes # 0.66 L (0.90-5.00) X 10*3/uL Monocytes # 0.09 L (0.20-1.00) X 10*3/uL Eosinophils # 0 L (0.04-0.35) X 10*3/uL Carbon Dioxide 17.1 L (21.6-31.8) mmol/L Anion Gap 14.90 H (4.00-12.00) mmol/L Glucose 310 H (70-110) mg/dL POC Glucose (mg/dL) 314 H (70-110) mg/dL Hemoglobin A1c (<=6.0) % Calcium 8.3 L (8.7-10.3) mg/dL Total Protein 5.6 L (6.2-8.2) g/dL Albumin 3.2 L (3.8-4.9) g/dL Albumin/Globulin Ratio 1.33 L (1.60-3.17) Ratio 05/16/24 05/16/24 05/16/24 Range/Units 05:57 06:22 12:00 RBC (4.40-5.60) X 10*6/uL Hgb (13.0-17.0) g/dL Hct (39.6-50.0) % MCV (80.0-97.0) FL MCHC (32.0-37.0) g/dL RDW (11.5-14.5) % Lymphocytes # (0.90-5.00) X 10*3/uL Monocytes # (0.20-1.00) X 10*3/uL Eosinophils # (0.04-0.35) X 10*3/uL Carbon Dioxide (21.6-31.8) mmol/L Anion Gap (4.00-12.00) mmol/L Glucose (70-110) mg/dL POC Glucose (mg/dL) 295 H 292 H (70-110) mg/dL Hemoglobin A1c 8.4 H (<=6.0) % Calcium (8.7-10.3) mg/dL Total Protein (6.2-8.2) g/dL Albumin (3.8-4.9) g/dL Albumin/Globulin Ratio (1.60-3.17) Ratio 02/24/24 02/24/24 Range/Units 17:46 21:13 RBC (4.40-5.60) X 10*6/uL Hgb (13.0-17.0) g/dL Hct (39.6-50.0) % MCV (80.0-97.0) FL MCHC (32.0-37.0) g/dL RDW (11.5-14.5) % Lymphocytes # (0.90-5.00) X 10*3/uL Monocytes # (0.20-1.00) X 10*3/uL Eosinophils # (0.04-0.35) X 10*3/uL Carbon Dioxide (21.6-31.8) mmol/L Anion Gap (4.00-12.00) mmol/L Glucose (70-110) mg/dL POC Glucose (mg/dL) 356 H 288 H (70-110) mg/dL Hemoglobin A1c (<=6.0) % Calcium (8.7-10.3) mg/dL Total Protein (6.2-8.2) g/dL Albumin (3.8-4.9) g/dL Albumin/Globulin Ratio (1.60-3.17) Ratio Assessment and Plan Time with Patient: Less than 30
[2024-02-25 03:13] LABS: Glucose,Whole Blood 182 mg/dL (70-110)
[2024-02-25 06:00] LABS: Glucose,Whole Blood 161 mg/dL (70-110)
[2024-02-25] MEDS: ACETAMINOPHEN TAB 325 MG TAB PO PRN (06:02)
[2024-02-25] MEDS: INSULIN ASPART (NovoLOG) 100 UNIT/ML VIAL SQ SCH (06:04)
[2024-02-25 06:28] LABS: Glucose,Whole Blood 167 mg/dL (70-110)
[2024-02-25] MEDS: INSULIN DETEMIR (LEVEMIR) 100 UNIT/ML SYR SQ SCH (08:32)
--- NOTE | 2024-02-25 09:07 | P.CNNES ---
History of Present Illness Consult date: 02/24/24 Requesting physician: Shayla Bautista Reason for Consult: head trauma and change in speech for a few minutes History of Present Illness: Patient is a 74-year-old right-handed male came to the hospital by ambulance yesterday at 9:53 AM for a syncopal spell. Patient states that he was at home by himself and his was gone. He went to the garage to get a bottle of water from the fridge. After he got it, he turned around and started going up steps to the house. There are 5 steps, and after he reached the third step, he just blacked out. Although his hands were on the railing, but he went straight back and banged his head on the cement floor. He also banged his elbow and knee. He crawled back step on his hands and knees and went to the bedroom and called 911. He crawled and opened the door for the EMS. Patient states that when they arrived, he was very confused, and when they started asking questions, he did not know his name, did not know his 's name or his birthday. He had difficulty talking, could not state his was at the court. As per EMS flowsheet when they arrived, patient was sitting on his bedroom floor, initially patient was confused alert and orient x 2. Patient was able to state he was coming back into his house from the garage. Patient was on the third step from the bottom when he became dizzy and fell backwards. Patient states he was unable to stand up at that time and crawled back into the house on his hands and knees. Patient denied loss of consciousness. The garage floor had small amount of blood where patient fell. Patient had a laceration and h ematoma to the occipital area of his head. Patient was very anxious and and unable to be still. Patient became more alert. Patient mentioned that he has issues with dizziness for the past couple of weeks. Patient wears continuous oxygen via nasal cannula at 3 L/min. Patient denies any neck pain and he declined neck collar. Blood sugar 165 mg/dL. Patient was placed back on oxygen by nasal cannula at 3 L/min. Room air saturation was 94%. Vital signs at the scene was blood pressure 113/67, pulse rate 86, respiration 20 saturation 98% EKG shows electronic ventricular pacemaker chest x-ray is normal pelvic x-ray shows no pathology. CT head revealed age-related atrophic and chronic small vessel ischemic change without acute intracranial process seen at this time. No evidence of fracture or subluxation of the cervical spine. 2D echo revealed technically difficult study. Severely impaired left ventricular systolic function with segmental wall motion abnormality consistent with CAD. A wire was noted in the right ventricle. EF is 30 to 35%. Anterior apical, anteroseptal and anterolateral severe hypokinesis to akinesis. Blood tests showed normal WBC hemoglobin 11.4, platelets 173. PT PTT normal. Basic metabolic panel normal, hepatic panel normal. Troponin negative. UA negative, urine drug screen, blood alcohol level, influenza, RSV and coronavirus PCR negative. Hemoglobin A1c 8.4. Patient states that he has been experiencing dizziness for the last 1-1/2 years. He has banged his head couple times in the past. The last one was 6 months ago which was quite hard. Someone dropped eyes tube in the kitchen. It melted. And he was walking, and his feet slipped on the ceramic floor on the water and he fell in the kitchen, bang his head on the cupboard. He started having headaches on a daily basis which she never had before. He had CT scan of head done which was normal. Currently since his current head injury, the headache has somehow gone. Patient states that he cannot walk more than 15 feet, as he gets dizzy and out of breath. He is fine when he is sitting or laying in the bed. He states that he gets up on his feet, sometimes his blood drops to 70/30 range. He does use assistive device about 75% he uses cane and 25% uses walker. Patient states that he does not notice dizziness when he rolls over in the bed. Patient states that when he stands up he feels dizzy, uncertain if it is related to cardiac reason, or medication. He is discussed with his tailing hand Dr. Chatterjee. Patient states that he cannot think properly since he banged his h ead. Patient admits to having a sinus infection in October 2023. However he states that dizziness has been present way before the sinus problem. Symptoms lasted for couple weeks and he was given course of antibiotics. Patient has history of diabetes since 2002, denies any hypertension although manjit garcia he has low blood pressure. He has hyperlipidemia. Patient states that he was found to have "blood clot" in his heart on 01/30/2024. He has been on anticoagulants since then. He smoked 1 to 1-1/2 pack/day for 30 years, quit 22 years ago after his DE. Home medications include multiple inhalers, potassium, Lipitor 40 mg, aspirin 81 mg omeprazole, Aldactone, Flomax, paresthesia metoprolol, Eliquis 5 mg twice daily, Lasix and insulin. Review of Systems Constitutional: Denies chills, Denies fever Eyes: bilateral blurred vision (when stands up only), denies diplopia, denies pain, denies loss of peripheral vision, denies loss of vision Ears: bilateral: decreased hearing, deny: ear discharge, earache, tinnitus Ears, nose, mouth and throat: Denies headache, Denies sore throat, Denies vertigo Cardiovascular: Reports lightheadedness, Reports shortness of breath, Denies chest pain Respiratory: Reports cough, Denies excessive sputum Gastrointestinal: Reports diarrhea, Denies abdominal pain, Denies nausea, Denies vomiting Genitourinary: Reports nocturia, Reports urinary frequency, Reports urinary hesitancy, Reports urinary retention, Denies incontinence Musculoskeletal: Reports neck pain, Denies low back pain Integumentary: Denies pruritus, Denies rash Neurological: Reports as per HPI Psychiatric: Denies anxiety, Denies depression Hematologic/Lymphatic: Reports easy bruising, Denies easy bleeding Past Medical History Past Medical History: Coronary Artery Disease (CAD), Heart Failure, COPD, Diabetes Mellitus, Hyperlipidemia, Myocardial Infarction (DE) Additional Past Medical History / Comment(s): defibrilator bph Last Myocardial Infarction Date:: 2002 History of Any Multi-Drug Resistant Organisms: None Reported Past Surgical History: Cholecystectomy, Heart Catheterization With Stent Past Anesthesia/Blood Transfusion Reactions: No Reported Reaction Date of Last Stent Placement:: 2002 Type of Cardiac Device: AICD Device Placement Date:: 2013 Past Psychological History: No Psychological Hx Reported Past Alcohol Use History: Rare Past Drug Use History: None Reported Medications and Allergies Home Medications Medication Instructions Recorded Confirmed Type Albuterol Inhaler [Ventolin Hfa 1 - 2 puff INHALATION RT-QID PRN 05/22/17 02/23/24 History Inhaler] Aspirin EC [Ecotrin Low Dose] 81 mg PO HS 05/22/17 02/23/24 History Atorvastatin [Lipitor] 40 mg PO HS 05/22/17 02/23/24 History Budesonide [Pulmicort] 0.5 mg INHALATION RT-BID 05/22/17 02/23/24 History Clindamycin Topical Soln 1 applic TOPICAL BID PRN 05/22/17 02/23/24 History [Cleocin-T Topical Soln] Formoterol Fumarate [Perforomist] 20 mcg INHALATION RT-BID 05/22/17 02/23/24 History Ipratropium-Albuterol Nebulize 3 ml INHALATION RT-QID 05/22/17 02/23/24 History [Duoneb 0.5 mg-3 mg/3 ml Soln] Loratadine [Claritin] 10 mg PO DAILY 05/22/17 02/23/24 History Montelukast [Singulair] 10 mg PO HS 05/22/17 02/23/24 History Nitroglycerin Sl Tabs [Nitrostat] 0.4 mg SL Q5M PRN 05/22/17 02/23/24 History Potassium Chloride ER [K-Dur 20] 20 meq PO DAILY PRN 05/22/17 02/23/24 History Cholecalciferol [Vitamin D3 (125 125 mcg PO DAILY 12/30/23 02/23/24 History Mcg = 5000 Iu)] Dapagliflozin Propanediol [Farxiga] 10 mg PO DAILY 12/30/23 02/23/24 History Fluticasone/Umeclidin/Vilanter 1 puff INHALATION RT-DAILY 12/30/23 02/23/24 History [Trelegy Ellipta 200-62.5-25] Ketoconazole 2% Cream [Nizoral 2%] 1 applic TOPICAL BID PRN 12/30/23 02/23/24 History Omeprazole 20 mg PO BID 12/30/23 02/23/24 History Sacubitril/Valsartan [Entresto 24 1 tab PO BID 12/30/23 02/23/24 History mg-26 mg Tablet] Spironolactone [Aldactone] 25 mg PO DIRECTED 12/30/23 02/23/24 History Tamsulosin [Flomax] 0.4 mg PO BID 12/30/23 02/23/24 History guaiFENesin [Mucinex] 1,200 mg PO BID PRN 12/30/23 02/23/24 History Apixaban [Eliquis] 5 mg PO BID #60 tab 01/13/24 02/23/24 Rx Furosemide [Lasix] 40 mg PO DAILY PRN #30 tab 01/13/24 02/23/24 Rx Metoprolol Tartrate [Lopressor] 50 mg PO BID #60 tab 01/13/24 02/23/24 Rx INSULIN ASPART (NovoLOG) [NovoLOG 8 - 10 unit SQ AC-TID 02/23/24 02/23/24 History (formulary)] Insulin Detemir (Levemir) [Levemir] 25 unit SQ DAILY@0700 #1 each 02/24/24 Rx Allergies Allergy/AdvReac Type Severity Reaction Status Date / Time carvedilol [From Coreg] Allergy Rash/Hives Verified 02/23/24 11:21 metformin AdvReac Diarrhea Verified 02/23/24 11:21 Physical Examination - Vital Signs Vital Signs: Vital Signs Temp Pulse Pulse Pulse Pulse Pulse Resp 02/24/24 15:46 84 02/24/24 15:32 88 02/24/24 14:59 97.8 F 88 16 02/24/24 12:19 76 02/24/24 12:07 80 02/24/24 11:47 82 91 75 02/24/24 08:58 72 02/24/24 08:46 72 02/24/24 07:45 97.7 F 76 16 02/24/24 03:35 76 02/24/24 03:20 75 02/24/24 01:25 98.1 F 74 17 02/23/24 19:04 97.6 F 105 H 18 02/23/24 18:14 62 02/23/24 18:13 97.6 F 72 18 02/23/24 18:03 50 L 02/23/24 17:00 97.9 F 90 20 BP BP BP BP BP BP Pulse Ox 02/24/24 15:46 02/24/24 15:32 02/24/24 14:59 114/68 92 L 02/24/24 12:19 02/24/24 12:07 02/24/24 11:47 97/63 94/62 120/67 02/24/24 08:58 02/24/24 08:46 02/24/24 07:45 127/67 97 02/24/24 03:35 02/24/24 03:20 02/24/24 01:25 129/73 98 02/23/24 19:04 143/79 98 02/23/24 18:14 02/23/24 18:13 118/73 95 02/23/24 18:03 02/23/24 17:00 115/72 99 Intake and Output 02/24/24 02/24/24 02/24/24 06:59 14:59 22:59 Intake Total 358 Output Total 950 225 Balance -950 133 Intake: Oral 358 Output: Urine 950 225 Other: # Voids 1 Patient is an elderly male, very pleasant, in no acute distress. Patient is alert awake oriented to time place and person. Speech and language functions are normal. Patient can name and repeat very well. No aphasia or dysarthria. Attention, concentration and fund of knowledge is adequate. On cranial nerve examination, pupils are equal, round and reacting to light, visual almaguer are full on confrontation, with no neglect on double simultaneous stimulation. Extraocular muscles are intact with no nystagmus. Face is symmetric, tongue protrudes to the midline. Palatal elevation and sensation normal, hearing is decreased for finger rubbing bilaterally, left worse than right, and shoulder shrug normal, facial sensation normal. On muscle strength testing, there is no pronator drift and the strength is normal in arms and legs distally and proximally. Deep tendon reflexes are symmetric trace to 1 all over and plantars are possible upgoing bilaterally. Sensory to touch is equal with no neglect on double simultaneous stimulation. Cerebellar function showed no ataxia for [id number] testing. No dysdiadochokinesia. No ataxia for teyd-co-noxh testing on either side. Tone and bulk of muscles normal. Patient became very dizzy when he rolled over in the bed to the left side, but not as much to the right side. Gait deferred.. On general examination, there is no carotid bruit or murmur, S1-S2 audible. Chest is clear on consultation. Abdomen is soft nontender. No organomegaly, bowel sounds present. Peripheral pulses are present. No peripheral edema. Results - Laboratory Findings CBC and BMP: 02/24/24 05:57 02/24/24 05:57 Abnormal Lab Findings: Abnormal Labs 02/23/24 02/23/24 02/23/24 10:06 10:07 10:07 RBC 3.51 L Hgb 11.4 L Hct 35.3 L MCV 100.6 H MCHC RDW 17.2 H Lymphocytes # Monocytes # Eosinophils # Chloride 111 H Carbon Dioxide 21 L Anion Gap Glucose 242 H POC Glucose (mg/dL) 240 H Hemoglobin A1c Calcium 8.2 L Total Bilirubin 1.6 H Total Protein 5.9 L Albumin 2.8 L Albumin/Globulin Ratio Ur Specific [place] Urine Glucose (UA) 02/23/24 02/23/24 02/23/24 16:57 18:06 21:31 RBC Hgb Hct MCV MCHC RDW Lymphocytes # Monocytes # Eosinophils # Chloride Carbon Dioxide Anion Gap Glucose POC Glucose (mg/dL) 446 H 448 H Hemoglobin A1c Calcium Total Bilirubin Total Protein Albumin Albumin/Globulin Ratio Ur Specific [place] 1.036 H Urine Glucose (UA) 4+ H 02/24/24 02/24/24 02/24/24 01:24 05:57 05:57 RBC 3.33 L Hgb 10.4 L Hct 32.9 L MCV 98.8 H MCHC 31.6 L RDW 17.1 H Lymphocytes # 0.66 L Monocytes # 0.09 L Eosinophils # 0 L Chloride Carbon Dioxide 17.1 L Anion Gap 14.90 H Glucose 310 H POC Glucose (mg/dL) 314 H Hemoglobin A1c Calcium 8.3 L Total Bilirubin Total Protein 5.6 L Albumin 3.2 L Albumin/Globulin Ratio 1.33 L Ur Specific [place] Urine Glucose (UA) 02/24/24 02/24/24 02/24/24 05:57 06:22 12:00 RBC Hgb Hct MCV MCHC RDW Lymphocytes # Monocytes # Eosinophils # Chloride Carbon Dioxide Anion Gap Glucose POC Glucose (mg/dL) 295 H 292 H Hemoglobin A1c 8.4 H Calcium Total Bilirubin Total Protein Albumin Albumin/Globulin Ratio Ur Specific [place] Urine Glucose (UA) Assessment and Plan Assessment: * 74-year-old male admitted with syncopal spell, fall, scalp laceration and possible concussion. Patient had problems with memory, forgetfulness since this head injury. * History of falls in the past as well. Patient had developed posttraumatic headaches 6 months ago after his previous fall, but apparently the headache has resolved since this current fall. * Chronic dizziness, probably multifactorial. Suspect he has some component of orthostatic hypotension producing dizziness on standing up and walking. Also has some component of peripheral vestibular dysfunction related to his hearing loss/concussions. Some component of benign positional vertigo. * Diabetes * Hyperlipidemia * Coronary artery disease * Hard of hearing * Ex tobacco use * COPD * Heart failure * History of intraventricular thrombus, on Eliquis * Pacemaker Plan: * Orthostatics were checked, and patient's supine blood pressure 120/67 with pulse of 75. Upon sitting was 97/63, pulse 82. On standing up was 94/62 and pulse of 91. Orthostatics were positive from supine to sitting position. This may be the cause of his syncope that led to the fall. Patient also had some diarrhea, was probably hypovolemic, probably aggravating the syncopal spell. * Repeat orthostatics. Hydration. Cardiology following. May need midodrine. * B12, folate, hemoglobin A1c * Patient strongly recommended to use cane or a walker to prevent falls. * Patient after the fall has been having some speech difficulty. We will check carotid Doppler, rule out stenosis. * Patient currently on aspirin 81 mg and Eliquis 5 mg twice daily, which will be continued. * Hemoglobin A1c 8.4, suggestive of not well-controlled diabetes. Recommend optimize diabetes to target A1c <7.0 * Lipid panel with cholesterol 155, LDL 42, HDL 43, triglycerides 347. Continue Lipitor 40 mg daily. * If the positional dizziness also persist, may consider vestibular rehabilitati on. * Patient cannot have MRI because of presence of pacemaker. * Neurology will follow. Thank you for the consult.
[2024-02-25 09:32] VITALS: BP 123/77; RESP 18; TEMP 98.5
[2024-02-25] MEDS: METOPROLOL TARTRATE 25 MG TAB PO SCH (09:45)
--- NOTE | 2024-02-25 10:21 | US ---
EXAMINATION TYPE: US carotid duplex BILAT DATE OF EXAM: 02/25/2024 COMPARISON: NONE CLINICAL INDICATION: Male, 74 years old with history of Recurrent syncope; TECHNIQUE: Carotid duplex ultrasound examination. Indirect Doppler criteria was utilized. FINDINGS: EXAM MEASUREMENTS: RIGHT: Peak Systolic Velocity (PSV) cm/sec ----- Right CCA: 79.3 ----- Right ICA: 89.0 ----- Right ECA: 81.9 ICA/CCA ratio: 1.1 RIGHT: End Diastole cm/sec ----- Right CCA: 11.7 ----- Right ICA: 18.2 ----- Right ECA: 8.5 LEFT: Peak Systolic Velocity (PSV) cm/sec ----- Left CCA: 81.2 ----- Left ICA: 112.0 ----- Left ECA: 111.0 ICA/CCA ratio: 1.4 LEFT: End Diastole cm/sec ----- Left CCA: 11.5 ----- Left ICA: 32.8 ----- Left ECA: 0.0 VERTEBRALS (direction of flow): Right Vertebral: Antegrade Left Vertebral: Antegrade Rhythm: Arrhythmia INSTRUCTOR PAINTING NOTES: No elevated velocities. No wall thickening. IMPRESSION: Less than 50% stenosis of the bilateral carotid bifurcations. Criteria for Assigning % of Stenosis / Diameter reduction (Estimation based on the indirect measurements of the internal carotid artery velocities (ICA PSV). 1. Normal (no stenosis)=ICA PSV < 125 cm/s: ratio < 2.0: ICA EDV<40 cm/s. 2. Less than 50% stenosis=ICA PSV < 125 cm/s: ratio < 2.0: ICA EDV<40 cm/s. 3. 50 to 69% stenosis=ICA PSV of 125 to 230 cm/s: ration 2.0 ? 4.0: ICA EDV 40-100 cm/s. 4. Greater than 70% stenosis to near occlusion= ICA PSV > 230 cm/s: ratio > 4.0: ICA EDV > 100 cm/s. 5. Near occlusion= ICA PSV velocities may be low or undetectable: variable ratio and ICA EDV. 6. Total occlusion=unable to detect flow.
--- NOTE | 2024-02-25 11:06 | P.PN ---
Subjective Progress Note Date: 02/25/24 74-year-old male who presents to the emergency department, via EMS, having fallen, and injuring his head. This was a level 2 trauma activation. The patient was at home, and went out to the garage, to get some water from the refrigerator and tripped and fell. He did not lose consciousness, but he did hi t his head on the cement. The patient is chronically on Eliquis, and for that reason, there was concern that there may be some significant internal injury. The patient has a history of COPD, for which she sees my partner, Dr. Nash. He does use home oxygen, at 3 L. He is currently on 2 L here. He also uses albuterol, and nebulizer machine, and Trelegy for his COPD. He apparently hurt his left arm and shoulder, and left leg. Apparently there were no fractures. He complains of head pain, posteriorly. Current labs include a white count 7.5, hemoglobin 11.4, hematocrit 35.3, and a normal platelet count. Sodium 138, potassium 4.4, chlorides 111, CO2 21, BUN 9, creatinine 0.85. Glucose 242. Calcium 8.2, bilirubin 1.6. Albumin 2.8. Troponins were negative. N-terminal proBNP 862. The patient was tested for influenza, A, and B, RSV, coronavirus, and tested negative for all 3. Chest x-ray showed no acute cardiopulmonary disease. The pelvic x-ray was negative for osseous abnormality. Head and cervical spine CT showed age-related atrophic and chronic small vessel ischemic changes without acute hemorrhage and the CT scan of the cervical spine showed no evidence of fracture or subluxation. The patient is seen today February 24, 2024 in follow-up on the regular medical floor. He is currently resting comfortably in bed. Awake and alert in no acute distress. Maintaining good O2 saturations in the 90s on 3 L/min per nasal cannula. Afebrile. Hemodynamically stable. Echocardiogram revealed impaired left ventricular systolic function with ejection fraction of 30 to 35%. White count 5.0. Hemoglobin 10.4. Platelets 143. Glucose 194. Hemoglobin A1c 8.4. He remains on DuoNeb ventilations, Symbicort. Anticoagulated with Eliquis. He is doing very well today. He denies any neurologic deficits. His speech is clear. No headache. The patient is seen today February 25, 2024 in follow-up on the regular medical floor. He is currently sitting up in bed. Awake and alert in no acute distress. He denies any headache or neurological deficits. No headaches. Speech is clear. His abrasion on the left posterior of his scalp is healing well. Carotid Dopplers revealed less than 50% stenosis bilaterally. Blood sugar 167. He remains on DuoNeb ventilations, Symbicort. Continued on anticoagulation. Blood pressure medications adjusted per cardiology. Objective - Vital Signs Vital signs: Vital Signs Temp 98.5 F 02/25/24 07:45 Pulse 80 02/25/24 09:11 Resp 18 02/25/24 07:45 BP 123/77 02/25/24 07:45 Pulse Ox 97 02/25/24 07:45 FiO2 Intake & Output 02/24/24 02/25/24 02/25/24 18:59 06:59 18:59 Intake Total 476 118 Output Total 225 550 Balance 251 -550 118 Intake: Oral 476 118 Output: Urine 225 550 Other: # Voids 0 2 - Exam GENERAL EXAM: Alert, 74-year-old male patient, on 3 L nasal cannula, comfortable in no apparent distress. HEAD: Normocephalic. Abrasions noted on the left posterior aspect of his head. EYES: Normal reaction of pupils, equal size. NOSE: Clear with pink turbinates. THROAT: No erythema or exudates. NECK: No masses, no JVD. CHEST: No chest wall deformity. LUNGS: Equal air entry with few scattered rhonchi. CVS: S1 and S2 normal with no audible murmur, regular rhythm. ABDOMEN: No hepatosplenomegaly, normal bowel sounds, no guarding or rigidity. SPINE: No scoliosis or deformity SKIN: No rashes CENTRAL NERVOUS SYSTEM: No focal deficits, tone is normal in all 4 extremities. EXTREMITIES: There is no peripheral edema. No clubbing, no cyanosis. Peripheral pulses are intact. - Labs CBC & Chem 7: 02/24/24 05:57 02/24/24 05:57 Labs: Abnormal Lab Results - Last 24 Hours (Table) 02/24/24 02/24/24 02/24/24 Range/Units 12:00 17:46 21:13 POC Glucose (mg/dL) 292 H 356 H 288 H (70-110) mg/dL Hemoglobin A1c (<=6.0) % 02/25/24 02/25/24 02/25/24 Range/Units 03:10 05:59 06:18 POC Glucose (mg/dL) 182 H 161 H (70-110) mg/dL Hemoglobin A1c 8.2 H (<=6.0) % 02/25/24 Range/Units 06:26 POC Glucose (mg/dL) 167 H (70-110) mg/dL Hemoglobin A1c (<=6.0) % Assessment and Plan Assessment: Status post fall, with injury to head, and left side of body, but without fracture, or significant intracranial pathology, no neurologic deficits. History of coronary artery disease, status post stent placement History of systolic CHF. Impaired left ventricular systolic function with ejection fraction 30 to 35% History of oxygen dependent COPD. Maintained on Trelegy History of diabetes mellitus. Hemoglobin A1c 8.4% History of hyperlipidemia History of myocardial infarction Status post AICD implantation, 2013 History of left ventricular thrombus, anticoagulated with Eliquis Plan: The patient was seen and evaluated Labs and medications reviewed Stable for discharge from pulmonary Continue his home pulmonary medications, oxygen Keep his follow-up appointment as scheduled This patient was seen independently by the pulmonary nurse practitioner addressing pulmonary issues I have personally seen and examined the patient, performed the documentation and the assessment and plan as written. Number of minutes spent on the visit: 22.
--- NOTE | 2024-02-25 11:18 | P.PN ---
Subjective Progress Note Date: 02/25/24 Consult reason: congestive heart failure History of present illness: History of present illness: This is a 74-year-old male patient of Dr. Chatterjee with past medical history of coronary artery disease, ischemic cardiomyopathy with a EF of 35%, hyperlipidemi a, status post biventricular ICD, diabetes mellitus type 2, chronic hypoxic respiratory failure on home O2 at 3 L nasal cannula. Patient had a recent hospitalization at which time there was concern for LV thrombus and he was started on Eliquis.. We have been asked to evaluate the patient for CHF. Patient states that he was in the garage and started going up steps into the house and he had a fall landing backwards and hitting his head. He believes that he had a loss of consciousness first. He gives history of dyspnea on exertion unable to walk more than 15 feet. He states with that he occasionally has chest pain. No lower extremity edema. He states he is dizzy most of the time but has had not had any other syncopal episodes until yesterday. He denies any cough, no fever. He complains of wheezing. He denies any blood in his urine or stool. He denies any abdominal pain. No nausea or vomiting. EKG paced rhythm Chest x-ray: No acute process Laboratory studies: WBC 5, hemoglobin 10.4. Sodium 140, potassium 4, BUN 11 and creatinine 0.8. Troponin negative x 1. proBNP 862. Home cardiac medications: Eliquis 5 mg twice daily, aspirin 81 mg at bedtime, Lipitor 40 mg at bedtime, Farxiga 10 mg daily, Lasix 40 mg daily as needed, Lopressor 50 mg twice daily, Nitrostat as needed, potassium chloride 20 mill equivalents daily as needed, Entresto 24-26 mg tablet 1 twice daily, Aldactone 25 mg daily. Most recent echocardiogram obtained in 06/2023 revealed ejection fraction 42%, m ild to moderate MR, mild to moderate AR, mild to moderate TR Cardiac catheterization history: 2012 revealing 100% proximal D1, 50% mid circumflex, 20% mid RCA, left circumflex FFR 90% Limited echocardiogram performed on 02/24/2024 revealed technically difficult study. Definity contrast used for improved visualization of the Endo cardial borders. Inadequate visualization of 2 or more contiguous segments. Severely impaired left ventricular systolic function with segmental wall motion abnormality consistent with CAD. Wire was noted in the right ventricle. EF 30 to 35%. Biventricular ICD implantation [employer] on 08/08/2013 Lexiscan Cardiolite stress test done 10/22/2022 revealed EF 37%, fixed inferior apical defect. 02/24 Yesterday afternoon, patient had orthostatic changes. As well this morning, patient had a 20 point drop from supine to standing. Heart rate is in the 70s to 90s and pulse ox 97% on room air. Lab work new today reveals hemoglobin A1c of 8.2. Carotid ultrasound revealed less than 50% stenosis of the bilateral carotid bifurcations. Physical examination: Gen: This is a 74-year-old male in no acute distress VS: reviewed, blood pressure 127/67, heart rate 76, pulse ox 97% on 3 L nasal cannula. HEENT: Head is atraumatic, normocephalic. Pupils equal, round. Sclerae is anicteric. NECK: Supple. No JVD. LUNGS: Clear to auscultation. No wheezes or rhonchi. No intercostal retractions. HEART: Regular rate and rhythm. No murmur. ABDOMEN: Soft No tenderness. EXTREMITIES: No pedal edema. No calf tenderness. NEUROLOGICAL: Patient is awake, alert and oriented x3. Assessment: Fall possibly due to orthostatic hypotension Closed head injury History of left ventricular thrombus on Eliquis History of coronary artery disease Ischemic cardiomyopathy status post AICD Hyperlipidemia Diabetes mellitus type 2 Chronic hypoxic respiratory failure on home O2 Plan: Continue patient's home cardiac medications ICD interrogation revealed no episodes of A-fib, V-fib, V. tach. No further cardiac workup is planned at this time Decrease metoprolol to 25 mg twice daily Patient is cleared for discharge from cardiology and may follow-up in the office with Dr. Chatterjee in 1 to 2 weeks. Thank you kindly for this consultation. Nurse practitioner note has been reviewed, I agree with documented findings and plan of care. Patient was seen and examined. Objective - Vital Signs Vital signs: Vital Signs Temp 97.6 F 02/25/24 02:00 Pulse 102 H 02/25/24 02:00 Resp 16 02/24/24 14:59 BP 109/70 02/25/24 02:00 Pulse Ox 97 02/25/24 02:00 FiO2 Intake & Output 05/16/24 05/17/24 05/17/24 18:59 06:59 18:59 Intake Total 476 Output Total 225 550 Balance 251 -550 Intake: Oral 476 Output: Urine 225 550 Other: # Voids 0 2 - Labs CBC & Chem 7: 02/24/24 05:57 02/24/24 05:57 Labs: Abnormal Lab Results - Last 24 Hours (Table) 02/24/24 02/24/24 02/24/24 Range/Units 05:57 05:57 05:57 RBC 3.33 L (4.40-5.60) X 10*6/uL Hgb 10.4 L (13.0-17.0) g/dL Hct 32.9 L (39.6-50.0) % MCV 98.8 H (80.0-97.0) FL MCHC 31.6 L (32.0-37.0) g/dL RDW 17.1 H (11.5-14.5) % Lymphocytes # 0.66 L (0.90-5.00) X 10*3/uL Monocytes # 0.09 L (0.20-1.00) X 10*3/uL Eosinophils # 0 L (0.04-0.35) X 10*3/uL Carbon Dioxide 17.1 L (21.6-31.8) mmol/L Anion Gap 14.90 H (4.00-12.00) mmol/L Glucose 310 H (70-110) mg/dL POC Glucose (mg/dL) (70-110) mg/dL Hemoglobin A1c 8.4 H (<=6.0) % Calcium 8.3 L (8.7-10.3) mg/dL Total Protein 5.6 L (6.2-8.2) g/dL Albumin 3.2 L (3.8-4.9) g/dL Albumin/Globulin Ratio 1.33 L (1.60-3.17) Ratio 02/24/24 02/24/24 02/24/24 Range/Units 12:00 17:46 21:13 RBC (4.40-5.60) X 10*6/uL Hgb (13.0-17.0) g/dL Hct (39.6-50.0) % MCV (80.0-97.0) FL MCHC (32.0-37.0) g/dL RDW (11.5-14.5) % Lymphocytes # (0.90-5.00) X 10*3/uL Monocytes # (0.20-1.00) X 10*3/uL Eosinophils # (0.04-0.35) X 10*3/uL Carbon Dioxide (21.6-31.8) mmol/L Anion Gap (4.00-12.00) mmol/L Glucose (70-110) mg/dL POC Glucose (mg/dL) 292 H 356 H 288 H (70-110) mg/dL Hemoglobin A1c (<=6.0) % Calcium (8.7-10.3) mg/dL Total Protein (6.2-8.2) g/dL Albumin (3.8-4.9) g/dL Albumin/Globulin Ratio (1.60-3.17) Ratio 02/25/24 02/25/24 02/25/24 Range/Units 03:10 05:59 06:26 RBC (4.40-5.60) X 10*6/uL Hgb (13.0-17.0) g/dL Hct (39.6-50.0) % MCV (80.0-97.0) FL MCHC (32.0-37.0) g/dL RDW (11.5-14.5) % Lymphocytes # (0.90-5.00) X 10*3/uL Monocytes # (0.20-1.00) X 10*3/uL Eosinophils # (0.04-0.35) X 10*3/uL Carbon Dioxide (21.6-31.8) mmol/L Anion Gap (4.00-12.00) mmol/L Glucose (70-110) mg/dL POC Glucose (mg/dL) 182 H 161 H 167 H (70-110) mg/dL Hemoglobin A1c (<=6.0) % Calcium (8.7-10.3) mg/dL Total Protein (6.2-8.2) g/dL Albumin (3.8-4.9) g/dL Albumin/Globulin Ratio (1.60-3.17) Ratio
[2024-02-25 12:17] LABS: Glucose,Whole Blood 166 mg/dL (70-110)
[2024-02-25 12:26] VITALS: PULSE 84
--- NOTE | 2024-02-25 13:05 | P.PN ---
Subjective Progress Note Date: 02/25/24 Patient was seen for a follow-up. Patient states he is feeling better. He is all set to go home. Patient states that he just sits on the edge of the bed and takes time and then he is fine. 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 Objective - Vital Signs Vital signs: Vital Signs Temp 98.5 F 02/25/24 07:45 Pulse 84 02/25/24 12:24 Resp 18 02/25/24 07:45 BP 123/77 02/25/24 07:45 Pulse Ox 97 02/25/24 07:45 FiO2 Intake & Output 02/24/24 02/25/24 02/25/24 18:59 06:59 18:59 Intake Total 476 118 Output Total 225 550 Balance 251 -550 118 Intake: Oral 476 118 Output: Urine 225 550 Other: # Voids 0 2 - Exam Unchanged. Mentation normal. - Labs CBC & Chem 7: 02/24/24 05:57 02/24/24 05:57 Labs: Abnormal Lab Results - Last 24 Hours (Table) 02/24/24 02/24/24 02/25/24 Range/Units 17:46 21:13 03:10 POC Glucose (mg/dL) 356 H 288 H 182 H (70-110) mg/dL Hemoglobin A1c (<=6.0) % 02/25/24 02/25/24 02/25/24 Range/Units 05:59 06:18 06:26 POC Glucose (mg/dL) 161 H 167 H (70-110) mg/dL Hemoglobin A1c 8.2 H (<=6.0) % 02/25/24 Range/Units 12:15 POC Glucose (mg/dL) 166 H (70-110) mg/dL Hemoglobin A1c (<=6.0) % Assessment and Plan Assessment: * 74-year-old male admitted with syncopal spell, fall, scalp laceration and possible concussion. Patient had problems with memory, forgetfulness since this head injury. * History of falls in the past as well. Patient had developed posttraumatic headaches 6 months ago after his previous fall, but apparently the headache has resolved since this current fall. * Chronic dizziness, probably multifactorial. Suspect he has some component of orthostatic hypotension producing dizziness on standing up and walking. Also has some component of peripheral vestibular dysfunction related to his hearing loss/concussions. Some component of benign positional vertigo. * Diabetes * Hyperlipidemia * Coronary artery disease * Hard of hearing * Ex tobacco use * COPD * Heart failure * History of intraventricular thrombus, on Eliquis * Pacemaker Plan: * Orthostatics were checked, and patient's supine blood pressure 120/67 with pulse of 75. Upon sitting was 97/63, pulse 82. On standing up was 94/62 and pulse of 91. Orthostatics were positive from supine to sitting position. This may be the cause of his syncope that led to the fall. Patient also had some diarrhea, was probably hypovolemic, probably aggravating the syncopal spell. * Repeat orthostatics performed today are better. Supine blood pressure 123/77, pulse 93, sitting was 118/65 pulse rate 78 and standing 103/67 with pulse of 74. Orthostatics now are negative. 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 * B12 596, folate 11.2, hemoglobin A1c 8.2. Recommend optimize control of diabe myron to target A1c <7.0. * Patient strongly recommended to use cane or a walker to prevent falls. * Patient after the fall has been having some speech difficulty. Carotid Doppler was checked, which revealed less than 50% stenosis bilateral carotid bifurcation. Antegrade flow in both vertebral arteries. * Patient currently on aspirin 81 mg and Eliquis 5 mg twice daily, which will be continued. * Hemoglobin A1c 8.4, suggestive of not well-controlled diabetes. Recommend optimize diabetes to target A1c <7.0 * Lipid panel with cholesterol 155, LDL 42, HDL 43, triglycerides 347. Continue Lipitor 40 mg daily. * If the positional dizziness also persist, may consider vestibular rehabilitation. Patient started on meclizine 25 mg 3 times daily as needed dizziness. * Neurologically clear for discharge.
--- NOTE | 2024-02-27 15:11 | P.DS ---
Providers Date of admission: 02/23/24 11:55 Attending physician: Andrea Gilbert MD Consults: 02/23/24 11:58 Consult Physician Routine Consulting Provider: Radames Milan Consult Reason/Comments: copd Do you want consulting provider notified?: Yes 02/23/24 15:33 Consult Physician Routine Consulting Provider: Kenan Lomas Consult Reason/Comments: chf Do you want consulting provider notified?: Yes 02/23/24 16:30 Consult Physician Routine Consulting Provider: Suzie Gallo Consult Reason/Comments: head trauma and change in speech for a few minutes Do you want consulting provider notified?: Yes Primary care physician: Noe Bean Hospital Course: Final Diagnosis Fall with trauma; scalp laceration and upper and lower extremity pain; patient was evaluated by physical therapy and cleared for discharge home COPD with no acute exacerbation oxygen dependent Positive orthostatic hypotension patient remains on entresto, BP improved Chronic systolic dysfunction EF 25-30% Intraventricular thrombus continues on eliquis Diabetes mellitus type 2 Hyperlipidemia History of coronary artery disease with prior PCI HX of AICD was interrogated with no issues found Discharge Disposition Patient stable for discharge home recommending to follow-up closely with his PCP Dr. Bean in 1 to 2 days. To follow-up with their photography editor Dr. Nash has an appointment made for March 15. Patient also follow-up with store operations specialist Dr. Chatterjee in 1 to 2 weeks. Recommend to change positions slowly when going from sitting to standing. Continue on all same home medications. Levemir was increased secondary to hyperglycemia. Hospital Course This is a 74-year-old male medical history significant for oxygen dependent COPD, chronic systolic heart failure, intraventricular thrombus, diabetes mellitus, hyperlipidemia, coronary artery disease with prior stenting. Who presents to the emergency department, via EMS, secondary to fall with head trauma and was brought in as a level 2 trauma activation. The patient was at home, and went out to the garage, to get some water from the refrigerator and tripped and fell. He did not lose consciousness, but he did hit his head on the cement. Patient was brought in to the hospital for further evaluation. Patient is maintained on Eliquis secondary to intraventricular thrombus there was concern that there may have been internal injury. Current labs include a white count 7.5, hemoglobin 11.4, hematocrit 35.3, and a normal platelet count. Sodium 138, potassium 4.4, chlorides 111, CO2 21, BUN 9, creatinine 0.85. Glucose 242. Calcium 8.2, bilirubin 1.6. Albumin 2.8. Troponins were negative. N-terminal proBNP 862. The patient was tested for influenza, A, and B, RSV, coronavirus, and tested negative for all 3. Chest x-ray showed no acute cardiopulmonary disease. The pelvic x-ray was negative for osseous abnormality. Head and cervical spine CT showed age-related atrophic and chronic small vessel ischemic changes without acute hemorrhage and the CT scan of the cervical spine showed no evidence of fracture or subluxation. Patient was admitted to the hospital under medicine with a consult placed to trauma surgery, pulmonary, and neurology. Patient had a limited echocardiogram done showing EF of 30 to 35% mild tricuspid regurgitation. Patient also had a carotid Doppler done done revealing less than 50% stenosis bilaterally in the carotid bifurcations. Was monitored and held overnight due to decreased blood pressures while continuing on the Entresto. His orthostatics are now negative and he no longer reports any dizziness or lightheadedness.. No chest pain no shortness of breath nausea vomiting or diarrhea he is alert x 3 and will be discharged home. Please see medication reconciliation for a list of current medications. Thank you for allowing us to participate in the care of this patient. The impression and plan of care has been dictated by Nani Lauren, Nurse Practitioner as directed. Dr. Anderson MD I have performed a history and physical examination and medical decision making of this patient, discussed the same with the dictator, and agree with the dictators assessment and plan as written, documented as a scribe. Based on total visit time, I have performed more than 50% of this visit. Patient Condition at Discharge: Stable Plan - Discharge Summary Discharge Rx Participant: No New Discharge Prescriptions: Continue Loratadine [Claritin] 10 mg PO DAILY Clindamycin Topical Soln [Cleocin-T Topical Soln] 1 applic TOPICAL BID PRN PRN Reason: Skin Irritation Budesonide [Pulmicort] 0.5 mg INHALATION RT-BID Albuterol Inhaler [Ventolin Hfa Inhaler] 1 - 2 puff INHALATION RT-QID PRN PRN Reason: Shortness Of Breath Montelukast [Singulair] 10 mg PO HS Ipratropium-Albuterol Nebulize [Duoneb 0.5 mg-3 mg/3 ml Soln] 3 ml INHALATION RT-QID Formoterol Fumarate [Perforomist] 20 mcg INHALATION RT-BID Nitroglycerin Sl Tabs [Nitrostat] 0.4 mg SL Q5M PRN PRN Reason: Chest Pain Potassium Chloride ER [K-Dur 20] 20 meq PO DAILY PRN PRN Reason: with lasix Atorvastatin [Lipitor] 40 mg PO HS Aspirin EC [Ecotrin Low Dose] 81 mg PO HS Omeprazole 20 mg PO BID Fluticasone/Umeclidin/Vilanter [Trelegy Ellipta 200-62.5-25] 1 puff INHALATION RT-DAILY Sacubitril/Valsartan [Entresto 24 mg-26 mg Tablet] 1 tab PO BID Ketoconazole 2% Cream [Nizoral 2%] 1 applic TOPICAL BID PRN PRN Reason: face and ear issues guaiFENesin [Mucinex] 1,200 mg PO BID PRN PRN Reason: Congestion Cholecalciferol [Vitamin D3 (125 Mcg = 5000 Iu)] 125 mcg PO DAILY Spironolactone [Aldactone] 25 mg PO DIRECTED Metoprolol Tartrate [Lopressor] 50 mg PO BID #60 tab Tamsulosin [Flomax] 0.4 mg PO BID Dapagliflozin Propanediol [Farxiga] 10 mg PO DAILY Furosemide [Lasix] 40 mg PO DAILY PRN #30 tab PRN Reason: Edema Apixaban [Eliquis] 5 mg PO BID #60 tab INSULIN ASPART (NovoLOG) [NovoLOG (formulary)] 8 - 10 unit SQ AC-TID Changed Insulin Detemir (Levemir) [Levemir] 25 unit SQ DAILY@0700 #1 each Discontinued Diphenoxylate HCl/Atropine [Lomotil 2.5-0.025 mg Tablet] 1 tab PO QID PRN 14 Days #56 tab PRN Reason: Diarrhea Discharge Medication List Albuterol Inhaler [Ventolin Hfa Inhaler] 1 - 2 puff INHALATION RT-QID PRN 05/22/17 [History] Aspirin EC [Ecotrin Low Dose] 81 mg PO HS 05/22/17 [History] Atorvastatin [Lipitor] 40 mg PO HS 05/22/17 [History] Budesonide [Pulmicort] 0.5 mg INHALATION RT-BID 05/22/17 [History] Clindamycin Topical Soln [Cleocin-T Topical Soln] 1 applic TOPICAL BID PRN 05/22/17 [History] Formoterol Fumarate [Perforomist] 20 mcg INHALATION RT-BID 05/22/17 [History] Ipratropium-Albuterol Nebulize [Duoneb 0.5 mg-3 mg/3 ml Soln] 3 ml INHALATION RT-QID 05/22/17 [History] Loratadine [Claritin] 10 mg PO DAILY 05/22/17 [History] Montelukast [Singulair] 10 mg PO HS 05/22/17 [History] Nitroglycerin Sl Tabs [Nitrostat] 0.4 mg SL Q5M PRN 05/22/17 [History] Potassium Chloride ER [K-Dur 20] 20 meq PO DAILY PRN 05/22/17 [History] Cholecalciferol [Vitamin D3 (125 Mcg = 5000 Iu)] 125 mcg PO DAILY 12/30/23 [History] Dapagliflozin Propanediol [Farxiga] 10 mg PO DAILY 12/30/23 [History] Fluticasone/Umeclidin/Vilanter [Trelegy Ellipta 200-62.5-25] 1 puff INHALATION RT-DAILY 12/30/23 [History] Ketoconazole 2% Cream [Nizoral 2%] 1 applic TOPICAL BID PRN 12/30/23 [History] Omeprazole 20 mg PO BID 12/30/23 [History] Sacubitril/Valsartan [Entresto 24 mg-26 mg Tablet] 1 tab PO BID 12/30/23 [History] Spironolactone [Aldactone] 25 mg PO DIRECTED 12/30/23 [History] Tamsulosin [Flomax] 0.4 mg PO BID 12/30/23 [History] guaiFENesin [Mucinex] 1,200 mg PO BID PRN 12/30/23 [History] Apixaban [Eliquis] 5 mg PO BID #60 tab 01/13/24 [Rx] Furosemide [Lasix] 40 mg PO DAILY PRN #30 tab 01/13/24 [Rx] Metoprolol Tartrate [Lopressor] 50 mg PO BID #60 tab 01/13/24 [Rx] INSULIN ASPART (NovoLOG) [NovoLOG (formulary)] 8 - 10 unit SQ AC-TID 02/23/24 [History] Insulin Detemir (Levemir) [Levemir] 25 unit SQ DAILY@0700 #1 each 02/24/24 [Rx] Follow up Appointment(s)/Referral(s): Vidhi Chatterjee MD [STAFF PHYSICIAN] - 1 Week (has an appt Wednesday) Noe Bean DO [Primary Care Provider] - 1-2 days Irene Nash MD [STAFF PHYSICIAN] - 03/15/24 9:00 am Ambulatory/Diagnostic Orders: Basic Metabolic Panel [LAB.AMB] Time Frame: 3 Days, Location: None Selected Complete Blood Count w/diff [LAB.AMB] Location: None Selected Patient Instructions/Handouts: Fall Prevention for Older Adults (DC) Activity/Diet/Wound Care/Special Instructions: Recommend to change positions slowly when going from sitting to standing. Discharge Disposition: HOME SELF-CARE
== END 2024-02-25 15:53 | disposition home or self-care (01) ==
LOC: EC 09:53 → 6NMEDSUR 11:55
PROVIDERS: ADMIT Internal Medicine; ATTEND Internal Medicine
DX: S01.01XA Laceration without foreign body of scalp, initial encounter (principal); W10.9XXA Fall (on) (from) unspecified stairs and steps, initial encounter; Y92.000 Kitchen of unspecified non-institutional (private) residence as the place of occurrence of the external cause; I95.1 Orthostatic hypotension; J44.9 Chronic obstructive pulmonary disease, unspecified; I50.22 Chronic systolic (congestive) heart failure; I25.10 Atherosclerotic heart disease of native coronary artery without angina pectoris; E11.9 Type 2 diabetes mellitus without complications; E78.5 Hyperlipidemia, unspecified; N40.0 Benign prostatic hyperplasia without lower urinary tract symptoms; J96.11 Chronic respiratory failure with hypoxia; I51.3 Intracardiac thrombosis, not elsewhere classified; I25.5 Ischemic cardiomyopathy; I25.2 Old myocardial infarction; R42 Dizziness and giddiness; H91.90 Unspecified hearing loss, unspecified ear; M79.606 Pain in leg, unspecified; M79.603 Pain in arm, unspecified; Z87.891 Personal history of nicotine dependence; Z91.81 History of falling; Z95.810 Presence of automatic (implantable) cardiac defibrillator; Z95.5 Presence of coronary angioplasty implant and graft; Z99.81 Dependence on supplemental oxygen; Z79.01 Long term (current) use of anticoagulants; Z79.4 Long term (current) use of insulin; Z79.51 Long term (current) use of inhaled steroids; Z79.82 Long term (current) use of aspirin; Z79.84 Long term (current) use of oral hypoglycemic drugs; Z79.899 Other long term (current) drug therapy; Z23 Encounter for immunization
CPT/HCPCS: 90471; 96374; 99291; 36415; 94640 ×6; 94760; 93005; 97162; 97165; 86900; 86901; 83880; 80053 ×2; 82607; 82746; 84484; 85025 ×2; 85610; 85730; 86850; 81003; 80306; 83036 ×2; 87636; 72170; 71045; 93880; 72125; 70450; 90715; G0378 ×3; C8924; G0480; Q9957; J2919; 80320; 93308

== ENCOUNTER 2024-08-08 15:00 | Day surgery (SDC) | payer MEDICARE ==
[2024-08-04 10:33] VITALS: BMI 27.3
[2024-08-08 16:45] LABS: Glucose,Whole Blood 317 mg/dL (70-110)
[2024-08-08 16:45] LABS: Basophils % (A) 0 %; Eosinophils # (A) 0.3 k/uL (0-0.7); Eosinophils % (A) 3 %; HCT 43.4 % (39.0-53.0); HGB 13.9 gm/dL (13.0-17.5); Hypochromasia Slight; Lymphocytes # (A) 1.6 k/uL (1.0-4.8); Lymphocytes % (A) 16 %; MCH 29.7 pg (25.0-35.0); MCV 92.8 fL (80.0-100.0); Monocytes # (A) 0.4 k/uL (0-1.0); Monocytes % (A) 4 %; Neutrophils # (A) 7.7 k/uL (1.3-7.7); Neutrophils % (A) 77 %; Platelet Count 149 k/uL (150-450); RBC 4.68 m/uL (4.30-5.90); RDW 15.1 % (11.5-15.5)
[2024-08-08] MEDS: SODIUM CHLORIDE 0.9% 1,000 ML IV SCH ×2 (16:45→21:12)
[2024-08-08 16:55] LABS: African American GFR (CKD) 81 (>60 ml/min/1.73 sqM); Anion Gap 7 mmol/L; Blood Urea Nitrogen 15 mg/dL (9-20); Calcium 8.8 mg/dL (8.4-10.2); Carbon Dioxide 25 mmol/L (22-30); Chloride 106 mmol/L (98-107); Glucose 303 mg/dL (74-99); Non-African American GFR(CKD) 70 (>60 ml/min/1.73 sqM); Potassium 4.4 mmol/L (3.5-5.1); Sodium 138 mmol/L (137-145)
[2024-08-08] MEDS: INSULIN ASPART (NovoLOG) 100 UNIT/ML VIAL SQ ONE (16:59)
[2024-08-08] MEDS ORDERED: ceFAZolin 1 GM in SODIUM CHLORIDE 0.9% IRRIG BTL 250 ML IRRIGATION PRN (18:03)
[2024-08-08] MEDS: SODIUM CHLORIDE 0.9% 1,000 ML IV ONE (18:30)
[2024-08-08] MEDS ORDERED: fentaNYL (PF) 50 MCG/ML 2 ML AMP ONE (18:31)
[2024-08-08] MEDS ORDERED: MIDAZOLAM 2 MG/2 ML VIAL ONE (18:31)
[2024-08-08] MEDS: ROPIVACAINE 5 MG/ML 30 ML VIAL MISCELLANE ONE (19:07)
[2024-08-08] MEDS: LIDOCAINE 1% INJ 10MG/ML (20 ML MDV) SQ ONE (19:07)
[2024-08-08] MEDS ORDERED: POTASSIUM CHLORIDE ER 20 MEQ TAB.ER PO PRN (19:47)
[2024-08-08] MEDS ORDERED: FUROSEMIDE 40 MG TAB PO PRN (19:47)
[2024-08-08] MEDS ORDERED: ACETAMINOPHEN TAB 325 MG TAB PO PRN (19:50)
--- NOTE | 2024-08-08 19:58 | P.EPPROC ---
- EP Procedure Note Electrophysiology Procedure Note: Diagnosis Cardiomyopathy, chronic, ischemic in nature underlying CAD, anterior wall [place] old status post stent Congestive heart failure [place] [employer] class 3 Wide QRS = 159 msec On guide line directed medical treatment for greater than 3 months Biventricular ICD at [place] Procedure: Biventricular ICD generator change for management of heart failure and sudden cardiac Result: Successful biventricular ICD generator change. New biventricular ICD, Medtronic cobalt XT heart failure Quad MRI DF 1 Chronic atrial lead: P waves 1.3 mV, pacing impedance 361 ohms, pacing threshold 0.8 V at 0.4 ms Chronic single coil RV ICD lead: R waves 8.3 mV, pacing impedance 400 ohms, high-voltage impedance 64 ohms and pacing threshold 0.8 V at 0.4 ms Chronic left ventricular lead: 874 ohms, pacing threshold 1.25 V at 1 ms Procedure details: Patient was brought to the EP lab in a fasting state. Written informed consent was obtained prior to the procedure. Options, pros and cons, benefits and risks and complications discussed with patient in detail prior to the procedure (shared decision making) previously. Importance of continuing medical treatment emphasized previously. Alternatives discussed previously. The left pectoral area was prepped and draped as a protocol. IV antibiotics administered 1% lidocaine was used for local anesthesia. A 4 cm incision was made parallel to the deltopectoral groove, about 1.5 cm medial to it. The incision was carried down to the level of the pectoralis muscle and the subfascial pocket was accessed. Partial capsulectomy performed Hemostasis assured Pocket irrigated with antibiotic solution Old generator explanted New Medtronic generator implanted Device interrogated again and reprogrammed LV offset -20 ms Monitor zone 150-176 beats a minute VT zone and VF zone with appropriate antitachycardia pacing cardioversion and defibrillation's Antibiotic pouch placed wound closed in 3 layers and dressed per protocol Biventricular ICD interrogated and programmed. Appropriate pacing parameters, antitachycardia therapies with antitachycardia pacing cardioversion defibrillations programmed. AV delay and biventricular pacing parameters programmed to achieve optimal physiologic pacing Patient tolerated the procedure well without any acute complications. See scanned device report in EMR for lead details
[2024-08-08 21:01] LABS: Glucose,Whole Blood 177 mg/dL (70-110)
[2024-08-08] MEDS: LACTATED RINGERS 1,000 ML IV SCH (21:11)
[2024-08-08] MEDS: ACETAMINOPHEN IV (For NPO) 1,000 MG in EMPTY BAG 1 BAG IVPB ONE (21:15)
[2024-08-08] MEDS: ATORVASTATIN 40 MG TAB PO SCH (21:17)
[2024-08-08] MEDS: MONTELUKAST 10 MG TAB PO SCH (21:17)
[2024-08-08] MEDS: SACUBITRIL/VALSARTAN 24 MG-26 MG TABLET PO SCH (21:17)
[2024-08-08] MEDS: ASPIRIN 81 MG PO SCH (21:17)
[2024-08-08] MEDS: METOPROLOL TARTRATE 50 MG TAB PO SCH (21:17)
[2024-08-08] MEDS: TAMSULOSIN 0.4 MG CAP.ER.24H PO SCH (21:17)
[2024-08-08] MEDS: IPRATROPIUM-ALBUTEROL 3 ML NEB INHALATION SCH (21:42)
[2024-08-08] MEDS: FORMOTEROL FUMARATE 20 MCG/2 ML NEBU INHALATION SCH (21:42)
[2024-08-08] MEDS: BUDESONIDE 0.5 MG/2 ML NEBU INHALATION SCH (21:42)
[2024-08-09] MEDS: PANTOPRAZOLE 40 MG TABLET PO SCH (06:06)
[2024-08-09 07:41] VITALS: BP 117/67; RESP 16; TEMP 98.4
[2024-08-09] MEDS: SPIRONOLACTONE 25 MG TAB PO SCH (09:10)
[2024-08-09] MEDS: DAPAGLIFLOZIN PROPANEDIOL 10 MG TABLET PO SCH (09:10)
[2024-08-09 09:52] VITALS: PULSE 60
--- NOTE | 2024-08-10 19:34 | P.DS ---
Providers Attending physician: Eric Magana Primary care physician: [facility] Course: Patient is doing well. He underwent a biventricular ICD generator change yesterday. ICD site is healing well He has known ischemic cardiomyopathy with underlying wide QRS and congestive heart failure Heart sounds are normal Breath sounds are clear No murmurs no gallop no rub Impression Ischemic cardiomyopathy with an underlying wide QRS with congestive heart failure, systolic, class III On guideline directed medical treatment Status post biventricular ICD generator change yesterday Patient has completed IV antibiotics and will be discharged home today and follow-up in the office in 1 week Instructions given Plan - Discharge Summary Discharge Rx Participant: No New Discharge Prescriptions: No Action Loratadine [Claritin] 10 mg PO DAILY Clindamycin Topical Soln [Cleocin-T Topical Soln] 1 applic TOPICAL BID PRN PRN Reason: Skin Irritation Budesonide [Pulmicort] 0.5 mg INHALATION RT-BID Albuterol Inhaler [Ventolin Hfa Inhaler] 1 - 2 puff INHALATION RT-QID PRN PRN Reason: Shortness Of Breath Montelukast [Singulair] 10 mg PO HS Ipratropium-Albuterol Nebulize [Duoneb 0.5 mg-3 mg/3 ml Soln] 3 ml INHALATION RT-QID Formoterol Fumarate [Perforomist] 20 mcg INHALATION RT-BID Nitroglycerin Sl Tabs [Nitrostat] 0.4 mg SL Q5M PRN PRN Reason: Chest Pain Potassium Chloride ER [K-Dur 20] 20 meq PO DAILY PRN PRN Reason: with lasix Atorvastatin [Lipitor] 40 mg PO HS Aspirin EC [Ecotrin Low Dose] 81 mg PO HS Omeprazole 20 mg PO BID Fluticasone/Umeclidin/Vilanter [Trelegy Ellipta 200-62.5-25] 1 puff INHALATION RT-DAILY Sacubitril/Valsartan [Entresto 24 mg-26 mg Tablet] 1 tab PO BID Ketoconazole 2% Cream [Nizoral 2%] 1 applic TOPICAL BID PRN PRN Reason: face and ear issues guaiFENesin [Mucinex] 1,200 mg PO BID PRN PRN Reason: Congestion Cholecalciferol [Vitamin D3 (125 Mcg = 5000 Iu)] 125 mcg PO DAILY Spironolactone [Aldactone] 25 mg PO DIRECTED Metoprolol Tartrate [Lopressor] 50 mg PO BID #60 tab Tamsulosin [Flomax] 0.4 mg PO BID Dapagliflozin Propanediol [Farxiga] 10 mg PO DAILY Furosemide [Lasix] 40 mg PO DAILY PRN #30 tab PRN Reason: Edema Discharge Medication List Albuterol Inhaler [Ventolin Hfa Inhaler] 1 - 2 puff INHALATION RT-QID PRN 05/22/17 [History] Aspirin EC [Ecotrin Low Dose] 81 mg PO HS 05/22/17 [History] Atorvastatin [Lipitor] 40 mg PO HS 05/22/17 [History] Budesonide [Pulmicort] 0.5 mg INHALATION RT-BID 05/22/17 [History] Clindamycin Topical Soln [Cleocin-T Topical Soln] 1 applic TOPICAL BID PRN 05/22/17 [History] Formoterol Fumarate [Perforomist] 20 mcg INHALATION RT-BID 05/22/17 [History] Ipratropium-Albuterol Nebulize [Duoneb 0.5 mg-3 mg/3 ml Soln] 3 ml INHALATION RT-QID 05/22/17 [History] Loratadine [Claritin] 10 mg PO DAILY 05/22/17 [History] Montelukast [Singulair] 10 mg PO HS 05/22/17 [History] Nitroglycerin Sl Tabs [Nitrostat] 0.4 mg SL Q5M PRN 05/22/17 [History] Potassium Chloride ER [K-Dur 20] 20 meq PO DAILY PRN 05/22/17 [History] Cholecalciferol [Vitamin D3 (125 Mcg = 5000 Iu)] 125 mcg PO DAILY 12/30/23 [History] Dapagliflozin Propanediol [Farxiga] 10 mg PO DAILY 12/30/23 [History] Fluticasone/Umeclidin/Vilanter [Trelegy Ellipta 200-62.5-25] 1 puff INHALATION RT-DAILY 12/30/23 [History] Ketoconazole 2% Cream [Nizoral 2%] 1 applic TOPICAL BID PRN 12/30/23 [History] Omeprazole 20 mg PO BID 12/30/23 [History] Sacubitril/Valsartan [Entresto 24 mg-26 mg Tablet] 1 tab PO BID 12/30/23 [History] Spironolactone [Aldactone] 25 mg PO DIRECTED 12/30/23 [History] Tamsulosin [Flomax] 0.4 mg PO BID 12/30/23 [History] guaiFENesin [Mucinex] 1,200 mg PO BID PRN 12/30/23 [History] Furosemide [Lasix] 40 mg PO DAILY PRN #30 tab 01/13/24 [Rx] Metoprolol Tartrate [Lopressor] 50 mg PO BID #60 tab 01/13/24 [Rx] Follow up Appointment(s)/Referral(s): Eric Magana MD [STAFF PHYSICIAN] - 08/15/24 3:30 pm (Appointment is at the Device Clinic located at [facility] Main Office on [address] Device clinic 08/15/24 Follow-up with Dr. Chatterjee 08/15/24 after device appointment ) Activity/Diet/Wound Care/Special Instructions: PATIENT EDUCATION MATERIAL Instructions following a heart rhythm device implant. 1. Keep dressing DRY for 5 DAYS. You may cover the area with Saran or Cling Wrap, prior to a shower. 2. The dressing will be removed in the Device Clinic at [facility]. Absorbable sutures were used to close the wound. 3. Avoid raising the left arm above the shoulder level. 4 week restriction 4. Avoid arm movements, like backscratching, rubbing the head, or pulling on a cord. 4 weeks restriction 5. Gentle range of motion movements of the shoulder, closest to the incision should be performed to avoid a frozen shoulder. (Pendulum exercises of the shoulder) 6. The opposite arm may be used freely. 7. Avoid driving for 7 days. 8. Avoid activities such as golfing, swimming, weed whacking, lifting more than 10 pounds weight, bowling, gymnastics and weight training/lifting. (6 weeks restriction) 9. Activities such as wood chopping with an axe, pull-ups in the gymnasium, power lifting, arc-welding, being close to home induction cooktops will always be a problem. 10. Arm sling is only a reminder not to raise the arm above the head. You do not need to keep the arm completely immobilized. Your free to move the arm and use it and for normal activities. In case of any problems, please call [facility] [place], @ [phone], Attention: Device Clinic Device clinic follow-up in 5 days Follow-up with primary molding line assistant in 2-3 months Discharge Disposition: HOME SELF-CARE
== END 2024-08-09 10:41 | disposition home or self-care (01) ==
LOC: CATHEP 15:00 → 6NMEDSUR 19:45 → CATHEP 08-09 10:41
PROVIDERS: ATTEND Internal Medicine Clinical Cardiac Electrophysiology
DX: Z45.02 Encounter for adjustment and management of automatic implantable cardiac defibrillator (principal); R42 Dizziness and giddiness; Z88.8 Allergy status to other drugs, medicaments and biological substances; Z87.891 Personal history of nicotine dependence
CPT/HCPCS: 94640 ×4; 33264; 80048; 85025; C1882; J2250; J0690 ×2; J2003; J3010; J2795

== ENCOUNTER → 2024-08-16 | Outpatient (CLI) | payer MEDICARE ==
--- NOTE | 2024-08-19 19:58 | US ---
EXAMINATION TYPE: US carotid duplex BILAT DATE OF EXAM: 08/16/2024 COMPARISON: NONE CLINICAL INDICATION: Male, 74 years old with history of R42 VERTIGO; Vertigo. Hx fainting spells. Additional History: R42* Dizziness TECHNIQUE: Grayscale, color Doppler and spectral Doppler evaluation of the bilateral carotid systems and vertebral arteries.Indirect Doppler criteria was utilized. FINDINGS: EXAM MEASUREMENTS: RIGHT: Peak Systolic Velocity (PSV) cm/sec ----- Right CCA: 78.4 ----- Right ICA: 68.8 ----- Right ECA: 72.2 ICA/CCA ratio: 0.88 RIGHT: End Diastole cm/sec ----- Right CCA: 14.3 ----- Right ICA: 21.8 ----- Right ECA: 0.0 LEFT: Peak Systolic Velocity (PSV) cm/sec ----- Left CCA: 81.4 ----- Left ICA: 87.9 ----- Left ECA: 63.4 ICA/CCA ratio: 1.08 LEFT: End Diastole cm/sec ----- Left CCA: 17.8 ----- Left ICA: 27.7 ----- Left ECA: 0.0 VERTEBRALS (direction of flow): Right Vertebral: Antegrade Left Vertebral: Antegrade Rhythm: Normal DISPLAYER NOTES: *No elevated velocities. Minimal plaque seen within left bulb. IMPRESSION: No evidence for hemodynamically significant stenosis Right: Left: Criteria for Assigning % of Stenosis / Diameter reduction (Estimation based on the indirect measurements of the internal carotid artery velocities (ICA PSV). 1. Normal (no stenosis)=ICA PSV < 125 cm/s: ratio < 2.0: ICA EDV<40 cm/s. 2. Less than 50% stenosis=ICA PSV < 125 cm/s: ratio < 2.0: ICA EDV<40 cm/s. 3. 50 to 69% stenosis=ICA PSV of 125 to 230 cm/s: ration 2.0 ? 4.0: ICA EDV 40-100 cm/s. 4. Greater than 70% stenosis to near occlusion= ICA PSV > 230 cm/s: ratio > 4.0: ICA EDV > 100 cm/s. 5. Near occlusion= ICA PSV velocities may be low or undetectable: variable ratio and ICA EDV. 6. Total occlusion=unable to detect flow. [facility], , 08/19/2024 7:56 PM
== END | disposition home or self-care (01) ==
LOC: RADUSWWP 14:18
PROVIDERS: ATTEND Family Medicine
DX: R42 Dizziness and giddiness (principal); R55 Syncope and collapse
CPT/HCPCS: 93880